=== PATIENT | female | born 1955 | race Hispanic/Latino ===

== ENCOUNTER 2018-08-30 14:42 | Inpatient (IN) | payer BC ==
--- NOTE | 2018-08-30 14:56 | PCM.RRT ---
<CrystalleighKeenan cole - Last Filed: 08/30/18 15:10> DYED YARN OPERATOR Nurse Assessment - Situation Date: 08/30/18 Time DYED YARN OPERATOR was called: 14:05 DYED YARN OPERATOR Location:: cardiac testing wait room DYED YARN OPERATOR Reason for Call: Possible Stroke DYED YARN OPERATOR Called By: RN - Recommendations 5) DYED YARN OPERATOR Level of Care Recommendations: transfer to ED I.Reason for DYED YARN OPERATOR - A) Acute Change in Patient: Subjective: Rapid response was called on patient in cardiac testing waiting room for concern for possible stroke. Patient was noted to have facial paralysis and left sided motor deficit. Patient was evaluated by medical staff and immediately transferred via stretcher to emergency department. Upon arrival to emergency department patient was transferred care to ED attending. Patient was transferred to cat scan for Head CT. - Neurological Status (Select all that apply): Alert, Responsive, Oriented, Verbal, Weakness (left sided) - Head Head Exam: ATRAUMATIC, NORMAL INSPECTION, NORMOCEPHALIC Additional Comments: facial parlaysis - Cardiovascular Exam Cardiovascular Exam: REGULAR RHYTHM, +S1, +S2 - GI/Abdominal Exam GI & Abdominal Exam: Soft, Normal Bowel Sounds - Neurological Exam Neurological Exam: Alert, Awake, Motor Sensory Deficit (left upper and lower extremity), Oriented x3 Additional exam: Left sided facial paralysis - Extremities Exam Extremities Exam: Full ROM Plan - Assessment of Findings&Treatment Plan -Patient transferred to ED from cardiac outpatient testing facility -Code Stroke called -Head CT w/o contrast ordered -Care transferred to Dr. Bond <Belkys Aguilar - Last Filed: 09/01/18 07:51> Attending/Attestation - Attestation I have personally seen and examined this patient.: Yes I have fully participated in the care of the patient.: Yes I have reviewed all pertinent clinical information, including history, physical exam and plan: Yes Notes (Text): Patient seen and examined by me with resident at 2:05PM on 08/30/18. Agree with above with following additions/corrections. Rapid response was called as patient was experiencing a facial droop and left sided weakness. Paitent was in an outpatient cardiac testing waiting room. Patient was able to speak and give her daughter's name. Patient was immediately transferred to ER for possible stroke. Case was discussed immediately on arrival to ED with ER attending Dr. Bond. Care transferred to Dr. Bond. Patient was sent to CT for head CT and Code stroke was called.
[2018-08-30] MEDS ORDERED: Sodium Chloride 0.9% 1,000 ML IV SCH (15:00)
--- NOTE | 2018-08-30 15:05 | ED PDOC ---
Arrival/HPI - General Time Seen by Provider: 08/30/18 14:46 Historian: Patient - History of Present Illness Narrative History of Present Illness (Text): 08/30/18 15:18 63 f with hx migraine headache presents to the ED for evaluation of acute slurred, facial droop, and left arm weakness. Patient was in waiting area in the hospital and was found in current state, rapid response call, and patient was brought to the ED immediately. Patient was seen immediately upon arrival. Patient was in her usual state of health, denies headache, denies chest pain, denies trauma. Patient reports numbness and weakness in the left arm and left side of face, +slurred speech, no lower extremity weakness or numbness. Time/Duration: Prior to Arrival Symptom Onset: Sudden Symptom Course: Improving Activities at Onset: Light Context: Other (Hospital waiting area) Family/Social History Family/Social History: No Known Family HX Allergies/Home Meds Allergies/Adverse Reactions: Allergies Iodinated Contrast- Oral and IV Dye Adverse Reaction (Verified 08/30/18 18:43) SHORTNESS OF BREATH Home Medications: Home Meds Medication Instructions Recorded Confirmed Rosuvastatin Calcium [Crestor] 10 mg PO DAILY 08/30/18 08/30/18 Review of Systems - Physician Review All systems were reviewed & negative as marked: Yes - Review of Systems Constitutional: absent: Other (trauma) Cardiovascular: absent: Chest Pain Neurological: Speech Changes (acute slurred speech), Facial Droop, Other (numbness and weakness to left arm and left side of face). absent: Headache Physical Exam - Physical Exam Narrative Physical Exam (Text): 08/30/18 15:21 Gen: VS reviewed, alert, well developed, well nourished, nontoxic, mild distress Eye: EOMI, PERRL Neck: no JVD, supple, no adenopathy CV: regular rate, regular rhythm, no rubs,no murmur, S1, S2 Pulm: no distress, clear to auscultation, no wheeze, no rhonchi, breath sounds equal, no rales Abd: soft, nontender, no guarding, no rebound, no rigidity Ext: no edema Skin: good color, no rash, no cyanosis Psych: responds appropriately to questions, normal affect Neuro: oriented x3, complete paralysis of left arm intact, complete numbness of left arm, diminished sensation to the left lower face. Vital Signs Reviewed: Yes Temperature: Afebrile Blood Pressure: Normal Pulse: Regular Respiratory Rate: Normal Appearance: Positive for: Well-Appearing, Non-Toxic Mental Status: Positive for: Alert and Oriented X 3 Medical Decision Making ED Course and Treatment: 08/30/18 15:05 1500: case discussed with dr. suarez, neurology, agrees that the patient is not a candidate for thrombolysis, recommends mri tomorrow,CT in 12 hours, keppra 500mg Q12, maintain SBP 130-150's 08/30/18 15:[address] keith, no acute neurosurgical intervention at this time, repeat CT as indicated admit accepted by dr. lundberg case discussed with dr. dr. singh, furniture mechanic, will see pt in consult 09/06/18 19:44 patient was seen for acute neurologic deficit (weakness and numbness), found to have a spontaneous intracranial bleed. patient was no a candidate due to obvious intracranial bleed. patient remained awake and alert during entire ED stay and was admitted to the ICU. - Critical Care Critical Care Minutes: 60 minutes - RAD Interpretation Narrative RAD Interpretations (Text): 08/30/18 15:30 Procedure: Chest X-ray Dictator: Sundeep Levin Impression: No active disease. Procedure: Head CT Dictator: Sundeep Levin MD Impression: 4 x 3.8 centimeter parenchymal hematoma at the right frontal parietal lobe surrounding with edema which resulting in mild mass effect on the adjacent structure. 2.6 millimeter right to left midline shift noted. No evidence of hydrocephalus. No evidence of transcortical infarct. Radiology Orders: 08/30/18 14:53 HEAD W/O (CODE STROKE) [CT] Stat 08/30/18 14:56 CHEST PORTABLE [RAD] Stat Safety Engineer: Radiologist - EKG Interpretation EKG Interpretation (Text): 08/30/18 16:14 1512: nser at 87 bpm, nml qrs, nml axis, nonspecific t wave abn Interpreted by ED Physician: Yes - Medication Orders Current Medication Orders: Sodium Chloride (Sodium Chloride 0.9%) 1,000 mls @ 100 mls/hr IV .Q10H [facility] NIHSS Scale ([place]) Time Performed: 15:00 - How Severe is the Stoke Baseline Level of Consciousness: 0=Alert LOC to Questions: 0=Both comments correct LOC to commands: 0=Obeys both correctly Best Gaze: 0=Normal Visual: 0=No visual loss Facial: 3=Complete unilateral paralysis Motor Arm - Left: 4=No movement Motor Arm - Right: 0=No drift Motor Leg - Left: 0=No drift Motor Leg - Right: 0=No drift Limb Ataxia: 0=Absent Sensory: 2=Severe to total loss Best Language: 0=No aphasia Dysarthia: 1=Mild to moderate slurring Extinction & Inattention (Neglect): 0=Normal, no object Score: 10 Risk Level: Mod Stroke Risk rTPA Inclusion/Exclusion - Refusal of Treatment Patient Refused Treatment: No - Inclusion Criteria for Altepase Patient is 18 years or Older: Yes The Clinical Diagnosis of Ischemic Stroke That is Causing a Potentially Disabling Neurological Deficit: Yes Time of Onset is Well Established to be Less Than 270 Minute Before Treatment Would Begin: Yes Risk/Benefit Discussed With Patient/Family Member Present: Yes - Exclusion Criteria for Altepase Evidence of an Intracranial Hemorrhage: Yes Disposition/Present on Arrival - Present on Arrival Any Indicators Present on Arrival: No - Disposition Have Diagnosis and Disposition been Completed?: Yes Diagnosis: Intracerebral hemorrhage Disposition: HOSPITALIZED Disposition Time: 15:56 Patient Plan: Admission Patient Problems: Current Active Problems Problem Status Onset Intracerebral hemorrhage Acute Condition: CRITICAL
--- NOTE | 2018-08-30 15:06 | CT ---
Date of service: 08/30/2018 PROCEDURE: CT HEAD WITHOUT CONTRAST. HISTORY: code stroke, left sided weakness COMPARISON: None available. TECHNIQUE: Axial computed tomography images were obtained through the head/brain without intravenous contrast. Radiation dose: Total exam DLP = 973.37 mGy-cm. This CT exam was performed using one or more of the following dose reduction techniques: Automated exposure control, adjustment of the mA and/or kV according to patient size, and/or use of iterative reconstruction technique. FINDINGS: HEMORRHAGE: There is acute intraparenchymal hemorrhage noted at the right frontal parietal lobe measures approximately 4 centimeter in the largest transverse diameter and 3.8 centimeter in the largest AP diameter surrounding with mild edema. BRAIN: There is mild mass effect on the right lateral ventricle noted. There is approximately 2.6 millimeter [id number] midline shift.. No atrophy or chronic microvascular ischemic changes. VENTRICLES: Unremarkable. No hydrocephalus. CALVARIUM: Unremarkable. PARANASAL SINUSES: Unremarkable as visualized. No significant inflammatory changes. MASTOID AIR CELLS: Unremarkable as visualized. No inflammatory changes. OTHER FINDINGS: None. IMPRESSION: 4 x 3.8 centimeter parenchymal hematoma at the right frontal parietal lobe surrounding with edema which resulting in mild mass effect on the adjacent structure. 2.6 millimeter right to left midline shift noted. No evidence of hydrocephalus. No evidence of transcortical infarct.
[2018-08-30] MEDS ORDERED: levETIRAcetam 500 MG in Sodium Chloride 0.9% 100 ML IVPB ONE (15:07)
[2018-08-30 15:13] LABS: BASO # 0.02 K/mm3 (0.0-2.0); BASO % 0.3 % (0.0-3.0); EOS # 0.1 (0.0-0.7); EOS % 0.9 % (1.5-5.0); LYMPH # 1.4 (1.2-3.4); MEAN CELL VOLUME 62.9 fl (80.0-105.0); MEAN CORPUSCULAR HGB CONC 31.7 g/dl (31.0-37.0); MEAN PLATELET VOLUME 10.2 fl (7.0-11.0); MONO # 0.5 (0.1-0.6); MONO % 7.1 % (1.0-6.0); RBC 6.01 10^6/uL (3.5-6.1); RED CELL DISTRIBUTION WIDTH 15.5 % (11.5-14.5); WHITE BLOOD COUNT 7.5 10^3/uL (4.5-11.0)
[2018-08-30 15:15] VITALS: BMI 26.9
[2018-08-30 15:23] LABS: ALB/GLOB RATIO 1.3 (1.1-1.8); ALBUMIN 4.5 g/dL (3.0-4.8); ALT/SGPT 12 U/L (7-56); AST/SGOT 22 U/L (14-36); BLOOD UREA NITROGEN 16 mg/dL (7-21); CALCIUM 9.6 mg/dL (8.4-10.5); GFR NON-AFRICAN AMERICAN > 60; HDL CHOLESTEROL 55 mg/dL (29-60)
[2018-08-30 15:31] LABS: INR 1.04; PARTIAL THROMBOPLASTIN TIME 33.6 Seconds (26.9-38.3); PROTHROMBIN TIME 11.5 SECONDS (9.4-12.5)
[2018-08-30 15:35] LABS: LDL CHOLESTEROL 72 mg/dL (0-129)
[2018-08-30 15:41] LABS: TROPONIN I < 0.01 ng/mL
--- NOTE | 2018-08-30 16:05 | CP.PCM.CON ---
<Ino Cuellar - Last Filed: 08/30/18 16:21> History of Present Illness - History of Present Illness History of Present Illness: PGY-1 Neurology Consult note for Dr. Gutierrez Consulting physician: Dr. Almeida CC: Left-sided weakness, left facial droop, and dysarthria HPI: Patient is a 63 year old female with past medical history of migraine headaches, presenting with left-sided weakness, left-sided facial droop, and slurred speech. Patient was in the hospital waiting for her at cardiac outpatient treatment facility when suddenly she felt that her left arm started feeling weak. She states that she then started feeling weak on the left side of her body and was slurring her words. Rapid response was called and patient was brought into the ED where a code stroke was called. She denies fevers, chills, nausea, vomiting, shortness of breath, chest pain, abdominal pain, diarrhea, constipation, or urinary symptoms. In ED, code stroke was called. NIHSS score: 19. Patient was not a candidate for tPA. PMHx: Migraine headaches PSHx: denies Social Hx: Denies tobacco, alcohol, or drug use. Family Hx: Father has CHF. Two brothers have CAD. Allergies: Iodinated contrast PMD: Dr. Elizabeth Review of Systems - Review of Systems All systems: reviewed and no additional remarkable complaints except Meds Allergies/Adverse Reactions: Allergies Allergy/AdvReac Type Severity Reaction Status Date / Time Iodinated Contrast- Oral and AdvReac SHORTNESS Verified 08/30/18 18:43 IV Dye OF BREATH - Medications Medications: Current Medications Sodium Chloride (Sodium Chloride 0.9%) 1,000 mls @ 100 mls/hr IV .Q10H [facility] Last Admin: 08/30/18 15:13 Dose: 100 mls/hr Physical Exam - Constitutional Appears: No Acute Distress Additional comments: Patient seems lethargic. - Head Exam Head Exam: ATRAUMATIC, NORMAL INSPECTION - Eye Exam Eye Exam: absent: EOMI (Left eye do not track past midline) Pupil Exam: NORMAL ACCOMODATION, PERRL - ENT Exam ENT Exam: Mucous Membranes Moist - Respiratory Exam Respiratory Exam: Clear to Auscultation Bilateral. absent: Rales, Rhonchi, Wheezes, Respiratory Distress - Cardiovascular Exam Cardiovascular Exam: REGULAR RHYTHM, +S1, +S2. absent: Systolic Murmur - GI/Abdominal Exam GI & Abdominal Exam: Normal Bowel Sounds, Soft. absent: Tenderness - Extremities Exam Extremities exam: Negative for: calf tenderness, pedal edema - Neurological Exam Neurological exam: Alert, Oriented x3 Additional comments: Left-sided facial droop with sparing of forehead noted. Facial sensations intact bilaterally on CN V1, V2, and V3 distributions. Patient has slurred speech. Patient has left homonymous hemianopsia and left extraocular muscles not intact. Muscle strength 0/5 in LUE and 1/5 in LLE. Muscle strength 5/5 and no drift noted in RUE and RLE. Sensations are intact bilaterally in upper and lower extremities. - Psychiatric Exam Psychiatric exam: Flat Affect - Skin Skin Exam: Dry, Intact, Normal Color, Warm Results - Labs Result Diagrams: 08/30/18 15:05 08/30/18 15:05 Labs: Laboratory Results - last 24 hr 08/30/18 08/30/18 08/30/18 15:01 15:05 15:05 WBC 7.5 RBC 6.01 Hgb 12.0 Hct 37.8 MCV 62.9 L MCH 20.0 L MCHC 31.7 RDW 15.5 H Plt Count 238 MPV 10.2 Neut % (Auto) 72.7 H Lymph % (Auto) 19.0 L Door % (Auto) 7.1 H Eos % (Auto) 0.9 L Baso % (Auto) 0.3 Lymph # (Auto) 1.4 Door # (Auto) 0.5 Eos # (Auto) 0.1 Baso # (Auto) 0.02 Absolute Neuts (auto) 5.46 PT 11.5 INR 1.04 APTT 33.6 Sodium Potassium Chloride Carbon Dioxide Anion Gap BUN Creatinine Est GFR ( Amer) Est GFR (Non-Af Amer) POC Glucose (mg/dL) 123 H Random Glucose Calcium Total Bilirubin AST ALT Alkaline Phosphatase Troponin I Total Protein Albumin Globulin Albumin/Globulin Ratio Triglycerides Cholesterol LDL Cholesterol Direct HDL Cholesterol BBK History Checked 08/30/18 08/30/18 15:05 15:05 WBC RBC Hgb Hct MCV MCH MCHC RDW Plt Count MPV Neut % (Auto) Lymph % (Auto) Door % (Auto) Eos % (Auto) Baso % (Auto) Lymph # (Auto) Door # (Auto) Eos # (Auto) Baso # (Auto) Absolute Neuts (auto) PT INR APTT Sodium 141 Potassium 3.8 Chloride 105 Carbon Dioxide 28 Anion Gap 12 BUN 16 Creatinine 0.7 Est GFR ( Amer) > 60 Est GFR (Non-Af Amer) > 60 POC Glucose (mg/dL) Random Glucose 111 H Calcium 9.6 Total Bilirubin 0.3 AST 22 ALT 12 Alkaline Phosphatase 99 Troponin I < 0.01 Total Protein 7.9 Albumin 4.5 Globulin 3.4 Albumin/Globulin Ratio 1.3 Triglycerides 149 Cholesterol 157 LDL Cholesterol Direct 72 HDL Cholesterol 55 BBK History Checked No verified bt Assessment & Plan - Assessment and Plan (Free Text) Assessment: Patient is a 63 year old female presenting with left-sided weakness, left facial droop, and dysarthria. Patient was found to have a 4x3.8 cm parenchymal hematoma in the right frontoparietal lobe with surrounding edema. She will be admitted to ICU. Plan: - Head CT: 4 x 3.8 centimeter parenchymal hematoma at the right frontal parietal lobe surrounding with edema which resulting in mild mass effect on the adjacent structure. 2.6 millimeter right to left midline shift noted. No evidence of hydrocephalus. No evidence of transcortical infarct. - NIHSS score: 19 - Monitor patient in ICU - Neurosurgery, Dr. Paula consulted- No surgical intervention at this time - Hold Aspirin and other anticoagulants - Repeat Head CT in 12 hours - MRI ordered for tomorrow morning - Start Keppra 500mg IV BID - Keep SBP between 130-150 - Seizure, fall, aspiration precautions - Neurochecks Q1H - EKG: NSR @ 87 bpm - Lipid panel: WNL - Troponin: <0.01 X1 - HbA1c, TSH: pending - Further recommendations as per Dr. Gutierrez Case discussed with attending, Dr. Brenda Cuellar, PGY-1 <Thanh Gutierrez - Last Filed: 08/31/18 13:29> Meds - Medications Medications: Current Medications Levetiracetam 500 mg/ Sodium (Chloride) 105 mls @ 215 mls/hr IVPB Q12 [facility] Last Admin: 08/31/18 09:28 Dose: 215 mls/hr Sodium Chloride (Hypertonic Saline 3%) 500 mls @ 40 mls/hr IV .[id number] [facility] Last Admin: 08/31/18 07:00 Dose: 40 mls/hr Pantoprazole Sodium (Protonix Inj) 40 mg IVP DAILY [facility] Last Admin: 08/31/18 11:18 Dose: 40 mg Results - Vital Signs Recent Vital Signs: Last Vital Signs Temp 99.2 F 08/31/18 08:00 Pulse 65 08/31/18 10:00 Resp 15 08/31/18 08:40 BP 149/73 08/31/18 08:40 Pulse Ox 95 08/31/18 08:40 - Labs Result Diagrams: 08/31/18 05:30 08/31/18 09:40 Labs: Laboratory Results - last 24 hr 08/30/18 08/30/18 08/30/18 15:01 15:05 15:05 WBC 7.5 RBC 6.01 Hgb 12.0 Hct 37.8 MCV 62.9 L MCH 20.0 L MCHC 31.7 RDW 15.5 H Plt Count 238 MPV 10.2 Neut % (Auto) 72.7 H Lymph % (Auto) 19.0 L Door % (Auto) 7.1 H Eos % (Auto) 0.9 L Baso % (Auto) 0.3 Lymph # (Auto) 1.4 Door # (Auto) 0.5 Eos # (Auto) 0.1 Baso # (Auto) 0.02 Absolute Neuts (auto) 5.46 PT 11.5 INR 1.04 APTT 33.6 pCO2 pO2 HCO3 ABG pH ABG Total CO2 ABG O2 Saturation ABG Base Excess ABG Potassium Glucose Lactate FiO2 Sodium Potassium Chloride Carbon Dioxide Anion Gap BUN Creatinine Est GFR ( Amer) Est GFR (Non-Af Amer) POC Glucose (mg/dL) 123 H Random Glucose Hemoglobin A1c Calcium Phosphorus Magnesium Total Bilirubin AST ALT Alkaline Phosphatase Troponin I Total Protein Albumin Globulin Albumin/Globulin Ratio Triglycerides Cholesterol LDL Cholesterol Direct HDL Cholesterol TSH 3rd Generation Arterial Blood Potassium Blood Type Blood Type Confirm Antibody Screen BBK History Checked 08/30/18 08/30/18 08/30/18 15:05 15:05 15:05 WBC RBC Hgb Hct MCV MCH MCHC RDW Plt Count MPV Neut % (Auto) Lymph % (Auto) Door % (Auto) Eos % (Auto) Baso % (Auto) Lymph # (Auto) Door # (Auto) Eos # (Auto) Baso # (Auto) Absolute Neuts (auto) PT INR APTT pCO2 pO2 HCO3 ABG pH ABG Total CO2 ABG O2 Saturation ABG Base Excess ABG Potassium Glucose Lactate FiO2 Sodium 141 Potassium 3.8 Chloride 105 Carbon Dioxide 28 Anion Gap 12 BUN 16 Creatinine 0.7 Est GFR ( Amer) > 60 Est GFR (Non-Af Amer) > 60 POC Glucose (mg/dL) Random Glucose 111 H Hemoglobin A1c 6.2 Calcium 9.6 Phosphorus Magnesium Total Bilirubin 0.3 AST 22 ALT 12 Alkaline Phosphatase 99 Troponin I < 0.01 Total Protein 7.9 Albumin 4.5 Globulin 3.4 Albumin/Globulin Ratio 1.3 Triglycerides 149 Cholesterol 157 LDL Cholesterol Direct 72 HDL Cholesterol 55 TSH 3rd Generation Arterial Blood Potassium Blood Type A POSITIVE Blood Type Confirm Antibody Screen Negative BBK History Checked No verified bt 08/30/18 08/31/18 08/31/18 16:03 05:30 05:30 WBC 7.8 RBC 5.65 Hgb 11.3 L Hct 35.8 L MCV 63.4 L MCH 20.0 L MCHC 31.6 RDW 15.7 H Plt Count 207 MPV 10.1 Neut % (Auto) Lymph % (Auto) Door % (Auto) Eos % (Auto) Baso % (Auto) Lymph # (Auto) Door # (Auto) Eos # (Auto) Baso # (Auto) Absolute Neuts (auto) PT INR APTT pCO2 pO2 HCO3 ABG pH ABG Total CO2 ABG O2 Saturation ABG Base Excess ABG Potassium Glucose Lactate FiO2 Sodium 142 Potassium 3.9 Chloride 109 H Carbon Dioxide 26 Anion Gap 10 BUN 13 Creatinine 0.6 L Est GFR ( Amer) > 60 Est GFR (Non-Af Amer) > 60 POC Glucose (mg/dL) Random Glucose 95 Hemoglobin A1c Calcium 8.9 Phosphorus 3.2 Magnesium 2.3 H Total Bilirubin AST ALT Alkaline Phosphatase Troponin I Total Protein Albumin Globulin Albumin/Globulin Ratio Triglycerides Cholesterol LDL Cholesterol Direct HDL Cholesterol TSH 3rd Generation Arterial Blood Potassium Blood Type Blood Type Confirm A POSITIVE Antibody Screen BBK History Checked 08/31/18 08/31/18 08/31/18 05:30 07:35 08:52 WBC RBC Hgb Hct MCV MCH MCHC RDW Plt Count MPV Neut % (Auto) Lymph % (Auto) Door % (Auto) Eos % (Auto) Baso % (Auto) Lymph # (Auto) Door # (Auto) Eos # (Auto) Baso # (Auto) Absolute Neuts (auto) PT INR APTT pCO2 33 L pO2 91.0 HCO3 21.9 ABG pH 7.43 ABG Total CO2 22.9 ABG O2 Saturation 99.0 H ABG Base Excess -1.7 ABG Potassium 3.2 L Glucose 88 Lactate 0.7 FiO2 21.0 Sodium 148.0 Potassium Chloride 119.0 H Carbon Dioxide Anion Gap BUN Creatinine Est GFR ( Amer) Est GFR (Non-Af Amer) POC Glucose (mg/dL) 86 Random Glucose Hemoglobin A1c Calcium Phosphorus Magnesium Total Bilirubin AST ALT Alkaline Phosphatase Troponin I Total Protein Albumin Globulin Albumin/Globulin Ratio Triglycerides Cholesterol LDL Cholesterol Direct HDL Cholesterol TSH 3rd Generation 1.29 Arterial Blood Potassium 3.2 L Blood Type Blood Type Confirm Antibody Screen BBK History Checked 08/31/18 08/31/18 09:40 11:09 WBC RBC Hgb Hct MCV MCH MCHC RDW Plt Count MPV Neut % (Auto) Lymph % (Auto) Door % (Auto) Eos % (Auto) Baso % (Auto) Lymph # (Auto) Door # (Auto) Eos # (Auto) Baso # (Auto) Absolute Neuts (auto) PT INR APTT pCO2 pO2 HCO3 ABG pH ABG Total CO2 ABG O2 Saturation ABG Base Excess ABG Potassium Glucose Lactate FiO2 Sodium 143 Potassium 4.1 Chloride 112 H Carbon Dioxide 25 Anion Gap 11 BUN 11 Creatinine 0.6 L Est GFR ( Amer) > 60 Est GFR (Non-Af Amer) > 60 POC Glucose (mg/dL) 85 Random Glucose 95 Hemoglobin A1c Calcium 8.8 Phosphorus Magnesium Total Bilirubin AST ALT Alkaline Phosphatase Troponin I Total Protein Albumin Globulin Albumin/Globulin Ratio Triglycerides Cholesterol LDL Cholesterol Direct HDL Cholesterol TSH 3rd Generation Arterial Blood Potassium Blood Type Blood Type Confirm Antibody Screen BBK History Checked Attending/Attestation - Attestation I have personally seen and examined this patient.: Yes I have fully participated in the care of the patient.: Yes I have reviewed all pertinent clinical information: Yes Notes (Text): I agree with the assessment and plan. The patient has a large right hemisphere ICH with significant edema. Will start hypertonic therapy and give Keppra for prophylaxis. Goal of serum sodium will be 145-150 and osm < 320.
--- NOTE | 2018-08-30 16:06 | CP.PCM.CON ---
<Keenan Hinds - Last Filed: 08/30/18 15:57> History of Present Illness - History of Present Illness History of Present Illness: ICU Consult Note for Dr. Viveros Reason for Consultation: ICH Patient is a 63 yo with PMH of migraines presents to [facility] [place] ED for code stroke. Patient was in waiting area while was having a procedure done. Patient started to complain of left sided weakness and rapid response was called. Patient was noted to have left sided facial droop, left arm weakness, and left arm numbness. Patient was immediately transferred to the ED. In the ED, patient was found to have a 4x3.8 cm parenchymal hematoma in the right frontoparietal lobe with surrounding edema. ICU was consulted for close monitoring. At time of examination, patient was awake, alert and oriented x3. Patient continued to have left sided weakness, facial droop, and dysarthria. Patient denied CP, SOB, n/v/d, abdominal pain, fever, chills, TRINH, or dizziness. PMD: Cardiello PMH: Migraines Surg: Denied All: Iodinated Contrast dye SH: Denied tobacco, EtOH, and illicit drug use FHx: CAD, CHF Medications: Magnesium, ASA 81 Review of Systems - Review of Systems All systems: reviewed and no additional remarkable complaints except (12 point ROS reviewed and is negative other than what is stated in HPI.) Meds Allergies/Adverse Reactions: Allergies Allergy/AdvReac Type Severity Reaction Status Date / Time Iodinated Contrast- Oral and AdvReac SHORTNESS Verified 08/30/18 14:52 IV Dye OF BREATH - Medications Medications: Current Medications Sodium Chloride (Sodium Chloride 0.9%) 1,000 mls @ 100 mls/hr IV .Q10H [facility] Last Admin: 08/30/18 15:13 Dose: 100 mls/hr Physical Exam - Head Exam Head Exam: ATRAUMATIC, NORMOCEPHALIC - Eye Exam Eye Exam: absent: EOMI (eyes do not track left past midline) Additional comments: left homonymous hemianopsia - ENT Exam ENT Exam: Mucous Membranes Moist, Normal Exam - Respiratory Exam Respiratory Exam: Clear to Auscultation Bilateral. absent: Rales, Rhonchi, Wheezes - Cardiovascular Exam Cardiovascular Exam: RRR, +S1, +S2. absent: Clicks, Gallop, Rubs - GI/Abdominal Exam GI & Abdominal Exam: Soft. absent: Distended, Guarding, Mass, Rebound, Tenderness - Extremities Exam Extremities exam: Positive for: normal inspection - Back Exam Back exam: NORMAL INSPECTION - Neurological Exam Neurological exam: Alert, Motor Sensory Deficit (left sided hemiplegia UE/LE), Oriented x3 Additional comments: Left sided neglect Left UE/LE hemiplegia Right sided strength intact Left sided facial droop, forehead spared Dysarthria No pronator drift present in right arm Right arm proprioception intact - Psychiatric Exam Psychiatric exam: Anxious - Skin Skin Exam: Dry, Warm Results - Labs Result Diagrams: 08/30/18 15:05 08/30/18 15:05 Labs: Laboratory Results - last 24 hr 08/30/18 08/30/18 08/30/18 15:01 15:05 15:05 WBC 7.5 RBC 6.01 Hgb 12.0 Hct 37.8 MCV 62.9 L MCH 20.0 L MCHC 31.7 RDW 15.5 H Plt Count 238 MPV 10.2 Neut % (Auto) 72.7 H Lymph % (Auto) 19.0 L [place] % (Auto) 7.1 H Eos % (Auto) 0.9 L Baso % (Auto) 0.3 Lymph # (Auto) 1.4 [place] # (Auto) 0.5 Eos # (Auto) 0.1 Baso # (Auto) 0.02 Absolute Neuts (auto) 5.46 PT 11.5 INR 1.04 APTT 33.6 Sodium Potassium Chloride Carbon Dioxide Anion Gap BUN Creatinine Est GFR ( Amer) Est GFR (Non-Af Amer) POC Glucose (mg/dL) 123 H Random Glucose Calcium Total Bilirubin AST ALT Alkaline Phosphatase Troponin I Total Protein Albumin Globulin Albumin/Globulin Ratio Triglycerides Cholesterol LDL Cholesterol Direct HDL Cholesterol BBK History Checked 08/30/18 08/30/18 15:05 15:05 WBC RBC Hgb Hct MCV MCH MCHC RDW Plt Count MPV Neut % (Auto) Lymph % (Auto) [place] % (Auto) Eos % (Auto) Baso % (Auto) Lymph # (Auto) [place] # (Auto) Eos # (Auto) Baso # (Auto) Absolute Neuts (auto) PT INR APTT Sodium 141 Potassium 3.8 Chloride 105 Carbon Dioxide 28 Anion Gap 12 BUN 16 Creatinine 0.7 Est GFR ( Amer) > 60 Est GFR (Non-Af Amer) > 60 POC Glucose (mg/dL) Random Glucose 111 H Calcium 9.6 Total Bilirubin 0.3 AST 22 ALT 12 Alkaline Phosphatase 99 Troponin I < 0.01 Total Protein 7.9 Albumin 4.5 Globulin 3.4 Albumin/Globulin Ratio 1.3 Triglycerides 149 Cholesterol 157 LDL Cholesterol Direct 72 HDL Cholesterol 55 BBK History Checked No verified bt Assessment & Plan - Assessment and Plan (Free Text) Assessment: 63 yo F with PMH of migraines presents to [facility] [place] for left-sided deficits. Will admitto the ICU for close monitoring due to parenchymal hematoma in the right frontal parietal lobe. 1. Right frontoparietal ICH Plan: Neuro: - Head CT showed 4x3.8 cm parenchymal hematoma in the right frontoparietal lobe with surrounding edema and 2.6 mm midline shift right to left - Head CT in 12 hrs - Brain MRI in AM - Keppra - No steroids or hypertonic saline at this time per neurology - Neurology Consulted - Neurosurgery Consulted: no acute surgical intervention at this time - Maintain normothermia Cardio: - Monitor BP, target SBP 130-150 per neurology - Maintain MAP > 65 - Hold home ASA Pulm: - Maintain O2 sat > 92% GI: - Protonix - NPO Renal: - Monitor electrolytes, replete/correct as needed - Maintain euvolemia Heme: - SCD's for DVT PPx Endo: - Maintain euglycemia Patient seen and discussed in detail with Dr. Viveros. Mauri Hinds, PGY2 NIHSS Scale ([place]) Time Performed: 16:00 - How Severe is the Stoke Baseline Level of Consciousness: 1=Drowsy LOC to Questions: 0=Both comments correct LOC to commands: 0=Obeys both correctly Best Gaze: 0=Normal Visual: 1=Partial hemianopia Facial: 3=Complete unilateral paralysis Motor Arm - Left: 4=No movement Motor Arm - Right: 0=No drift Motor Leg - Left: 0=No drift Motor Leg - Right: 4=No movement Limb Ataxia: 2=Present both Sensory: 1=Mild to moderate loss Best Language: 1=Mild to moderate aphasia Dysarthia: 1=Mild to moderate slurring Extinction & Inattention (Neglect): 1=Partial neglect (mild forrest-attention) Score: 19 Risk Level: Mod/Sev Stroke Risk <Viveros,Bilal - Last Filed: 08/30/18 18:33> Meds - Medications Medications: Current Medications Sodium Chloride (Sodium Chloride 0.9%) 1,000 mls @ 100 mls/hr IV .Q10H [facility] Last Admin: 08/30/18 15:13 Dose: 100 mls/hr Levetiracetam 500 mg/ Sodium (Chloride) 105 mls @ 215 mls/hr IVPB Q12 [facility] Pantoprazole Sodium (Protonix Inj) 40 mg IVP DAILY [facility] Results - Vital Signs Recent Vital Signs: Last Vital Signs Temp 98 F 08/30/18 14:43 Pulse 88 08/30/18 14:43 Resp 18 08/30/18 14:43 BP 139/78 08/30/18 14:43 Pulse Ox 98 08/30/18 14:43 - Labs Result Diagrams: 08/30/18 15:05 08/30/18 15:05 Labs: Laboratory Results - last 24 hr 08/30/18 08/30/18 08/30/18 15:01 15:05 15:05 WBC 7.5 RBC 6.01 Hgb 12.0 Hct 37.8 MCV 62.9 L MCH 20.0 L MCHC 31.7 RDW 15.5 H Plt Count 238 MPV 10.2 Neut % (Auto) 72.7 H Lymph % (Auto) 19.0 L [place] % (Auto) 7.1 H Eos % (Auto) 0.9 L Baso % (Auto) 0.3 Lymph # (Auto) 1.4 [place] # (Auto) 0.5 Eos # (Auto) 0.1 Baso # (Auto) 0.02 Absolute Neuts (auto) 5.46 PT 11.5 INR 1.04 APTT 33.6 Sodium Potassium Chloride Carbon Dioxide Anion Gap BUN Creatinine Est GFR ( Amer) Est GFR (Non-Af Amer) POC Glucose (mg/dL) 123 H Random Glucose Calcium Total Bilirubin AST ALT Alkaline Phosphatase Troponin I Total Protein Albumin Globulin Albumin/Globulin Ratio Triglycerides Cholesterol LDL Cholesterol Direct HDL Cholesterol Blood Type Blood Type Confirm Antibody Screen BBK History Checked 08/30/18 08/30/18 08/30/18 15:05 15:05 16:03 WBC RBC Hgb Hct MCV MCH MCHC RDW Plt Count MPV Neut % (Auto) Lymph % (Auto) [place] % (Auto) Eos % (Auto) Baso % (Auto) Lymph # (Auto) [place] # (Auto) Eos # (Auto) Baso # (Auto) Absolute Neuts (auto) PT INR APTT Sodium 141 Potassium 3.8 Chloride 105 Carbon Dioxide 28 Anion Gap 12 BUN 16 Creatinine 0.7 Est GFR ( Amer) > 60 Est GFR (Non-Af Amer) > 60 POC Glucose (mg/dL) Random Glucose 111 H Calcium 9.6 Total Bilirubin 0.3 AST 22 ALT 12 Alkaline Phosphatase 99 Troponin I < 0.01 Total Protein 7.9 Albumin 4.5 Globulin 3.4 Albumin/Globulin Ratio 1.3 Triglycerides 149 Cholesterol 157 LDL Cholesterol Direct 72 HDL Cholesterol 55 Blood Type A POSITIVE Blood Type Confirm A POSITIVE Antibody Screen Negative BBK History Checked No verified bt Addendum Addendum: 08/30/18 18:33 ICU Attending Addendum Patient seen and examined. Case reviewed on round with housestaff. Agree with resident note above with the following additions/exceptions 63F with PMH of migraines developed stroke like symptoms while sitting with her who was in a cardiovasc procedure today here at [facility] [place] [place]. Developed left sided weakness, droop and slurring found to have right frontoparietal ICH 4 x 3.8 neuro and neuro surg on board no surg intervention unless mental status gets worse repeat CT in 12 hours MRI tomrrow BP goals as per neuro PPI SCD for DVT ppx Rest of care as above in housestaff note Richar Viveros MD Pulmonary Critical Care Attending 08/30/18 18:33
--- NOTE | 2018-08-30 16:48 | RAD ---
Date of service: 08/30/2018 HISTORY: Code Stroke COMPARISON: No prior. FINDINGS: LUNGS: No active pulmonary disease. PLEURA: No significant pleural effusion identified, no pneumothorax apparent. CARDIOVASCULAR: No aortic atherosclerotic calcification present. Normal cardiac size. No pulmonary vascular congestion. OSSEOUS STRUCTURES: No significant abnormalities. VISUALIZED UPPER ABDOMEN: Normal. OTHER FINDINGS: None. IMPRESSION: No active disease.
--- NOTE | 2018-08-30 17:16 | CP.PCM.PN ---
Subjective - Date & Time of Evaluation Date of Evaluation: 08/30/18 Time of Evaluation: 17:13 - Subjective Subjective: 63 y o femal had code stroke while waiting foor in waiting room Ct shows hemmoragic infarct rith front parietal with L sided weakness Pt isfully a a ox3 At this time no intervention indicated There is high liklyhood weakness will worsen as CVA is in motor strip Would only consider suregery if there is change in mentation NOT changes in motor function Repeat CT in AM Objective - Vital Signs/Intake and Output Vital Signs (last 24 hours): Temp Pulse Resp BP Pulse Ox 98 F 88 18 139/78 98 08/30/18 14:43 08/30/18 14:43 08/30/18 14:43 08/30/18 14:43 08/30/18 14:43 - Medications Medications: Current Medications Sodium Chloride (Sodium Chloride 0.9%) 1,000 mls @ 100 mls/hr IV .Q10H [facility] Last Admin: 08/30/18 15:13 Dose: 100 mls/hr Levetiracetam 500 mg/ Sodium (Chloride) 105 mls @ 215 mls/hr IVPB Q12 [facility] Pantoprazole Sodium (Protonix Inj) 40 mg IVP DAILY [facility] - Labs Labs: 08/30/18 15:05 08/30/18 15:05 PT 11.5 SECONDS (9.4-12.5) 08/30/18 15:05 INR 1.04 08/30/18 15:05 APTT 33.6 Seconds (26.9-38.3) 08/30/18 15:05
[2018-08-30] MEDS ORDERED: Lidocaine 5% Patch TD ONE (21:00)
[2018-08-30] MEDS: levETIRAcetam 500 MG in Sodium Chloride 0.9% 100 ML IVPB SCH (21:22)
[2018-08-30] MEDS ORDERED: Influenza Vaccine 60 mcg/0.5 mL SYR (4YR UP) IM ONE (21:54)
[2018-08-30] MEDS ORDERED: Pneumococcal 23-Valent Vaccine IM ONE (21:54)
--- NOTE | 2018-08-30 23:19 | HP ---
DATE OF EXAM: 08/30/2018 HISTORY OF PRESENT ILLNESS: A 63-year-old white female with a long history of hypercholesterolemia and migraine headaches. MRI several years ago. Patient has been staying at the hospital and helping her who has been admitted with multiple myeloma. Patient has been under severe stress for the last 10 days, not leaving the hospital at any point over the last 10 days. Patient while in the room with her today developed some left-sided weakness and difficulty in speaking, was taken down to the emergency room and was found to have an intracerebral bleed. Patient had no other previous symptoms except that day when she had acute loss of strength in the left upper and left lower extremity. Patient came to emergency room. She had emergent CT of the head. She is not hypertensive. She is a nonsmoker and nondrinker. She was found to have a 4 x 3.8 cm parenchymal hematoma at the right frontoparietal lobe stranding edema and mild mass effect on adjacent structures. She has 2.6 mm right to left midline shift noted. No hydrocephalus. No change in cortical infarct. She has no history of diabetes or hypertension. ALLERGIES: STATED PATIENT HAS NO ALLERGIES. MEDICATIONS: She takes only Maxalt and simvastatin as an outpatient. REVIEW OF SYSTEMS: Negative for cardiac for palpitations, chest pain, and shortness of breath. GI is negative for nausea, vomiting, or diarrhea. is negative for dysuria, hematuria, urgency or frequency. Neurological is positive only for loss of strength in the left upper and left lower extremity. Loss of sensation in left lower extremity, difficulty in walking, difficulty and speaking. Patient has no difficulty in swallowing at this point. PHYSICAL EXAMINATION GENERAL: Patient is awake, seen in the emergency room. A well-developed and well-nourished white female in the emergency room. VITAL SIGNS: Temperature 98, blood pressure 139/78, and she is afebrile. CHEST: Clear to auscultation. HEART: Regular sinus rhythm. NECK: Without bruits. ABDOMEN: Benign. EXTREMITIES: Without clubbing, cyanosis, or edema. NEUROLOGIC: She has left facial droop. She has loss of strength in the left upper and left lower extremity. She has upgoing Babinski's on the left, and upcoming on the right. She has decreased loss of sensation. Strength is 0/5 in the left upper and left lower extremity. Speech is dysarthric, but not aphasic. IMPRESSION AND PLAN: Right intracerebral bleed, rule out ruptured aneurysm, rule out hypoplastic blood vessel. Patient is without hypertensive bleed. Patient does take an occasional almost on a daily basis, but no other anticoagulants and she is not hypertensive. Pal Elizabeth MD
[2018-08-31 06:06] LABS: HEMOGLOBIN 11.3 g/dL (12.0-16.0); MEAN CELL VOLUME 63.4 fl (80.0-105.0); MEAN CORPUSCULAR HGB CONC 31.6 g/dl (31.0-37.0); MEAN PLATELET VOLUME 10.1 fl (7.0-11.0); RBC 5.65 10^6/uL (3.5-6.1); RED CELL DISTRIBUTION WIDTH 15.7 % (11.5-14.5); WHITE BLOOD COUNT 7.8 10^3/uL (4.5-11.0)
--- NOTE | 2018-08-31 06:10 | CP.PCM.PN ---
Subjective - Date & Time of Evaluation Date of Evaluation: 08/31/18 Time of Evaluation: 06:07 - Subjective Subjective: Patient was reassessed [address] head CT scan. Patient is noted to have left sided facial droop, left sided hemiplegia, and left sided neglect consistent with exam on admission. Patient also following commands appropriately with her right side. Patient is AOx3. However, patient is more lethargic compared to admission and cannot open her eyes spontaneously. Repeat head CT showed increasing size of the right frontotemporal intraparencymal hematoma from 4x3.8 cm to 6.9x4.4 cm, right to left midline shift increased from 2.6 mm to 7.2 mm, and now with subfalcine brain herniation that was not present on initial CT. Multiple attempts were made to try and reach Dr. Paula's service starting at 4:30 AM, however the was service was not reachable as no ring tones were heard after dialing his number. The nursing workers' compensation claims supervisor, Linda, was able to obtain Dr. Paula's direct number, however the line was busy on multiple attempts. Dr. Gutierrez was contacted as the neurologist on consult for this case. He recommended that we give her a 250 cc bolus of hypertonic saline and then a drip at a rate of 40 cc/hr with a sodium goal of 145-150 mmol/L. Case was discussed with Dr. Clayton Viveros. Mauri Hinds, DO PGY2 Objective - Vital Signs/Intake and Output Vital Signs (last 24 hours): Temp Pulse Resp BP Pulse Ox 98 F 72 18 138/74 98 08/30/18 14:43 08/30/18 22:00 08/30/18 21:31 08/30/18 18:44 08/30/18 18:44 Intake and Output: 08/30/18 08/31/18 18:59 06:59 Intake Total 200 Output Total 1000 Balance -800 - Medications Medications: Current Medications Levetiracetam 500 mg/ Sodium (Chloride) 105 mls @ 215 mls/hr IVPB Q12 [facility] Last Admin: 08/30/18 21:22 Dose: 215 mls/hr Sodium Chloride (Hypertonic Saline 3%) 250 mls @ 999 mls/hr IV .Q16M [facility] Sodium Chloride (Hypertonic Saline 3%) 500 mls @ 40 mls/hr IV .[id number] [facility] Pantoprazole Sodium (Protonix Inj) 40 mg IVP DAILY [facility] - Labs Labs: 08/30/18 15:05 08/30/18 15:05 PT 11.5 SECONDS (9.4-12.5) 08/30/18 15:05 INR 1.04 08/30/18 15:05 APTT 33.6 Seconds (26.9-38.3) 08/30/18 15:05
[2018-08-31] MEDS ORDERED: Sodium Chloride 3% 250 ML IV SCH ×2 (06:15)
[2018-08-31] MEDS ORDERED: Sodium Chloride 3% 500 ML IV SCH (06:15)
[2018-08-31 06:20] LABS: BLOOD UREA NITROGEN 13 mg/dL (7-21); CALCIUM 8.9 mg/dL (8.4-10.5); GFR NON-AFRICAN AMERICAN > 60
[2018-08-31 07:45] LABS: ARTERIAL BLOOD GAS HCO3 21.9 mmol/L (21-28); ARTERIAL BLOOD GAS PCO2 33 mm/Hg (35-45); ARTERIAL BLOOD GAS PH 7.43 (7.35-7.45); ARTERIAL BLOOD GAS TCO2 22.9 mmol.L (22-28)
--- NOTE | 2018-08-31 07:48 | CARD ---
APPROVED REPORT Date of service: 08/30/2018 EKG Measurement Heart [id number] <Conclusion> Normal sinus rhythm Possible Left atrial enlargement Nonspecific ST abnormality Abnormal ECG
--- NOTE | 2018-08-31 08:46 | CP.PCM.PN ---
Subjective - Date & Time of Evaluation Date of Evaluation: 08/31/18 Time of Evaluation: 08:43 - Subjective Subjective: pt lithargic arousable follows commands with right moves right spont and purposfully left hemiplgic with facial CT slight Increase in hematoma with increased edema Started on 3% saline Suggested keppra cont obs spoke to family would cont with cons measures and only if they fail would consider evacuation HEMIPLEGIA WILL NOT IMPROVE WITH EVACUATION, AND IS NOT INDICATION FOR SURGERY Objective - Vital Signs/Intake and Output Vital Signs (last 24 hours): Temp Pulse Resp BP Pulse Ox 98 F 72 18 138/74 98 08/30/18 14:43 08/31/18 02:00 08/30/18 21:31 08/30/18 18:44 08/30/18 18:44 Intake and Output: 08/31/18 08/31/18 06:59 18:59 Intake Total 1200 Output Total 900 Balance 300 - Medications Medications: Current Medications Levetiracetam 500 mg/ Sodium (Chloride) 105 mls @ 215 mls/hr IVPB Q12 [facility] Last Admin: 08/30/18 21:22 Dose: 215 mls/hr Sodium Chloride (Hypertonic Saline 3%) 500 mls @ 40 mls/hr IV .[id number] [facility] Pantoprazole Sodium (Protonix Inj) 40 mg IVP DAILY [facility] - Labs Labs: 08/31/18 05:30 08/31/18 05:30 PT 11.5 SECONDS (9.4-12.5) 08/30/18 15:05 INR 1.04 08/30/18 15:05 APTT 33.6 Seconds (26.9-38.3) 08/30/18 15:05
--- NOTE | 2018-08-31 09:14 | CP.CCUPN ---
<Lis Malik - Last Filed: 08/31/18 15:24> CCU Subjective - Physician Review Subjective (Free Text): CRITICAL CARE PROGRESS NOTE FOR DR. FELICE Malik PGY1 Pt seen and examined at bedside in ICU. Pt is lethargic but arousable. She following commands with L sided hemiplegia. Pt seen by Dr. Paula this am, recommends medical management without surgical intervention at this particular time. Pt does not provide ROS d/t lethargy. CCU Objective - Vital Signs / Intake & Output Vital Signs (Last 4 hours): Vital Signs Temp Pulse Resp BP Pulse Ox 08/31/18 08:40 65 15 149/73 95 08/31/18 08:30 68 20 98 08/31/18 08:20 67 20 137/71 98 08/31/18 08:10 66 18 97 08/31/18 08:00 99.2 F 100 H 21 158/77 H 97 08/31/18 07:50 66 17 95 08/31/18 07:41 90 35 H 150/63 97 08/31/18 07:40 90 99 08/31/18 07:30 71 14 99 08/31/18 07:20 66 16 148/59 L 98 08/31/18 07:10 65 14 99 08/31/18 07:00 65 14 141/70 97 08/31/18 06:50 64 17 100 08/31/18 06:40 66 19 139/49 L 97 08/31/18 06:30 60 12 98 08/31/18 06:20 61 18 137/66 97 08/31/18 06:10 58 L 18 96 08/31/18 06:00 60 12 136/67 96 08/31/18 05:50 83 20 100 08/31/18 05:40 58 L 17 143/64 98 08/31/18 05:30 57 L 9 L 96 08/31/18 05:20 80 33 H 144/95 H 99 Intake and Output (Last 8hrs): Intake & Output 08/30/18 08/31/18 08/31/18 22:59 06:59 14:59 Intake Total 200 1200 Output Total 1000 900 Balance -800 300 Weight 73.482 kg Intake: IV 200 1200 Right Forearm 200 1200 Oral 0 Output: Urine 1000 900 Urethral ([place]) 1000 900 Stool 0 Other: Voiding Method Bedpan - Physical Exam Physical Exam Limitations: Positive for: Altered Mental Status Head: Positive for: Atraumatic, Normocephalic Extroacular Muscles: Positive for: EOMI Conjunctiva: Positive for: Normal Mouth: Positive for: Moist Mucous Membranes Nose (Internal): Positive for: No Active Bleeding Neck: Positive for: Normal Range of Motion. Negative for: Meningeal Signs Respiratory/Chest: Positive for: Clear to Auscultation, Good Air Exchange Cardiovascular: Positive for: Regular Rate and Rhythm, Normal S1, S2 Abdomen: Positive for: Normal Bowel Sounds. Negative for: Tenderness, Distention, Peritoneal Signs Upper Extremity: Positive for: Normal Inspection. Negative for: Cyanosis, Edema Lower Extremity: Positive for: Normal Inspection. Negative for: Edema Skin: Positive for: Warm, Dry Psychiatric: Positive for: Lethargic Other physical findings (Free Text): Neuro: Left facial droop, eye-lid apraxia, left side hemiplegic with decreased sensation, upgoing plantar response on the left, follows commands on the right. Left UE/LE hemiplegia Right sided strength intact Left sided facial droop, forehead spared Dysarthria No pronator drift present in right arm Right arm proprioception intact - Medications Active Medications: Active Medications Generic Name Dose Route Start Last Admin Trade Name Freq PRN Reason Stop Dose Admin Levetiracetam 500 mg/ Sodium 105 mls @ 215 mls/hr 08/30/18 22:00 08/30/18 21:22 Chloride IVPB 215 mls/hr Q12 CLAY Administration Sodium Chloride 500 mls @ 40 mls/hr 08/31/18 06:15 Hypertonic Saline 3% IV .[id number] CLAY Pantoprazole Sodium 40 mg 08/31/18 10:00 Protonix Inj IVP DAILY CLAY - Patient Studies Lab Studies: Lab Studies 08/31/18 08/31/18 08/31/18 Range/Units 07:35 05:30 05:30 WBC (4.5-11.0) 10^3/uL RBC (3.5-6.1) 10^6/uL Hgb (12.0-16.0) g/dL Hct (36.0-48.0) % MCV (80.0-105.0) fl MCH (25.0-35.0) pg MCHC (31.0-37.0) g/dl RDW (11.5-14.5) % Plt Count (120.0-450.0) 10^3/uL MPV (7.0-11.0) fl Neut % (Auto) (50.0-68.0) % Lymph % (Auto) (22.0-35.0) % [place] % (Auto) (1.0-6.0) % Eos % (Auto) (1.5-5.0) % Baso % (Auto) (0.0-3.0) % Lymph # (Auto) (1.2-3.4) [place] # (Auto) (0.1-0.6) Eos # (Auto) (0.0-0.7) Baso # (Auto) (0.0-2.0) K/mm3 Absolute Neuts (auto) (1.4-6.5) PT (9.4-12.5) SECONDS INR APTT (26.9-38.3) Seconds pCO2 33 L (35-45) mm/Hg pO2 91.0 (80-100) mm/Hg HCO3 21.9 (21-28) mmol/L ABG pH 7.43 (7.35-7.45) ABG Total CO2 22.9 (22-28) mmol.L ABG O2 Saturation 99.0 H (95-98) % ABG Base Excess -1.7 (-2.0-3.0) mmol/L ABG Potassium 3.2 L (3.6-5.2) mmol/L Glucose 88 (65-105) mg/dl Lactate 0.7 (0.7-2.1) mmol/L FiO2 21.0 % Sodium 148.0 142 (132-148) mmol/L Potassium 3.9 (3.6-5.0) mmol/L Chloride 119.0 H 109 H (98-107) mmol/L Carbon Dioxide 26 (21-33) mmol/L Anion Gap 10 (10-20) BUN 13 (7-21) mg/dL Creatinine 0.6 L (0.7-1.2) mg/dl Est GFR ( Amer) > 60 Est GFR (Non-Af Amer) > 60 POC Glucose (mg/dL) (65-110) mg/dL Random Glucose 95 (70-110) mg/dL Hemoglobin A1c (4.2-6.5) % Calcium 8.9 (8.4-10.5) mg/dL Phosphorus 3.2 (2.5-4.5) mg/dL Magnesium 2.3 H (1.7-2.2) mg/dL Total Bilirubin (0.2-1.3) mg/dL AST (14-36) U/L ALT (7-56) U/L Alkaline Phosphatase (38-126) U/L Troponin I ng/mL Total Protein (5.8-8.3) g/dL Albumin (3.0-4.8) g/dL Globulin gm/dL Albumin/Globulin Ratio (1.1-1.8) Triglycerides (35-160) mg/dL Cholesterol (130-200) mg/dL LDL Cholesterol Direct (0-129) mg/dL HDL Cholesterol (29-60) mg/dL TSH 3rd Generation 1.29 (0.46-4.68) mIU/mL Arterial Blood Potassium 3.2 L (3.6-5.2) mmol/L Blood Type Blood Type Confirm Antibody Screen BBK History Checked 08/31/18 08/30/18 08/30/18 Range/Units 05:30 16:03 15:05 WBC 7.8 (4.5-11.0) 10^3/uL RBC 5.65 (3.5-6.1) 10^6/uL Hgb 11.3 L (12.0-16.0) g/dL Hct 35.8 L (36.0-48.0) % MCV 63.4 L (80.0-105.0) fl MCH 20.0 L (25.0-35.0) pg MCHC 31.6 (31.0-37.0) g/dl RDW 15.7 H (11.5-14.5) % Plt Count 207 (120.0-450.0) 10^3/uL MPV 10.1 (7.0-11.0) fl Neut % (Auto) (50.0-68.0) % Lymph % (Auto) (22.0-35.0) % [place] % (Auto) (1.0-6.0) % Eos % (Auto) (1.5-5.0) % Baso % (Auto) (0.0-3.0) % Lymph # (Auto) (1.2-3.4) [place] # (Auto) (0.1-0.6) Eos # (Auto) (0.0-0.7) Baso # (Auto) (0.0-2.0) K/mm3 Absolute Neuts (auto) (1.4-6.5) PT (9.4-12.5) SECONDS INR APTT (26.9-38.3) Seconds pCO2 (35-45) mm/Hg pO2 (80-100) mm/Hg HCO3 (21-28) mmol/L ABG pH (7.35-7.45) ABG Total CO2 (22-28) mmol.L ABG O2 Saturation (95-98) % ABG Base Excess (-2.0-3.0) mmol/L ABG Potassium (3.6-5.2) mmol/L Glucose (65-105) mg/dl Lactate (0.7-2.1) mmol/L FiO2 % Sodium (132-148) mmol/L Potassium (3.6-5.0) mmol/L Chloride (98-107) mmol/L Carbon Dioxide (21-33) mmol/L Anion Gap (10-20) BUN (7-21) mg/dL Creatinine (0.7-1.2) mg/dl Est GFR ( Amer) Est GFR (Non-Af Amer) POC Glucose (mg/dL) (65-110) mg/dL Random Glucose (70-110) mg/dL Hemoglobin A1c (4.2-6.5) % Calcium (8.4-10.5) mg/dL Phosphorus (2.5-4.5) mg/dL Magnesium (1.7-2.2) mg/dL Total Bilirubin (0.2-1.3) mg/dL AST (14-36) U/L ALT (7-56) U/L Alkaline Phosphatase (38-126) U/L Troponin I ng/mL Total Protein (5.8-8.3) g/dL Albumin (3.0-4.8) g/dL Globulin gm/dL Albumin/Globulin Ratio (1.1-1.8) Triglycerides (35-160) mg/dL Cholesterol (130-200) mg/dL LDL Cholesterol Direct (0-129) mg/dL HDL Cholesterol (29-60) mg/dL TSH 3rd Generation (0.46-4.68) mIU/mL Arterial Blood Potassium (3.6-5.2) mmol/L Blood Type A POSITIVE Blood Type Confirm A POSITIVE Antibody Screen Negative BBK History Checked No verified bt 08/30/18 08/30/18 08/30/18 Range/Units 15:05 15:05 15:05 WBC (4.5-11.0) 10^3/uL RBC (3.5-6.1) 10^6/uL Hgb (12.0-16.0) g/dL Hct (36.0-48.0) % MCV (80.0-105.0) fl MCH (25.0-35.0) pg MCHC (31.0-37.0) g/dl RDW (11.5-14.5) % Plt Count (120.0-450.0) 10^3/uL MPV (7.0-11.0) fl Neut % (Auto) (50.0-68.0) % Lymph % (Auto) (22.0-35.0) % [place] % (Auto) (1.0-6.0) % Eos % (Auto) (1.5-5.0) % Baso % (Auto) (0.0-3.0) % Lymph # (Auto) (1.2-3.4) [place] # (Auto) (0.1-0.6) Eos # (Auto) (0.0-0.7) Baso # (Auto) (0.0-2.0) K/mm3 Absolute Neuts (auto) (1.4-6.5) PT 11.5 (9.4-12.5) SECONDS INR 1.04 APTT 33.6 (26.9-38.3) Seconds pCO2 (35-45) mm/Hg pO2 (80-100) mm/Hg HCO3 (21-28) mmol/L ABG pH (7.35-7.45) ABG Total CO2 (22-28) mmol.L ABG O2 Saturation (95-98) % ABG Base Excess (-2.0-3.0) mmol/L ABG Potassium (3.6-5.2) mmol/L Glucose (65-105) mg/dl Lactate (0.7-2.1) mmol/L FiO2 % Sodium 141 (132-148) mmol/L Potassium 3.8 (3.6-5.0) mmol/L Chloride 105 (98-107) mmol/L Carbon Dioxide 28 (21-33) mmol/L Anion Gap 12 (10-20) BUN 16 (7-21) mg/dL Creatinine 0.7 (0.7-1.2) mg/dl Est GFR ( Amer) > 60 Est GFR (Non-Af Amer) > 60 POC Glucose (mg/dL) (65-110) mg/dL Random Glucose 111 H (70-110) mg/dL Hemoglobin A1c 6.2 (4.2-6.5) % Calcium 9.6 (8.4-10.5) mg/dL Phosphorus (2.5-4.5) mg/dL Magnesium (1.7-2.2) mg/dL Total Bilirubin 0.3 (0.2-1.3) mg/dL AST 22 (14-36) U/L ALT 12 (7-56) U/L Alkaline Phosphatase 99 (38-126) U/L Troponin I < 0.01 ng/mL Total Protein 7.9 (5.8-8.3) g/dL Albumin 4.5 (3.0-4.8) g/dL Globulin 3.4 gm/dL Albumin/Globulin Ratio 1.3 (1.1-1.8) Triglycerides 149 (35-160) mg/dL Cholesterol 157 (130-200) mg/dL LDL Cholesterol Direct 72 (0-129) mg/dL HDL Cholesterol 55 (29-60) mg/dL TSH 3rd Generation (0.46-4.68) mIU/mL Arterial Blood Potassium (3.6-5.2) mmol/L Blood Type Blood Type Confirm Antibody Screen BBK History Checked 08/30/18 08/30/18 Range/Units 15:05 15:01 WBC 7.5 (4.5-11.0) 10^3/uL RBC 6.01 (3.5-6.1) 10^6/uL Hgb 12.0 (12.0-16.0) g/dL Hct 37.8 (36.0-48.0) % MCV 62.9 L (80.0-105.0) fl MCH 20.0 L (25.0-35.0) pg MCHC 31.7 (31.0-37.0) g/dl RDW 15.5 H (11.5-14.5) % Plt Count 238 (120.0-450.0) 10^3/uL MPV 10.2 (7.0-11.0) fl Neut % (Auto) 72.7 H (50.0-68.0) % Lymph % (Auto) 19.0 L (22.0-35.0) % [place] % (Auto) 7.1 H (1.0-6.0) % Eos % (Auto) 0.9 L (1.5-5.0) % Baso % (Auto) 0.3 (0.0-3.0) % Lymph # (Auto) 1.4 (1.2-3.4) [place] # (Auto) 0.5 (0.1-0.6) Eos # (Auto) 0.1 (0.0-0.7) Baso # (Auto) 0.02 (0.0-2.0) K/mm3 Absolute Neuts (auto) 5.46 (1.4-6.5) PT (9.4-12.5) SECONDS INR APTT (26.9-38.3) Seconds pCO2 (35-45) mm/Hg pO2 (80-100) mm/Hg HCO3 (21-28) mmol/L ABG pH (7.35-7.45) ABG Total CO2 (22-28) mmol.L ABG O2 Saturation (95-98) % ABG Base Excess (-2.0-3.0) mmol/L ABG Potassium (3.6-5.2) mmol/L Glucose (65-105) mg/dl Lactate (0.7-2.1) mmol/L FiO2 % Sodium (132-148) mmol/L Potassium (3.6-5.0) mmol/L Chloride (98-107) mmol/L Carbon Dioxide (21-33) mmol/L Anion Gap (10-20) BUN (7-21) mg/dL Creatinine (0.7-1.2) mg/dl Est GFR ( Amer) Est GFR (Non-Af Amer) POC Glucose (mg/dL) 123 H (65-110) mg/dL Random Glucose (70-110) mg/dL Hemoglobin A1c (4.2-6.5) % Calcium (8.4-10.5) mg/dL Phosphorus (2.5-4.5) mg/dL Magnesium (1.7-2.2) mg/dL Total Bilirubin (0.2-1.3) mg/dL AST (14-36) U/L ALT (7-56) U/L Alkaline Phosphatase (38-126) U/L Troponin I ng/mL Total Protein (5.8-8.3) g/dL Albumin (3.0-4.8) g/dL Globulin gm/dL Albumin/Globulin Ratio (1.1-1.8) Triglycerides (35-160) mg/dL Cholesterol (130-200) mg/dL LDL Cholesterol Direct (0-129) mg/dL HDL Cholesterol (29-60) mg/dL TSH 3rd Generation (0.46-4.68) mIU/mL Arterial Blood Potassium (3.6-5.2) mmol/L Blood Type Blood Type Confirm Antibody Screen BBK History Checked Laboratory Results - last 24 hr 08/30/18 08/30/18 08/30/18 15:01 15:05 15:05 WBC 7.5 RBC 6.01 Hgb 12.0 Hct 37.8 MCV 62.9 L MCH 20.0 L MCHC 31.7 RDW 15.5 H Plt Count 238 MPV 10.2 Neut % (Auto) 72.7 H Lymph % (Auto) 19.0 L [place] % (Auto) 7.1 H Eos % (Auto) 0.9 L Baso % (Auto) 0.3 Lymph # (Auto) 1.4 [place] # (Auto) 0.5 Eos # (Auto) 0.1 Baso # (Auto) 0.02 Absolute Neuts (auto) 5.46 PT 11.5 INR 1.04 APTT 33.6 pCO2 pO2 HCO3 ABG pH ABG Total CO2 ABG O2 Saturation ABG Base Excess ABG Potassium Glucose Lactate FiO2 Sodium Potassium Chloride Carbon Dioxide Anion Gap BUN Creatinine Est GFR ( Amer) Est GFR (Non-Af Amer) POC Glucose (mg/dL) 123 H Random Glucose Hemoglobin A1c Calcium Phosphorus Magnesium Total Bilirubin AST ALT Alkaline Phosphatase Troponin I Total Protein Albumin Globulin Albumin/Globulin Ratio Triglycerides Cholesterol LDL Cholesterol Direct HDL Cholesterol TSH 3rd Generation Arterial Blood Potassium Blood Type Blood Type Confirm Antibody Screen BBK History Checked 08/30/18 08/30/18 08/30/18 15:05 15:05 15:05 WBC RBC Hgb Hct MCV MCH MCHC RDW Plt Count MPV Neut % (Auto) Lymph % (Auto) [place] % (Auto) Eos % (Auto) Baso % (Auto) Lymph # (Auto) [place] # (Auto) Eos # (Auto) Baso # (Auto) Absolute Neuts (auto) PT INR APTT pCO2 pO2 HCO3 ABG pH ABG Total CO2 ABG O2 Saturation ABG Base Excess ABG Potassium Glucose Lactate FiO2 Sodium 141 Potassium 3.8 Chloride 105 Carbon Dioxide 28 Anion Gap 12 BUN 16 Creatinine 0.7 Est GFR ( Amer) > 60 Est GFR (Non-Af Amer) > 60 POC Glucose (mg/dL) Random Glucose 111 H Hemoglobin A1c 6.2 Calcium 9.6 Phosphorus Magnesium Total Bilirubin 0.3 AST 22 ALT 12 Alkaline Phosphatase 99 Troponin I < 0.01 Total Protein 7.9 Albumin 4.5 Globulin 3.4 Albumin/Globulin Ratio 1.3 Triglycerides 149 Cholesterol 157 LDL Cholesterol Direct 72 HDL Cholesterol 55 TSH 3rd Generation Arterial Blood Potassium Blood Type A POSITIVE Blood Type Confirm Antibody Screen Negative BBK History Checked No verified bt 08/30/18 08/31/18 08/31/18 16:03 05:30 05:30 WBC 7.8 RBC 5.65 Hgb 11.3 L Hct 35.8 L MCV 63.4 L MCH 20.0 L MCHC 31.6 RDW 15.7 H Plt Count 207 MPV 10.1 Neut % (Auto) Lymph % (Auto) [place] % (Auto) Eos % (Auto) Baso % (Auto) Lymph # (Auto) [place] # (Auto) Eos # (Auto) Baso # (Auto) Absolute Neuts (auto) PT INR APTT pCO2 pO2 HCO3 ABG pH ABG Total CO2 ABG O2 Saturation ABG Base Excess ABG Potassium Glucose Lactate FiO2 Sodium 142 Potassium 3.9 Chloride 109 H Carbon Dioxide 26 Anion Gap 10 BUN 13 Creatinine 0.6 L Est GFR ( Amer) > 60 Est GFR (Non-Af Amer) > 60 POC Glucose (mg/dL) Random Glucose 95 Hemoglobin A1c Calcium 8.9 Phosphorus 3.2 Magnesium 2.3 H Total Bilirubin AST ALT Alkaline Phosphatase Troponin I Total Protein Albumin Globulin Albumin/Globulin Ratio Triglycerides Cholesterol LDL Cholesterol Direct HDL Cholesterol TSH 3rd Generation Arterial Blood Potassium Blood Type Blood Type Confirm A POSITIVE Antibody Screen BBK History Checked 08/31/18 08/31/18 05:30 07:35 WBC RBC Hgb Hct MCV MCH MCHC RDW Plt Count MPV Neut % (Auto) Lymph % (Auto) [place] % (Auto) Eos % (Auto) Baso % (Auto) Lymph # (Auto) [place] # (Auto) Eos # (Auto) Baso # (Auto) Absolute Neuts (auto) PT INR APTT pCO2 33 L pO2 91.0 HCO3 21.9 ABG pH 7.43 ABG Total CO2 22.9 ABG O2 Saturation 99.0 H ABG Base Excess -1.7 ABG Potassium 3.2 L Glucose 88 Lactate 0.7 FiO2 21.0 Sodium 148.0 Potassium Chloride 119.0 H Carbon Dioxide Anion Gap BUN Creatinine Est GFR ( Amer) Est GFR (Non-Af Amer) POC Glucose (mg/dL) Random Glucose Hemoglobin A1c Calcium Phosphorus Magnesium Total Bilirubin AST ALT Alkaline Phosphatase Troponin I Total Protein Albumin Globulin Albumin/Globulin Ratio Triglycerides Cholesterol LDL Cholesterol Direct HDL Cholesterol TSH 3rd Generation 1.29 Arterial Blood Potassium 3.2 L Blood Type Blood Type Confirm Antibody Screen BBK History Checked Radiology Impressions: Radiology Impressions Head CT 08/30/18 14:53 IMPRESSION: 4 x 3.8 centimeter parenchymal hematoma at the right frontal parietal lobe surrounding with edema which resulting in mild mass effect on the adjacent structure. 2.6 millimeter right to left midline shift noted. No evidence of hydrocephalus. No evidence of transcortical infarct. Chest X-Ray 08/30/18 14:56 IMPRESSION: No active disease. EKG/Cardiology Studies: Cardiology / EKG Studies 08/30/18 14:56 ELECTROCARDIOGRAM Stat Comment: Reason For Exam: cva Fingerstick Blood Sugar Results: 86 Review of Systems - Review of Systems Review of Systems: per HPI Critical Care Progress Note - Nutrition Nutrition: Nutrition Category Date Time Status NPO Diet [DIET] Diets 08/30/18 Dinner Ordered Assessment/Plan - Assessment and Plan (Free Text) Assessment: 63 yo F with PMH of migraines [place] [facility] [place]. Will admitto the ICU for close monitoring due to parenchymal hematoma in the right frontal parietal lobe with midline shift Plan: Neuro: initial head CT showed 4x3.8 cm parenchymal hematoma in the right frontoparietal lobe with surrounding edema and 2.6 mm midline shift right to left Repeat head CT : "There is a large parenchymal hematoma within the right cerebral hemisphere which has increased in size extending from vertex inferiorly to below the level of the lateral ventricles and sylvian fissure extending anteriorly to the region of the lateral fissure. There is a fairly well- circumscribed rim of low-attenuation edema and or necrotic brain tissue. This hematoma exerts considerable surrounding mass effect with compression of the overlying sulci and right lateral ventricle. There is also mild [id number] midline shift of the septum pellucidum (subfalcine herniation) estimated at approximately 7 mm. No obstructive hydrocephalus." Per neurosurgery, no indication for MRI. Only repeat CT scan tomorrow continue keppra daily continue hypertonic saline at this time per neurology/neurosurgery @ 40mls/hr with goal Na between 145-150 meq repeat BMP q4h. Goal Na between 145-150 mmol/L Will obtain CT head daily Neuro checks Q1H. Monitor for signs of progression Neurology Consulted Neurosurgery Consulted: no acute surgical intervention at this time Maintain normothermia Cardio: Monitor BP, target SBP 130-150 per neurology Maintain MAP > 65 Hold home ASA Pulm: Maintain O2 sat > 92% GI: Protonix NPO Renal: Monitor electrolytes, replete/correct as needed Maintain euvolemia Heme: SCD's for DVT PPx Endo: Maintain euglycemia Case seen, examined and discussed with attending physician, Dr. Felice Malik PGY1 <Richar Viveros - Last Filed: 08/31/18 16:45> CCU Objective - Vital Signs / Intake & Output Vital Signs (Last 4 hours): Vital Signs Pulse Resp BP Pulse Ox 08/31/18 16:10 77 18 96 08/31/18 16:00 82 13 126/53 L 97 08/31/18 15:50 83 17 97 08/31/18 15:40 75 17 137/72 96 08/31/18 15:30 85 21 97 08/31/18 15:20 90 14 154/58 H 97 08/31/18 15:10 71 23 98 08/31/18 15:00 77 21 146/60 98 08/31/18 14:50 97 H 24 99 08/31/18 14:40 85 26 H 129/101 H 97 08/31/18 14:30 78 19 99 08/31/18 14:20 70 14 145/75 98 08/31/18 14:10 83 16 98 08/31/18 14:00 75 15 155/75 H 97 08/31/18 13:50 72 15 98 08/31/18 13:40 78 16 146/77 98 08/31/18 13:30 77 28 H 95 08/31/18 13:20 93 H 18 162/91 H 96 08/31/18 13:10 72 15 97 08/31/18 13:00 81 16 141/65 97 08/31/18 12:50 70 14 98 Intake and Output (Last 8hrs): Intake & Output 08/31/18 08/31/18 08/31/18 06:59 14:59 22:59 Intake Total 1200 Output Total 900 Balance 300 Intake: IV 1200 Right Forearm 1200 Output: Urine 900 Urethral ([place]) 900 - Medications Active Medications: Active Medications Generic Name Dose Route Start Last Admin Trade Name Freq PRN Reason Stop Dose Admin Sodium Chloride 500 mls @ 40 mls/hr 08/31/18 06:15 08/31/18 07:00 Hypertonic Saline 3% IV 40 mls/hr .[id number] CLAY Administration Levetiracetam 500 mg in 100 mls @ 215 mls/hr 08/31/18 22:00 Keppra 500mg Ivpb IVPB Q12H CLAY Pantoprazole Sodium 40 mg 08/31/18 10:00 08/31/18 11:18 Protonix Inj IVP 40 mg DAILY CLAY Administration - Patient Studies Lab Studies: Lab Studies 08/31/18 08/31/18 08/31/18 Range/Units 16:12 13:00 11:09 WBC (4.5-11.0) 10^3/uL RBC (3.5-6.1) 10^6/uL Hgb (12.0-16.0) g/dL Hct (36.0-48.0) % MCV (80.0-105.0) fl MCH (25.0-35.0) pg MCHC (31.0-37.0) g/dl RDW (11.5-14.5) % Plt Count (120.0-450.0) 10^3/uL MPV (7.0-11.0) fl pCO2 (35-45) mm/Hg pO2 (80-100) mm/Hg HCO3 (21-28) mmol/L ABG pH (7.35-7.45) ABG Total CO2 (22-28) mmol.L ABG O2 Saturation (95-98) % ABG Base Excess (-2.0-3.0) mmol/L ABG Potassium (3.6-5.2) mmol/L Glucose (65-105) mg/dl Lactate (0.7-2.1) mmol/L FiO2 % Sodium 142 (132-148) mmol/L Potassium 4.2 (3.6-5.0) mmol/L Chloride 114 H (98-107) mmol/L Carbon Dioxide 20 L (21-33) mmol/L Anion Gap 12 (10-20) BUN 11 (7-21) mg/dL Creatinine 0.6 L (0.7-1.2) mg/dl Est GFR ( Amer) > 60 Est GFR (Non-Af Amer) > 60 POC Glucose (mg/dL) 89 85 (65-110) mg/dL Random Glucose 104 (70-110) mg/dL Hemoglobin A1c (4.2-6.5) % Calcium 8.9 (8.4-10.5) mg/dL Phosphorus (2.5-4.5) mg/dL Magnesium (1.7-2.2) mg/dL TSH 3rd Generation (0.46-4.68) mIU/mL Arterial Blood Potassium (3.6-5.2) mmol/L Blood Type Confirm 08/31/18 08/31/18 08/31/18 Range/Units 09:40 08:52 07:35 WBC (4.5-11.0) 10^3/uL RBC (3.5-6.1) 10^6/uL Hgb (12.0-16.0) g/dL Hct (36.0-48.0) % MCV (80.0-105.0) fl MCH (25.0-35.0) pg MCHC (31.0-37.0) g/dl RDW (11.5-14.5) % Plt Count (120.0-450.0) 10^3/uL MPV (7.0-11.0) fl pCO2 33 L (35-45) mm/Hg pO2 91.0 (80-100) mm/Hg HCO3 21.9 (21-28) mmol/L ABG pH 7.43 (7.35-7.45) ABG Total CO2 22.9 (22-28) mmol.L ABG O2 Saturation 99.0 H (95-98) % ABG Base Excess -1.7 (-2.0-3.0) mmol/L ABG Potassium 3.2 L (3.6-5.2) mmol/L Glucose 88 (65-105) mg/dl Lactate 0.7 (0.7-2.1) mmol/L FiO2 21.0 % Sodium 143 148.0 (132-148) mmol/L Potassium 4.1 (3.6-5.0) mmol/L Chloride 112 H 119.0 H (98-107) mmol/L Carbon Dioxide 25 (21-33) mmol/L Anion Gap 11 (10-20) BUN 11 (7-21) mg/dL Creatinine 0.6 L (0.7-1.2) mg/dl Est GFR ( Amer) > 60 Est GFR (Non-Af Amer) > 60 POC Glucose (mg/dL) 86 (65-110) mg/dL Random Glucose 95 (70-110) mg/dL Hemoglobin A1c (4.2-6.5) % Calcium 8.8 (8.4-10.5) mg/dL Phosphorus (2.5-4.5) mg/dL Magnesium (1.7-2.2) mg/dL TSH 3rd Generation (0.46-4.68) mIU/mL Arterial Blood Potassium 3.2 L (3.6-5.2) mmol/L Blood Type Confirm 08/31/18 08/31/18 08/31/18 Range/Units 05:30 05:30 05:30 WBC 7.8 (4.5-11.0) 10^3/uL RBC 5.65 (3.5-6.1) 10^6/uL Hgb 11.3 L (12.0-16.0) g/dL Hct 35.8 L (36.0-48.0) % MCV 63.4 L (80.0-105.0) fl MCH 20.0 L (25.0-35.0) pg MCHC 31.6 (31.0-37.0) g/dl RDW 15.7 H (11.5-14.5) % Plt Count 207 (120.0-450.0) 10^3/uL MPV 10.1 (7.0-11.0) fl pCO2 (35-45) mm/Hg pO2 (80-100) mm/Hg HCO3 (21-28) mmol/L ABG pH (7.35-7.45) ABG Total CO2 (22-28) mmol.L ABG O2 Saturation (95-98) % ABG Base Excess (-2.0-3.0) mmol/L ABG Potassium (3.6-5.2) mmol/L Glucose (65-105) mg/dl Lactate (0.7-2.1) mmol/L FiO2 % Sodium 142 (132-148) mmol/L Potassium 3.9 (3.6-5.0) mmol/L Chloride 109 H (98-107) mmol/L Carbon Dioxide 26 (21-33) mmol/L Anion Gap 10 (10-20) BUN 13 (7-21) mg/dL Creatinine 0.6 L (0.7-1.2) mg/dl Est GFR ( Amer) > 60 Est GFR (Non-Af Amer) > 60 POC Glucose (mg/dL) (65-110) mg/dL Random Glucose 95 (70-110) mg/dL Hemoglobin A1c (4.2-6.5) % Calcium 8.9 (8.4-10.5) mg/dL Phosphorus 3.2 (2.5-4.5) mg/dL Magnesium 2.3 H (1.7-2.2) mg/dL TSH 3rd Generation 1.29 (0.46-4.68) mIU/mL Arterial Blood Potassium (3.6-5.2) mmol/L Blood Type Confirm 08/30/18 08/30/18 Range/Units 16:03 15:05 WBC (4.5-11.0) 10^3/uL RBC (3.5-6.1) 10^6/uL Hgb (12.0-16.0) g/dL Hct (36.0-48.0) % MCV (80.0-105.0) fl MCH (25.0-35.0) pg MCHC (31.0-37.0) g/dl RDW (11.5-14.5) % Plt Count (120.0-450.0) 10^3/uL MPV (7.0-11.0) fl pCO2 (35-45) mm/Hg pO2 (80-100) mm/Hg HCO3 (21-28) mmol/L ABG pH (7.35-7.45) ABG Total CO2 (22-28) mmol.L ABG O2 Saturation (95-98) % ABG Base Excess (-2.0-3.0) mmol/L ABG Potassium (3.6-5.2) mmol/L Glucose (65-105) mg/dl Lactate (0.7-2.1) mmol/L FiO2 % Sodium (132-148) mmol/L Potassium (3.6-5.0) mmol/L Chloride (98-107) mmol/L Carbon Dioxide (21-33) mmol/L Anion Gap (10-20) BUN (7-21) mg/dL Creatinine (0.7-1.2) mg/dl Est GFR ( Amer) Est GFR (Non-Af Amer) POC Glucose (mg/dL) (65-110) mg/dL Random Glucose (70-110) mg/dL Hemoglobin A1c 6.2 (4.2-6.5) % Calcium (8.4-10.5) mg/dL Phosphorus (2.5-4.5) mg/dL Magnesium (1.7-2.2) mg/dL TSH 3rd Generation (0.46-4.68) mIU/mL Arterial Blood Potassium (3.6-5.2) mmol/L Blood Type Confirm A POSITIVE Laboratory Results - last 24 hr 08/30/18 08/30/18 08/31/18 15:05 16:03 05:30 WBC 7.8 RBC 5.65 Hgb 11.3 L Hct 35.8 L MCV 63.4 L MCH 20.0 L MCHC 31.6 RDW 15.7 H Plt Count 207 MPV 10.1 pCO2 pO2 HCO3 ABG pH ABG Total CO2 ABG O2 Saturation ABG Base Excess ABG Potassium Glucose Lactate FiO2 Sodium Potassium Chloride Carbon Dioxide Anion Gap BUN Creatinine Est GFR ( Amer) Est GFR (Non-Af Amer) POC Glucose (mg/dL) Random Glucose Hemoglobin A1c 6.2 Calcium Phosphorus Magnesium TSH 3rd Generation Arterial Blood Potassium Blood Type Confirm A POSITIVE 08/31/18 08/31/18 08/31/18 05:30 05:30 07:35 WBC RBC Hgb Hct MCV MCH MCHC RDW Plt Count MPV pCO2 33 L pO2 91.0 HCO3 21.9 ABG pH 7.43 ABG Total CO2 22.9 ABG O2 Saturation 99.0 H ABG Base Excess -1.7 ABG Potassium 3.2 L Glucose 88 Lactate 0.7 FiO2 21.0 Sodium 142 148.0 Potassium 3.9 Chloride 109 H 119.0 H Carbon Dioxide 26 Anion Gap 10 BUN 13 Creatinine 0.6 L Est GFR ( Amer) > 60 Est GFR (Non-Af Amer) > 60 POC Glucose (mg/dL) Random Glucose 95 Hemoglobin A1c Calcium 8.9 Phosphorus 3.2 Magnesium 2.3 H TSH 3rd Generation 1.29 Arterial Blood Potassium 3.2 L Blood Type Confirm 08/31/18 08/31/18 08/31/18 08:52 09:40 11:09 WBC RBC Hgb Hct MCV MCH MCHC RDW Plt Count MPV pCO2 pO2 HCO3 ABG pH ABG Total CO2 ABG O2 Saturation ABG Base Excess ABG Potassium Glucose Lactate FiO2 Sodium 143 Potassium 4.1 Chloride 112 H Carbon Dioxide 25 Anion Gap 11 BUN 11 Creatinine 0.6 L Est GFR ( Amer) > 60 Est GFR (Non-Af Amer) > 60 POC Glucose (mg/dL) 86 85 Random Glucose 95 Hemoglobin A1c Calcium 8.8 Phosphorus Magnesium TSH 3rd Generation Arterial Blood Potassium Blood Type Confirm 08/31/18 08/31/18 13:00 16:12 WBC RBC Hgb Hct MCV MCH MCHC RDW Plt Count MPV pCO2 pO2 HCO3 ABG pH ABG Total CO2 ABG O2 Saturation ABG Base Excess ABG Potassium Glucose Lactate FiO2 Sodium 142 Potassium 4.2 Chloride 114 H Carbon Dioxide 20 L Anion Gap 12 BUN 11 Creatinine 0.6 L Est GFR ( Amer) > 60 Est GFR (Non-Af Amer) > 60 POC Glucose (mg/dL) 89 Random Glucose 104 Hemoglobin A1c Calcium 8.9 Phosphorus Magnesium TSH 3rd Generation Arterial Blood Potassium Blood Type Confirm Radiology Impressions: Radiology Impressions Chest X-Ray 08/30/18 14:56 IMPRESSION: No active disease. Head CT 08/31/18 03:00 IMPRESSION: There is a large parenchymal hematoma within the right cerebral hemisphere which has increased in size extending from vertex inferiorly to below the level of the lateral ventricles and sylvian fissure extending anteriorly to the region of the lateral fissure. There is a fairly well-circumscribed rim of low-attenuation edema and or necrotic brain tissue. This hematoma exerts considerable surrounding mass effect with compression of the overlying sulci and right lateral ventricle. There is also mild [id number] midline shift of the septum pellucidum (subfalcine herniation) estimated at approximately 7 mm. No obstructive hydrocephalus. Critical Care Progress Note - Nutrition Nutrition: Nutrition Category Date Time Status NPO Diet [DIET] Diets 08/30/18 Dinner Ordered Addendum Addendum: 08/31/18 16:45 ICU Attending Addendum Patient seen and examined. Case reviewed on round with housestaff. Agree with resident note above with the following additions/exceptions 63F with PMH of migraines with left sided weakness, droop and slurring found to have right frontoparietal ICH 4 x 3.8 increasing in size on f/u CT with edema neuro and neuro surg on board no surg intervention unless mental status gets worse repeat CT in tomorrow 3%NS start yesterday with a goal serum Na of 145-150 and serum osm < 320 Keppra 500 mg BID TLC placed today to deliver 3% HOB> 40 degrees SBP goal 120-150 PPI SCD for DVT ppx Rest of care as above in housestaff note Richar Viveros MD Pulmonary Critical Care Attending
[2018-08-31] MEDS: levETIRAcetam 500 MG in Sodium Chloride 0.9% 100 ML IVPB SCH (09:28)
[2018-08-31 10:01] LABS: BLOOD UREA NITROGEN 11 mg/dL (7-21); CALCIUM 8.8 mg/dL (8.4-10.5); GFR NON-AFRICAN AMERICAN > 60
--- NOTE | 2018-08-31 10:40 | CT ---
Date of service: 08/31/2018 PROCEDURE: CT HEAD WITHOUT CONTRAST. HISTORY: ICH COMPARISON: Comparison made with CT scan brain 08/30/2018. TECHNIQUE: Axial computed tomography images were obtained through the head/brain without intravenous contrast. Radiation dose: Total exam DLP = 876.01 mGy-cm. This CT exam was performed using one or more of the following dose reduction techniques: Automated exposure control, adjustment of the mA and/or kV according to patient size, and/or use of iterative reconstruction technique. FINDINGS: HEMORRHAGE: There is a large parenchymal hematoma within the right cerebral hemisphere which has increased in size extending from vertex inferiorly to below the level of the lateral ventricles and sylvian fissure extending anteriorly to the region of the lateral fissure. There is a fairly well-circumscribed rim of low-attenuation edema and or necrotic brain tissue. This hematoma exerts considerable surrounding mass effect with compression of the overlying sulci and right lateral ventricle. There is also mild [id number] midline shift of the septum pellucidum (subfalcine herniation) estimated at approximately 7 mm. BRAIN: No significant atrophy or chronic microvascular ischemic changes. VENTRICLES: No obstructive hydrocephalus. CALVARIUM: Unremarkable. PARANASAL SINUSES: Unremarkable as visualized. No significant inflammatory changes. MASTOID AIR CELLS: Unremarkable as visualized. No inflammatory changes. OTHER FINDINGS: None. IMPRESSION: There is a large parenchymal hematoma within the right cerebral hemisphere which has increased in size extending from vertex inferiorly to below the level of the lateral ventricles and sylvian fissure extending anteriorly to the region of the lateral fissure. There is a fairly well-circumscribed rim of low-attenuation edema and or necrotic brain tissue. This hematoma exerts considerable surrounding mass effect with compression of the overlying sulci and right lateral ventricle. There is also mild tzyeg-yf-actp midline shift of the septum pellucidum (subfalcine herniation) estimated at approximately 7 mm. No obstructive hydrocephalus.
--- NOTE | 2018-08-31 11:04 | PCM.PROC ---
<Lis Malik - Last Filed: 08/31/18 11:02> Procedures Attestation:: I certify that I have explained the specified Operation(s) or Procedure(s), risks, benefits and reasonable alternatives to the Patient and/or other person responsible. The opportunity was given to ask questions and all questions answered - Central Line Placement Left Femoral Triple Lumen Catheter Aseptic technique was employed throughout the procedure: Hand Hygiene done prior to procedure, Full sterile barriers (mask, hair cover, sterile gown, sterile gloves), Full body sterile drape, Chloraprep Antiseptic: 30 second prep for IJ or SC sites, Chloraprep Antiseptic: 2 minute prep for Femoral Pt. Placed on Pulse Ox Monitor: Yes Central Line Prep: Povidone-Iodine 1% Local Anesthesia Used: Lidocaine 1% Ultrasound Used for Placement: Yes Central Line Lumen Inserted: triple Central Line Length: 20 cm Post Procedure: Sutured in Place, Good Blood Return, All Ports Aspirated, Flushed, Capped, Sterile Dressing Applied Secured by: Suture Post procedure dressing: Clear vapor permeable, Chlorhexidine disc (Biopatch) Post Procedure X-Ray: No Patient Tolerated Procedure: Well, No Complications <Richar Viveros - Last Filed: 08/31/18 16:56> Addendum Addendum: 08/31/18 16:55 MICU attending I was present for the entire procedure agree with note above Bonita VIVEROS MD
--- NOTE | 2018-08-31 11:06 | PN ---
DATE: 08/31/2018 SUBJECTIVE: The patient is a 63-year-old white female, seen in bed 3 in the ICU. The patient has suffered an intracerebral bleed on the right frontoparietal area, which has increased in size overnight. The patient was seen in consultation by Dr. Paula who started her on 3% saline. Because of the brain swelling, she is on Keppra. She is more obtunded today, but she is arousable. She is able to move her right side, but not her left side. Then, she has right gaze aversion. Her Babinski's are upcoming, left and then going right. The patient was seen by Dr. Paula, neurosurgeon. At this time, because of increased size of the hematoma and the severe hemiplegia, the patient is felt not to be a surgical candidate because of the nature of the intracerebral bleed at this point. If further bleeding occurs, the patient will be possibly intubated and taken to surgery. MRI is on hold because of her unstable condition. PHYSICAL EXAMINATION: VITAL SIGNS: Show a temperature of 99.2, blood pressure 149/73. LABORATORY DATA: H and H within normal limits. BUN and creatinine within normal limits. Potassium is 3.9. Review of the most recent CAT scan shows that there has been an increase in the size of the right frontotemporal intraparenchymal hematoma from 4 x 3.8 to 6.9 x 4.4, the right to left midline shift 2.6 up to 7.2. PLAN: To continue monitoring and continue to monitor to control blood pressure and hypertonic saline to decrease swelling and continue Keppra for possible seizures and close monitoring and possible surgery if needed. Pal Elizabeth MD
--- NOTE | 2018-08-31 14:33 | CP.PCM.PN ---
Subjective - Date & Time of Evaluation Date of Evaluation: 08/31/18 Time of Evaluation: 13:00 - Subjective Subjective: Neurology Progress Note Mrs. Pimentel was seen and examined today in the ICU at bedside. Her family was present and had some questions regarding current condition and prognosis. These questions were answered to their satisfaction. The patient remains somnolent, but follows commands on the right side and seems to respond well. However, she does not open her eyes. Objective - Vital Signs/Intake and Output Vital Signs (last 24 hours): Temp Pulse Resp BP Pulse Ox 99.2 F 65 15 149/73 95 08/31/18 08:00 08/31/18 10:00 08/31/18 08:40 08/31/18 08:40 08/31/18 08:40 Intake and Output: 08/31/18 08/31/18 06:59 18:59 Intake Total 1200 Output Total 900 Balance 300 - Medications Medications: Current Medications Sodium Chloride (Hypertonic Saline 3%) 500 mls @ 40 mls/hr IV .[id number] [facility] Last Admin: 08/31/18 07:00 Dose: 40 mls/hr Levetiracetam (Keppra 500mg Ivpb) 500 mg in 100 mls @ 215 mls/hr IVPB Q12H [facility] Pantoprazole Sodium (Protonix Inj) 40 mg IVP DAILY [facility] Last Admin: 08/31/18 11:18 Dose: 40 mg - Labs Labs: 08/31/18 05:30 08/31/18 09:40 PT 11.5 SECONDS (9.4-12.5) 08/30/18 15:05 INR 1.04 08/30/18 15:05 APTT 33.6 Seconds (26.9-38.3) 08/30/18 15:05 - Constitutional Appears: No Acute Distress - Head Exam Head Exam: ATRAUMATIC, NORMAL INSPECTION, NORMOCEPHALIC - Eye Exam Eye Exam: EOMI, Normal appearance, PERRL Pupil Exam: NORMAL ACCOMODATION, PERRL - ENT Exam ENT Exam: Mucous Membranes Moist, Normal Exam - Neck Exam Neck Exam: Full ROM, Normal Inspection. absent: Lymphadenopathy - Respiratory Exam Respiratory Exam: Clear to Ausculation Bilateral, NORMAL BREATHING PATTERN - Cardiovascular Exam Cardiovascular Exam: REGULAR RHYTHM, +S1, +S2. absent: Murmur - GI/Abdominal Exam GI & Abdominal Exam: Soft, Normal Bowel Sounds. absent: Tenderness - Extremities Exam Extremities Exam: Full ROM, Normal Capillary Refill, Normal Inspection. absent: Joint Swelling, Pedal Edema - Back Exam Back Exam: NORMAL INSPECTION - Neurological Exam Neuro motor strength exam: Left Upper Extremity: 2/1, Right Upper Extremity: 5, Left Lower Extremity: 0, Right Lower Extremity: 4 Additional comments: Lethargic. Left facial droop, eye-lid apraxia, left side hemiplegic with decreased sensation, upgoing plantar response on the left, follows commands on the right. - Psychiatric Exam Psychiatric exam: Normal Affect, Normal Mood - Skin Skin Exam: Dry, Intact, Normal Color, Warm Assessment and Plan (1) Intracerebral hemorrhage Assessment & Plan: Appears to be increased in size today compared with yesterday's CT head. The patient is slightly more lethargic. Will continue 3% for a goal serum Na of 145-150 and serum osm < 320. Will continue Keppra 500 mg BID. Keep head of bed elevated above 40 degrees. Keep SBP in 120-150's range. Repeat non-contrast CT head in the AM. Status: Acute
[2018-08-31 15:01] LABS: BLOOD UREA NITROGEN 11 mg/dL (7-21); CALCIUM 8.9 mg/dL (8.4-10.5); GFR NON-AFRICAN AMERICAN > 60
[2018-08-31 18:11] LABS: BLOOD UREA NITROGEN 11 mg/dL (7-21); CALCIUM 8.9 mg/dL (8.4-10.5); GFR NON-AFRICAN AMERICAN > 60
[2018-08-31] MEDS ORDERED: Labetalol 5 mg/ml Inj 20ML IV ONE (20:15)
[2018-08-31] MEDS ORDERED: Lidocaine 5% Patch TD ONE (20:54)
[2018-08-31] MEDS ORDERED: Labetalol 5mg/ml (4ml) IV ONE (21:26)
[2018-08-31] MEDS: levETIRAcetam 500mg IVPB 500 MG/100 ML BAG IVPB SCH (21:49)
--- NOTE | 2018-08-31 22:26 | CP.PCM.PN ---
Subjective - Date & Time of Evaluation Date of Evaluation: 08/31/18 Time of Evaluation: 22:21 - Subjective Subjective: Patient was seen for elevated blood pressure reading. Patient was seen at bedside. She opens her eyes, moves head, moves right side. Medical record was reviewed. This 63 year old woman was admitted after she was found to have slumped on floor in vascular lab and had a stroke code announcement on her.She was found to have right sided intracranial hemorrhage. She has PMH of HLD, HTN, migraine. Objective - Vital Signs/Intake and Output Vital Signs (last 24 hours): Temp Pulse Resp BP Pulse Ox 99.2 F 89 18 182/87 H 96 08/31/18 08:00 08/31/18 20:30 08/31/18 16:10 08/31/18 20:30 08/31/18 16:10 Intake and Output: 08/31/18 09/01/18 18:59 06:59 Intake Total 580 Output Total 2400 Balance -1820 - Medications Medications: Current Medications Sodium Chloride (Hypertonic Saline 3%) 500 mls @ 40 mls/hr IV .[id number] [facility] Last Admin: 08/31/18 07:00 Dose: 40 mls/hr Levetiracetam (Keppra 500mg Ivpb) 500 mg in 100 mls @ 215 mls/hr IVPB Q12H [facility] Last Admin: 08/31/18 21:49 Dose: 215 mls/hr Labetalol HCl (Trandate) 20 mg IV Q2H PRN PRN Reason: Hypertension Pantoprazole Sodium (Protonix Inj) 40 mg IVP DAILY [facility] Last Admin: 08/31/18 11:18 Dose: 40 mg - Labs Labs: 08/31/18 05:30 08/31/18 17:30 PT 11.5 SECONDS (9.4-12.5) 08/30/18 15:05 INR 1.04 08/30/18 15:05 APTT 33.6 Seconds (26.9-38.3) 08/30/18 15:05 - Constitutional Appears: Well, No Acute Distress - Head Exam Head Exam: ATRAUMATIC, NORMAL INSPECTION, NORMOCEPHALIC - Eye Exam Eye Exam: Normal appearance - ENT Exam ENT Exam: Normal External Ear Exam - Neck Exam Neck Exam: Normal Inspection - Respiratory Exam Respiratory Exam: NORMAL BREATHING PATTERN - Cardiovascular Exam Cardiovascular Exam: absent: JVD - GI/Abdominal Exam GI & Abdominal Exam: absent: Distended - Rectal Exam Rectal Exam: Deferred - Exam Additional comments: Deferred. - Extremities Exam Extremities Exam: Normal Inspection - Back Exam Back Exam: NORMAL INSPECTION - Neurological Exam Neurological Exam: Altered Neuro motor strength exam: Left Upper Extremity: 2/1, Right Upper Extremity: 3, Left Lower Extremity: 2/1, Right Lower Extremity: 3 - Psychiatric Exam Psychiatric exam: Normal Affect - Skin Skin Exam: Normal Color Assessment and Plan - Assessment and Plan (Free Text) Assessment: Elevated blood pressure reading. Hypertensive emergency. Right ICH. Left hemiparesis. HTN. HLD. History of migraine. Plan: Labetolol 20 mg IV x1. then PRN. Continue present management. Consider Lysdeta in view of expanding hemorrhage.
[2018-08-31 22:35] LABS: BLOOD UREA NITROGEN 12 mg/dL (7-21); CALCIUM 8.9 mg/dL (8.4-10.5); GFR NON-AFRICAN AMERICAN > 60
[2018-09-01 01:30] LABS: BLOOD UREA NITROGEN 13 mg/dL (7-21); GFR NON-AFRICAN AMERICAN > 60
[2018-09-01 05:46] LABS: HEMOGLOBIN 11.2 g/dL (12.0-16.0); MEAN CELL VOLUME 64.2 fl (80.0-105.0); MEAN CORPUSCULAR HGB CONC 31.2 g/dl (31.0-37.0); MEAN PLATELET VOLUME 9.8 fl (7.0-11.0); RBC 5.59 10^6/uL (3.5-6.1); WHITE BLOOD COUNT 8.9 10^3/uL (4.5-11.0)
[2018-09-01 06:01] LABS: BLOOD UREA NITROGEN 14 mg/dL (7-21); CALCIUM 9.1 mg/dL (8.4-10.5); GFR NON-AFRICAN AMERICAN > 60
--- NOTE | 2018-09-01 08:57 | CP.CCUPN ---
<Catina Gore - Last Filed: 09/01/18 13:51> CCU Subjective - Physician Review Subjective (Free Text): 09/01/18 09:03 Catina Gore, PGY-1 ICU progress Note for Dr. Viveros: Pt was seen and examined at bedside in ICU this AM. Pt is lethargic but arousable. Follows commands after multiple prompts. Pt does not provide ROS d/t lethargy. CCU Objective - Vital Signs / Intake & Output Vital Signs (Last 4 hours): Vital Signs Pulse 09/01/18 06:00 86 Intake and Output (Last 8hrs): Intake & Output 08/31/18 09/01/18 09/01/18 22:59 06:59 14:59 Intake Total 580 650 Output Total 2400 600 Balance -1820 50 Weight 147 lb 5 oz Intake: IV 580 650 3% saline 480 550 keppra 100 100 Output: Urine 2400 600 Urethral (Holliday) 2400 600 Stool 0 Other: # Bowel Movements 0 - Physical Exam Physical Exam Limitations: Positive for: Other (lethargic) Head: Positive for: Atraumatic, Normocephalic Extroacular Muscles: Positive for: EOMI Conjunctiva: Positive for: Normal Mouth: Positive for: Moist Mucous Membranes Nose (Internal): Positive for: No Active Bleeding Neck: Positive for: Normal Range of Motion. Negative for: Meningeal Signs Respiratory/Chest: Positive for: Clear to Auscultation, Good Air Exchange Cardiovascular: Positive for: Regular Rate and Rhythm, Normal S1, S2 Abdomen: Positive for: Normal Bowel Sounds. Negative for: Tenderness, Distention, Peritoneal Signs Upper Extremity: Positive for: Normal Inspection. Negative for: Cyanosis, Edema Lower Extremity: Positive for: Normal Inspection. Negative for: Edema Neurological: Positive for: Other (Pt is lethargic, but following commands after prompting. Pt has difficulty with full cooperation of neuro exam. RUE and RLE is noted to have spontaneous movement. LUE is noted to not have movement with LLE noted to have weakness compared to R.) Skin: Positive for: Warm, Dry Psychiatric: Positive for: Lethargic - Medications Active Medications: Active Medications Generic Name Dose Route Start Last Admin Trade Name Freq PRN Reason Stop Dose Admin Sodium Chloride 500 mls @ 40 mls/hr 08/31/18 06:15 02/16/19 07:00 Hypertonic Saline 3% IV 40 mls/hr .[id number] CLAY Administration Levetiracetam 500 mg in 100 mls @ 215 mls/hr 08/31/18 22:00 08/31/18 21:49 Keppra 500mg Ivpb IVPB 215 mls/hr Q12H CLAY Administration Labetalol HCl 20 mg 08/31/18 21:26 Trandate IV Q2H PRN Hypertension Pantoprazole Sodium 40 mg 08/31/18 10:00 08/31/18 11:18 Protonix Inj IVP 40 mg DAILY CLAY Administration - Patient Studies Lab Studies: Lab Studies 09/01/18 09/01/18 09/01/18 Range/Units 07:21 05:15 05:15 WBC 8.9 (4.5-11.0) 10^3/uL RBC 5.59 (3.5-6.1) 10^6/uL Hgb 11.2 L (12.0-16.0) g/dL Hct 35.9 L (36.0-48.0) % MCV 64.2 L (80.0-105.0) fl MCH 20.0 L (25.0-35.0) pg MCHC 31.2 (31.0-37.0) g/dl RDW 16.0 H (11.5-14.5) % Plt Count 190 (120.0-450.0) 10^3/uL MPV 9.8 (7.0-11.0) fl Sodium 146 (132-148) mmol/L Potassium 3.8 (3.6-5.0) mmol/L Chloride 116 H (98-107) mmol/L Carbon Dioxide 24 (21-33) mmol/L Anion Gap 9 L (10-20) BUN 14 (7-21) mg/dL Creatinine 0.6 L (0.7-1.2) mg/dl Est GFR ( Amer) > 60 Est GFR (Non-Af Amer) > 60 POC Glucose (mg/dL) 116 H (65-110) mg/dL Random Glucose 112 H (70-110) mg/dL Calcium 9.1 (8.4-10.5) mg/dL Phosphorus 3.2 (2.5-4.5) mg/dL Magnesium 2.3 H (1.7-2.2) mg/dL 09/01/18 08/31/18 08/31/18 Range/Units 01:00 22:21 22:09 WBC (4.5-11.0) 10^3/uL RBC (3.5-6.1) 10^6/uL Hgb (12.0-16.0) g/dL Hct (36.0-48.0) % MCV (80.0-105.0) fl MCH (25.0-35.0) pg MCHC (31.0-37.0) g/dl RDW (11.5-14.5) % Plt Count (120.0-450.0) 10^3/uL MPV (7.0-11.0) fl Sodium 146 143 (132-148) mmol/L Potassium 3.6 3.5 L (3.6-5.0) mmol/L Chloride 116 H 114 H (98-107) mmol/L Carbon Dioxide 24 22 (21-33) mmol/L Anion Gap 10 11 (10-20) BUN 13 12 (7-21) mg/dL Creatinine 0.6 L 0.6 L (0.7-1.2) mg/dl Est GFR ( Amer) > 60 > 60 Est GFR (Non-Af Amer) > 60 > 60 POC Glucose (mg/dL) 105 (65-110) mg/dL Random Glucose 111 H 116 H (70-110) mg/dL Calcium 9.0 8.9 (8.4-10.5) mg/dL Phosphorus (2.5-4.5) mg/dL Magnesium (1.7-2.2) mg/dL 08/31/18 08/31/18 08/31/18 Range/Units 17:30 16:12 13:00 WBC (4.5-11.0) 10^3/uL RBC (3.5-6.1) 10^6/uL Hgb (12.0-16.0) g/dL Hct (36.0-48.0) % MCV (80.0-105.0) fl MCH (25.0-35.0) pg MCHC (31.0-37.0) g/dl RDW (11.5-14.5) % Plt Count (120.0-450.0) 10^3/uL MPV (7.0-11.0) fl Sodium 143 142 (132-148) mmol/L Potassium 3.9 4.2 (3.6-5.0) mmol/L Chloride 113 H 114 H (98-107) mmol/L Carbon Dioxide 23 20 L (21-33) mmol/L Anion Gap 11 12 (10-20) BUN 11 11 (7-21) mg/dL Creatinine 0.6 L 0.6 L (0.7-1.2) mg/dl Est GFR ( Amer) > 60 > 60 Est GFR (Non-Af Amer) > 60 > 60 POC Glucose (mg/dL) 89 (65-110) mg/dL Random Glucose 101 104 (70-110) mg/dL Calcium 8.9 8.9 (8.4-10.5) mg/dL Phosphorus (2.5-4.5) mg/dL Magnesium (1.7-2.2) mg/dL 08/31/18 08/31/18 08/31/18 Range/Units 11:09 09:40 08:52 WBC (4.5-11.0) 10^3/uL RBC (3.5-6.1) 10^6/uL Hgb (12.0-16.0) g/dL Hct (36.0-48.0) % MCV (80.0-105.0) fl MCH (25.0-35.0) pg MCHC (31.0-37.0) g/dl RDW (11.5-14.5) % Plt Count (120.0-450.0) 10^3/uL MPV (7.0-11.0) fl Sodium 143 (132-148) mmol/L Potassium 4.1 (3.6-5.0) mmol/L Chloride 112 H (98-107) mmol/L Carbon Dioxide 25 (21-33) mmol/L Anion Gap 11 (10-20) BUN 11 (7-21) mg/dL Creatinine 0.6 L (0.7-1.2) mg/dl Est GFR ( Amer) > 60 Est GFR (Non-Af Amer) > 60 POC Glucose (mg/dL) 85 86 (65-110) mg/dL Random Glucose 95 (70-110) mg/dL Calcium 8.8 (8.4-10.5) mg/dL Phosphorus (2.5-4.5) mg/dL Magnesium (1.7-2.2) mg/dL Laboratory Results - last 24 hr 08/31/18 08/31/18 08/31/18 08:52 09:40 11:09 WBC RBC Hgb Hct MCV MCH MCHC RDW Plt Count MPV Sodium 143 Potassium 4.1 Chloride 112 H Carbon Dioxide 25 Anion Gap 11 BUN 11 Creatinine 0.6 L Est GFR ( Amer) > 60 Est GFR (Non-Af Amer) > 60 POC Glucose (mg/dL) 86 85 Random Glucose 95 Calcium 8.8 Phosphorus Magnesium 08/31/18 08/31/18 08/31/18 13:00 16:12 17:30 WBC RBC Hgb Hct MCV MCH MCHC RDW Plt Count MPV Sodium 142 143 Potassium 4.2 3.9 Chloride 114 H 113 H Carbon Dioxide 20 L 23 Anion Gap 12 11 BUN 11 11 Creatinine 0.6 L 0.6 L Est GFR ( Amer) > 60 > 60 Est GFR (Non-Af Amer) > 60 > 60 POC Glucose (mg/dL) 89 Random Glucose 104 101 Calcium 8.9 8.9 Phosphorus Magnesium 08/31/18 08/31/18 09/01/18 22:09 22:21 01:00 WBC RBC Hgb Hct MCV MCH MCHC RDW Plt Count MPV Sodium 143 146 Potassium 3.5 L 3.6 Chloride 114 H 116 H Carbon Dioxide 22 24 Anion Gap 11 10 BUN 12 13 Creatinine 0.6 L 0.6 L Est GFR ( Amer) > 60 > 60 Est GFR (Non-Af Amer) > 60 > 60 POC Glucose (mg/dL) 105 Random Glucose 116 H 111 H Calcium 8.9 9.0 Phosphorus Magnesium 09/01/18 09/01/18 09/01/18 05:15 05:15 07:21 WBC 8.9 RBC 5.59 Hgb 11.2 L Hct 35.9 L MCV 64.2 L MCH 20.0 L MCHC 31.2 RDW 16.0 H Plt Count 190 MPV 9.8 Sodium 146 Potassium 3.8 Chloride 116 H Carbon Dioxide 24 Anion Gap 9 L BUN 14 Creatinine 0.6 L Est GFR ( Amer) > 60 Est GFR (Non-Af Amer) > 60 POC Glucose (mg/dL) 116 H Random Glucose 112 H Calcium 9.1 Phosphorus 3.2 Magnesium 2.3 H Radiology Impressions: Radiology Impressions Head CT 08/31/18 03:00 IMPRESSION: There is a large parenchymal hematoma within the right cerebral hemisphere which has increased in size extending from vertex inferiorly to below the level of the lateral ventricles and sylvian fissure extending anteriorly to the region of the lateral fissure. There is a fairly well-circumscribed rim of low-attenuation edema and or necrotic brain tissue. This hematoma exerts considerable surrounding mass effect with compression of the overlying sulci and right lateral ventricle. There is also mild [id number] midline shift of the septum pellucidum (subfalcine herniation) estimated at approximately 7 mm. No obstructive hydrocephalus. Fingerstick Blood Sugar Results: 103 Review of Systems - Review of Systems Review of Systems: 12 point ROS limited due to pts current status and lethargy. Critical Care Progress Note - Nutrition Nutrition: Nutrition Category Date Time Status NPO Diet [DIET] Diets 08/30/18 Dinner Ordered Assessment/Plan - Assessment and Plan (Free Text) Assessment: 63 yo F with PMH of migraines presents to [facility] [place] for left-sided deficits. Will admit to the ICU for close monitoring due to parenchymal hematoma in the right frontal parietal lobe with midline shift. Plan: Neuro: - initial head CT showed 4x3.8 cm parenchymal hematoma in the right frontoparietal lobe with surrounding edema and 2.6 mm midline shift right to left - Repeat head CT : "There is a large parenchymal hematoma within the right cerebral hemisphere which has increased in size extending from vertex inferiorly to below the level of the lateral ventricles and sylvian fissure extending anteriorly to the region of the lateral fissure. There is a fairly well- circumscribed rim of low-attenuation edema and or necrotic brain tissue. This hematoma exerts considerable surrounding mass effect with compression of the overlying sulci and right lateral ventricle. There is also mild [id number] midline shift of the septum pellucidum (subfalcine herniation) estimated at approximately 7 mm. No obstructive hydrocephalus." - Repeat CT showed: a redemonstration of large R parenchymal hematoma measuring 6.7x5.1x6.1cm. Rim of surrounding erythema has increased as well. Significant mass effect with compression of overlygin sulci and compression of R lateral ventricle noted. - Neurosurg notified of new CT findings, will come in to assess - Continue keppra daily - Continue hypertonic saline at this time per neurology/neurosurgery @ 50mls/hr with goal Na in low 150s per neurosurg - Repeat BMP q4h. Goal Na in low 150's per neurosurg - Repeat serum osms q4h - Will obtain CT head daily - Neuro checks Q1H. Monitor for signs of progression - Neurology Consulted - Neurosurgery Consulted: no acute surgical intervention at this time, cont conservative management - Maintain normothermia Cardio: - Monitor BP, target SBP 130-150 per neurology - Maintain MAP > 65 - Hold home ASA Pulm: - Maintain O2 sat > 92% GI: - Protonix - NPO Renal: - Monitor electrolytes, replete/correct as needed - Maintain euvolemia Heme: - SCD's for DVT PPx Endo: - Maintain euglycemia Case seen, examined and discussed with attending physician, Dr. Felice Gore, PGY1 <Richar Viveros - Last Filed: 09/01/18 17:22> CCU Objective - Vital Signs / Intake & Output Vital Signs (Last 4 hours): Vital Signs Pulse 09/01/18 17:01 67 Intake and Output (Last 8hrs): Intake & Output 09/01/18 09/01/18 09/01/18 06:59 14:59 22:59 Intake Total 650 Output Total 600 Balance 50 Weight 66.82 kg Intake: IV 650 3% saline 550 keppra 100 Output: Urine 600 Urethral (Holliday) 600 Other: # Bowel Movements 0 - Medications Active Medications: Active Medications Generic Name Dose Route Start Last Admin Trade Name Freq PRN Reason Stop Dose Admin Levetiracetam 500 mg in 100 mls @ 215 mls/hr 08/31/18 22:00 09/01/18 10:10 Keppra 500mg Ivpb IVPB 215 mls/hr Q12H CLAY Administration Nicardipine HCl 20 mg in 200 mls @ 50 mls/hr 09/01/18 14:48 09/01/18 14:55 Cardene Iv Premix IV 5 mg/hr .Q4H PRN 50 mls/hr TITRATE PER MD ORDER Administration Protocol 5 MG/HR Propofol 1,000 mg in 100 mls @ 2.005 mls/hr 09/01/18 16:49 Diprivan IV .Q24H PRN TITRATE PER MD ORDER Protocol 5 MCG/KG/MIN Sodium Chloride 500 mls @ 60 mls/hr 09/01/18 17:13 Hypertonic Saline 3% IV .[id number] CLAY Labetalol HCl 20 mg 08/31/18 21:26 09/01/18 14:21 Trandate IV 20 mg Q2H PRN Administration Hypertension Pantoprazole Sodium 40 mg 08/31/18 10:00 09/01/18 10:10 Protonix Inj IVP 40 mg DAILY CLAY Administration - Patient Studies Lab Studies: Microbiology Studies 08/30/18 22:30 MRSA Culture (Admit) - Final Naris MRSA NOT DETECTED Lab Studies 09/01/18 09/01/18 09/01/18 Range/Units 15:00 15:00 11:23 WBC (4.5-11.0) 10^3/uL RBC (3.5-6.1) 10^6/uL Hgb (12.0-16.0) g/dL Hct (36.0-48.0) % MCV (80.0-105.0) fl MCH (25.0-35.0) pg MCHC (31.0-37.0) g/dl RDW (11.5-14.5) % Plt Count (120.0-450.0) 10^3/uL MPV (7.0-11.0) fl pCO2 (35-45) mm/Hg pO2 (80-100) mm/Hg HCO3 (21-28) mmol/L ABG pH (7.35-7.45) ABG Total CO2 (22-28) mmol.L ABG O2 Saturation (95-98) % ABG O2 Content (15-23) ML/dl ABG Base Excess (-2.0-3.0) mmol/L ABG Hemoglobin (11.7-17.4) g/dL ABG Carboxyhemoglobin (0.5-1.5) % POC ABG HHb (Measured) (0-5) % ABG Methemoglobin (0.0-3.0) % ABG O2 Capacity (16-24) mL/dl Hgb O2 Saturation (95.0-98.0) % FiO2 % Sodium 144 (132-148) mmol/L Potassium 3.8 (3.6-5.0) mmol/L Chloride 114 H (98-107) mmol/L Carbon Dioxide 24 (21-33) mmol/L Anion Gap 10 (10-20) BUN 13 (7-21) mg/dL Creatinine 0.6 L (0.7-1.2) mg/dl Est GFR ( Amer) > 60 Est GFR (Non-Af Amer) > 60 POC Glucose (mg/dL) 114 H (65-110) mg/dL Random Glucose 136 H (70-110) mg/dL Serum Osmolality 304 H (272-300) mosm/kg Calcium 9.2 (8.4-10.5) mg/dL Phosphorus (2.5-4.5) mg/dL Magnesium (1.7-2.2) mg/dL Triglycerides (35-160) mg/dL Cholesterol (130-200) mg/dL LDL Cholesterol Direct (0-129) mg/dL HDL Cholesterol (29-60) mg/dL 09/01/18 09/01/18 09/01/18 Range/Units 09:15 08:45 08:45 WBC (4.5-11.0) 10^3/uL RBC (3.5-6.1) 10^6/uL Hgb (12.0-16.0) g/dL Hct (36.0-48.0) % MCV (80.0-105.0) fl MCH (25.0-35.0) pg MCHC (31.0-37.0) g/dl RDW (11.5-14.5) % Plt Count (120.0-450.0) 10^3/uL MPV (7.0-11.0) fl pCO2 36 (35-45) mm/Hg pO2 110.0 H (80-100) mm/Hg HCO3 21.8 (21-28) mmol/L ABG pH 7.39 (7.35-7.45) ABG Total CO2 22.9 (22-28) mmol.L ABG O2 Saturation 99.4 H (95-98) % ABG O2 Content 14.0 L (15-23) ML/dl ABG Base Excess -2.8 L (-2.0-3.0) mmol/L ABG Hemoglobin 10.2 L (11.7-17.4) g/dL ABG Carboxyhemoglobin 2.0 H (0.5-1.5) % POC ABG HHb (Measured) 0.6 (0-5) % ABG Methemoglobin 1.2 (0.0-3.0) % ABG O2 Capacity 14.1 L (16-24) mL/dl Hgb O2 Saturation 96.3 (95.0-98.0) % FiO2 32.0 % Sodium 144 (132-148) mmol/L Potassium 3.8 (3.6-5.0) mmol/L Chloride 114 H (98-107) mmol/L Carbon Dioxide 24 (21-33) mmol/L Anion Gap 10 (10-20) BUN 14 (7-21) mg/dL Creatinine 0.6 L (0.7-1.2) mg/dl Est GFR ( Amer) > 60 Est GFR (Non-Af Amer) > 60 POC Glucose (mg/dL) (65-110) mg/dL Random Glucose 125 H (70-110) mg/dL Serum Osmolality 304 H (272-300) mosm/kg Calcium 9.1 (8.4-10.5) mg/dL Phosphorus (2.5-4.5) mg/dL Magnesium (1.7-2.2) mg/dL Triglycerides (35-160) mg/dL Cholesterol (130-200) mg/dL LDL Cholesterol Direct (0-129) mg/dL HDL Cholesterol (29-60) mg/dL 09/01/18 09/01/18 09/01/18 Range/Units 07:21 05:15 05:15 WBC (4.5-11.0) 10^3/uL RBC (3.5-6.1) 10^6/uL Hgb (12.0-16.0) g/dL Hct (36.0-48.0) % MCV (80.0-105.0) fl MCH (25.0-35.0) pg MCHC (31.0-37.0) g/dl RDW (11.5-14.5) % Plt Count (120.0-450.0) 10^3/uL MPV (7.0-11.0) fl pCO2 (35-45) mm/Hg pO2 (80-100) mm/Hg HCO3 (21-28) mmol/L ABG pH (7.35-7.45) ABG Total CO2 (22-28) mmol.L ABG O2 Saturation (95-98) % ABG O2 Content (15-23) ML/dl ABG Base Excess (-2.0-3.0) mmol/L ABG Hemoglobin (11.7-17.4) g/dL ABG Carboxyhemoglobin (0.5-1.5) % POC ABG HHb (Measured) (0-5) % ABG Methemoglobin (0.0-3.0) % ABG O2 Capacity (16-24) mL/dl Hgb O2 Saturation (95.0-98.0) % FiO2 % Sodium 146 (132-148) mmol/L Potassium 3.8 (3.6-5.0) mmol/L Chloride 116 H (98-107) mmol/L Carbon Dioxide 24 (21-33) mmol/L Anion Gap 9 L (10-20) BUN 14 (7-21) mg/dL Creatinine 0.6 L (0.7-1.2) mg/dl Est GFR ( Amer) > 60 Est GFR (Non-Af Amer) > 60 POC Glucose (mg/dL) 116 H (65-110) mg/dL Random Glucose 112 H (70-110) mg/dL Serum Osmolality (272-300) mosm/kg Calcium 9.1 (8.4-10.5) mg/dL Phosphorus 3.2 (2.5-4.5) mg/dL Magnesium 2.3 H (1.7-2.2) mg/dL Triglycerides 90 (35-160) mg/dL Cholesterol 139 (130-200) mg/dL LDL Cholesterol Direct 61 (0-129) mg/dL HDL Cholesterol 51 (29-60) mg/dL 09/01/18 09/01/18 08/31/18 Range/Units 05:15 01:00 22:21 WBC 8.9 (4.5-11.0) 10^3/uL RBC 5.59 (3.5-6.1) 10^6/uL Hgb 11.2 L (12.0-16.0) g/dL Hct 35.9 L (36.0-48.0) % MCV 64.2 L (80.0-105.0) fl MCH 20.0 L (25.0-35.0) pg MCHC 31.2 (31.0-37.0) g/dl RDW 16.0 H (11.5-14.5) % Plt Count 190 (120.0-450.0) 10^3/uL MPV 9.8 (7.0-11.0) fl pCO2 (35-45) mm/Hg pO2 (80-100) mm/Hg HCO3 (21-28) mmol/L ABG pH (7.35-7.45) ABG Total CO2 (22-28) mmol.L ABG O2 Saturation (95-98) % ABG O2 Content (15-23) ML/dl ABG Base Excess (-2.0-3.0) mmol/L ABG Hemoglobin (11.7-17.4) g/dL ABG Carboxyhemoglobin (0.5-1.5) % POC ABG HHb (Measured) (0-5) % ABG Methemoglobin (0.0-3.0) % ABG O2 Capacity (16-24) mL/dl Hgb O2 Saturation (95.0-98.0) % FiO2 % Sodium 146 143 (132-148) mmol/L Potassium 3.6 3.5 L (3.6-5.0) mmol/L Chloride 116 H 114 H (98-107) mmol/L Carbon Dioxide 24 22 (21-33) mmol/L Anion Gap 10 11 (10-20) BUN 13 12 (7-21) mg/dL Creatinine 0.6 L 0.6 L (0.7-1.2) mg/dl Est GFR ( Amer) > 60 > 60 Est GFR (Non-Af Amer) > 60 > 60 POC Glucose (mg/dL) (65-110) mg/dL Random Glucose 111 H 116 H (70-110) mg/dL Serum Osmolality (272-300) mosm/kg Calcium 9.0 8.9 (8.4-10.5) mg/dL Phosphorus (2.5-4.5) mg/dL Magnesium (1.7-2.2) mg/dL Triglycerides (35-160) mg/dL Cholesterol (130-200) mg/dL LDL Cholesterol Direct (0-129) mg/dL HDL Cholesterol (29-60) mg/dL 08/31/18 08/31/18 Range/Units 22:09 17:30 WBC (4.5-11.0) 10^3/uL RBC (3.5-6.1) 10^6/uL Hgb (12.0-16.0) g/dL Hct (36.0-48.0) % MCV (80.0-105.0) fl MCH (25.0-35.0) pg MCHC (31.0-37.0) g/dl RDW (11.5-14.5) % Plt Count (120.0-450.0) 10^3/uL MPV (7.0-11.0) fl pCO2 (35-45) mm/Hg pO2 (80-100) mm/Hg HCO3 (21-28) mmol/L ABG pH (7.35-7.45) ABG Total CO2 (22-28) mmol.L ABG O2 Saturation (95-98) % ABG O2 Content (15-23) ML/dl ABG Base Excess (-2.0-3.0) mmol/L ABG Hemoglobin (11.7-17.4) g/dL ABG Carboxyhemoglobin (0.5-1.5) % POC ABG HHb (Measured) (0-5) % ABG Methemoglobin (0.0-3.0) % ABG O2 Capacity (16-24) mL/dl Hgb O2 Saturation (95.0-98.0) % FiO2 % Sodium 143 (132-148) mmol/L Potassium 3.9 (3.6-5.0) mmol/L Chloride 113 H (98-107) mmol/L Carbon Dioxide 23 (21-33) mmol/L Anion Gap 11 (10-20) BUN 11 (7-21) mg/dL Creatinine 0.6 L (0.7-1.2) mg/dl Est GFR ( Amer) > 60 Est GFR (Non-Af Amer) > 60 POC Glucose (mg/dL) 105 (65-110) mg/dL Random Glucose 101 (70-110) mg/dL Serum Osmolality (272-300) mosm/kg Calcium 8.9 (8.4-10.5) mg/dL Phosphorus (2.5-4.5) mg/dL Magnesium (1.7-2.2) mg/dL Triglycerides (35-160) mg/dL Cholesterol (130-200) mg/dL LDL Cholesterol Direct (0-129) mg/dL HDL Cholesterol (29-60) mg/dL Laboratory Results - last 24 hr 08/31/18 08/31/18 08/31/18 17:30 22:09 22:21 WBC RBC Hgb Hct MCV MCH MCHC RDW Plt Count MPV pCO2 pO2 HCO3 ABG pH ABG Total CO2 ABG O2 Saturation ABG O2 Content ABG Base Excess ABG Hemoglobin ABG Carboxyhemoglobin POC ABG HHb (Measured) ABG Methemoglobin ABG O2 Capacity Hgb O2 Saturation FiO2 Sodium 143 143 Potassium 3.9 3.5 L Chloride 113 H 114 H Carbon Dioxide 23 22 Anion Gap 11 11 BUN 11 12 Creatinine 0.6 L 0.6 L Est GFR ( Amer) > 60 > 60 Est GFR (Non-Af Amer) > 60 > 60 POC Glucose (mg/dL) 105 Random Glucose 101 116 H Serum Osmolality Calcium 8.9 8.9 Phosphorus Magnesium Triglycerides Cholesterol LDL Cholesterol Direct HDL Cholesterol 09/01/18 09/01/18 09/01/18 01:00 05:15 05:15 WBC 8.9 RBC 5.59 Hgb 11.2 L Hct 35.9 L MCV 64.2 L MCH 20.0 L MCHC 31.2 RDW 16.0 H Plt Count 190 MPV 9.8 pCO2 pO2 HCO3 ABG pH ABG Total CO2 ABG O2 Saturation ABG O2 Content ABG Base Excess ABG Hemoglobin ABG Carboxyhemoglobin POC ABG HHb (Measured) ABG Methemoglobin ABG O2 Capacity Hgb O2 Saturation FiO2 Sodium 146 146 Potassium 3.6 3.8 Chloride 116 H 116 H Carbon Dioxide 24 24 Anion Gap 10 9 L BUN 13 14 Creatinine 0.6 L 0.6 L Est GFR ( Amer) > 60 > 60 Est GFR (Non-Af Amer) > 60 > 60 POC Glucose (mg/dL) Random Glucose 111 H 112 H Serum Osmolality Calcium 9.0 9.1 Phosphorus 3.2 Magnesium 2.3 H Triglycerides Cholesterol LDL Cholesterol Direct HDL Cholesterol 09/01/18 09/01/18 09/01/18 05:15 07:21 08:45 WBC RBC Hgb Hct MCV MCH MCHC RDW Plt Count MPV pCO2 pO2 HCO3 ABG pH ABG Total CO2 ABG O2 Saturation ABG O2 Content ABG Base Excess ABG Hemoglobin ABG Carboxyhemoglobin POC ABG HHb (Measured) ABG Methemoglobin ABG O2 Capacity Hgb O2 Saturation FiO2 Sodium 144 Potassium 3.8 Chloride 114 H Carbon Dioxide 24 Anion Gap 10 BUN 14 Creatinine 0.6 L Est GFR ( Amer) > 60 Est GFR (Non-Af Amer) > 60 POC Glucose (mg/dL) 116 H Random Glucose 125 H Serum Osmolality Calcium 9.1 Phosphorus Magnesium Triglycerides 90 Cholesterol 139 LDL Cholesterol Direct 61 HDL Cholesterol 51 09/01/18 09/01/18 09/01/18 08:45 09:15 11:23 WBC RBC Hgb Hct MCV MCH MCHC RDW Plt Count MPV pCO2 36 pO2 110.0 H HCO3 21.8 ABG pH 7.39 ABG Total CO2 22.9 ABG O2 Saturation 99.4 H ABG O2 Content 14.0 L ABG Base Excess -2.8 L ABG Hemoglobin 10.2 L ABG Carboxyhemoglobin 2.0 H POC ABG HHb (Measured) 0.6 ABG Methemoglobin 1.2 ABG O2 Capacity 14.1 L Hgb O2 Saturation 96.3 FiO2 32.0 Sodium Potassium Chloride Carbon Dioxide Anion Gap BUN Creatinine Est GFR ( Amer) Est GFR (Non-Af Amer) POC Glucose (mg/dL) 114 H Random Glucose Serum Osmolality 304 H Calcium Phosphorus Magnesium Triglycerides Cholesterol LDL Cholesterol Direct HDL Cholesterol 09/01/18 09/01/18 15:00 15:00 WBC RBC Hgb Hct MCV MCH MCHC RDW Plt Count MPV pCO2 pO2 HCO3 ABG pH ABG Total CO2 ABG O2 Saturation ABG O2 Content ABG Base Excess ABG Hemoglobin ABG Carboxyhemoglobin POC ABG HHb (Measured) ABG Methemoglobin ABG O2 Capacity Hgb O2 Saturation FiO2 Sodium 144 Potassium 3.8 Chloride 114 H Carbon Dioxide 24 Anion Gap 10 BUN 13 Creatinine 0.6 L Est GFR ( Amer) > 60 Est GFR (Non-Af Amer) > 60 POC Glucose (mg/dL) Random Glucose 136 H Serum Osmolality 304 H Calcium 9.2 Phosphorus Magnesium Triglycerides Cholesterol LDL Cholesterol Direct HDL Cholesterol Radiology Impressions: Radiology Impressions Head CT 09/01/18 08:00 IMPRESSION: Redemonstrated is a large parenchymal hematoma right cerebral hemisphere extending from the vertex inferiorly into the anterior upper right middle cranial fossa region. This hemorrhage measures approximately 6.7 x 5.1 x 6.1 cm the rim of surrounding edema has increased in size as well. There is significant mass effect with compression of the overlying sulci and further compression of the right lateral ventricle which shifted across midline to the left. Emergent neurosurgical consultation is recommended. These findings discussed with ICU resident electrician second Dr. Gore Critical Care Progress Note - Nutrition Nutrition: Nutrition Category Date Time Status NPO Diet [DIET] Diets 08/30/18 Dinner Ordered Addendum Addendum: 09/01/18 17:15 ICU Attending Addendum Patient seen and examined. Case reviewed on round with housestaff. Agree with resident note above with the following additions/exceptions 63F with PMH of migraines with left sided weakness, droop and slurring found to have right frontoparietal ICH 4 x 3.8 increasing in size on f/u CT with edema neuro and neuro surg on board CT Head today redemonstred large R parenchymal hematoma measuring 6.7x5.1x6.1cm and significant mass effect with compression of overlying sulci and compression of R lateral ventricle noted. Dr Borges notified, came in and examined the patient he informed the family at bedside that no role of surgical intervention at this time unless exam gets worse She is still able to localize to pain does not verbalize eye closed 0/5 on LUE and LLL with facial droop moves right side spontaneously 3%NS started 08/31 with a goal serum Na of 145-150 and serum osm < 320 will increase rate TLC placed 08/31 to deliver 3% Keppra 500 mg BID HOB> 40 degrees SBP goal 120-150 In addition, was trying to avoid intubation in order to preserve our ability to examined her continuously and monitor for signs of worsening that may lead to surgical intervention however later in the afternoon her breathing became agonal and labored. I suspected she was unable to clear secretion. Intubated her with 7.5 ETT, mucus found coating her vocal cords. Family notified before and after propofol for sedation, will also decrease ICP BP went > 150 systolic, started on nicardipine drip PPI SCD for DVT ppx Rest of care as above in housestaff note Richar Viveros MD Pulmonary Critical Care Attending CC Time : 55minutes
[2018-09-01 09:16] LABS: BLOOD UREA NITROGEN 14 mg/dL (7-21); CALCIUM 9.1 mg/dL (8.4-10.5); GFR NON-AFRICAN AMERICAN > 60
[2018-09-01 09:22] LABS: ARTERIAL BLOOD GAS HCO3 21.8 mmol/L (21-28); ARTERIAL BLOOD GAS HEMOGLOBIN 10.2 g/dL (11.7-17.4); ARTERIAL BLOOD GAS O2 CAPACITY 14.1 mL/dl (16-24); ARTERIAL BLOOD GAS O2 SAT 99.4 % (95-98); ARTERIAL BLOOD GAS PCO2 36 mm/Hg (35-45); ARTERIAL BLOOD GAS PH 7.39 (7.35-7.45); ARTERIAL BLOOD GAS TCO2 22.9 mmol.L (22-28)
[2018-09-01 10:07] LABS: HDL CHOLESTEROL 51 mg/dL (29-60)
[2018-09-01] MEDS: levETIRAcetam 500mg IVPB 500 MG/100 ML BAG IVPB SCH ×2 (10:10→21:10)
--- NOTE | 2018-09-01 10:11 | CT ---
Date of service: 09/01/2018 PROCEDURE: CT HEAD WITHOUT CONTRAST. HISTORY: ICH, monitor progression COMPARISON: Comparison made with prior CT scan 08/31/2018.. TECHNIQUE: Axial computed tomography images were obtained through the head/brain without intravenous contrast. Radiation dose: Total exam DLP = 904.07 mGy-cm. This CT exam was performed using one or more of the following dose reduction techniques: Automated exposure control, adjustment of the mA and/or kV according to patient size, and/or use of iterative reconstruction technique. FINDINGS: HEMORRHAGE: Redemonstrated is a large parenchymal hematoma right cerebral hemisphere extending from the vertex inferiorly into the anterior upper right middle cranial fossa region. This hemorrhage measures approximately 6.7 x 5.1 x 6.1 cm the rim of surrounding edema has increased in size as well. There is significant mass effect with compression of the overlying sulci and further compression of the right lateral ventricle which shifted across midline to the left. Emergent neurosurgical consultation is recommended. These findings discussed with ICU resident returned telephone equipment appraiser Dr. Gore BRAIN: As above. VENTRICLES: There is increased size of the left temporal horn and left atrium and posterior body left lateral ventricle due to compressive effects on by the aforementioned hematoma resulting in subfalcine shift. Findings are consistent with trapped temporal horn and atrium. CALVARIUM: Calvarium intact. PARANASAL SINUSES: Unremarkable as visualized. No significant inflammatory changes. MASTOID AIR CELLS: Unremarkable as visualized. No inflammatory changes. OTHER FINDINGS: None. IMPRESSION: Redemonstrated is a large parenchymal hematoma right cerebral hemisphere extending from the vertex inferiorly into the anterior upper right middle cranial fossa region. This hemorrhage measures approximately 6.7 x 5.1 x 6.1 cm the rim of surrounding edema has increased in size as well. There is significant mass effect with compression of the overlying sulci and further compression of the right lateral ventricle which shifted across midline to the left. Emergent neurosurgical consultation is recommended. These findings discussed with ICU resident returned telephone equipment appraiser Dr. Gore
[2018-09-01 10:18] LABS: LDL CHOLESTEROL 61 mg/dL (0-129)
[2018-09-01] MEDS: Labetalol 5mg/ml (4ml) IV PRN ×2 (10:20→14:21)
--- NOTE | 2018-09-01 10:28 | PN ---
DATE: 09/01/2018 SUBJECTIVE: A 63-year-old white female status post large right intracerebral bleed which has progressed on CT. A repeat CT will be looked at today. The patient is obtunded, but arousable. She does move her right upper and right lower extremity; however, last time previous her Babinski left is upcoming and right is flat. Her pupils are pinpoint and fixed. Her chest is clear to auscultation and percussion. Heart examination, regular sinus rhythm. She does have a low grade fever, temperature 100.4. Blood pressure has been elevated, has received doses of labetalol and we will repeat to keep her blood pressure in the 130-140 systolic range. She is on hypertonic saline to decrease intracerebral swelling. Her laboratory data is otherwise unremarkable. Her prognosis is guarded. Her condition is critical. She was seen in consultation with Dr. Paula, Neurosurgery and Neurology respectively. The patient will be continued on current treatment and repeat CT will be reviewed. Pal Elizabeth MD
[2018-09-01] MEDS ORDERED: Etomidate 20 mg/10ml Inj IVP ONE (10:29)
[2018-09-01] MEDS ORDERED: Midazolam 2 MG/2 ML VIAL IV ONE ×2 (10:45→16:45)
--- NOTE | 2018-09-01 11:05 | CP.PCM.PN ---
Subjective - Date & Time of Evaluation Date of Evaluation: 09/01/18 Time of Evaluation: 11:03 - Subjective Subjective: pt remains lithargic minimal verbal follow commands well ho CT shows Inc edema with inc mass effect spoke to family will cont to attempt medical managment NA 146 attempt to raise that to low 150's iff possible Objective - Vital Signs/Intake and Output Vital Signs (last 24 hours): Temp Pulse Resp BP Pulse Ox 100.1 F H 67 16 170/70 H 100 09/01/18 08:00 09/01/18 09:50 09/01/18 09:50 09/01/18 09:40 09/01/18 09:50 Intake and Output: 09/01/18 09/01/18 06:59 18:59 Intake Total 650 Output Total 600 Balance 50 - Medications Medications: Current Medications Sodium Chloride (Hypertonic Saline 3%) 500 mls @ 40 mls/hr IV .[id number] [facility] Last Admin: 08/31/18 07:00 Dose: 40 mls/hr Levetiracetam (Keppra 500mg Ivpb) 500 mg in 100 mls @ 215 mls/hr IVPB Q12H [facility] Last Admin: 09/01/18 10:10 Dose: 215 mls/hr Labetalol HCl (Trandate) 20 mg IV Q2H PRN PRN Reason: Hypertension Last Admin: 09/01/18 10:20 Dose: 20 mg Pantoprazole Sodium (Protonix Inj) 40 mg IVP DAILY [facility] Last Admin: 09/01/18 10:10 Dose: 40 mg - Labs Labs: 09/01/18 05:15 09/01/18 08:45 PT 11.5 SECONDS (9.4-12.5) 08/30/18 15:05 INR 1.04 08/30/18 15:05 APTT 33.6 Seconds (26.9-38.3) 08/30/18 15:05
[2018-09-01] MEDS ORDERED: Sodium Chloride 3% 500 ML IV SCH ×2 (11:51→17:13)
[2018-09-01] MEDS: Nicardipine 20 MG/200 ML 20 MG/200 ML BAG IV PRN (14:55)
[2018-09-01 15:20] LABS: BLOOD UREA NITROGEN 13 mg/dL (7-21); CALCIUM 9.2 mg/dL (8.4-10.5); GFR NON-AFRICAN AMERICAN > 60
[2018-09-01] MEDS ORDERED: Etomidate 20 mg/10ml Inj IV ONE (16:45)
[2018-09-01] MEDS ORDERED: Propofol 10 mg/ml 1,000 MG/100 ML VIAL ONE (16:50)
[2018-09-01 18:00] LABS: BLOOD UREA NITROGEN 14 mg/dL (7-21); CALCIUM 9.1 mg/dL (8.4-10.5); GFR NON-AFRICAN AMERICAN > 60
--- NOTE | 2018-09-01 18:06 | PCM.PROC ---
Addendum Addendum: 09/01/18 18:03 Endotracheal Intubation Date: 09/01/18 Indication: stroke / Respiratory Distress A time-out was completed verifying correct patient, procedure, site, positioning. The patient was placed in a flat position. Sedation was obtained using 50 fentantyl, and additionally with Etomidate 20mg. The patient was easily ventilated using an ambu bag. The GLIDESCOPE was used and inserted into the oropharynx at which time there was a Grade 2 view of the vocal cords with green mucus coating her cords. A 7.5-korean endotracheal tube was inserted and visualized going through the vocal cords. The stylette was removed. Colorimetric change was visualized on the CO2 meter. Breath sounds were heard in both lung chaudhary equally. The endotracheal tube was placed at 23 cm, measured at the teeth. A chest x-ray was ordered to assess and verify endotrachealtube placement. The patient tolerated the procedure well and there were no complications. Richar Viveros MD
--- NOTE | 2018-09-01 18:19 | RAD ---
Date of service: 09/01/2018 HISTORY: Status post intubation. COMPARISON: Comparison made with prior chest radiograph dated 08/30/2018. FINDINGS: Interval placement ETT, the tip of which lies approximately 5.2 cm above didier. LUNGS: No active pulmonary disease. PLEURA: No significant pleural effusion identified, no pneumothorax apparent. CARDIOVASCULAR: No significant aortic atherosclerotic calcification present. Heart size upper limits of normal/borderline enlarged. No pulmonary vascular congestion. OSSEOUS STRUCTURES: No significant abnormalities. VISUALIZED UPPER ABDOMEN: Normal. OTHER FINDINGS: None. IMPRESSION: In situ ETT in good position as above.
[2018-09-01] MEDS: Propofol 10 mg/ml 1,000 MG/100 ML VIAL IV PRN (18:30)
--- NOTE | 2018-09-01 19:49 | CP.PCM.PN ---
Subjective - Date & Time of Evaluation Date of Evaluation: 09/01/18 Time of Evaluation: 19:40 - Subjective Subjective: CXR review for tube placement:-> ETT tube position appropriate well above carinii. Objective - Vital Signs/Intake and Output Vital Signs (last 24 hours): Temp Pulse Resp BP Pulse Ox 99 F 67 16 170/70 H 100 09/01/18 16:00 09/01/18 17:01 09/01/18 09:50 09/01/18 09:40 09/01/18 09:50 - Medications Medications: Current Medications Levetiracetam (Keppra 500mg Ivpb) 500 mg in 100 mls @ 215 mls/hr IVPB Q12H [facility] Last Admin: 09/01/18 10:10 Dose: 215 mls/hr Nicardipine HCl (Cardene Iv Premix) 20 mg in 200 mls @ 50 mls/hr IV .Q4H PRN; Protocol PRN Reason: TITRATE PER MD ORDER Last Admin: 09/01/18 14:55 Dose: 5 mg/hr, 50 mls/hr Propofol (Diprivan) 1,000 mg in 100 mls @ 2.005 mls/hr IV .Q24H PRN; Protocol PRN Reason: TITRATE PER MD ORDER Sodium Chloride (Hypertonic Saline 3%) 500 mls @ 60 mls/hr IV .Q8H20M [facility] Last Admin: 09/01/18 17:32 Dose: 60 mls/hr Labetalol HCl (Trandate) 20 mg IV Q2H PRN PRN Reason: Hypertension Last Admin: 09/01/18 14:21 Dose: 20 mg Pantoprazole Sodium (Protonix Inj) 40 mg IVP DAILY [facility] Last Admin: 09/01/18 10:10 Dose: 40 mg - Labs Labs: 09/01/18 05:15 09/01/18 17:00 PT 11.5 SECONDS (9.4-12.5) 08/30/18 15:05 INR 1.04 08/30/18 15:05 APTT 33.6 Seconds (26.9-38.3) 08/30/18 15:05
[2018-09-01 21:52] LABS: BLOOD UREA NITROGEN 16 mg/dL (7-21); CALCIUM 9.4 mg/dL (8.4-10.5); GFR NON-AFRICAN AMERICAN > 60
[2018-09-02] MEDS: Propofol 10 mg/ml 1,000 MG/100 ML VIAL IV PRN (00:39)
[2018-09-02 01:30] LABS: BLOOD UREA NITROGEN 19 mg/dL (7-21); CALCIUM 9.2 mg/dL (8.4-10.5); GFR NON-AFRICAN AMERICAN > 60
[2018-09-02 06:23] LABS: MEAN CELL VOLUME 63.6 fl (80.0-105.0); MEAN CORPUSCULAR HEMOGLOBIN 19.8 pg (25.0-35.0); MEAN CORPUSCULAR HGB CONC 31.1 g/dl (31.0-37.0); MEAN PLATELET VOLUME 10.3 fl (7.0-11.0); RBC 5.06 10^6/uL (3.5-6.1); RED CELL DISTRIBUTION WIDTH 16.3 % (11.5-14.5); WHITE BLOOD COUNT 7.5 10^3/uL (4.5-11.0)
[2018-09-02 06:50] LABS: BLOOD UREA NITROGEN 19 mg/dL (7-21); CALCIUM 8.9 mg/dL (8.4-10.5); GFR NON-AFRICAN AMERICAN > 60
[2018-09-02 07:12] LABS: ARTERIAL BLOOD GAS HCO3 22.6 mmol/L (21-28); ARTERIAL BLOOD GAS HEMOGLOBIN 9.8 g/dL (11.7-17.4); ARTERIAL BLOOD GAS O2 CAPACITY 13.7 mL/dl (16-24); ARTERIAL BLOOD GAS O2 CONTENT 13.7 ML/dl (15-23); ARTERIAL BLOOD GAS O2 SAT 99.8 % (95-98); ARTERIAL BLOOD GAS PCO2 34 mm/Hg (35-45); ARTERIAL BLOOD GAS PH 7.43 (7.35-7.45); ARTERIAL BLOOD GAS TCO2 23.6 mmol.L (22-28)
[2018-09-02] MEDS ORDERED: Potassium Phosphate 15 MMOLE in Dextrose 5% In Water 250 ML IVPB ONE (08:36)
[2018-09-02] MEDS: Nicardipine 20 MG/200 ML 20 MG/200 ML BAG IV PRN (08:55)
--- NOTE | 2018-09-02 09:04 | CT ---
Date of service: 09/02/2018 PROCEDURE: CT HEAD WITHOUT CONTRAST. HISTORY: ICH, monitor progression COMPARISON: 09/01/2018 CT TECHNIQUE: Axial computed tomography images were obtained through the head/brain without intravenous contrast. Radiation dose: Total exam DLP = 982.55 mGy-cm. This CT exam was performed using one or more of the following dose reduction techniques: Automated exposure control, adjustment of the mA and/or kV according to patient size, and/or use of iterative reconstruction technique. FINDINGS: HEMORRHAGE: There is no change in the right hemispheric intraparenchymal hematoma which measures 5.5 by 5.2 x 6.0 cm. There is a large amount of surrounding edema. There is mass effect with effacement of sulci and midline shift. There is 13 cm of midline shift. There is compression of the right lateral ventricle. BRAIN: As above VENTRICLES: Unremarkable. No hydrocephalus. CALVARIUM: Unremarkable. PARANASAL SINUSES: Unremarkable as visualized. No significant inflammatory changes. MASTOID AIR CELLS: Unremarkable as visualized. No inflammatory changes. OTHER FINDINGS: None. IMPRESSION: There is no change in the right hemispheric intraparenchymal hematoma which measures 5.5 by 5.2 x 6.0 cm. There is a large amount of surrounding edema. There is mass effect with effacement of sulci and midline shift. There is 13 cm of midline shift. There is compression of the right lateral ventricle.
[2018-09-02] MEDS ORDERED: Mannitol 12.5 gm/50 ml Inj IV ONE (09:13)
--- NOTE | 2018-09-02 10:05 | CP.PCM.PN ---
Subjective - Date & Time of Evaluation Date of Evaluation: 09/02/18 Time of Evaluation: 10:03 - Subjective Subjective: pt remains intubated and sedated exam with sedation turned off shows that she remains following commands with right side. 3% sodium not affecting her NA level Suggested to ICU attending to change to mannitol 50 gr now with 12.5 grams on a taper sechedule adaily at q6,d8,q12,qd and d/c cuarrently no inication for emergent suyrgery Objective - Vital Signs/Intake and Output Vital Signs (last 24 hours): Temp Pulse Resp BP Pulse Ox 101.1 F H 65 20 160/76 H 100 09/02/18 07:30 09/02/18 07:30 09/01/18 16:53 09/02/18 07:30 09/02/18 07:30 Intake and Output: 09/02/18 09/02/18 06:59 18:59 Intake Total 970 200 Output Total 600 Balance 370 200 - Medications Medications: Current Medications Levetiracetam (Keppra 500mg Ivpb) 500 mg in 100 mls @ 215 mls/hr IVPB Q12H [facility] Last Admin: 09/01/18 21:10 Dose: 215 mls/hr Nicardipine HCl (Cardene Iv Premix) 20 mg in 200 mls @ 50 mls/hr IV .Q4H PRN; Protocol PRN Reason: TITRATE PER MD ORDER Last Admin: 09/02/18 08:55 Dose: 10 mg/hr, 100 mls/hr Propofol (Diprivan) 1,000 mg in 100 mls @ 2.005 mls/hr IV .Q24H PRN; Protocol PRN Reason: TITRATE PER MD ORDER Last Admin: 09/02/18 00:39 Dose: 25 mcg/kg/min, 10.023 mls/hr Acetaminophen (Ofirmev) 1,000 mg in 100 mls @ 400 mls/hr IVPB Q6H PRN PRN Reason: Temperature Stop: 09/04/18 08:11 Last Admin: 09/02/18 08:56 Dose: 400 mls/hr Potassium Chloride (Potassium Chloride 20 Meq/100 Ml) 20 meq in 100 mls @ 50 mls/hr IVPB Q2H [facility] Stop: 09/02/18 12:44 Last Admin: 09/02/18 08:56 Dose: 50 mls/hr Potassium Phosphate 15 mmole/ (Dextrose) 255 mls @ 42.5 mls/hr IVPB ONCE ONE Stop: 09/02/18 14:35 Last Admin: 09/02/18 09:15 Dose: 42.5 mls/hr Dextrose/Sodium Chloride (Dextrose 5%/0.45% Ns 1000 Ml) 1,000 mls @ 100 mls/hr IV .Q10H [facility] Mannitol (Mannitol) 50 mls @ 100 mls/hr IV Q6H [facility] Mannitol (Mannitol) 200 mls @ 100 mls/hr IV ONCE ONE Stop: 09/02/18 11:44 Labetalol HCl (Trandate) 20 mg IV Q2H PRN PRN Reason: Hypertension Last Admin: 09/01/18 14:21 Dose: 20 mg Pantoprazole Sodium (Protonix Inj) 40 mg IVP DAILY [facility] Last Admin: 09/02/18 09:17 Dose: 40 mg - Labs Labs: 09/02/18 05:45 09/02/18 05:45 PT 11.5 SECONDS (9.4-12.5) 08/30/18 15:05 INR 1.04 08/30/18 15:05 APTT 33.6 Seconds (26.9-38.3) 08/30/18 15:05
[2018-09-02 10:15] LABS: BLOOD UREA NITROGEN 18 mg/dL (7-21); CALCIUM 8.7 mg/dL (8.4-10.5); GFR NON-AFRICAN AMERICAN > 60
[2018-09-02] MEDS: levETIRAcetam 500mg IVPB 500 MG/100 ML BAG IVPB SCH ×2 (10:30→21:48)
[2018-09-02] MEDS: Dextrose 5%/0.45% NS 1,000 ML IV SCH ×2 (10:46→21:51)
--- NOTE | 2018-09-02 12:16 | CP.PCM.PN ---
<Ino Cuellar - Last Filed: 09/02/18 12:47> Subjective - Date & Time of Evaluation Date of Evaluation: 09/02/18 Time of Evaluation: 12:16 - Subjective Subjective: PGY-1 Neurology Progress note for Dr. Nagy Patient seen and assessed at bedside. Patient's family members were present in the room. Patient is still intubated, not on sedation, and follow commands on the right side. Objective - Vital Signs/Intake and Output Vital Signs (last 24 hours): Temp Pulse Resp BP Pulse Ox 101.1 F H 65 20 160/76 H 100 09/02/18 07:30 09/02/18 07:30 09/01/18 16:53 09/02/18 07:30 09/02/18 07:30 Intake and Output: 09/02/18 09/02/18 06:59 18:59 Intake Total 970 200 Output Total 600 Balance 370 200 - Medications Medications: Current Medications Levetiracetam (Keppra 500mg Ivpb) 500 mg in 100 mls @ 215 mls/hr IVPB Q12H [facility] Last Admin: 09/02/18 10:30 Dose: 215 mls/hr Nicardipine HCl (Cardene Iv Premix) 20 mg in 200 mls @ 50 mls/hr IV .Q4H PRN; Protocol PRN Reason: TITRATE PER MD ORDER Last Admin: 09/02/18 08:55 Dose: 10 mg/hr, 100 mls/hr Propofol (Diprivan) 1,000 mg in 100 mls @ 2.005 mls/hr IV .Q24H PRN; Protocol PRN Reason: TITRATE PER MD ORDER Last Admin: 09/02/18 00:39 Dose: 25 mcg/kg/min, 10.023 mls/hr Acetaminophen (Ofirmev) 1,000 mg in 100 mls @ 400 mls/hr IVPB Q6H PRN PRN Reason: Temperature Stop: 09/04/18 08:11 Last Admin: 09/02/18 08:56 Dose: 400 mls/hr Potassium Chloride (Potassium Chloride 20 Meq/100 Ml) 20 meq in 100 mls @ 50 mls/hr IVPB Q2H [facility] Stop: 09/02/18 12:44 Last Admin: 09/02/18 11:16 Dose: 50 mls/hr Potassium Phosphate 15 mmole/ (Dextrose) 255 mls @ 42.5 mls/hr IVPB ONCE ONE Stop: 09/02/18 14:35 Last Admin: 09/02/18 09:15 Dose: 42.5 mls/hr Dextrose/Sodium Chloride (Dextrose 5%/0.45% Ns 1000 Ml) 1,000 mls @ 100 mls/hr IV .Q10H [facility] Last Admin: 09/02/18 10:46 Dose: 100 mls/hr Mannitol (Mannitol) 50 mls @ 100 mls/hr IV Q6H [facility] Labetalol HCl (Trandate) 20 mg IV Q2H PRN PRN Reason: Hypertension Last Admin: 09/01/18 14:21 Dose: 20 mg Pantoprazole Sodium (Protonix Inj) 40 mg IVP DAILY [facility] Last Admin: 09/02/18 09:17 Dose: 40 mg - Labs Labs: 09/02/18 05:45 09/02/18 09:50 PT 11.5 SECONDS (9.4-12.5) 08/30/18 15:05 INR 1.04 08/30/18 15:05 APTT 33.6 Seconds (26.9-38.3) 08/30/18 15:05 - Additional Findings Additional findings: - Constitutional Appears: No Acute Distress, patient is intubated - Head Exam Head Exam: ATRAUMATIC, NORMAL INSPECTION, NORMOCEPHALIC - Eye Exam Eye Exam: EOMI, Normal appearance, PERRL Pupil Exam: NORMAL ACCOMODATION, PERRL - ENT Exam ENT Exam: Mucous Membranes Moist, Normal Exam - Neck Exam Neck Exam: Full ROM, Normal Inspection. absent: Lymphadenopathy - Respiratory Exam Respiratory Exam: Clear to Ausculation Bilateral, NORMAL BREATHING PATTERN - Cardiovascular Exam Cardiovascular Exam: REGULAR RHYTHM, +S1, +S2. absent: Murmur - GI/Abdominal Exam GI & Abdominal Exam: Soft, Normal Bowel Sounds. absent: Tenderness - Extremities Exam Extremities Exam: Full ROM, Normal Capillary Refill, Normal Inspection. absent: Joint Swelling, Pedal Edema - Back Exam Back Exam: NORMAL INSPECTION - Neurological Exam Additional comments: Lethargic. Left facial droop, eye-lid apraxia, left side hemiplegic with decreased sensation, upgoing plantar response on the left, follows commands on the right. - Psychiatric Exam Psychiatric exam: Normal Affect, Normal Mood - Skin Skin Exam: Dry, Intact, Normal Color, Warm Assessment and Plan - Assessment and Plan (Free Text) Assessment: Patient is a 63 year old female presenting with left-sided weakness, left facial droop, and dysarthria. Patient is admitted in ICU for close monitoring for parenchymal hematoma in the right frontal parietal lobe with midline shift. Plan: - Repeat head CT (09/02): There is no change in the right hemispheric intraparenchymal hematoma which measures 5.5 by 5.2 x 6.0 cm. There is a large amount of surrounding edema. There is mass effect with effacement of sulci and midline shift. There is 13 cm of midline shift. There is compression of the right lateral ventricle. - Repeat head CT in the morning - 24-hours Video EEG: pending - Continue Keppra IV 500mg BID - Continue Mannitol 12.5g IV Q6, on a taper schedule - Goal of serum sodium of 145-150 and serum osm <320 - Keep head of bed elevated above 40 degrees - Will order MRA of head and neck once patient is more stable - No surgical interventions at this time, as per Neurosurgery - Further recommendations as per Dr. Nagy Patient seen and case discussed with attending, Dr. Yakov Cuellar, PGY-1 <Jonna Nagy - Last Filed: 09/02/18 23:46> Objective - Vital Signs/Intake and Output Vital Signs (last 24 hours): Temp Pulse Resp BP Pulse Ox 102.6 F H 73 20 128/67 100 09/02/18 18:00 09/02/18 18:20 09/01/18 16:53 09/02/18 18:00 09/02/18 18:20 Intake and Output: 09/02/18 09/03/18 18:59 06:59 Intake Total 1790 Output Total 1000 Balance 790 - Medications Medications: Current Medications Levetiracetam (Keppra 500mg Ivpb) 500 mg in 100 mls @ 215 mls/hr IVPB Q12H [facility] Last Admin: 09/02/18 21:48 Dose: 215 mls/hr Nicardipine HCl (Cardene Iv Premix) 20 mg in 200 mls @ 50 mls/hr IV .Q4H PRN; Protocol PRN Reason: TITRATE PER MD ORDER Last Titration: 09/02/18 12:00 Dose: 0 mg/hr, 0 mls/hr Propofol (Diprivan) 1,000 mg in 100 mls @ 2.005 mls/hr IV .Q24H PRN; Protocol PRN Reason: TITRATE PER MD ORDER Last Titration: 09/02/18 08:00 Dose: 0 mcg/kg/min, 0 mls/hr Dextrose/Sodium Chloride (Dextrose 5%/0.45% Ns 1000 Ml) 1,000 mls @ 100 mls/hr IV .Q10H [facility] Last Admin: 09/02/18 21:51 Dose: 100 mls/hr Mannitol (Mannitol) 50 mls @ 100 mls/hr IV Q6H [facility] Stop: 09/03/18 16:00 Last Admin: 09/02/18 21:29 Dose: 100 mls/hr Vancomycin HCl (Vancomycin 1gm) 1 gm in 250 mls @ 167 mls/hr IVPB Q12H [facility]; Protocol Last Admin: 09/02/18 17:23 Dose: 167 mls/hr Acetaminophen (Ofirmev) 1,000 mg in 100 mls @ 400 mls/hr IVPB Q8H PRN PRN Reason: Temperature Stop: 09/04/18 08:11 Last Admin: 09/02/18 22:11 Dose: 400 mls/hr Cefepime HCl (Maxipime 2gm) 2 gm in 100 mls @ 100 mls/hr IVPB Q12H [facility]; Protocol Stop: 09/07/18 17:24 Last Admin: 09/02/18 18:17 Dose: 100 mls/hr Labetalol HCl (Trandate) 20 mg IV Q2H PRN PRN Reason: Hypertension Last Admin: 09/01/18 14:21 Dose: 20 mg Mannitol (Mannitol) 12.5 gm IV Q8H [facility] Stop: 09/04/18 16:00 Mannitol (Mannitol) 12.5 gm IV Q12H [facility] Stop: 09/05/18 16:00 Mannitol (Mannitol) 12.5 gm IV DAILY [facility] Stop: 09/06/18 16:00 Pantoprazole Sodium (Protonix Inj) 40 mg IVP DAILY [facility] Last Admin: 09/02/18 09:17 Dose: 40 mg - Labs Labs: 09/02/18 05:45 02/18/19 14:10 PT 11.5 SECONDS (9.4-12.5) 08/30/18 15:05 INR 1.04 08/30/18 15:05 APTT 33.6 Seconds (26.9-38.3) 08/30/18 15:05 Assessment and Plan - Assessment and Plan (Free Text) Plan: Attending/Attestation - Attestation I have personally seen and examined this patient.: Yes I have fully participated in the care of the patient.: Yes I have reviewed all pertinent clinical information: Yes Notes (Text): Miss Pimentel has right intraparenchymal hematoma with mass efect that will benefit from video eeg.She will also need mannitol. Today on exam, off diprivan drip, she waS able to follow one step commands, and move her right foot. Plan: 1, Con trol bp 2. PTSTOT Dr Nagy
--- NOTE | 2018-09-02 12:33 | CP.CCUPN ---
<Lis Malik - Last Filed: 09/02/18 13:50> CCU Subjective - Physician Review Subjective (Free Text): CRITICAL CARE PROGRESS NOTE FOR DR. FELICE Malik PGY1 Pt seen and examined at bedside in ICU. Pt is lethargic but arousable. She follows commands however doesn't open eyes spontaneously and is nonverbal d/t intubation. ROS unable to be obtained d/t sedation. Vent: 350/30%/20/5 CCU Objective - Vital Signs / Intake & Output Intake and Output (Last 8hrs): Intake & Output 09/01/18 09/02/18 09/02/18 22:59 06:59 14:59 Intake Total 825 945 200 Output Total 1550 600 Balance -725 345 200 Weight 68.946 kg Intake: IV 825 945 200 3% saline 600 660 Left Femoral 100 Propofol 110 keppra 100 100 Output: Urine 1550 600 Urethral ([place]) 1550 600 Stool 0 0 - Physical Exam Head: Positive for: Atraumatic, Normocephalic Extroacular Muscles: Positive for: EOMI Conjunctiva: Positive for: Normal Mouth: Positive for: Moist Mucous Membranes Nose (Internal): Positive for: No Active Bleeding Neck: Positive for: Normal Range of Motion. Negative for: Meningeal Signs Respiratory/Chest: Positive for: Clear to Auscultation, Good Air Exchange Cardiovascular: Positive for: Regular Rate and Rhythm, Normal S1, S2 Abdomen: Positive for: Normal Bowel Sounds. Negative for: Tenderness, Distention, Peritoneal Signs Upper Extremity: Positive for: Normal Inspection. Negative for: Cyanosis, Edema Lower Extremity: Positive for: Normal Inspection. Negative for: Edema Neurological: Positive for: Other (Pt is lethargic, but following commands after prompting. Pt has difficulty with full cooperation of neuro exam. RUE and RLE is noted to have spontaneous movement. LUE is noted to not have movement with LLE noted to have weakness compared to R.) Skin: Positive for: Warm, Dry Psychiatric: Positive for: Lethargic - Medications Active Medications: Active Medications Generic Name Dose Route Start Last Admin Trade Name Freq PRN Reason Stop Dose Admin Levetiracetam 500 mg in 100 mls @ 215 mls/hr 08/31/18 22:00 09/02/18 10:30 Keppra 500mg Ivpb IVPB 215 mls/hr Q12H CLAY Administration Nicardipine HCl 20 mg in 200 mls @ 50 mls/hr 09/01/18 14:48 09/02/18 08:55 Cardene Iv Premix IV 10 mg/hr .Q4H PRN 100 mls/hr TITRATE PER MD ORDER Administration Protocol 5 MG/HR Propofol 1,000 mg in 100 mls @ 2.005 mls/hr 09/01/18 16:49 09/02/18 00:39 Diprivan IV 25 mcg/kg/min .Q24H PRN 10.023 mls/hr TITRATE PER MD ORDER Administration Protocol 5 MCG/KG/MIN Acetaminophen 1,000 mg in 100 mls @ 400 mls/hr 09/02/18 08:10 09/02/18 08:56 Ofirmev IVPB 09/04/18 08:11 400 mls/hr Q6H PRN Administration Temperature Potassium Chloride 20 meq in 100 mls @ 50 mls/hr 09/02/18 08:45 09/02/18 11:16 Potassium Chloride 20 Meq/100 Ml IVPB 09/02/18 12:44 50 mls/hr Q2H CLAY Administration Potassium Phosphate 15 mmole/ 255 mls @ 42.5 mls/hr 09/02/18 08:36 09/02/18 09:15 Dextrose IVPB 09/02/18 14:35 42.5 mls/hr ONCE ONE Administration Dextrose/Sodium Chloride 1,000 mls @ 100 mls/hr 09/02/18 09:30 09/02/18 10:46 Dextrose 5%/0.45% Ns 1000 Ml IV 100 mls/hr .Q10H CLAY Administration Mannitol 50 mls @ 100 mls/hr 09/02/18 16:00 Mannitol IV Q6H CLAY Labetalol HCl 20 mg 08/31/18 21:26 09/01/18 14:21 Trandate IV 20 mg Q2H PRN Administration Hypertension Pantoprazole Sodium 40 mg 08/31/18 10:00 09/02/18 09:17 Protonix Inj IVP 40 mg DAILY CLAY Administration - Patient Studies Lab Studies: Microbiology Studies 08/30/18 22:30 MRSA Culture (Admit) - Final Naris MRSA NOT DETECTED Lab Studies 09/02/18 09/02/18 09/02/18 Range/Units 09:50 07:05 05:45 WBC (4.5-11.0) 10^3/uL RBC (3.5-6.1) 10^6/uL Hgb (12.0-16.0) g/dL Hct (36.0-48.0) % MCV (80.0-105.0) fl MCH (25.0-35.0) pg MCHC (31.0-37.0) g/dl RDW (11.5-14.5) % Plt Count (120.0-450.0) 10^3/uL MPV (7.0-11.0) fl pCO2 34 L (35-45) mm/Hg pO2 148.0 H (80-100) mm/Hg HCO3 22.6 (21-28) mmol/L ABG pH 7.43 (7.35-7.45) ABG Total CO2 23.6 (22-28) mmol.L ABG O2 Saturation 99.8 H (95-98) % ABG O2 Content 13.7 L (15-23) ML/dl ABG Base Excess -1.3 (-2.0-3.0) mmol/L ABG Hemoglobin 9.8 L (11.7-17.4) g/dL ABG Carboxyhemoglobin 1.5 (0.5-1.5) % POC ABG HHb (Measured) 0.2 (0-5) % ABG Methemoglobin 1.1 (0.0-3.0) % ABG O2 Capacity 13.7 L (16-24) mL/dl Hgb O2 Saturation 97.2 (95.0-98.0) % FiO2 40.0 % Sodium 149 H (132-148) mmol/L Potassium 3.2 L (3.6-5.0) mmol/L Chloride 120 H (98-107) mmol/L Carbon Dioxide 24 (21-33) mmol/L Anion Gap 8 L (10-20) BUN 18 (7-21) mg/dL Creatinine 0.6 L (0.7-1.2) mg/dl Est GFR ( Amer) > 60 Est GFR (Non-Af Amer) > 60 POC Glucose (mg/dL) (65-110) mg/dL Random Glucose 160 H (70-110) mg/dL Serum Osmolality 316 H (272-300) mosm/kg Calcium 8.7 (8.4-10.5) mg/dL Phosphorus (2.5-4.5) mg/dL Magnesium (1.7-2.2) mg/dL 09/02/18 09/02/18 09/02/18 Range/Units 05:45 05:45 01:01 WBC 7.5 (4.5-11.0) 10^3/uL RBC 5.06 (3.5-6.1) 10^6/uL Hgb 10.0 L (12.0-16.0) g/dL Hct 32.2 L (36.0-48.0) % MCV 63.6 L (80.0-105.0) fl MCH 19.8 L (25.0-35.0) pg MCHC 31.1 (31.0-37.0) g/dl RDW 16.3 H (11.5-14.5) % Plt Count 197 (120.0-450.0) 10^3/uL MPV 10.3 (7.0-11.0) fl pCO2 (35-45) mm/Hg pO2 (80-100) mm/Hg HCO3 (21-28) mmol/L ABG pH (7.35-7.45) ABG Total CO2 (22-28) mmol.L ABG O2 Saturation (95-98) % ABG O2 Content (15-23) ML/dl ABG Base Excess (-2.0-3.0) mmol/L ABG Hemoglobin (11.7-17.4) g/dL ABG Carboxyhemoglobin (0.5-1.5) % POC ABG HHb (Measured) (0-5) % ABG Methemoglobin (0.0-3.0) % ABG O2 Capacity (16-24) mL/dl Hgb O2 Saturation (95.0-98.0) % FiO2 % Sodium 150 H (132-148) mmol/L Potassium 3.0 L (3.6-5.0) mmol/L Chloride 123 H (98-107) mmol/L Carbon Dioxide 23 (21-33) mmol/L Anion Gap 8 L (10-20) BUN 19 (7-21) mg/dL Creatinine 0.7 (0.7-1.2) mg/dl Est GFR ( Amer) > 60 Est GFR (Non-Af Amer) > 60 POC Glucose (mg/dL) (65-110) mg/dL Random Glucose 109 (70-110) mg/dL Serum Osmolality 313 H (272-300) mosm/kg Calcium 8.9 (8.4-10.5) mg/dL Phosphorus 1.8 L (2.5-4.5) mg/dL Magnesium 2.4 H (1.7-2.2) mg/dL 09/02/18 09/01/18 09/01/18 Range/Units 01:01 21:39 21:39 WBC (4.5-11.0) 10^3/uL RBC (3.5-6.1) 10^6/uL Hgb (12.0-16.0) g/dL Hct (36.0-48.0) % MCV (80.0-105.0) fl MCH (25.0-35.0) pg MCHC (31.0-37.0) g/dl RDW (11.5-14.5) % Plt Count (120.0-450.0) 10^3/uL MPV (7.0-11.0) fl pCO2 (35-45) mm/Hg pO2 (80-100) mm/Hg HCO3 (21-28) mmol/L ABG pH (7.35-7.45) ABG Total CO2 (22-28) mmol.L ABG O2 Saturation (95-98) % ABG O2 Content (15-23) ML/dl ABG Base Excess (-2.0-3.0) mmol/L ABG Hemoglobin (11.7-17.4) g/dL ABG Carboxyhemoglobin (0.5-1.5) % POC ABG HHb (Measured) (0-5) % ABG Methemoglobin (0.0-3.0) % ABG O2 Capacity (16-24) mL/dl Hgb O2 Saturation (95.0-98.0) % FiO2 % Sodium 148 148 (132-148) mmol/L Potassium 3.3 L 3.6 (3.6-5.0) mmol/L Chloride 118 H 116 H (98-107) mmol/L Carbon Dioxide 26 23 (21-33) mmol/L Anion Gap 8 L 12 (10-20) BUN 19 16 (7-21) mg/dL Creatinine 0.7 0.6 L (0.7-1.2) mg/dl Est GFR ( Amer) > 60 > 60 Est GFR (Non-Af Amer) > 60 > 60 POC Glucose (mg/dL) (65-110) mg/dL Random Glucose 111 H 118 H (70-110) mg/dL Serum Osmolality 309 H (272-300) mosm/kg Calcium 9.2 9.4 (8.4-10.5) mg/dL Phosphorus (2.5-4.5) mg/dL Magnesium (1.7-2.2) mg/dL 09/01/18 09/01/18 09/01/18 Range/Units 21:29 17:00 17:00 WBC (4.5-11.0) 10^3/uL RBC (3.5-6.1) 10^6/uL Hgb (12.0-16.0) g/dL Hct (36.0-48.0) % MCV (80.0-105.0) fl MCH (25.0-35.0) pg MCHC (31.0-37.0) g/dl RDW (11.5-14.5) % Plt Count (120.0-450.0) 10^3/uL MPV (7.0-11.0) fl pCO2 (35-45) mm/Hg pO2 (80-100) mm/Hg HCO3 (21-28) mmol/L ABG pH (7.35-7.45) ABG Total CO2 (22-28) mmol.L ABG O2 Saturation (95-98) % ABG O2 Content (15-23) ML/dl ABG Base Excess (-2.0-3.0) mmol/L ABG Hemoglobin (11.7-17.4) g/dL ABG Carboxyhemoglobin (0.5-1.5) % POC ABG HHb (Measured) (0-5) % ABG Methemoglobin (0.0-3.0) % ABG O2 Capacity (16-24) mL/dl Hgb O2 Saturation (95.0-98.0) % FiO2 % Sodium 144 (132-148) mmol/L Potassium 3.7 (3.6-5.0) mmol/L Chloride 114 H (98-107) mmol/L Carbon Dioxide 24 (21-33) mmol/L Anion Gap 9 L (10-20) BUN 14 (7-21) mg/dL Creatinine 0.6 L (0.7-1.2) mg/dl Est GFR ( Amer) > 60 Est GFR (Non-Af Amer) > 60 POC Glucose (mg/dL) 105 (65-110) mg/dL Random Glucose 166 H (70-110) mg/dL Serum Osmolality 304 H (272-300) mosm/kg Calcium 9.1 (8.4-10.5) mg/dL Phosphorus (2.5-4.5) mg/dL Magnesium (1.7-2.2) mg/dL 09/01/18 09/01/18 09/01/18 Range/Units 15:58 15:00 15:00 WBC (4.5-11.0) 10^3/uL RBC (3.5-6.1) 10^6/uL Hgb (12.0-16.0) g/dL Hct (36.0-48.0) % MCV (80.0-105.0) fl MCH (25.0-35.0) pg MCHC (31.0-37.0) g/dl RDW (11.5-14.5) % Plt Count (120.0-450.0) 10^3/uL MPV (7.0-11.0) fl pCO2 (35-45) mm/Hg pO2 (80-100) mm/Hg HCO3 (21-28) mmol/L ABG pH (7.35-7.45) ABG Total CO2 (22-28) mmol.L ABG O2 Saturation (95-98) % ABG O2 Content (15-23) ML/dl ABG Base Excess (-2.0-3.0) mmol/L ABG Hemoglobin (11.7-17.4) g/dL ABG Carboxyhemoglobin (0.5-1.5) % POC ABG HHb (Measured) (0-5) % ABG Methemoglobin (0.0-3.0) % ABG O2 Capacity (16-24) mL/dl Hgb O2 Saturation (95.0-98.0) % FiO2 % Sodium 144 (132-148) mmol/L Potassium 3.8 (3.6-5.0) mmol/L Chloride 114 H (98-107) mmol/L Carbon Dioxide 24 (21-33) mmol/L Anion Gap 10 (10-20) BUN 13 (7-21) mg/dL Creatinine 0.6 L (0.7-1.2) mg/dl Est GFR ( Amer) > 60 Est GFR (Non-Af Amer) > 60 POC Glucose (mg/dL) 146 H (65-110) mg/dL Random Glucose 136 H (70-110) mg/dL Serum Osmolality 304 H (272-300) mosm/kg Calcium 9.2 (8.4-10.5) mg/dL Phosphorus (2.5-4.5) mg/dL Magnesium (1.7-2.2) mg/dL 09/01/18 Range/Units 11:23 WBC (4.5-11.0) 10^3/uL RBC (3.5-6.1) 10^6/uL Hgb (12.0-16.0) g/dL Hct (36.0-48.0) % MCV (80.0-105.0) fl MCH (25.0-35.0) pg MCHC (31.0-37.0) g/dl RDW (11.5-14.5) % Plt Count (120.0-450.0) 10^3/uL MPV (7.0-11.0) fl pCO2 (35-45) mm/Hg pO2 (80-100) mm/Hg HCO3 (21-28) mmol/L ABG pH (7.35-7.45) ABG Total CO2 (22-28) mmol.L ABG O2 Saturation (95-98) % ABG O2 Content (15-23) ML/dl ABG Base Excess (-2.0-3.0) mmol/L ABG Hemoglobin (11.7-17.4) g/dL ABG Carboxyhemoglobin (0.5-1.5) % POC ABG HHb (Measured) (0-5) % ABG Methemoglobin (0.0-3.0) % ABG O2 Capacity (16-24) mL/dl Hgb O2 Saturation (95.0-98.0) % FiO2 % Sodium (132-148) mmol/L Potassium (3.6-5.0) mmol/L Chloride (98-107) mmol/L Carbon Dioxide (21-33) mmol/L Anion Gap (10-20) BUN (7-21) mg/dL Creatinine (0.7-1.2) mg/dl Est GFR ( Amer) Est GFR (Non-Af Amer) POC Glucose (mg/dL) 114 H (65-110) mg/dL Random Glucose (70-110) mg/dL Serum Osmolality (272-300) mosm/kg Calcium (8.4-10.5) mg/dL Phosphorus (2.5-4.5) mg/dL Magnesium (1.7-2.2) mg/dL Laboratory Results - last 24 hr 09/01/18 09/01/18 09/01/18 11:23 15:00 15:00 WBC RBC Hgb Hct MCV MCH MCHC RDW Plt Count MPV pCO2 pO2 HCO3 ABG pH ABG Total CO2 ABG O2 Saturation ABG O2 Content ABG Base Excess ABG Hemoglobin ABG Carboxyhemoglobin POC ABG HHb (Measured) ABG Methemoglobin ABG O2 Capacity Hgb O2 Saturation FiO2 Sodium 144 Potassium 3.8 Chloride 114 H Carbon Dioxide 24 Anion Gap 10 BUN 13 Creatinine 0.6 L Est GFR ( Amer) > 60 Est GFR (Non-Af Amer) > 60 POC Glucose (mg/dL) 114 H Random Glucose 136 H Serum Osmolality 304 H Calcium 9.2 Phosphorus Magnesium 09/01/18 09/01/18 09/01/18 15:58 17:00 17:00 WBC RBC Hgb Hct MCV MCH MCHC RDW Plt Count MPV pCO2 pO2 HCO3 ABG pH ABG Total CO2 ABG O2 Saturation ABG O2 Content ABG Base Excess ABG Hemoglobin ABG Carboxyhemoglobin POC ABG HHb (Measured) ABG Methemoglobin ABG O2 Capacity Hgb O2 Saturation FiO2 Sodium 144 Potassium 3.7 Chloride 114 H Carbon Dioxide 24 Anion Gap 9 L BUN 14 Creatinine 0.6 L Est GFR ( Amer) > 60 Est GFR (Non-Af Amer) > 60 POC Glucose (mg/dL) 146 H Random Glucose 166 H Serum Osmolality 304 H Calcium 9.1 Phosphorus Magnesium 09/01/18 09/01/18 09/01/18 21:29 21:39 21:39 WBC RBC Hgb Hct MCV MCH MCHC RDW Plt Count MPV pCO2 pO2 HCO3 ABG pH ABG Total CO2 ABG O2 Saturation ABG O2 Content ABG Base Excess ABG Hemoglobin ABG Carboxyhemoglobin POC ABG HHb (Measured) ABG Methemoglobin ABG O2 Capacity Hgb O2 Saturation FiO2 Sodium 148 Potassium 3.6 Chloride 116 H Carbon Dioxide 23 Anion Gap 12 BUN 16 Creatinine 0.6 L Est GFR ( Amer) > 60 Est GFR (Non-Af Amer) > 60 POC Glucose (mg/dL) 105 Random Glucose 118 H Serum Osmolality 309 H Calcium 9.4 Phosphorus Magnesium 09/02/18 09/02/18 09/02/18 01:01 01:01 05:45 WBC 7.5 RBC 5.06 Hgb 10.0 L Hct 32.2 L MCV 63.6 L MCH 19.8 L MCHC 31.1 RDW 16.3 H Plt Count 197 MPV 10.3 pCO2 pO2 HCO3 ABG pH ABG Total CO2 ABG O2 Saturation ABG O2 Content ABG Base Excess ABG Hemoglobin ABG Carboxyhemoglobin POC ABG HHb (Measured) ABG Methemoglobin ABG O2 Capacity Hgb O2 Saturation FiO2 Sodium 148 Potassium 3.3 L Chloride 118 H Carbon Dioxide 26 Anion Gap 8 L BUN 19 Creatinine 0.7 Est GFR ( Amer) > 60 Est GFR (Non-Af Amer) > 60 POC Glucose (mg/dL) Random Glucose 111 H Serum Osmolality 313 H Calcium 9.2 Phosphorus Magnesium 09/02/18 09/02/18 09/02/18 05:45 05:45 07:05 WBC RBC Hgb Hct MCV MCH MCHC RDW Plt Count MPV pCO2 34 L pO2 148.0 H HCO3 22.6 ABG pH 7.43 ABG Total CO2 23.6 ABG O2 Saturation 99.8 H ABG O2 Content 13.7 L ABG Base Excess -1.3 ABG Hemoglobin 9.8 L ABG Carboxyhemoglobin 1.5 POC ABG HHb (Measured) 0.2 ABG Methemoglobin 1.1 ABG O2 Capacity 13.7 L Hgb O2 Saturation 97.2 FiO2 40.0 Sodium 150 H Potassium 3.0 L Chloride 123 H Carbon Dioxide 23 Anion Gap 8 L BUN 19 Creatinine 0.7 Est GFR ( Amer) > 60 Est GFR (Non-Af Amer) > 60 POC Glucose (mg/dL) Random Glucose 109 Serum Osmolality 316 H Calcium 8.9 Phosphorus 1.8 L Magnesium 2.4 H 09/02/18 09:50 WBC RBC Hgb Hct MCV MCH MCHC RDW Plt Count MPV pCO2 pO2 HCO3 ABG pH ABG Total CO2 ABG O2 Saturation ABG O2 Content ABG Base Excess ABG Hemoglobin ABG Carboxyhemoglobin POC ABG HHb (Measured) ABG Methemoglobin ABG O2 Capacity Hgb O2 Saturation FiO2 Sodium 149 H Potassium 3.2 L Chloride 120 H Carbon Dioxide 24 Anion Gap 8 L BUN 18 Creatinine 0.6 L Est GFR ( Amer) > 60 Est GFR (Non-Af Amer) > 60 POC Glucose (mg/dL) Random Glucose 160 H Serum Osmolality Calcium 8.7 Phosphorus Magnesium Radiology Impressions: Radiology Impressions Chest X-Ray 09/01/18 16:47 IMPRESSION: In situ ETT in good position as above. Head CT 09/02/18 08:00 IMPRESSION: There is no change in the right hemispheric intraparenchymal hematoma which measures 5.5 by 5.2 x 6.0 cm. There is a large amount of surrounding edema. There is mass effect with effacement of sulci and midline shift. There is 13 cm of midline shift. There is compression of the right lateral ventricle. Fingerstick Blood Sugar Results: 105 Review of Systems - Review of Systems Review of Systems: per HPI Critical Care Progress Note - Nutrition Nutrition: Nutrition Category Date Time Status NPO Diet [DIET] Diets 08/30/18 Dinner Ordered Assessment/Plan - Assessment and Plan (Free Text) Assessment: 63 yo F with PMH of migraines presents to [facility] [place] for left-sided deficits. Will admit to the ICU for close monitoring due to parenchymal hematoma in the right frontal parietal lobe with midline shift. Plan: Neuro: CT Head (09/02): There is no change in the right hemispheric intraparenchymal hematoma which measures 5.5 by 5.2 x 6.0 cm. There is a large amount of surrounding edema. There is mass effect with effacement of sulci and midline shift. There is 13 cm of midline shift. There is compression of the right lateral ventricle. CT Head (09/01): Redemonstrated is a large parenchymal hematoma right cerebral hemisphere extending from the vertex inferiorly into the anterior upper right middle cranial fossa region. This hemorrhage measures approximately 6.7 x 5.1 x 6.1 cm the rim of surrounding edema has increased in size as well. There is significant mass effect with compression of the overlying sulci and further compression of the right lateral ventricle which shifted across midline to the left. Emergent neurosurgical consultation is recommended. These findings discussed with ICU resident automation controls expert Dr. Gore CT Head (08/31): There is a large parenchymal hematoma within the right cerebral hemisphere which has increased in size extending from vertex inferiorly to below the level of the lateral ventricles and sylvian fissure extending anteriorly to the region of the lateral fissure. There is a fairly well-circumscribed rim of low-attenuation edema and or necrotic brain tissue. This hematoma exerts considerable surrounding mass effect with compression of the overlying sulci and right lateral ventricle. There is also mild [id number] midline shift of the septum pellucidum (subfalcine herniation) estimated at approximately 7 mm. No obstructive hydrocephalus. Neuro/Neurosurgery consulted, recs appreciated. No surgical intervention at this time. Neuro checks Q1H. Monitor for signs of progression, especially R side as hematoma in [place] territory Will d/c 3% hypertonic saline today, will switch to mannitol per neurosurgery recs 50 gr now with 12.5 grams on a taper schedule daily at q6,q8,q12,qd and d/c Continue keppra daily Continue daily head CTs HOB >40 degrees Maintain normothermia ID: Pt had fever of 101.1 overnight obtain blood/urine cultures & procalcitonin IV acetaminophen Cardio: Monitor BP, target SBP 130-150 per neurology Continue titratable nicardipine drip for BP control Maintain MAP > 65 Hold home ASA Pulm: Maintain O2 sat > 92% GI: Protonix NPO Renal: Monitor electrolytes, replete/correct as needed Maintain euvolemia Heme: SCD's for DVT PPx Endo: Maintain euglycemia DVT/GI: SCD/PTX Case seen, examined and discussed with attending physician, Dr. Felice Malik PGY1 <Richar Viveros - Last Filed: 09/02/18 16:41> CCU Objective - Vital Signs / Intake & Output Vital Signs (Last 4 hours): Vital Signs Temp Pulse BP Pulse Ox 09/02/18 16:30 100.8 F H 81 132/73 97 09/02/18 16:20 100.8 F H 72 97 09/02/18 16:10 100.8 F H 63 96 09/02/18 16:00 100.8 F H 68 115/59 L 93 L 09/02/18 15:50 100.6 F H 64 92 L 09/02/18 15:40 100.6 F H 63 91 L 09/02/18 15:30 100.4 F H 71 110/68 91 L 09/02/18 15:20 100.4 F H 77 91 L 09/02/18 15:10 100.4 F H 85 92 L 09/02/18 15:00 100.4 F H 102 H 154/83 H 94 L 09/02/18 14:50 100.4 F H 99 H 95 09/02/18 14:40 100.2 F H 110 H 95 09/02/18 14:30 100.2 F H 97 H 156/103 H 95 09/02/18 14:20 100.4 F H 105 H 97 09/02/18 14:10 100.4 F H 103 H 96 09/02/18 14:00 100.4 F H 103 H 148/103 H 96 09/02/18 13:50 100.4 F H 75 97 09/02/18 13:40 100.6 F H 74 98 09/02/18 13:30 100.6 F H 76 131/65 97 09/02/18 13:20 100.6 F H 73 97 09/02/18 13:10 100.6 F H 71 96 09/02/18 13:00 100.6 F H 73 109/63 96 09/02/18 12:50 100.6 F H 76 96 09/02/18 12:40 100.6 F H 74 96 Intake and Output (Last 8hrs): Intake & Output 09/02/18 09/02/18 09/02/18 06:59 14:59 22:59 Intake Total 945 430 Output Total 600 Balance 345 430 Weight 68.946 kg Intake: IV 945 430 3% saline 660 Propofol 110 keppra 100 Output: Urine 600 Urethral (Holliday) 600 Stool 0 - Medications Active Medications: Active Medications Generic Name Dose Route Start Last Admin Trade Name Freq PRN Reason Stop Dose Admin Levetiracetam 500 mg in 100 mls @ 215 mls/hr 08/31/18 22:00 09/02/18 10:30 Keppra 500mg Ivpb IVPB 215 mls/hr Q12H CLAY Administration Nicardipine HCl 20 mg in 200 mls @ 50 mls/hr 09/01/18 14:48 09/02/18 12:00 Cardene Iv Premix IV 0 mg/hr .Q4H PRN 0 mls/hr TITRATE PER MD ORDER Titration Protocol 5 MG/HR Propofol 1,000 mg in 100 mls @ 2.005 mls/hr 09/01/18 16:49 09/02/18 08:00 Diprivan IV 0 mcg/kg/min .Q24H PRN 0 mls/hr TITRATE PER MD ORDER Titration Protocol 5 MCG/KG/MIN Acetaminophen 1,000 mg in 100 mls @ 400 mls/hr 09/02/18 08:10 09/02/18 08:56 Ofirmev IVPB 09/04/18 08:11 400 mls/hr Q6H PRN Administration Temperature Dextrose/Sodium Chloride 1,000 mls @ 100 mls/hr 09/02/18 09:30 09/02/18 10:46 Dextrose 5%/0.45% Ns 1000 Ml IV 100 mls/hr .Q10H CLAY Administration Mannitol 50 mls @ 100 mls/hr 09/02/18 16:00 Mannitol IV Q6H CLAY Labetalol HCl 20 mg 08/31/18 21:26 09/01/18 14:21 Trandate IV 20 mg Q2H PRN Administration Hypertension Pantoprazole Sodium 40 mg 08/31/18 10:00 09/02/18 09:17 Protonix Inj IVP 40 mg DAILY CLAY Administration - Patient Studies Lab Studies: Lab Studies 09/02/18 09/02/18 09/02/18 Range/Units 14:10 09:50 07:05 WBC (4.5-11.0) 10^3/uL RBC (3.5-6.1) 10^6/uL Hgb (12.0-16.0) g/dL Hct (36.0-48.0) % MCV (80.0-105.0) fl MCH (25.0-35.0) pg MCHC (31.0-37.0) g/dl RDW (11.5-14.5) % Plt Count (120.0-450.0) 10^3/uL MPV (7.0-11.0) fl pCO2 34 L (35-45) mm/Hg pO2 148.0 H (80-100) mm/Hg HCO3 22.6 (21-28) mmol/L ABG pH 7.43 (7.35-7.45) ABG Total CO2 23.6 (22-28) mmol.L ABG O2 Saturation 99.8 H (95-98) % ABG O2 Content 13.7 L (15-23) ML/dl ABG Base Excess -1.3 (-2.0-3.0) mmol/L ABG Hemoglobin 9.8 L (11.7-17.4) g/dL ABG Carboxyhemoglobin 1.5 (0.5-1.5) % POC ABG HHb (Measured) 0.2 (0-5) % ABG Methemoglobin 1.1 (0.0-3.0) % ABG O2 Capacity 13.7 L (16-24) mL/dl Hgb O2 Saturation 97.2 (95.0-98.0) % FiO2 40.0 % Sodium 145 149 H (132-148) mmol/L Potassium 3.6 3.2 L (3.6-5.0) mmol/L Chloride 116 H 120 H (98-107) mmol/L Carbon Dioxide 24 24 (21-33) mmol/L Anion Gap 8 L 8 L (10-20) BUN 15 18 (7-21) mg/dL Creatinine 0.6 L 0.6 L (0.7-1.2) mg/dl Est GFR ( Amer) > 60 > 60 Est GFR (Non-Af Amer) > 60 > 60 POC Glucose (mg/dL) (65-110) mg/dL Random Glucose 152 H 160 H (70-110) mg/dL Serum Osmolality (272-300) mosm/kg Calcium 8.7 8.7 (8.4-10.5) mg/dL Phosphorus (2.5-4.5) mg/dL Magnesium (1.7-2.2) mg/dL 09/02/18 09/02/18 09/02/18 Range/Units 05:45 05:45 05:45 WBC 7.5 (4.5-11.0) 10^3/uL RBC 5.06 (3.5-6.1) 10^6/uL Hgb 10.0 L (12.0-16.0) g/dL Hct 32.2 L (36.0-48.0) % MCV 63.6 L (80.0-105.0) fl MCH 19.8 L (25.0-35.0) pg MCHC 31.1 (31.0-37.0) g/dl RDW 16.3 H (11.5-14.5) % Plt Count 197 (120.0-450.0) 10^3/uL MPV 10.3 (7.0-11.0) fl pCO2 (35-45) mm/Hg pO2 (80-100) mm/Hg HCO3 (21-28) mmol/L ABG pH (7.35-7.45) ABG Total CO2 (22-28) mmol.L ABG O2 Saturation (95-98) % ABG O2 Content (15-23) ML/dl ABG Base Excess (-2.0-3.0) mmol/L ABG Hemoglobin (11.7-17.4) g/dL ABG Carboxyhemoglobin (0.5-1.5) % POC ABG HHb (Measured) (0-5) % ABG Methemoglobin (0.0-3.0) % ABG O2 Capacity (16-24) mL/dl Hgb O2 Saturation (95.0-98.0) % FiO2 % Sodium 150 H (132-148) mmol/L Potassium 3.0 L (3.6-5.0) mmol/L Chloride 123 H (98-107) mmol/L Carbon Dioxide 23 (21-33) mmol/L Anion Gap 8 L (10-20) BUN 19 (7-21) mg/dL Creatinine 0.7 (0.7-1.2) mg/dl Est GFR ( Amer) > 60 Est GFR (Non-Af Amer) > 60 POC Glucose (mg/dL) (65-110) mg/dL Random Glucose 109 (70-110) mg/dL Serum Osmolality 316 H (272-300) mosm/kg Calcium 8.9 (8.4-10.5) mg/dL Phosphorus 1.8 L (2.5-4.5) mg/dL Magnesium 2.4 H (1.7-2.2) mg/dL 09/02/18 09/02/18 09/01/18 Range/Units 01:01 01:01 21:39 WBC (4.5-11.0) 10^3/uL RBC (3.5-6.1) 10^6/uL Hgb (12.0-16.0) g/dL Hct (36.0-48.0) % MCV (80.0-105.0) fl MCH (25.0-35.0) pg MCHC (31.0-37.0) g/dl RDW (11.5-14.5) % Plt Count (120.0-450.0) 10^3/uL MPV (7.0-11.0) fl pCO2 (35-45) mm/Hg pO2 (80-100) mm/Hg HCO3 (21-28) mmol/L ABG pH (7.35-7.45) ABG Total CO2 (22-28) mmol.L ABG O2 Saturation (95-98) % ABG O2 Content (15-23) ML/dl ABG Base Excess (-2.0-3.0) mmol/L ABG Hemoglobin (11.7-17.4) g/dL ABG Carboxyhemoglobin (0.5-1.5) % POC ABG HHb (Measured) (0-5) % ABG Methemoglobin (0.0-3.0) % ABG O2 Capacity (16-24) mL/dl Hgb O2 Saturation (95.0-98.0) % FiO2 % Sodium 148 (132-148) mmol/L Potassium 3.3 L (3.6-5.0) mmol/L Chloride 118 H (98-107) mmol/L Carbon Dioxide 26 (21-33) mmol/L Anion Gap 8 L (10-20) BUN 19 (7-21) mg/dL Creatinine 0.7 (0.7-1.2) mg/dl Est GFR ( Amer) > 60 Est GFR (Non-Af Amer) > 60 POC Glucose (mg/dL) (65-110) mg/dL Random Glucose 111 H (70-110) mg/dL Serum Osmolality 313 H 309 H (272-300) mosm/kg Calcium 9.2 (8.4-10.5) mg/dL Phosphorus (2.5-4.5) mg/dL Magnesium (1.7-2.2) mg/dL 09/01/18 09/01/18 09/01/18 Range/Units 21:39 21:29 17:00 WBC (4.5-11.0) 10^3/uL RBC (3.5-6.1) 10^6/uL Hgb (12.0-16.0) g/dL Hct (36.0-48.0) % MCV (80.0-105.0) fl MCH (25.0-35.0) pg MCHC (31.0-37.0) g/dl RDW (11.5-14.5) % Plt Count (120.0-450.0) 10^3/uL MPV (7.0-11.0) fl pCO2 (35-45) mm/Hg pO2 (80-100) mm/Hg HCO3 (21-28) mmol/L ABG pH (7.35-7.45) ABG Total CO2 (22-28) mmol.L ABG O2 Saturation (95-98) % ABG O2 Content (15-23) ML/dl ABG Base Excess (-2.0-3.0) mmol/L ABG Hemoglobin (11.7-17.4) g/dL ABG Carboxyhemoglobin (0.5-1.5) % POC ABG HHb (Measured) (0-5) % ABG Methemoglobin (0.0-3.0) % ABG O2 Capacity (16-24) mL/dl Hgb O2 Saturation (95.0-98.0) % FiO2 % Sodium 148 (132-148) mmol/L Potassium 3.6 (3.6-5.0) mmol/L Chloride 116 H (98-107) mmol/L Carbon Dioxide 23 (21-33) mmol/L Anion Gap 12 (10-20) BUN 16 (7-21) mg/dL Creatinine 0.6 L (0.7-1.2) mg/dl Est GFR ( Amer) > 60 Est GFR (Non-Af Amer) > 60 POC Glucose (mg/dL) 105 (65-110) mg/dL Random Glucose 118 H (70-110) mg/dL Serum Osmolality 304 H (272-300) mosm/kg Calcium 9.4 (8.4-10.5) mg/dL Phosphorus (2.5-4.5) mg/dL Magnesium (1.7-2.2) mg/dL 09/01/18 09/01/18 Range/Units 17:00 15:58 WBC (4.5-11.0) 10^3/uL RBC (3.5-6.1) 10^6/uL Hgb (12.0-16.0) g/dL Hct (36.0-48.0) % MCV (80.0-105.0) fl MCH (25.0-35.0) pg MCHC (31.0-37.0) g/dl RDW (11.5-14.5) % Plt Count (120.0-450.0) 10^3/uL MPV (7.0-11.0) fl pCO2 (35-45) mm/Hg pO2 (80-100) mm/Hg HCO3 (21-28) mmol/L ABG pH (7.35-7.45) ABG Total CO2 (22-28) mmol.L ABG O2 Saturation (95-98) % ABG O2 Content (15-23) ML/dl ABG Base Excess (-2.0-3.0) mmol/L ABG Hemoglobin (11.7-17.4) g/dL ABG Carboxyhemoglobin (0.5-1.5) % POC ABG HHb (Measured) (0-5) % ABG Methemoglobin (0.0-3.0) % ABG O2 Capacity (16-24) mL/dl Hgb O2 Saturation (95.0-98.0) % FiO2 % Sodium 144 (132-148) mmol/L Potassium 3.7 (3.6-5.0) mmol/L Chloride 114 H (98-107) mmol/L Carbon Dioxide 24 (21-33) mmol/L Anion Gap 9 L (10-20) BUN 14 (7-21) mg/dL Creatinine 0.6 L (0.7-1.2) mg/dl Est GFR ( Amer) > 60 Est GFR (Non-Af Amer) > 60 POC Glucose (mg/dL) 146 H (65-110) mg/dL Random Glucose 166 H (70-110) mg/dL Serum Osmolality (272-300) mosm/kg Calcium 9.1 (8.4-10.5) mg/dL Phosphorus (2.5-4.5) mg/dL Magnesium (1.7-2.2) mg/dL Laboratory Results - last 24 hr 09/01/18 09/01/18 09/01/18 15:58 17:00 17:00 WBC RBC Hgb Hct MCV MCH MCHC RDW Plt Count MPV pCO2 pO2 HCO3 ABG pH ABG Total CO2 ABG O2 Saturation ABG O2 Content ABG Base Excess ABG Hemoglobin ABG Carboxyhemoglobin POC ABG HHb (Measured) ABG Methemoglobin ABG O2 Capacity Hgb O2 Saturation FiO2 Sodium 144 Potassium 3.7 Chloride 114 H Carbon Dioxide 24 Anion Gap 9 L BUN 14 Creatinine 0.6 L Est GFR ( Amer) > 60 Est GFR (Non-Af Amer) > 60 POC Glucose (mg/dL) 146 H Random Glucose 166 H Serum Osmolality 304 H Calcium 9.1 Phosphorus Magnesium 09/01/18 09/01/18 09/01/18 21:29 21:39 21:39 WBC RBC Hgb Hct MCV MCH MCHC RDW Plt Count MPV pCO2 pO2 HCO3 ABG pH ABG Total CO2 ABG O2 Saturation ABG O2 Content ABG Base Excess ABG Hemoglobin ABG Carboxyhemoglobin POC ABG HHb (Measured) ABG Methemoglobin ABG O2 Capacity Hgb O2 Saturation FiO2 Sodium 148 Potassium 3.6 Chloride 116 H Carbon Dioxide 23 Anion Gap 12 BUN 16 Creatinine 0.6 L Est GFR ( Amer) > 60 Est GFR (Non-Af Amer) > 60 POC Glucose (mg/dL) 105 Random Glucose 118 H Serum Osmolality 309 H Calcium 9.4 Phosphorus Magnesium 09/02/18 09/02/18 09/02/18 01:01 01:01 05:45 WBC 7.5 RBC 5.06 Hgb 10.0 L Hct 32.2 L MCV 63.6 L MCH 19.8 L MCHC 31.1 RDW 16.3 H Plt Count 197 MPV 10.3 pCO2 pO2 HCO3 ABG pH ABG Total CO2 ABG O2 Saturation ABG O2 Content ABG Base Excess ABG Hemoglobin ABG Carboxyhemoglobin POC ABG HHb (Measured) ABG Methemoglobin ABG O2 Capacity Hgb O2 Saturation FiO2 Sodium 148 Potassium 3.3 L Chloride 118 H Carbon Dioxide 26 Anion Gap 8 L BUN 19 Creatinine 0.7 Est GFR ( Amer) > 60 Est GFR (Non-Af Amer) > 60 POC Glucose (mg/dL) Random Glucose 111 H Serum Osmolality 313 H Calcium 9.2 Phosphorus Magnesium 09/02/18 09/02/18 09/02/18 05:45 05:45 07:05 WBC RBC Hgb Hct MCV MCH MCHC RDW Plt Count MPV pCO2 34 L pO2 148.0 H HCO3 22.6 ABG pH 7.43 ABG Total CO2 23.6 ABG O2 Saturation 99.8 H ABG O2 Content 13.7 L ABG Base Excess -1.3 ABG Hemoglobin 9.8 L ABG Carboxyhemoglobin 1.5 POC ABG HHb (Measured) 0.2 ABG Methemoglobin 1.1 ABG O2 Capacity 13.7 L Hgb O2 Saturation 97.2 FiO2 40.0 Sodium 150 H Potassium 3.0 L Chloride 123 H Carbon Dioxide 23 Anion Gap 8 L BUN 19 Creatinine 0.7 Est GFR ( Amer) > 60 Est GFR (Non-Af Amer) > 60 POC Glucose (mg/dL) Random Glucose 109 Serum Osmolality 316 H Calcium 8.9 Phosphorus 1.8 L Magnesium 2.4 H 09/02/18 09/02/18 09:50 14:10 WBC RBC Hgb Hct MCV MCH MCHC RDW Plt Count MPV pCO2 pO2 HCO3 ABG pH ABG Total CO2 ABG O2 Saturation ABG O2 Content ABG Base Excess ABG Hemoglobin ABG Carboxyhemoglobin POC ABG HHb (Measured) ABG Methemoglobin ABG O2 Capacity Hgb O2 Saturation FiO2 Sodium 149 H 145 Potassium 3.2 L 3.6 Chloride 120 H 116 H Carbon Dioxide 24 24 Anion Gap 8 L 8 L BUN 18 15 Creatinine 0.6 L 0.6 L Est GFR ( Amer) > 60 > 60 Est GFR (Non-Af Amer) > 60 > 60 POC Glucose (mg/dL) Random Glucose 160 H 152 H Serum Osmolality Calcium 8.7 8.7 Phosphorus Magnesium Radiology Impressions: Radiology Impressions Chest X-Ray 09/01/18 16:47 IMPRESSION: In situ ETT in good position as above. Head CT 09/02/18 08:00 IMPRESSION: There is no change in the right hemispheric intraparenchymal hematoma which measures 5.5 by 5.2 x 6.0 cm. There is a large amount of surrounding edema. There is mass effect with effacement of sulci and midline shift. There is 13 cm of midline shift. There is compression of the right lateral ventricle. Critical Care Progress Note - Nutrition Nutrition: Nutrition Category Date Time Status NPO Diet [DIET] Diets 08/30/18 Dinner Ordered Addendum Addendum: 09/02/18 16:38 ICU Attending Addendum Patient seen and examined. Case reviewed on round with housestaff. Agree with resident note above with the following additions/exceptions 63F with PMH of migraines with left sided weakness, droop and slurring found to have right frontoparietal ICH 4 x 3.8 increasing in size on f/u CT with edema neuro and neuro surg on board CT Head yesterday redemonstred large R parenchymal hematoma measuring 6.7x5.1x6.1cm and significant mass effect with compression of overlying sulci and compression of R lateral ventricle noted. todays ct head was relatively unchanged suggesting she has plateaud She is still able to localize to pain does not verbalize eye closed 0/5 on LUE and LLL with facial droop moves right side spontaneously 3%NS started 08/31 with a goal serum Na of 145-150 and serum osm < 320 did not seem to have an effect neurosurg suggested stopping 3% and trial mannitol to decrease ICP 50g x 1 then 12.5 q 6h and taper to q 8 then q 12 then once then stop TLC placed 08/31 to deliver 3%, can remove tomorrow Keppra 500 mg BID HOB> 40 degrees SBP goal 120-150 PPI SCD for DVT ppx Rest of care as above in housestaff note Richar Viveros MD Pulmonary Critical Care Attending CC Time : 35minutes
--- NOTE | 2018-09-02 13:57 | PN ---
DATE: 09/02/2018 SUBJECTIVE: A 63-year-old white female status post large right intracerebral bleed with left hemiparesis. The patient is in the ICU, bed 3. The patient is seen with family member in attendance. The patient is stable. She is moving her right upper and right lower extremity. She is intubated for airway protection. She is on hypertonic solution and mannitol for her swelling. She is also on nicardipine. She is stable today. Repeat CT. PHYSICAL EXAMINATION: VITAL SIGNS: Temperature today is slightly elevated at 101. Blood pressure is down to 160/76, heart rate 107, pulse of 60, pulse ox approximately 100% today. She is oxygenating at 100%. CHEST: Clear to auscultation on examination. HEART: Regular sinus rhythm. EXTREMITIES: Without cyanosis, clubbing, or edema. The patient does respond with squeezing the right hand and moving the right leg. Babinski are upcoming in the left and downgoing in the right. Reflexes are decreased. Left normal. Right 2+ upper lower extremity. LABORATORY DATA: Show hemoglobin of 10, white count of 7.5 with no shift. Her sodium is up to 150, potassium is 3. Serum osmolality is 316. An attempt with 3% normal saline to decrease cerebral edema, also mannitol and nicardipine for her blood pressure control and treat for blood vessel spasm. The patient had a repeat CT today which showed no change in right intraparenchymal hematoma. It was 5.5 x 5.2 x 6. There is a large edema with mass effect with 13 cm midline shift, compression of the right lateral ventricle but no further bleeding. ASSESSMENT AND PLAN: Plan is to continue above treatment. Replace potassium and continue mechanical elevation to prevent aspiration. Follow elevated temperature for possible sepsis versus secondary to intracerebral bleed. The patient's potassium is being replaced. She is on propofol, labetalol p.r.n. She is on Versed for sedation, nicardipine, Keppra, and the patient's prognosis is still serious and her condition is at least stabilized today. Pal Elizabeth MD
[2018-09-02 14:34] LABS: BLOOD UREA NITROGEN 15 mg/dL (7-21); CALCIUM 8.7 mg/dL (8.4-10.5); GFR NON-AFRICAN AMERICAN > 60
[2018-09-02] MEDS ORDERED: Mannitol 12.5 gm/50 ml Inj IV SCH (16:00)
[2018-09-02] MEDS: Vancomycin 1gm in NS 250ml 1 GM/250 ML BAG IVPB SCH (17:23)
[2018-09-02] MEDS ORDERED: Cefepime IV 2 gm in NS 2 GM/100 ML BAG IVPB SCH ×2 (17:23→22:00)
[2018-09-02] MEDS: Cefepime IV 2 gm in NS 2 GM/100 ML BAG IVPB SCH (18:17)
[2018-09-03] MEDS: Vancomycin 1gm in NS 250ml 1 GM/250 ML BAG IVPB SCH ×2 (04:58→17:43)
[2018-09-03] MEDS: Dextrose 5%/0.45% NS 1,000 ML IV SCH (05:00)
[2018-09-03] MEDS: Cefepime IV 2 gm in NS 2 GM/100 ML BAG IVPB SCH ×2 (06:35→17:42)
[2018-09-03 07:12] LABS: HEMOGLOBIN 10.2 g/dL (12.0-16.0); MEAN CELL VOLUME 63.7 fl (80.0-105.0); MEAN CORPUSCULAR HEMOGLOBIN 19.6 pg (25.0-35.0); MEAN CORPUSCULAR HGB CONC 30.7 g/dl (31.0-37.0); MEAN PLATELET VOLUME 10.5 fl (7.0-11.0); RBC 5.21 10^6/uL (3.5-6.1); RED CELL DISTRIBUTION WIDTH 16.2 % (11.5-14.5); WHITE BLOOD COUNT 9.4 10^3/uL (4.5-11.0)
[2018-09-03 07:27] LABS: BLOOD UREA NITROGEN 16 mg/dL (7-21); CALCIUM 8.8 mg/dL (8.4-10.5); GFR NON-AFRICAN AMERICAN > 60
[2018-09-03] MEDS ORDERED: Potassium Chloride 20 MEQ in Dextrose 5%/0.45% NS 1,000 ML IV SCH (07:48)
[2018-09-03] MEDS: levETIRAcetam 500mg IVPB 500 MG/100 ML BAG IVPB SCH (09:07)
[2018-09-03 09:57] LABS: URINE BILIRUBIN NEGATIVE (NEGATIVE); URINE BLOOD SMALL (NEGATIVE); URINE GLUCOSE (UA) NEGATIVE (NEGATIVE); URINE LEUKOCYTE ESTERASE NEGATIVE Leu/uL (NEGATIVE); URINE PROTEIN 30 mg/dL (<30 mg/dL); URINE UROBILINOGEN 0.2 E.U./dL (<1 E.U./dL)
--- NOTE | 2018-09-03 09:57 | RAD ---
Date of service: 09/02/2018 PROCEDURE: CHEST RADIOGRAPH, 1 VIEW HISTORY: hypoxia COMPARISON: 09/01/2018 FINDINGS: LUNGS: Right lower lobe perihilar infiltrate. Endotracheal tube in satisfactory position. PLEURA: No pneumothorax or pleural fluid seen. CARDIOVASCULAR: No aortic atherosclerotic calcification present. Normal. OSSEOUS STRUCTURES: No significant abnormalities. VISUALIZED UPPER ABDOMEN: Normal. OTHER FINDINGS: None. IMPRESSION: Right lower lobe perihilar infiltrate. Endotracheal tube in satisfactory position.
[2018-09-03 09:58] LABS: URINE APPEARANCE CLEAR (CLEAR); URINE COLOR YELLOW (YELLOW)
[2018-09-03 10:09] LABS: URINE BACTERIA MANY /hpf; URINE COARSE GRANULAR CAST TRACE /hpf
[2018-09-03 10:10] LABS: URINE AMORPHOUS SEDIMENT FEW /hpf
--- NOTE | 2018-09-03 10:50 | CP.CCUPN ---
<Lis Malik - Last Filed: 09/03/18 12:01> CCU Subjective - Physician Review Subjective (Free Text): CRITICAL CARE PROGRESS NOTE FOR DR. ADELA Malik PGY1 Pt seen and examined at bedside in ICU. Pt is lethargic, is not following commands. Neurosurgery was contacted this am regarding change in mental status, . Pt has also been spiking fevers overnight, with IV tylenol controlling temp. Pt started on IV abx yesterday. ROS unable to be obtained d/t sedation. Vent: 350/20/80%/5 CCU Objective - Vital Signs / Intake & Output Vital Signs (Last 4 hours): Vital Signs Resp Pulse Ox 09/03/18 08:15 23 99 Intake and Output (Last 8hrs): Intake & Output 09/02/18 09/03/18 09/03/18 22:59 06:59 14:59 Intake Total 1360 1100 Output Total 1000 800 Balance 360 300 Weight 72.575 kg Intake: IV 1360 700 3% saline 60 Left Femoral 700 Left Hand 1200 keppra 100 Other 400 Output: Urine 1000 800 Urethral (Holliday) 1000 800 Other: # Bowel Movements 0 0 - Physical Exam Head: Positive for: Atraumatic, Normocephalic Pupils: Positive for: PERRL Extroacular Muscles: Positive for: EOMI Conjunctiva: Positive for: Normal Mouth: Positive for: Moist Mucous Membranes Nose (Internal): Positive for: No Active Bleeding Neck: Positive for: Normal Range of Motion. Negative for: Meningeal Signs Respiratory/Chest: Positive for: Clear to Auscultation, Good Air Exchange Cardiovascular: Positive for: Regular Rate and Rhythm, Normal S1, S2 Abdomen: Positive for: Normal Bowel Sounds. Negative for: Tenderness, Distention, Peritoneal Signs Upper Extremity: Positive for: Normal Inspection. Negative for: Cyanosis, Edema Lower Extremity: Positive for: Normal Inspection. Negative for: Edema Neurological: Positive for: Other (Pt is lethargic. Occasionall responds to commands to squeeze finger, however doesn't respond to commands to leg movement. She withdraws from pain) Skin: Positive for: Warm, Dry Psychiatric: Positive for: Lethargic - Medications Active Medications: Active Medications Generic Name Dose Route Start Last Admin Trade Name Freq PRN Reason Stop Dose Admin Levetiracetam 500 mg in 100 mls @ 215 mls/hr 08/31/18 22:00 09/03/18 09:07 Keppra 500mg Ivpb IVPB 215 mls/hr Q12H CLAY Administration Nicardipine HCl 20 mg in 200 mls @ 50 mls/hr 09/01/18 14:48 09/02/18 12:00 Cardene Iv Premix IV 0 mg/hr .Q4H PRN 0 mls/hr TITRATE PER MD ORDER Titration Protocol 5 MG/HR Propofol 1,000 mg in 100 mls @ 2.005 mls/hr 09/01/18 16:49 09/02/18 08:00 Diprivan IV 0 mcg/kg/min .Q24H PRN 0 mls/hr TITRATE PER MD ORDER Titration Protocol 5 MCG/KG/MIN Mannitol 50 mls @ 100 mls/hr 09/02/18 16:00 09/03/18 04:38 Mannitol IV 09/03/18 16:00 100 mls/hr Q6H CLAY Administration Vancomycin HCl 1 gm in 250 mls @ 167 mls/hr 09/02/18 17:00 09/03/18 04:58 Vancomycin 1gm IVPB 167 mls/hr Q12H CLAY Administration Protocol Acetaminophen 1,000 mg in 100 mls @ 400 mls/hr 09/02/18 16:55 09/02/18 22:11 Ofirmev IVPB 09/04/18 08:11 400 mls/hr Q8H PRN Administration Temperature Cefepime HCl 2 gm in 100 mls @ 100 mls/hr 09/02/18 18:17 09/03/18 06:35 Maxipime 2gm IVPB 09/07/18 17:24 100 mls/hr Q12H CLAY Administration Protocol Potassium Chloride 20 meq in 100 mls @ 50 mls/hr 09/03/18 07:45 09/03/18 09:07 Potassium Chloride 20 Meq/100 Ml IVPB 09/03/18 11:44 50 mls/hr Q2H CLAY Administration Labetalol HCl 20 mg 08/31/18 21:26 09/01/18 14:21 Trandate IV 20 mg Q2H PRN Administration Hypertension Mannitol 12.5 gm 09/03/18 16:00 Mannitol IV 09/04/18 16:00 Q8H CLAY Mannitol 12.5 gm 09/04/18 16:00 Mannitol IV 09/05/18 16:00 Q12H CLAY Mannitol 12.5 gm 09/05/18 16:00 Mannitol IV 09/06/18 16:00 DAILY CLAY Pantoprazole Sodium 40 mg 08/31/18 10:00 09/03/18 09:03 Protonix Inj IVP 40 mg DAILY CLAY Administration - Patient Studies Lab Studies: Microbiology Studies 09/02/18 09:50 Blood Culture - Preliminary Blood NO GROWTH AFTER 24 HOURS Lab Studies 09/03/18 09/03/18 09/03/18 Range/Units 09:30 08:49 06:00 WBC (4.5-11.0) 10^3/uL RBC (3.5-6.1) 10^6/uL Hgb (12.0-16.0) g/dL Hct (36.0-48.0) % MCV (80.0-105.0) fl MCH (25.0-35.0) pg MCHC (31.0-37.0) g/dl RDW (11.5-14.5) % Plt Count (120.0-450.0) 10^3/uL MPV (7.0-11.0) fl Sodium 143 (132-148) mmol/L Potassium 3.0 L (3.6-5.0) mmol/L Chloride 112 H (98-107) mmol/L Carbon Dioxide 26 (21-33) mmol/L Anion Gap 8 L (10-20) BUN 16 (7-21) mg/dL Creatinine 0.6 L (0.7-1.2) mg/dl Est GFR ( Amer) > 60 Est GFR (Non-Af Amer) > 60 POC Glucose (mg/dL) 142 H (65-110) mg/dL Random Glucose 134 H (70-110) mg/dL Calcium 8.8 (8.4-10.5) mg/dL Phosphorus 2.7 (2.5-4.5) mg/dL Magnesium 2.0 (1.7-2.2) mg/dL Procalcitonin (0.19-0.49) NG/ML Urine Color Yellow (YELLOW) Urine Appearance Clear (CLEAR) Urine pH 6.0 (4.7-8.0) Ur Specific [place] >= 1.030 (1.005-1.035) Urine Protein 30 H (<30 mg/dL) mg/dL Urine Glucose (UA) Negative (NEGATIVE) mg/dL Urine Ketones 15 H (NEGATIVE) mg/dL Urine Blood Small H (NEGATIVE) Urine Nitrate Negative (NEGATIVE) Urine Bilirubin Negative (NEGATIVE) Urine Urobilinogen 0.2 (<1 E.U./dL) E.U./dL Ur Leukocyte Esterase Negative (NEGATIVE) Pilar/uL Urine RBC 10 - 15 H (0-2) /hpf Urine WBC 1 - 3 (0-6) /hpf Ur Epithelial Cells 4 - 5 (0-5) /hpf Amorphous Sediment Few (NONE) /hpf Urine Bacteria Many (NONE) /hpf Coarse Granular Casts Trace (NONE) /hpf Urine Other Uyeast /hpf 09/03/18 09/02/18 09/02/18 Range/Units 06:00 21:48 16:43 WBC 9.4 D (4.5-11.0) 10^3/uL RBC 5.21 (3.5-6.1) 10^6/uL Hgb 10.2 L (12.0-16.0) g/dL Hct 33.2 L (36.0-48.0) % MCV 63.7 L (80.0-105.0) fl MCH 19.6 L (25.0-35.0) pg MCHC 30.7 L (31.0-37.0) g/dl RDW 16.2 H (11.5-14.5) % Plt Count 183 (120.0-450.0) 10^3/uL MPV 10.5 (7.0-11.0) fl Sodium (132-148) mmol/L Potassium (3.6-5.0) mmol/L Chloride (98-107) mmol/L Carbon Dioxide (21-33) mmol/L Anion Gap (10-20) BUN (7-21) mg/dL Creatinine (0.7-1.2) mg/dl Est GFR ( Amer) Est GFR (Non-Af Amer) POC Glucose (mg/dL) 114 H 145 H (65-110) mg/dL Random Glucose (70-110) mg/dL Calcium (8.4-10.5) mg/dL Phosphorus (2.5-4.5) mg/dL Magnesium (1.7-2.2) mg/dL Procalcitonin (0.19-0.49) NG/ML Urine Color (YELLOW) Urine Appearance (CLEAR) Urine pH (4.7-8.0) Ur Specific [place] (1.005-1.035) Urine Protein (<30 mg/dL) mg/dL Urine Glucose (UA) (NEGATIVE) mg/dL Urine Ketones (NEGATIVE) mg/dL Urine Blood (NEGATIVE) Urine Nitrate (NEGATIVE) Urine Bilirubin (NEGATIVE) Urine Urobilinogen (<1 E.U./dL) E.U./dL Ur Leukocyte Esterase (NEGATIVE) Pilar/uL Urine RBC (0-2) /hpf Urine WBC (0-6) /hpf Ur Epithelial Cells (0-5) /hpf Amorphous Sediment (NONE) /hpf Urine Bacteria (NONE) /hpf Coarse Granular Casts (NONE) /hpf Urine Other /hpf 09/02/18 09/02/18 09/02/18 Range/Units 14:10 11:15 07:17 WBC (4.5-11.0) 10^3/uL RBC (3.5-6.1) 10^6/uL Hgb (12.0-16.0) g/dL Hct (36.0-48.0) % MCV (80.0-105.0) fl MCH (25.0-35.0) pg MCHC (31.0-37.0) g/dl RDW (11.5-14.5) % Plt Count (120.0-450.0) 10^3/uL MPV (7.0-11.0) fl Sodium 145 (132-148) mmol/L Potassium 3.6 (3.6-5.0) mmol/L Chloride 116 H (98-107) mmol/L Carbon Dioxide 24 (21-33) mmol/L Anion Gap 8 L (10-20) BUN 15 (7-21) mg/dL Creatinine 0.6 L (0.7-1.2) mg/dl Est GFR ( Amer) > 60 Est GFR (Non-Af Amer) > 60 POC Glucose (mg/dL) 153 H 98 (65-110) mg/dL Random Glucose 152 H (70-110) mg/dL Calcium 8.7 (8.4-10.5) mg/dL Phosphorus (2.5-4.5) mg/dL Magnesium (1.7-2.2) mg/dL Procalcitonin (0.19-0.49) NG/ML Urine Color (YELLOW) Urine Appearance (CLEAR) Urine pH (4.7-8.0) Ur Specific [place] (1.005-1.035) Urine Protein (<30 mg/dL) mg/dL Urine Glucose (UA) (NEGATIVE) mg/dL Urine Ketones (NEGATIVE) mg/dL Urine Blood (NEGATIVE) Urine Nitrate (NEGATIVE) Urine Bilirubin (NEGATIVE) Urine Urobilinogen (<1 E.U./dL) E.U./dL Ur Leukocyte Esterase (NEGATIVE) Pilar/uL Urine RBC (0-2) /hpf Urine WBC (0-6) /hpf Ur Epithelial Cells (0-5) /hpf Amorphous Sediment (NONE) /hpf Urine Bacteria (NONE) /hpf Coarse Granular Casts (NONE) /hpf Urine Other /hpf 09/02/18 Range/Units 06:00 WBC (4.5-11.0) 10^3/uL RBC (3.5-6.1) 10^6/uL Hgb (12.0-16.0) g/dL Hct (36.0-48.0) % MCV (80.0-105.0) fl MCH (25.0-35.0) pg MCHC (31.0-37.0) g/dl RDW (11.5-14.5) % Plt Count (120.0-450.0) 10^3/uL MPV (7.0-11.0) fl Sodium (132-148) mmol/L Potassium (3.6-5.0) mmol/L Chloride (98-107) mmol/L Carbon Dioxide (21-33) mmol/L Anion Gap (10-20) BUN (7-21) mg/dL Creatinine (0.7-1.2) mg/dl Est GFR ( Amer) Est GFR (Non-Af Amer) POC Glucose (mg/dL) (65-110) mg/dL Random Glucose (70-110) mg/dL Calcium (8.4-10.5) mg/dL Phosphorus (2.5-4.5) mg/dL Magnesium (1.7-2.2) mg/dL Procalcitonin < 0.05 L (0.19-0.49) NG/ML Urine Color (YELLOW) Urine Appearance (CLEAR) Urine pH (4.7-8.0) Ur Specific [place] (1.005-1.035) Urine Protein (<30 mg/dL) mg/dL Urine Glucose (UA) (NEGATIVE) mg/dL Urine Ketones (NEGATIVE) mg/dL Urine Blood (NEGATIVE) Urine Nitrate (NEGATIVE) Urine Bilirubin (NEGATIVE) Urine Urobilinogen (<1 E.U./dL) E.U./dL Ur Leukocyte Esterase (NEGATIVE) Pilar/uL Urine RBC (0-2) /hpf Urine WBC (0-6) /hpf Ur Epithelial Cells (0-5) /hpf Amorphous Sediment (NONE) /hpf Urine Bacteria (NONE) /hpf Coarse Granular Casts (NONE) /hpf Urine Other /hpf Laboratory Results - last 24 hr 09/02/18 09/02/18 09/02/18 06:00 07:17 11:15 WBC RBC Hgb Hct MCV MCH MCHC RDW Plt Count MPV Sodium Potassium Chloride Carbon Dioxide Anion Gap BUN Creatinine Est GFR ( Amer) Est GFR (Non-Af Amer) POC Glucose (mg/dL) 98 153 H Random Glucose Calcium Phosphorus Magnesium Procalcitonin < 0.05 L Urine Color Urine Appearance Urine pH Ur Specific [place] Urine Protein Urine Glucose (UA) Urine Ketones Urine Blood Urine Nitrate Urine Bilirubin Urine Urobilinogen Ur Leukocyte Esterase Urine RBC Urine WBC Ur Epithelial Cells Amorphous Sediment Urine Bacteria Coarse Granular Casts Urine Other 09/02/18 09/02/18 09/02/18 14:10 16:43 21:48 WBC RBC Hgb Hct MCV MCH MCHC RDW Plt Count MPV Sodium 145 Potassium 3.6 Chloride 116 H Carbon Dioxide 24 Anion Gap 8 L BUN 15 Creatinine 0.6 L Est GFR ( Amer) > 60 Est GFR (Non-Af Amer) > 60 POC Glucose (mg/dL) 145 H 114 H Random Glucose 152 H Calcium 8.7 Phosphorus Magnesium Procalcitonin Urine Color Urine Appearance Urine pH Ur Specific [place] Urine Protein Urine Glucose (UA) Urine Ketones Urine Blood Urine Nitrate Urine Bilirubin Urine Urobilinogen Ur Leukocyte Esterase Urine RBC Urine WBC Ur Epithelial Cells Amorphous Sediment Urine Bacteria Coarse Granular Casts Urine Other 09/03/18 09/03/18 09/03/18 06:00 06:00 08:49 WBC 9.4 D RBC 5.21 Hgb 10.2 L Hct 33.2 L MCV 63.7 L MCH 19.6 L MCHC 30.7 L RDW 16.2 H Plt Count 183 MPV 10.5 Sodium 143 Potassium 3.0 L Chloride 112 H Carbon Dioxide 26 Anion Gap 8 L BUN 16 Creatinine 0.6 L Est GFR ( Amer) > 60 Est GFR (Non-Af Amer) > 60 POC Glucose (mg/dL) 142 H Random Glucose 134 H Calcium 8.8 Phosphorus 2.7 Magnesium 2.0 Procalcitonin Urine Color Urine Appearance Urine pH Ur Specific [place] Urine Protein Urine Glucose (UA) Urine Ketones Urine Blood Urine Nitrate Urine Bilirubin Urine Urobilinogen Ur Leukocyte Esterase Urine RBC Urine WBC Ur Epithelial Cells Amorphous Sediment Urine Bacteria Coarse Granular Casts Urine Other 09/03/18 09:30 WBC RBC Hgb Hct MCV MCH MCHC RDW Plt Count MPV Sodium Potassium Chloride Carbon Dioxide Anion Gap BUN Creatinine Est GFR ( Amer) Est GFR (Non-Af Amer) POC Glucose (mg/dL) Random Glucose Calcium Phosphorus Magnesium Procalcitonin Urine Color Yellow Urine Appearance Clear Urine pH 6.0 Ur Specific [place] >= 1.030 Urine Protein 30 H Urine Glucose (UA) Negative Urine Ketones 15 H Urine Blood Small H Urine Nitrate Negative Urine Bilirubin Negative Urine Urobilinogen 0.2 Ur Leukocyte Esterase Negative Urine RBC 10 - 15 H Urine WBC 1 - 3 Ur Epithelial Cells 4 - 5 Amorphous Sediment Few Urine Bacteria Many Coarse Granular Casts Trace Urine Other Uyeast Radiology Impressions: Radiology Impressions Chest X-Ray 09/02/18 17:51 IMPRESSION: Right lower lobe perihilar infiltrate. Endotracheal tube in satisfactory position. Fingerstick Blood Sugar Results: 114 Review of Systems - Review of Systems Review of Systems: per HPI Critical Care Progress Note - Nutrition Nutrition: Nutrition Category Date Time Status NPO Diet [DIET] Diets 08/30/18 Dinner Ordered Assessment/Plan - Assessment and Plan (Free Text) Assessment: 63 yo F with PMH of migraines presents to [facility] [place] [facility] for left-sided deficits. Admitted to ICU for close monitoring due to parenchymal hematoma in the right frontal parietal lobe with midline shift. Plan: Neuro: CT Scan (09/03): No significant change CT Head (09/02): There is no change in the right hemispheric intraparenchymal hematoma which measures 5.5 by 5.2 x 6.0 cm. There is a large amount of surrounding edema. There is mass effect with effacement of sulci and midline shift. There is 13 cm of midline shift. There is compression of the right lateral ventricle. CT Head (09/01): Redemonstrated is a large parenchymal hematoma right cerebral hemisphere extending from the vertex inferiorly into the anterior upper right middle cranial fossa region. This hemorrhage measures approximately 6.7 x 5.1 x 6.1 cm the rim of surrounding edema has increased in size as well. There is significant mass effect with compression of the overlying sulci and further compression of the right lateral ventricle which shifted across midline to the left. Emergent neurosurgical consultation is recommended. These findings discussed with ICU resident tongue binder Dr. Gore CT Head (08/31): There is a large parenchymal hematoma within the right cerebral hemisphere which has increased in size extending from vertex inferiorly to below the level of the lateral ventricles and sylvian fissure extending anteriorly to the region of the lateral fissure. There is a fairly well-circumscribed rim of low-attenuation edema and or necrotic brain tissue. This hematoma exerts considerable surrounding mass effect with compression of the overlying sulci and right lateral ventricle. There is also mild [id number] midline shift of the septum pellucidum (subfalcine herniation) estimated at approximately 7 mm. No obstructive hydrocephalus. Neurosurgery evaluated patient, recommended pt undergo surgery. Family meeting conducted with family. Pts daughter gave consent, and patient to go to OR for evacuation of R parietal hematoma. Post surgery, maintain strict BP around 140SBP, avoid spikes in BP, PaCO2 in 30s This am, pt more lethargic, not responding to commands compared to yesterday. Neuro/Neurosurgery consulted, recs appreciated Neuro checks Q1H. Monitor for signs of progression, especially R side as hematoma in [place] territory continue mannitol per neurosurgery recs with 12.5 grams on a taper schedule daily at q6,q8,q12,qd and d/c Continue keppra daily Continue daily head CTs HOB >40 degrees Maintain normothermia ID: Pt had fever overnight procalcitonin <0.05, likely central fevers f/u blood/urine cultures empiric vanc/cefepime IV acetaminophen ID following Cardio: Monitor BP, target SBP 130-150 per neurology Continue titratable nicardipine drip for BP control Maintain MAP > 65 Hold home ASA Pulm: Maintain O2 sat > 92% GI: Protonix NPO Renal: Monitor electrolytes, replete/correct as needed Maintain euvolemia Heme: SCD's for DVT PPx Endo: Maintain euglycemia DVT/GI: SCD/PTX Case seen, examined and discussed with attending physician, Dr. Elbert Malik PGY1 <Fantasma Boswell - Last Filed: 09/03/18 12:43> CCU Objective - Vital Signs / Intake & Output Intake and Output (Last 8hrs): Intake & Output 09/02/18 09/03/18 09/03/18 22:59 06:59 14:59 Intake Total 1360 1100 Output Total 1000 800 Balance 360 300 Weight 160 lb Intake: IV 1360 700 3% saline 60 Left Femoral 700 Left Hand 1200 keppra 100 Other 400 Output: Urine 1000 800 Urethral (Holliday) 1000 800 Other: # Bowel Movements 0 0 - Medications Active Medications: Active Medications Generic Name Dose Route Start Last Admin Trade Name Freq PRN Reason Stop Dose Admin Levetiracetam 500 mg in 100 mls @ 215 mls/hr 08/31/18 22:00 09/03/18 09:07 Keppra 500mg Ivpb IVPB 215 mls/hr Q12H CLAY Administration Nicardipine HCl 20 mg in 200 mls @ 50 mls/hr 09/01/18 14:48 09/02/18 12:00 Cardene Iv Premix IV 0 mg/hr .Q4H PRN 0 mls/hr TITRATE PER MD ORDER Titration Protocol 5 MG/HR Propofol 1,000 mg in 100 mls @ 2.005 mls/hr 09/01/18 16:49 09/02/18 08:00 Diprivan IV 0 mcg/kg/min .Q24H PRN 0 mls/hr TITRATE PER MD ORDER Titration Protocol 5 MCG/KG/MIN Mannitol 50 mls @ 100 mls/hr 09/02/18 16:00 09/03/18 10:00 Mannitol IV 09/03/18 16:00 100 mls/hr Q6H CLAY Administration Vancomycin HCl 1 gm in 250 mls @ 167 mls/hr 09/02/18 17:00 09/03/18 04:58 Vancomycin 1gm IVPB 167 mls/hr Q12H CLAY Administration Protocol Acetaminophen 1,000 mg in 100 mls @ 400 mls/hr 09/02/18 16:55 09/03/18 12:05 Ofirmev IVPB 09/04/18 08:11 400 mls/hr Q8H PRN Administration Temperature Cefepime HCl 2 gm in 100 mls @ 100 mls/hr 09/02/18 18:17 09/03/18 06:35 Maxipime 2gm IVPB 09/07/18 17:24 100 mls/hr Q12H CLAY Administration Protocol Labetalol HCl 20 mg 08/31/18 21:26 09/01/18 14:21 Trandate IV 20 mg Q2H PRN Administration Hypertension Mannitol 12.5 gm 09/03/18 16:00 Mannitol IV 09/04/18 16:00 Q8H CLAY Mannitol 12.5 gm 09/04/18 16:00 Mannitol IV 09/05/18 16:00 Q12H CLAY Mannitol 12.5 gm 09/05/18 16:00 Mannitol IV 09/06/18 16:00 DAILY CLAY Pantoprazole Sodium 40 mg 08/31/18 10:00 09/03/18 09:03 Protonix Inj IVP 40 mg DAILY CLAY Administration - Patient Studies Lab Studies: Microbiology Studies 09/02/18 09:50 Blood Culture - Preliminary Blood NO GROWTH AFTER 24 HOURS Lab Studies 09/03/18 09/03/18 09/03/18 Range/Units 11:53 09:30 08:49 WBC (4.5-11.0) 10^3/uL RBC (3.5-6.1) 10^6/uL Hgb (12.0-16.0) g/dL Hct (36.0-48.0) % MCV (80.0-105.0) fl MCH (25.0-35.0) pg MCHC (31.0-37.0) g/dl RDW (11.5-14.5) % Plt Count (120.0-450.0) 10^3/uL MPV (7.0-11.0) fl Sodium (132-148) mmol/L Potassium (3.6-5.0) mmol/L Chloride (98-107) mmol/L Carbon Dioxide (21-33) mmol/L Anion Gap (10-20) BUN (7-21) mg/dL Creatinine (0.7-1.2) mg/dl Est GFR ( Amer) Est GFR (Non-Af Amer) POC Glucose (mg/dL) 105 142 H (65-110) mg/dL Random Glucose (70-110) mg/dL Calcium (8.4-10.5) mg/dL Phosphorus (2.5-4.5) mg/dL Magnesium (1.7-2.2) mg/dL Procalcitonin (0.19-0.49) NG/ML Urine Color Yellow (YELLOW) Urine Appearance Clear (CLEAR) Urine pH 6.0 (4.7-8.0) Ur Specific [place] >= 1.030 (1.005-1.035) Urine Protein 30 H (<30 mg/dL) mg/dL Urine Glucose (UA) Negative (NEGATIVE) mg/dL Urine Ketones 15 H (NEGATIVE) mg/dL Urine Blood Small H (NEGATIVE) Urine Nitrate Negative (NEGATIVE) Urine Bilirubin Negative (NEGATIVE) Urine Urobilinogen 0.2 (<1 E.U./dL) E.U./dL Ur Leukocyte Esterase Negative (NEGATIVE) Pilar/uL Urine RBC 10 - 15 H (0-2) /hpf Urine WBC 1 - 3 (0-6) /hpf Ur Epithelial Cells 4 - 5 (0-5) /hpf Amorphous Sediment Few (NONE) /hpf Urine Bacteria Many (NONE) /hpf Coarse Granular Casts Trace (NONE) /hpf Urine Other Uyeast /hpf 09/03/18 09/03/18 09/02/18 Range/Units 06:00 06:00 21:48 WBC 9.4 D (4.5-11.0) 10^3/uL RBC 5.21 (3.5-6.1) 10^6/uL Hgb 10.2 L (12.0-16.0) g/dL Hct 33.2 L (36.0-48.0) % MCV 63.7 L (80.0-105.0) fl MCH 19.6 L (25.0-35.0) pg MCHC 30.7 L (31.0-37.0) g/dl RDW 16.2 H (11.5-14.5) % Plt Count 183 (120.0-450.0) 10^3/uL MPV 10.5 (7.0-11.0) fl Sodium 143 (132-148) mmol/L Potassium 3.0 L (3.6-5.0) mmol/L Chloride 112 H (98-107) mmol/L Carbon Dioxide 26 (21-33) mmol/L Anion Gap 8 L (10-20) BUN 16 (7-21) mg/dL Creatinine 0.6 L (0.7-1.2) mg/dl Est GFR ( Amer) > 60 Est GFR (Non-Af Amer) > 60 POC Glucose (mg/dL) 114 H (65-110) mg/dL Random Glucose 134 H (70-110) mg/dL Calcium 8.8 (8.4-10.5) mg/dL Phosphorus 2.7 (2.5-4.5) mg/dL Magnesium 2.0 (1.7-2.2) mg/dL Procalcitonin (0.19-0.49) NG/ML Urine Color (YELLOW) Urine Appearance (CLEAR) Urine pH (4.7-8.0) Ur Specific [place] (1.005-1.035) Urine Protein (<30 mg/dL) mg/dL Urine Glucose (UA) (NEGATIVE) mg/dL Urine Ketones (NEGATIVE) mg/dL Urine Blood (NEGATIVE) Urine Nitrate (NEGATIVE) Urine Bilirubin (NEGATIVE) Urine Urobilinogen (<1 E.U./dL) E.U./dL Ur Leukocyte Esterase (NEGATIVE) Pilar/uL Urine RBC (0-2) /hpf Urine WBC (0-6) /hpf Ur Epithelial Cells (0-5) /hpf Amorphous Sediment (NONE) /hpf Urine Bacteria (NONE) /hpf Coarse Granular Casts (NONE) /hpf Urine Other /hpf 09/02/18 09/02/18 09/02/18 Range/Units 16:43 14:10 11:15 WBC (4.5-11.0) 10^3/uL RBC (3.5-6.1) 10^6/uL Hgb (12.0-16.0) g/dL Hct (36.0-48.0) % MCV (80.0-105.0) fl MCH (25.0-35.0) pg MCHC (31.0-37.0) g/dl RDW (11.5-14.5) % Plt Count (120.0-450.0) 10^3/uL MPV (7.0-11.0) fl Sodium 145 (132-148) mmol/L Potassium 3.6 (3.6-5.0) mmol/L Chloride 116 H (98-107) mmol/L Carbon Dioxide 24 (21-33) mmol/L Anion Gap 8 L (10-20) BUN 15 (7-21) mg/dL Creatinine 0.6 L (0.7-1.2) mg/dl Est GFR ( Amer) > 60 Est GFR (Non-Af Amer) > 60 POC Glucose (mg/dL) 145 H 153 H (65-110) mg/dL Random Glucose 152 H (70-110) mg/dL Calcium 8.7 (8.4-10.5) mg/dL Phosphorus (2.5-4.5) mg/dL Magnesium (1.7-2.2) mg/dL Procalcitonin (0.19-0.49) NG/ML Urine Color (YELLOW) Urine Appearance (CLEAR) Urine pH (4.7-8.0) Ur Specific [place] (1.005-1.035) Urine Protein (<30 mg/dL) mg/dL Urine Glucose (UA) (NEGATIVE) mg/dL Urine Ketones (NEGATIVE) mg/dL Urine Blood (NEGATIVE) Urine Nitrate (NEGATIVE) Urine Bilirubin (NEGATIVE) Urine Urobilinogen (<1 E.U./dL) E.U./dL Ur Leukocyte Esterase (NEGATIVE) Pilar/uL Urine RBC (0-2) /hpf Urine WBC (0-6) /hpf Ur Epithelial Cells (0-5) /hpf Amorphous Sediment (NONE) /hpf Urine Bacteria (NONE) /hpf Coarse Granular Casts (NONE) /hpf Urine Other /hpf 09/02/18 09/02/18 Range/Units 07:17 06:00 WBC (4.5-11.0) 10^3/uL RBC (3.5-6.1) 10^6/uL Hgb (12.0-16.0) g/dL Hct (36.0-48.0) % MCV (80.0-105.0) fl MCH (25.0-35.0) pg MCHC (31.0-37.0) g/dl RDW (11.5-14.5) % Plt Count (120.0-450.0) 10^3/uL MPV (7.0-11.0) fl Sodium (132-148) mmol/L Potassium (3.6-5.0) mmol/L Chloride (98-107) mmol/L Carbon Dioxide (21-33) mmol/L Anion Gap (10-20) BUN (7-21) mg/dL Creatinine (0.7-1.2) mg/dl Est GFR ( Amer) Est GFR (Non-Af Amer) POC Glucose (mg/dL) 98 (65-110) mg/dL Random Glucose (70-110) mg/dL Calcium (8.4-10.5) mg/dL Phosphorus (2.5-4.5) mg/dL Magnesium (1.7-2.2) mg/dL Procalcitonin < 0.05 L (0.19-0.49) NG/ML Urine Color (YELLOW) Urine Appearance (CLEAR) Urine pH (4.7-8.0) Ur Specific [place] (1.005-1.035) Urine Protein (<30 mg/dL) mg/dL Urine Glucose (UA) (NEGATIVE) mg/dL Urine Ketones (NEGATIVE) mg/dL Urine Blood (NEGATIVE) Urine Nitrate (NEGATIVE) Urine Bilirubin (NEGATIVE) Urine Urobilinogen (<1 E.U./dL) E.U./dL Ur Leukocyte Esterase (NEGATIVE) Pilar/uL Urine RBC (0-2) /hpf Urine WBC (0-6) /hpf Ur Epithelial Cells (0-5) /hpf Amorphous Sediment (NONE) /hpf Urine Bacteria (NONE) /hpf Coarse Granular Casts (NONE) /hpf Urine Other /hpf Laboratory Results - last 24 hr 09/02/18 09/02/18 09/02/18 06:00 07:17 11:15 WBC RBC Hgb Hct MCV MCH MCHC RDW Plt Count MPV Sodium Potassium Chloride Carbon Dioxide Anion Gap BUN Creatinine Est GFR ( Amer) Est GFR (Non-Af Amer) POC Glucose (mg/dL) 98 153 H Random Glucose Calcium Phosphorus Magnesium Procalcitonin < 0.05 L Urine Color Urine Appearance Urine pH Ur Specific [place] Urine Protein Urine Glucose (UA) Urine Ketones Urine Blood Urine Nitrate Urine Bilirubin Urine Urobilinogen Ur Leukocyte Esterase Urine RBC Urine WBC Ur Epithelial Cells Amorphous Sediment Urine Bacteria Coarse Granular Casts Urine Other 09/02/18 09/02/18 09/02/18 14:10 16:43 21:48 WBC RBC Hgb Hct MCV MCH MCHC RDW Plt Count MPV Sodium 145 Potassium 3.6 Chloride 116 H Carbon Dioxide 24 Anion Gap 8 L BUN 15 Creatinine 0.6 L Est GFR ( Amer) > 60 Est GFR (Non-Af Amer) > 60 POC Glucose (mg/dL) 145 H 114 H Random Glucose 152 H Calcium 8.7 Phosphorus Magnesium Procalcitonin Urine Color Urine Appearance Urine pH Ur Specific [place] Urine Protein Urine Glucose (UA) Urine Ketones Urine Blood Urine Nitrate Urine Bilirubin Urine Urobilinogen Ur Leukocyte Esterase Urine RBC Urine WBC Ur Epithelial Cells Amorphous Sediment Urine Bacteria Coarse Granular Casts Urine Other 09/03/18 09/03/18 09/03/18 06:00 06:00 08:49 WBC 9.4 D RBC 5.21 Hgb 10.2 L Hct 33.2 L MCV 63.7 L MCH 19.6 L MCHC 30.7 L RDW 16.2 H Plt Count 183 MPV 10.5 Sodium 143 Potassium 3.0 L Chloride 112 H Carbon Dioxide 26 Anion Gap 8 L BUN 16 Creatinine 0.6 L Est GFR ( Amer) > 60 Est GFR (Non-Af Amer) > 60 POC Glucose (mg/dL) 142 H Random Glucose 134 H Calcium 8.8 Phosphorus 2.7 Magnesium 2.0 Procalcitonin Urine Color Urine Appearance Urine pH Ur Specific [place] Urine Protein Urine Glucose (UA) Urine Ketones Urine Blood Urine Nitrate Urine Bilirubin Urine Urobilinogen Ur Leukocyte Esterase Urine RBC Urine WBC Ur Epithelial Cells Amorphous Sediment Urine Bacteria Coarse Granular Casts Urine Other 09/03/18 09/03/18 09:30 11:53 WBC RBC Hgb Hct MCV MCH MCHC RDW Plt Count MPV Sodium Potassium Chloride Carbon Dioxide Anion Gap BUN Creatinine Est GFR ( Amer) Est GFR (Non-Af Amer) POC Glucose (mg/dL) 105 Random Glucose Calcium Phosphorus Magnesium Procalcitonin Urine Color Yellow Urine Appearance Clear Urine pH 6.0 Ur Specific [place] >= 1.030 Urine Protein 30 H Urine Glucose (UA) Negative Urine Ketones 15 H Urine Blood Small H Urine Nitrate Negative Urine Bilirubin Negative Urine Urobilinogen 0.2 Ur Leukocyte Esterase Negative Urine RBC 10 - 15 H Urine WBC 1 - 3 Ur Epithelial Cells 4 - 5 Amorphous Sediment Few Urine Bacteria Many Coarse Granular Casts Trace Urine Other Uyeast Radiology Impressions: Radiology Impressions Chest X-Ray 09/02/18 17:51 IMPRESSION: Right lower lobe perihilar infiltrate. Endotracheal tube in satisfactory position. Head CT 09/03/18 10:32 IMPRESSION: No significant change in right hemispheric hematoma and edema with 13 mm of midline shift. Critical Care Progress Note - Nutrition Nutrition: Nutrition Category Date Time Status NPO Diet [DIET] Diets 08/30/18 Dinner Ordered Assessment/Plan - Assessment and Plan (Free Text) Plan: Patient see and examined on rounds with resident, agree with note with following additions/exceptions: Patient is 63yo female with PMHx migraines presents to [facility] [place] [facility] for left-sided deficits, found to have large Right IPH. This morning, neurological exam has worsened, not responsive to verbal, painful stimuli. STAT repeat CTH ordered, which is grossly unchanged, Right IPH parietal/temporal, with 13mm midline shift. Neurosurgery at bedside, Dr Paula, had an extensive conversation with the brother and daughter, plan for OR evacuation of IPH. Family updated of clniical events, and possible outcomes including risks and benefits of the procedure; family agreed to the procedure Pt has been febrile, pancutlured, started on broad spectrum abx. Aggressive temp control including cooling blanket, and Tylenol IV IPH with midline shift Resp failure Fever, rule out infection, central fevers Recommend: - cont with vent support, maintain PCO2 30-35, avoid barotrauma - Broad spectrum abx, Vanco, Cefepime - panculture, UCx BCx, Check Procal - 3% Saline, goal Na 145-150 - Mannitol IV - Maintain SBp 120-140 - Fever control - FS control - IV Tylenol, Cooling blanket - GI ppx, Pepcid - DVT ppx, SCDs - Monitor in MICU Critical care time 40 minutes Prognosis is guarded
--- NOTE | 2018-09-03 11:19 | CT ---
Date of service: 09/03/2018 PROCEDURE: CT HEAD WITHOUT CONTRAST. HISTORY: [facility] COMPARISON: 09/02/2018 TECHNIQUE: Axial computed tomography images were obtained through the head/brain without intravenous contrast. Radiation dose: Total exam DLP = 926.25 mGy-cm. This CT exam was performed using one or more of the following dose reduction techniques: Automated exposure control, adjustment of the mA and/or kV according to patient size, and/or use of iterative reconstruction technique. FINDINGS: HEMORRHAGE: Allowing for slight differences in the angulation of the head between the two exams there is no significant change in the size of the right hemispheric hematoma with surrounding edema. As noted previously there is 13 mm of midline shift to the left. There is compression of the right lateral ventricle. There is mild dilatation of the occipital horn and temporal horn of the left lateral ventricle. These findings are unchanged. BRAIN: As above VENTRICLES: As above CALVARIUM: Unremarkable. PARANASAL SINUSES: Unremarkable as visualized. No significant inflammatory changes. MASTOID AIR CELLS: Unremarkable as visualized. No inflammatory changes. OTHER FINDINGS: None. IMPRESSION: No significant change in right hemispheric hematoma and edema with 13 mm of midline shift.
[2018-09-03] MEDS ORDERED: Vancomycin 1 g Inj IVPB ONE (11:22)
[2018-09-03] MEDS ORDERED: Midazolam 2 MG/2 ML VIAL ONE (12:12)
[2018-09-03] MEDS ORDERED: Rocuronium 10 mg/ml (5 ml) ONE (12:12)
[2018-09-03] MEDS ORDERED: Propofol 10 mg/ml Inj (20 ML) ONE (12:12)
[2018-09-03] MEDS ORDERED: Absorbable Gelatin Sponge Size 12-7 ONE (12:15)
[2018-09-03] MEDS ORDERED: Liquid Adhesive TOP ONE ×2 (12:16→13:10)
[2018-09-03] MEDS ORDERED: Thrombin Topical 20,000 Intl Units Spray Kit TOP ONE ×2 (12:19→13:00)
[2018-09-03] MEDS ORDERED: Lidocaine 1% w Epi 1:100,000 Inj ONE (12:37)
[2018-09-03] MEDS ORDERED: ePHEDrine 50 mg/ml Inj ONE (12:37)
[2018-09-03] MEDS ORDERED: Vancomycin 1 g Inj ONE (12:39)
[2018-09-03] MEDS ORDERED: Lidocaine/Epi 1% 1:100000 20 ML IJ ONE (13:00)
[2018-09-03] MEDS ORDERED: Absorbable Gelatin Sponge Size 100 MM ONE (13:00)
[2018-09-03] MEDS ORDERED: Bacitracin Ointment 30 GM TUBE TOP ONE (13:00)
[2018-09-03] MEDS ORDERED: Bacitracin Ointment 30 GM TUBE ONE (13:06)
[2018-09-03] MEDS ORDERED: levETIRAcetam 1000mg/100ml NS 100 ML IV STA (13:15)
--- NOTE | 2018-09-03 13:45 | CP.PCM.PCO ---
Addendum Addendum: 09/03/18 13:42 s/p evacuation of R parietal hemotoma Per neurosurgery: Discontinue mannitol Head of bed @ 40 degrees Maintainence fluids @80mls/hr Maintain Na @ 140 Continue keppra Maintain PaCO2 @ 30 PEG tube for feeds Per Neurology: 1g Keppra post-procedure 750mg bid daily Daily CT scan in am
[2018-09-03] MEDS: Nicardipine 20 MG/200 ML 20 MG/200 ML BAG IV PRN (13:48)
[2018-09-03] MEDS: Propofol 10 mg/ml 1,000 MG/100 ML VIAL IV PRN (13:50)
[2018-09-03] MEDS: Sodium Chloride 0.9% 1,000 ML IV SCH (13:52)
--- NOTE | 2018-09-03 14:51 | PN ---
DATE: 09/03/2018 SUBJECTIVE: A 63-year-old white female seen in intensive care unit. OBJECTIVE: Temperature is 99.6, blood pressure 140/65. Sodium is 143, potassium 3, being replaced. BUN and creatinine are stable. Hemoglobin is 10.2 and white count is 9.4. The patient has suffered a large right-sided intracerebral hematoma. She does have left-sided hemiparesis. Her interactions and her strength on the right side have been fairly normal and so today when she has had some subtle changes in her mental status and her ability to follow commands and to use her right upper and right lower extremity. Her left and flat right. Her pupils are still reactive to light. She is intubated and sedated. She is on mannitol and Tylenol for her fever, on antibiotics because of the fevers to cover her. She is scheduled for another repeat CT to see if there are any acute changes. She is on IV fluids, Keppra, mannitol, cefepime, nicardipine, potassium replacement, propofol, vancomycin. PLAN: The patient's prognosis is poor. Plan is to repeat the CT, possible neurosurgical intervention if necessary. Close monitoring. EEG being done at this time. Pal Elizabeth MD
[2018-09-03 15:01] LABS: BLOOD UREA NITROGEN 18 mg/dL (7-21); CALCIUM 8.9 mg/dL (8.4-10.5); GFR NON-AFRICAN AMERICAN > 60
--- NOTE | 2018-09-03 15:47 | PCM.VEEG ---
Video EEG - Procedure Start Date: 09/02/18 Start Time: 14:55 End Date: 09/03/18 End Time: 07:40 Technical Summary: DATA ACQUISITION: This was a multichannel inpatient video-EEG, a minimum of 22 channels were utilized, performed in accordance with recommendations specified by the [place] [employer] (Elaine Cloud et al. ACNS Guideline 1: Minimum Technical Requirements for Performing Clinical Electroencephalography. Journal of Clinical Neurophysiology 2016;33:303-7). The 10-20 electrode placement system was utilized in accordance with guidelines detailed by the International Federation of Clinical Neurophysiology (Diaz Beckman et al. The Ten-Twenty Electrode System of the International Federation. Recommendations for the Practice of Clinical Neurophysiology: Guidelines of the International Federation of Clinical Physiology 1999; EEG Suppl. 52.). DATA REVIEW / SPIKE DETECTION / DIGITAL ANALYSIS: The entire EEG was scanned and reviewed. Synchronized audio and video recording were reviewed at the time of each alarm and whenever an abnormality or suspicious activity was noted. The entire recording was analyzed utilizing an automated digital spike and seizure analysis program and all automatic spike and seizure detections were manually reviewed. A compressed spectral array was displayed and reviewed alongside the raw EEG tracings. In addition, further analysis of the EEG was performed when abnormalities were identified, including montage changes, dipole source localization, and frequency band identification. This study was attended 24 hours per day - Interpretation Description of the study: Indication; Status Epilepticus EEG Finding during wakefulness: There was no discernable awake architecture, when the patient was stimulated, the EEG was characterized by 6 to 7 Hz activity bilaterally in fronto-central regions, and posteriorly , which was poorly reactive to eye opening and closing The EEG showed asymmetry of the hemisphere with the right being more attenuated that the left. EEG Finding during sleep: There was not discernable sleep or drowsy architecture. Interictal non-epileptiform abnormalities: : There were frequent runs of bilateral left more than right frontal sharp waves with triphasic morphology that were more frequent seen during transition from wakefulness to sleep or vice versa, that were seen in isolation or in rhythmic runs, lasting for several minutes. NO organized seizure activity was seen. There was attenuated right hemisphere slowing seen. Interictal epileptiform abnormalities: None Ictal epileptiform abnormalities: None - Impression Impression: This is an abnormal video-EEG monitoring study due to the presence of 1) Moderate to severe diffuse slowing. 2) Bifrontal sharp waves with triphasic morphology. left more than right. 3) Right hemisphere focal slowing. No seizures, not in status epilepticus. INTERPRETATION: These findings are consistent with a moderate to severe diffuse disturbance of cortical activity, in keeping with a diffuse nixon matter dysfunction; these findings do not support a specific etiology, however these findings are commonly seen in toxic metabolic encephalopahties. The findings are also in keeping with w focal cortical abnormality involving the right hemisphere in keeping with a structural abnormality in the same area.
[2018-09-03] MEDS ORDERED: Mannitol 12.5 gm/50 ml Inj IV SCH (16:00)
[2018-09-03] MEDS ORDERED: Sodium Chloride 0.9% 1,000 ML IV STA (22:36)
[2018-09-04] MEDS: Sodium Chloride 0.9% 1,000 ML IV SCH ×2 (03:18→21:55)
[2018-09-04] MEDS: Vancomycin 1gm in NS 250ml 1 GM/250 ML BAG IVPB SCH ×2 (04:50→18:12)
[2018-09-04] MEDS: Propofol 10 mg/ml 1,000 MG/100 ML VIAL IV PRN (04:50)
[2018-09-04] MEDS: Cefepime IV 2 gm in NS 2 GM/100 ML BAG IVPB SCH ×2 (05:28→18:12)
[2018-09-04 05:48] LABS: ARTERIAL BLOOD GAS HCO3 20.9 mmol/L (21-28); ARTERIAL BLOOD GAS O2 CAPACITY 12.5 mL/dl (16-24); ARTERIAL BLOOD GAS O2 CONTENT 12.4 ML/dl (15-23); ARTERIAL BLOOD GAS O2 SAT 99.3 % (95-98); ARTERIAL BLOOD GAS PCO2 33 mm/Hg (35-45); ARTERIAL BLOOD GAS PH 7.41 (7.35-7.45); ARTERIAL BLOOD GAS TCO2 21.9 mmol.L (22-28)
[2018-09-04 06:50] LABS: HEMOGLOBIN 8.9 g/dL (12.0-16.0); MEAN CELL VOLUME 63.3 fl (80.0-105.0); MEAN CORPUSCULAR HEMOGLOBIN 19.7 pg (25.0-35.0); MEAN CORPUSCULAR HGB CONC 31.1 g/dl (31.0-37.0); MEAN PLATELET VOLUME 10.5 fl (7.0-11.0); RBC 4.52 10^6/uL (3.5-6.1); RED CELL DISTRIBUTION WIDTH 16.2 % (11.5-14.5); WHITE BLOOD COUNT 9.4 10^3/uL (4.5-11.0)
[2018-09-04 07:20] LABS: BLOOD UREA NITROGEN 21 mg/dL (7-21); CALCIUM 8.7 mg/dL (8.4-10.5); GFR NON-AFRICAN AMERICAN > 60
--- NOTE | 2018-09-04 07:50 | CP.CCUPN ---
<Lis Malik - Last Filed: 09/04/18 11:12> CCU Subjective - Physician Review Subjective (Free Text): CRITICAL CARE PROGRESS NOTE Lis Chauhanfaraz PGY1 Pt seen and examined at bedside in ICU. Overnight, pt was hypotensive and was given IV fluid bolus. BP was maintained overnight in 138-142 systolic range. This am, pt is responding to commands, including moving RLE, squeezing R hand, raising eyebrow. Still doesn't open eyes spontaneously, non-verbal as she is on vent. Temp was at 100 overnight. ROS unattainable. Titratable drips: Nicardipine @ 2.5mg/hr Propofol 5mcg/kg/min Vent: 350/60%/20/5 PCO2: 32 80cc IVF CCU Objective - Vital Signs / Intake & Output Vital Signs (Last 4 hours): Vital Signs Pulse 09/04/18 06:00 83 Intake and Output (Last 8hrs): Intake & Output 09/03/18 09/04/18 09/04/18 22:59 06:59 14:59 Intake Total 1400 2460 Output Total 400 400 Balance 1000 2060 Intake: IV 1400 2460 Left Femoral 1400 Right Forearm 2360 Output: Urine 400 400 Urethral (Holliday) 400 400 Other: # Bowel Movements 0 0 - Physical Exam Head: Positive for: Atraumatic, Normocephalic Pupils: Positive for: PERRL Extroacular Muscles: Positive for: EOMI Conjunctiva: Positive for: Normal Mouth: Positive for: Moist Mucous Membranes Nose (Internal): Positive for: No Active Bleeding Neck: Positive for: Normal Range of Motion. Negative for: Meningeal Signs Respiratory/Chest: Positive for: Clear to Auscultation, Good Air Exchange Cardiovascular: Positive for: Regular Rate and Rhythm, Normal S1, S2 Abdomen: Positive for: Normal Bowel Sounds. Negative for: Tenderness, Distention, Peritoneal Signs Upper Extremity: Positive for: Normal Inspection. Negative for: Cyanosis, Edema Lower Extremity: Positive for: Normal Inspection. Negative for: Edema Neurological: Positive for: Other (Obeys verbal commands, Moves RLE , RUE spontaneously, squeezes fingers, raises eyebrows. PERRL. No LUE/LLE movement upon commands. Facial droop presents) Skin: Positive for: Warm, Dry Psychiatric: Positive for: Lethargic - Medications Active Medications: Active Medications Generic Name Dose Route Start Last Admin Trade Name Freq PRN Reason Stop Dose Admin Nicardipine HCl 20 mg in 200 mls @ 50 mls/hr 09/01/18 14:48 09/03/18 14:23 Cardene Iv Premix IV 0 mg/hr .Q4H PRN 0 mls/hr TITRATE PER MD ORDER Titration Protocol 5 MG/HR Propofol 1,000 mg in 100 mls @ 2.005 mls/hr 09/01/18 16:49 09/04/18 04:50 Diprivan IV 5 mcg/kg/min .Q24H PRN 2.005 mls/hr TITRATE PER MD ORDER Administration Protocol 5 MCG/KG/MIN Vancomycin HCl 1 gm in 250 mls @ 167 mls/hr 09/02/18 17:00 09/04/18 04:50 Vancomycin 1gm IVPB 167 mls/hr Q12H CLAY Administration Protocol Acetaminophen 1,000 mg in 100 mls @ 400 mls/hr 09/02/18 16:55 09/03/18 20:00 Ofirmev IVPB 09/04/18 08:11 400 mls/hr Q8H PRN Administration Temperature Cefepime HCl 2 gm in 100 mls @ 100 mls/hr 09/02/18 18:17 09/04/18 05:28 Maxipime 2gm IVPB 09/07/18 17:24 100 mls/hr Q12H CLAY Administration Protocol Levetiracetam 750 mg/ Sodium 107.5 mls @ 215 mls/hr 09/04/18 10:00 Chloride IVPB Q12 CLAY Sodium Chloride 1,000 mls @ 80 mls/hr 09/03/18 13:30 09/04/18 03:18 Sodium Chloride 0.9% IV 80 mls/hr .[id number] CLAY Administration Labetalol HCl 20 mg 08/31/18 21:26 09/01/18 14:21 Trandate IV 20 mg Q2H PRN Administration Hypertension Pantoprazole Sodium 40 mg 08/31/18 10:00 09/03/18 09:03 Protonix Inj IVP 40 mg DAILY CLAY Administration - Patient Studies Lab Studies: Microbiology Studies 09/02/18 09:50 Blood Culture - Preliminary Blood NO GROWTH AFTER 24 HOURS Lab Studies 0209/04/18 09/04/18 Range/Units 05:30 05:30 05:18 WBC 9.4 (4.5-11.0) 10^3/uL RBC 4.52 (3.5-6.1) 10^6/uL Hgb 8.9 L (12.0-16.0) g/dL Hct 28.6 L (36.0-48.0) % MCV 63.3 L (80.0-105.0) fl MCH 19.7 L (25.0-35.0) pg MCHC 31.1 (31.0-37.0) g/dl RDW 16.2 H (11.5-14.5) % Plt Count 165 (120.0-450.0) 10^3/uL MPV 10.5 (7.0-11.0) fl pCO2 33 L (35-45) mm/Hg pO2 103.0 H (80-100) mm/Hg HCO3 20.9 L (21-28) mmol/L ABG pH 7.41 (7.35-7.45) ABG Total CO2 21.9 L (22-28) mmol.L ABG O2 Saturation 99.3 H (95-98) % ABG O2 Content 12.4 L (15-23) ML/dl ABG Base Excess -3.2 L (-2.0-3.0) mmol/L ABG Hemoglobin 9.0 L (11.7-17.4) g/dL ABG Carboxyhemoglobin 1.7 H (0.5-1.5) % POC ABG HHb (Measured) 0.7 (0-5) % ABG Methemoglobin 1.3 (0.0-3.0) % ABG O2 Capacity 12.5 L (16-24) mL/dl Hgb O2 Saturation 96.4 (95.0-98.0) % FiO2 60.0 % Sodium 143 (132-148) mmol/L Potassium 3.3 L (3.6-5.0) mmol/L Chloride 115 H (98-107) mmol/L Carbon Dioxide 24 (21-33) mmol/L Anion Gap 8 L (10-20) BUN 21 (7-21) mg/dL Creatinine 0.6 L (0.7-1.2) mg/dl Est GFR ( Amer) > 60 Est GFR (Non-Af Amer) > 60 POC Glucose (mg/dL) (65-110) mg/dL Random Glucose 92 (70-110) mg/dL Calcium 8.7 (8.4-10.5) mg/dL Phosphorus 2.9 (2.5-4.5) mg/dL Magnesium 2.0 (1.7-2.2) mg/dL Urine Color (YELLOW) Urine Appearance (CLEAR) Urine pH (4.7-8.0) Ur Specific [place] (1.005-1.035) Urine Protein (<30 mg/dL) mg/dL Urine Glucose (UA) (NEGATIVE) mg/dL Urine Ketones (NEGATIVE) mg/dL Urine Blood (NEGATIVE) Urine Nitrate (NEGATIVE) Urine Bilirubin (NEGATIVE) Urine Urobilinogen (<1 E.U./dL) E.U./dL Ur Leukocyte Esterase (NEGATIVE) Pilar/uL Urine RBC (0-2) /hpf Urine WBC (0-6) /hpf Ur Epithelial Cells (0-5) /hpf Amorphous Sediment (NONE) /hpf Urine Bacteria (NONE) /hpf Coarse Granular Casts (NONE) /hpf Urine Other /hpf 09/03/18 09/03/18 09/03/18 Range/Units 21:27 17:38 14:05 WBC (4.5-11.0) 10^3/uL RBC (3.5-6.1) 10^6/uL Hgb (12.0-16.0) g/dL Hct (36.0-48.0) % MCV (80.0-105.0) fl MCH (25.0-35.0) pg MCHC (31.0-37.0) g/dl RDW (11.5-14.5) % Plt Count (120.0-450.0) 10^3/uL MPV (7.0-11.0) fl pCO2 (35-45) mm/Hg pO2 (80-100) mm/Hg HCO3 (21-28) mmol/L ABG pH (7.35-7.45) ABG Total CO2 (22-28) mmol.L ABG O2 Saturation (95-98) % ABG O2 Content (15-23) ML/dl ABG Base Excess (-2.0-3.0) mmol/L ABG Hemoglobin (11.7-17.4) g/dL ABG Carboxyhemoglobin (0.5-1.5) % POC ABG HHb (Measured) (0-5) % ABG Methemoglobin (0.0-3.0) % ABG O2 Capacity (16-24) mL/dl Hgb O2 Saturation (95.0-98.0) % FiO2 % Sodium 143 (132-148) mmol/L Potassium 3.3 L (3.6-5.0) mmol/L Chloride 112 H (98-107) mmol/L Carbon Dioxide 26 (21-33) mmol/L Anion Gap 8 L (10-20) BUN 18 (7-21) mg/dL Creatinine 0.7 (0.7-1.2) mg/dl Est GFR ( Amer) > 60 Est GFR (Non-Af Amer) > 60 POC Glucose (mg/dL) 104 93 (65-110) mg/dL Random Glucose 176 H (70-110) mg/dL Calcium 8.9 (8.4-10.5) mg/dL Phosphorus (2.5-4.5) mg/dL Magnesium (1.7-2.2) mg/dL Urine Color (YELLOW) Urine Appearance (CLEAR) Urine pH (4.7-8.0) Ur Specific [place] (1.005-1.035) Urine Protein (<30 mg/dL) mg/dL Urine Glucose (UA) (NEGATIVE) mg/dL Urine Ketones (NEGATIVE) mg/dL Urine Blood (NEGATIVE) Urine Nitrate (NEGATIVE) Urine Bilirubin (NEGATIVE) Urine Urobilinogen (<1 E.U./dL) E.U./dL Ur Leukocyte Esterase (NEGATIVE) Pilar/uL Urine RBC (0-2) /hpf Urine WBC (0-6) /hpf Ur Epithelial Cells (0-5) /hpf Amorphous Sediment (NONE) /hpf Urine Bacteria (NONE) /hpf Coarse Granular Casts (NONE) /hpf Urine Other /hpf 09/03/18 09/03/18 09/03/18 Range/Units 11:53 09:30 08:49 WBC (4.5-11.0) 10^3/uL RBC (3.5-6.1) 10^6/uL Hgb (12.0-16.0) g/dL Hct (36.0-48.0) % MCV (80.0-105.0) fl MCH (25.0-35.0) pg MCHC (31.0-37.0) g/dl RDW (11.5-14.5) % Plt Count (120.0-450.0) 10^3/uL MPV (7.0-11.0) fl pCO2 (35-45) mm/Hg pO2 (80-100) mm/Hg HCO3 (21-28) mmol/L ABG pH (7.35-7.45) ABG Total CO2 (22-28) mmol.L ABG O2 Saturation (95-98) % ABG O2 Content (15-23) ML/dl ABG Base Excess (-2.0-3.0) mmol/L ABG Hemoglobin (11.7-17.4) g/dL ABG Carboxyhemoglobin (0.5-1.5) % POC ABG HHb (Measured) (0-5) % ABG Methemoglobin (0.0-3.0) % ABG O2 Capacity (16-24) mL/dl Hgb O2 Saturation (95.0-98.0) % FiO2 % Sodium (132-148) mmol/L Potassium (3.6-5.0) mmol/L Chloride (98-107) mmol/L Carbon Dioxide (21-33) mmol/L Anion Gap (10-20) BUN (7-21) mg/dL Creatinine (0.7-1.2) mg/dl Est GFR ( Amer) Est GFR (Non-Af Amer) POC Glucose (mg/dL) 105 142 H (65-110) mg/dL Random Glucose (70-110) mg/dL Calcium (8.4-10.5) mg/dL Phosphorus (2.5-4.5) mg/dL Magnesium (1.7-2.2) mg/dL Urine Color Yellow (YELLOW) Urine Appearance Clear (CLEAR) Urine pH 6.0 (4.7-8.0) Ur Specific [place] >= 1.030 (1.005-1.035) Urine Protein 30 H (<30 mg/dL) mg/dL Urine Glucose (UA) Negative (NEGATIVE) mg/dL Urine Ketones 15 H (NEGATIVE) mg/dL Urine Blood Small H (NEGATIVE) Urine Nitrate Negative (NEGATIVE) Urine Bilirubin Negative (NEGATIVE) Urine Urobilinogen 0.2 (<1 E.U./dL) E.U./dL Ur Leukocyte Esterase Negative (NEGATIVE) Pilar/uL Urine RBC 10 - 15 H (0-2) /hpf Urine WBC 1 - 3 (0-6) /hpf Ur Epithelial Cells 4 - 5 (0-5) /hpf Amorphous Sediment Few (NONE) /hpf Urine Bacteria Many (NONE) /hpf Coarse Granular Casts Trace (NONE) /hpf Urine Other Uyeast /hpf Laboratory Results - last 24 hr 09/03/18 09/03/18 09/03/18 08:49 09:30 11:53 WBC RBC Hgb Hct MCV MCH MCHC RDW Plt Count MPV pCO2 pO2 HCO3 ABG pH ABG Total CO2 ABG O2 Saturation ABG O2 Content ABG Base Excess ABG Hemoglobin ABG Carboxyhemoglobin POC ABG HHb (Measured) ABG Methemoglobin ABG O2 Capacity Hgb O2 Saturation FiO2 Sodium Potassium Chloride Carbon Dioxide Anion Gap BUN Creatinine Est GFR ( Amer) Est GFR (Non-Af Amer) POC Glucose (mg/dL) 142 H 105 Random Glucose Calcium Phosphorus Magnesium Urine Color Yellow Urine Appearance Clear Urine pH 6.0 Ur Specific [place] >= 1.030 Urine Protein 30 H Urine Glucose (UA) Negative Urine Ketones 15 H Urine Blood Small H Urine Nitrate Negative Urine Bilirubin Negative Urine Urobilinogen 0.2 Ur Leukocyte Esterase Negative Urine RBC 10 - 15 H Urine WBC 1 - 3 Ur Epithelial Cells 4 - 5 Amorphous Sediment Few Urine Bacteria Many Coarse Granular Casts Trace Urine Other Uyeast 09/03/18 09/03/18 09/03/18 14:05 17:38 21:27 WBC RBC Hgb Hct MCV MCH MCHC RDW Plt Count MPV pCO2 pO2 HCO3 ABG pH ABG Total CO2 ABG O2 Saturation ABG O2 Content ABG Base Excess ABG Hemoglobin ABG Carboxyhemoglobin POC ABG HHb (Measured) ABG Methemoglobin ABG O2 Capacity Hgb O2 Saturation FiO2 Sodium 143 Potassium 3.3 L Chloride 112 H Carbon Dioxide 26 Anion Gap 8 L BUN 18 Creatinine 0.7 Est GFR ( Amer) > 60 Est GFR (Non-Af Amer) > 60 POC Glucose (mg/dL) 93 104 Random Glucose 176 H Calcium 8.9 Phosphorus Magnesium Urine Color Urine Appearance Urine pH Ur Specific [place] Urine Protein Urine Glucose (UA) Urine Ketones Urine Blood Urine Nitrate Urine Bilirubin Urine Urobilinogen Ur Leukocyte Esterase Urine RBC Urine WBC Ur Epithelial Cells Amorphous Sediment Urine Bacteria Coarse Granular Casts Urine Other 09/04/18 09/04/18 09/04/18 05:18 05:30 05:30 WBC 9.4 RBC 4.52 Hgb 8.9 L Hct 28.6 L MCV 63.3 L MCH 19.7 L MCHC 31.1 RDW 16.2 H Plt Count 165 MPV 10.5 pCO2 33 L pO2 103.0 H HCO3 20.9 L ABG pH 7.41 ABG Total CO2 21.9 L ABG O2 Saturation 99.3 H ABG O2 Content 12.4 L ABG Base Excess -3.2 L ABG Hemoglobin 9.0 L ABG Carboxyhemoglobin 1.7 H POC ABG HHb (Measured) 0.7 ABG Methemoglobin 1.3 ABG O2 Capacity 12.5 L Hgb O2 Saturation 96.4 FiO2 60.0 Sodium 143 Potassium 3.3 L Chloride 115 H Carbon Dioxide 24 Anion Gap 8 L BUN 21 Creatinine 0.6 L Est GFR ( Amer) > 60 Est GFR (Non-Af Amer) > 60 POC Glucose (mg/dL) Random Glucose 92 Calcium 8.7 Phosphorus 2.9 Magnesium 2.0 Urine Color Urine Appearance Urine pH Ur Specific [place] Urine Protein Urine Glucose (UA) Urine Ketones Urine Blood Urine Nitrate Urine Bilirubin Urine Urobilinogen Ur Leukocyte Esterase Urine RBC Urine WBC Ur Epithelial Cells Amorphous Sediment Urine Bacteria Coarse Granular Casts Urine Other Radiology Impressions: Radiology Impressions Chest X-Ray 09/02/18 17:51 IMPRESSION: Right lower lobe perihilar infiltrate. Endotracheal tube in satisfactory position. Head CT 09/03/18 10:32 IMPRESSION: No significant change in right hemispheric hematoma and edema with 13 mm of midline shift. Fingerstick Blood Sugar Results: 114 Review of Systems - Review of Systems Review of Systems: per HPI Critical Care Progress Note - Nutrition Nutrition: Nutrition Category Date Time Status NPO Diet [DIET] Diets 08/30/18 Dinner Ordered Assessment/Plan - Assessment and Plan (Free Text) Assessment: 63 yo F with PMH of migraines [place] [facility] [place]. Admitted to ICU for close monitoring due to parenchymal hematoma in the right frontal parietal lobe with midline shift. Pt is s/p (09/03) craniotomy with evacuation of R parietal lobe hematoma Plan: Neuro: Intracranial hemorrhage with midline shift s/p craniotomy & evacuation of R parietal hematoma (09/03/18) continue neuro checks Q1H. Monitor for signs of progression continue hyperventilation, maintain PaCO2 30-35 Continue keppra 750mg bid per neurology recs Continue strict systolic BP control @140mmhg. Avoid rapid changes in blood pressure. Continue titratable nicardipine drip Continue daily head CTs in am HOB @ 40 degrees Maintain normothermia, IV tylenol & cooling blanket IV maintainence fluids @80mls/hr discontinue mannitol & hypertonic saline Neuro/Neurosurgery consulted, recs appreciated CT Head (09/04): There has been a right frontal craniotomy with partial evacuation of the large right hemispheric hemorrhage. The hemorrhage is decreased in size and now measures 3 x 5.5 cm transversely. There is a large amount of vasogenic edema. There is persistent mass effect with 13 mm of midline shift. There is a small amount of postoperative air in the subdural space Video EEG (09/03): These findings are consistent with a moderate to severe diffuse disturbance of cortical activity, in keeping with a diffuse nixon matter dysfunction; these findings do not support a specific etiology, however these findings are commonly seen in toxic metabolic encephalopahties. The findings are also in keeping with w focal cortical abnormality involving the right hemisphere in keeping with a structural abnormality in the same area. CT Head (09/03): No significant change in right hemispheric hematoma and edema with 13 mm of midline shift. CT Head (09/02): There is no change in the right hemispheric intraparenchymal hematoma which measures 5.5 by 5.2 x 6.0 cm. There is a large amount of surrounding edema. There is mass effect with effacement of sulci and midline shift. There is 13 cm of midline shift. There is compression of the right lateral ventricle. CT Head (09/01): Redemonstrated is a large parenchymal hematoma right cerebral hemisphere extending from the vertex inferiorly into the anterior upper right middle cranial fossa region. This hemorrhage measures approximately 6.7 x 5.1 x 6.1 cm the rim of surrounding edema has increased in size as well. There is significant mass effect with compression of the overlying sulci and further compression of the right lateral ventricle which shifted across midline to the left. Emergent neurosurgical consultation is recommended. These findings discussed with ICU resident electronic plotting system operator Dr. Gore CT Head (08/31): There is a large parenchymal hematoma within the right cerebral hemisphere which has increased in size extending from vertex inferiorly to below the level of the lateral ventricles and sylvian fissure extending anteriorly to the region of the lateral fissure. There is a fairly well-circumscribed rim of low-attenuation edema and or necrotic brain tissue. This hematoma exerts considerable surrounding mass effect with compression of the overlying sulci and right lateral ventricle. There is also mild [id number] midline shift of the septum pellucidum (subfalcine herniation) estimated at approximately 7 mm. No obstructive hydrocephalus. ID: Fever, r/o infection, central fevers procalcitonin <0.05, likely central fevers f/u blood/urine cultures continue empiric broad spectrum vanc/cefepime for 24 more hours. Will discontinue tomorrow continue IV acetaminophen. monitor LFTs continue cooling blanket maintain normothermia ID following Cardio: Monitor BP, target SBP 140mmHg per neurology/[id number] Continue titratable nicardipine drip for strict BP control. Avoid rapid changes in BP Maintain MAP > 65 Hold home ASA/anticoagulation Pulm: Maintain O2 sat > 92% GI: Will start tube feeds today Laundry Routeman consult Protonix IVP NPO Renal: Monitor electrolytes, replete/correct as needed Maintain euvolemia Heme: SCD's for DVT PPx Endo: Maintain euglycemia DVT/GI: SCD/PTX Case seen, examined and discussed with attending physician, Dr. Elbert Malik PGY1 <Fantasma Boswell - Last Filed: 09/04/18 12:07> CCU Objective - Vital Signs / Intake & Output Intake and Output (Last 8hrs): Intake & Output 09/03/18 09/04/18 09/04/18 22:59 06:59 14:59 Intake Total 1400 2460 250 Output Total 400 400 Balance 1000 2060 250 Intake: IV 1400 2460 250 Left Femoral 1400 Right Forearm 2360 Output: Urine 400 400 Urethral (Holliday) 400 400 Other: # Bowel Movements 0 0 - Medications Active Medications: Active Medications Generic Name Dose Route Start Last Admin Trade Name Freq PRN Reason Stop Dose Admin Famotidine 20 mg 09/04/18 10:45 09/04/18 11:08 Pepcid IVP 20 mg DAILY CLAY Administration Nicardipine HCl 20 mg in 200 mls @ 50 mls/hr 09/01/18 14:48 09/04/18 11:37 Cardene Iv Premix IV 0 mg/hr .Q4H PRN 0 mls/hr TITRATE PER MD ORDER Titration Protocol 5 MG/HR Propofol 1,000 mg in 100 mls @ 2.005 mls/hr 09/01/18 16:49 09/04/18 10:14 Diprivan IV 0 mcg/kg/min .Q24H PRN 0 mls/hr TITRATE PER MD ORDER Titration Protocol 5 MCG/KG/MIN Vancomycin HCl 1 gm in 250 mls @ 167 mls/hr 09/02/18 17:00 09/04/18 04:50 Vancomycin 1gm IVPB 167 mls/hr Q12H CLAY Administration Protocol Cefepime HCl 2 gm in 100 mls @ 100 mls/hr 09/02/18 18:17 09/04/18 05:28 Maxipime 2gm IVPB 09/07/18 17:24 100 mls/hr Q12H CLAY Administration Protocol Levetiracetam 750 mg/ Sodium 107.5 mls @ 215 mls/hr 09/04/18 10:00 09/04/18 11:07 Chloride IVPB 215 mls/hr Q12 CLAY Administration Sodium Chloride 1,000 mls @ 80 mls/hr 09/03/18 13:30 09/04/18 03:18 Sodium Chloride 0.9% IV 80 mls/hr .[id number] CLAY Administration Acetaminophen 1,000 mg in 100 mls @ 400 mls/hr 09/04/18 08:19 09/04/18 08:40 Ofirmev IVPB 09/06/18 08:20 400 mls/hr Q6H PRN Administration Temperature Potassium Chloride 10 meq in 100 mls @ 50 mls/hr 09/04/18 08:30 09/04/18 11:07 Potassium Chloride 10 Meq/100 Ml IVPB 09/04/18 12:29 50 mls/hr Q2H CLAY Administration Labetalol HCl 20 mg 08/31/18 21:26 09/01/18 14:21 Trandate IV 20 mg Q2H PRN Administration Hypertension - Patient Studies Lab Studies: Microbiology Studies 09/03/18 09:30 Urine Culture - Final Urine,Holliday No Growth (<1,000 CFU/ML) 09/02/18 09:50 Blood Culture - Preliminary Blood NO GROWTH AFTER 48 HOURS Lab Studies 09/04/18 09/04/18 09/04/18 Range/Units 10:50 10:50 08:04 WBC (4.5-11.0) 10^3/uL RBC (3.5-6.1) 10^6/uL Hgb (12.0-16.0) g/dL Hct (36.0-48.0) % MCV (80.0-105.0) fl MCH (25.0-35.0) pg MCHC (31.0-37.0) g/dl RDW (11.5-14.5) % Plt Count (120.0-450.0) 10^3/uL MPV (7.0-11.0) fl pCO2 (35-45) mm/Hg pO2 (80-100) mm/Hg HCO3 (21-28) mmol/L ABG pH (7.35-7.45) ABG Total CO2 (22-28) mmol.L ABG O2 Saturation (95-98) % ABG O2 Content (15-23) ML/dl ABG Base Excess (-2.0-3.0) mmol/L ABG Hemoglobin (11.7-17.4) g/dL ABG Carboxyhemoglobin (0.5-1.5) % POC ABG HHb (Measured) (0-5) % ABG Methemoglobin (0.0-3.0) % ABG O2 Capacity (16-24) mL/dl Hgb O2 Saturation (95.0-98.0) % FiO2 % Sodium (132-148) mmol/L Potassium (3.6-5.0) mmol/L Chloride (98-107) mmol/L Carbon Dioxide (21-33) mmol/L Anion Gap (10-20) BUN (7-21) mg/dL Creatinine (0.7-1.2) mg/dl Est GFR ( Amer) Est GFR (Non-Af Amer) POC Glucose (mg/dL) 93 (65-110) mg/dL Random Glucose (70-110) mg/dL Calcium (8.4-10.5) mg/dL Phosphorus (2.5-4.5) mg/dL Magnesium (1.7-2.2) mg/dL Iron 28 L (45-180) ug/dL TIBC 189 L (265-497) ug/dL % Saturation 15 L (20-55) % Total Bilirubin 0.4 (0.2-1.3) mg/dL Direct Bilirubin 0.1 (0.0-0.4) mg/dL AST 44 H D (14-36) U/L ALT 16 (7-56) U/L Alkaline Phosphatase 86 (38-126) U/L Total Protein 5.8 (5.8-8.3) g/dL Albumin 2.9 L (3.0-4.8) g/dL Globulin 3.0 gm/dL Albumin/Globulin Ratio 1.0 L (1.1-1.8) 09/04/18 09/04/18 09/04/18 Range/Units 05:30 05:30 05:18 WBC 9.4 (4.5-11.0) 10^3/uL RBC 4.52 (3.5-6.1) 10^6/uL Hgb 8.9 L (12.0-16.0) g/dL Hct 28.6 L (36.0-48.0) % MCV 63.3 L (80.0-105.0) fl MCH 19.7 L (25.0-35.0) pg MCHC 31.1 (31.0-37.0) g/dl RDW 16.2 H (11.5-14.5) % Plt Count 165 (120.0-450.0) 10^3/uL MPV 10.5 (7.0-11.0) fl pCO2 33 L (35-45) mm/Hg pO2 103.0 H (80-100) mm/Hg HCO3 20.9 L (21-28) mmol/L ABG pH 7.41 (7.35-7.45) ABG Total CO2 21.9 L (22-28) mmol.L ABG O2 Saturation 99.3 H (95-98) % ABG O2 Content 12.4 L (15-23) ML/dl ABG Base Excess -3.2 L (-2.0-3.0) mmol/L ABG Hemoglobin 9.0 L (11.7-17.4) g/dL ABG Carboxyhemoglobin 1.7 H (0.5-1.5) % POC ABG HHb (Measured) 0.7 (0-5) % ABG Methemoglobin 1.3 (0.0-3.0) % ABG O2 Capacity 12.5 L (16-24) mL/dl Hgb O2 Saturation 96.4 (95.0-98.0) % FiO2 60.0 % Sodium 143 (132-148) mmol/L Potassium 3.3 L (3.6-5.0) mmol/L Chloride 115 H (98-107) mmol/L Carbon Dioxide 24 (21-33) mmol/L Anion Gap 8 L (10-20) BUN 21 (7-21) mg/dL Creatinine 0.6 L (0.7-1.2) mg/dl Est GFR ( Amer) > 60 Est GFR (Non-Af Amer) > 60 POC Glucose (mg/dL) (65-110) mg/dL Random Glucose 92 (70-110) mg/dL Calcium 8.7 (8.4-10.5) mg/dL Phosphorus 2.9 (2.5-4.5) mg/dL Magnesium 2.0 (1.7-2.2) mg/dL Iron (45-180) ug/dL TIBC (265-497) ug/dL % Saturation (20-55) % Total Bilirubin (0.2-1.3) mg/dL Direct Bilirubin (0.0-0.4) mg/dL AST (14-36) U/L ALT (7-56) U/L Alkaline Phosphatase (38-126) U/L Total Protein (5.8-8.3) g/dL Albumin (3.0-4.8) g/dL Globulin gm/dL Albumin/Globulin Ratio (1.1-1.8) 09/03/18 09/03/18 09/03/18 Range/Units 21:27 17:38 14:05 WBC (4.5-11.0) 10^3/uL RBC (3.5-6.1) 10^6/uL Hgb (12.0-16.0) g/dL Hct (36.0-48.0) % MCV (80.0-105.0) fl MCH (25.0-35.0) pg MCHC (31.0-37.0) g/dl RDW (11.5-14.5) % Plt Count (120.0-450.0) 10^3/uL MPV (7.0-11.0) fl pCO2 (35-45) mm/Hg pO2 (80-100) mm/Hg HCO3 (21-28) mmol/L ABG pH (7.35-7.45) ABG Total CO2 (22-28) mmol.L ABG O2 Saturation (95-98) % ABG O2 Content (15-23) ML/dl ABG Base Excess (-2.0-3.0) mmol/L ABG Hemoglobin (11.7-17.4) g/dL ABG Carboxyhemoglobin (0.5-1.5) % POC ABG HHb (Measured) (0-5) % ABG Methemoglobin (0.0-3.0) % ABG O2 Capacity (16-24) mL/dl Hgb O2 Saturation (95.0-98.0) % FiO2 % Sodium 143 (132-148) mmol/L Potassium 3.3 L (3.6-5.0) mmol/L Chloride 112 H (98-107) mmol/L Carbon Dioxide 26 (21-33) mmol/L Anion Gap 8 L (10-20) BUN 18 (7-21) mg/dL Creatinine 0.7 (0.7-1.2) mg/dl Est GFR ( Amer) > 60 Est GFR (Non-Af Amer) > 60 POC Glucose (mg/dL) 104 93 (65-110) mg/dL Random Glucose 176 H (70-110) mg/dL Calcium 8.9 (8.4-10.5) mg/dL Phosphorus (2.5-4.5) mg/dL Magnesium (1.7-2.2) mg/dL Iron (45-180) ug/dL TIBC (265-497) ug/dL % Saturation (20-55) % Total Bilirubin (0.2-1.3) mg/dL Direct Bilirubin (0.0-0.4) mg/dL AST (14-36) U/L ALT (7-56) U/L Alkaline Phosphatase (38-126) U/L Total Protein (5.8-8.3) g/dL Albumin (3.0-4.8) g/dL Globulin gm/dL Albumin/Globulin Ratio (1.1-1.8) Laboratory Results - last 24 hr 09/03/18 09/03/18 09/03/18 14:05 17:38 21:27 WBC RBC Hgb Hct MCV MCH MCHC RDW Plt Count MPV pCO2 pO2 HCO3 ABG pH ABG Total CO2 ABG O2 Saturation ABG O2 Content ABG Base Excess ABG Hemoglobin ABG Carboxyhemoglobin POC ABG HHb (Measured) ABG Methemoglobin ABG O2 Capacity Hgb O2 Saturation FiO2 Sodium 143 Potassium 3.3 L Chloride 112 H Carbon Dioxide 26 Anion Gap 8 L BUN 18 Creatinine 0.7 Est GFR ( Amer) > 60 Est GFR (Non-Af Amer) > 60 POC Glucose (mg/dL) 93 104 Random Glucose 176 H Calcium 8.9 Phosphorus Magnesium Iron TIBC % Saturation Total Bilirubin Direct Bilirubin AST ALT Alkaline Phosphatase Total Protein Albumin Globulin Albumin/Globulin Ratio 09/04/18 09/04/18 09/04/18 05:18 05:30 05:30 WBC 9.4 RBC 4.52 Hgb 8.9 L Hct 28.6 L MCV 63.3 L MCH 19.7 L MCHC 31.1 RDW 16.2 H Plt Count 165 MPV 10.5 pCO2 33 L pO2 103.0 H HCO3 20.9 L ABG pH 7.41 ABG Total CO2 21.9 L ABG O2 Saturation 99.3 H ABG O2 Content 12.4 L ABG Base Excess -3.2 L ABG Hemoglobin 9.0 L ABG Carboxyhemoglobin 1.7 H POC ABG HHb (Measured) 0.7 ABG Methemoglobin 1.3 ABG O2 Capacity 12.5 L Hgb O2 Saturation 96.4 FiO2 60.0 Sodium 143 Potassium 3.3 L Chloride 115 H Carbon Dioxide 24 Anion Gap 8 L BUN 21 Creatinine 0.6 L Est GFR ( Amer) > 60 Est GFR (Non-Af Amer) > 60 POC Glucose (mg/dL) Random Glucose 92 Calcium 8.7 Phosphorus 2.9 Magnesium 2.0 Iron TIBC % Saturation Total Bilirubin Direct Bilirubin AST ALT Alkaline Phosphatase Total Protein Albumin Globulin Albumin/Globulin Ratio 09/04/18 09/04/18 09/04/18 08:04 10:50 10:50 WBC RBC Hgb Hct MCV MCH MCHC RDW Plt Count MPV pCO2 pO2 HCO3 ABG pH ABG Total CO2 ABG O2 Saturation ABG O2 Content ABG Base Excess ABG Hemoglobin ABG Carboxyhemoglobin POC ABG HHb (Measured) ABG Methemoglobin ABG O2 Capacity Hgb O2 Saturation FiO2 Sodium Potassium Chloride Carbon Dioxide Anion Gap BUN Creatinine Est GFR ( Amer) Est GFR (Non-Af Amer) POC Glucose (mg/dL) 93 Random Glucose Calcium Phosphorus Magnesium Iron 28 L TIBC 189 L % Saturation 15 L Total Bilirubin 0.4 Direct Bilirubin 0.1 AST 44 H D ALT 16 Alkaline Phosphatase 86 Total Protein 5.8 Albumin 2.9 L Globulin 3.0 Albumin/Globulin Ratio 1.0 L Radiology Impressions: Radiology Impressions Head CT 09/04/18 07:00 IMPRESSION: There has been a right frontal craniotomy with partial evacuation of the large right hemispheric hemorrhage. The hemorrhage is decreased in size and now measures 3 x 5.5 cm transversely. There is a large amount of vasogenic edema. There is persistent mass effect with 13 mm of midline shift. There is a small amount of postoperative air in the subdural space Chest X-Ray 09/04/18 09:06 IMPRESSION: Improved right lower lobe infiltrate Critical Care Progress Note - Nutrition Nutrition: Nutrition Category Date Time Status NPO Diet [DIET] Diets 08/30/18 Dinner Ordered Assessment/Plan - Assessment and Plan (Free Text) Plan: Patient see and examined on rounds with resident, agree with note with following additions/exceptions: Patient is 63yo female with PMHx migraines [place] [facility] [place] deficits, found to have large Right IPH. This morning, neurological exam has improved, opens eyes, follows commands. Yesterday had OR evacuation of IPH by neurosurgery Pt has been febrile, pancutlured, started on broad spectrum abx. Aggressive temp control including cooling blanket, and Tylenol IV Cultures thus far neg, procal neg IPH with midline shift Resp failure Fever, rule out infection, central fevers Recommend: - cont with vent support, maintain PCO2 30-35, avoid barotrauma, daily CPAP trial - Broad spectrum abx, Vanco, Cefepime for another 24h, would then stop if cultures remain negative - Maintain SBp 120-140 - start feeds - Fever control - FS control - IV Tylenol, Cooling blanket - GI ppx, Pepcid - DVT ppx, SCDs - Monitor in MICU Critical care time 30 minutes Prognosis is guarded
--- NOTE | 2018-09-04 08:51 | CT ---
Date of service: 09/04/2018 PROCEDURE: CT HEAD WITHOUT CONTRAST. HISTORY: ICH, s/p evacuation COMPARISON: 09/03/2018 TECHNIQUE: Axial computed tomography images were obtained through the head/brain without intravenous contrast. Radiation dose: Total exam DLP = 952.38 mGy-cm. This CT exam was performed using one or more of the following dose reduction techniques: Automated exposure control, adjustment of the mA and/or kV according to patient size, and/or use of iterative reconstruction technique. FINDINGS: HEMORRHAGE: There has been a right frontal craniotomy with partial evacuation of the large right hemispheric hemorrhage. The hemorrhage is decreased in size and now measures 3 x 5.5 cm transversely. There is a large amount of vasogenic edema. There is persistent mass effect with 13 mm of midline shift. There is a small amount of postoperative air in the subdural space BRAIN: As above VENTRICLES: There is no change in ventricular size. CALVARIUM: Right frontal craniotomy PARANASAL SINUSES: Unremarkable as visualized. No significant inflammatory changes. MASTOID AIR CELLS: Unremarkable as visualized. No inflammatory changes. OTHER FINDINGS: None. IMPRESSION: There has been a right frontal craniotomy with partial evacuation of the large right hemispheric hemorrhage. The hemorrhage is decreased in size and now measures 3 x 5.5 cm transversely. There is a large amount of vasogenic edema. There is persistent mass effect with 13 mm of midline shift. There is a small amount of postoperative air in the subdural space
--- NOTE | 2018-09-04 09:53 | RAD ---
Date of service: 09/04/2018 HISTORY: fever COMPARISON: 09/02/2018 FINDINGS: LUNGS: No active pulmonary disease. PLEURA: No significant pleural effusion identified, no pneumothorax apparent. CARDIOVASCULAR: Minimal aortic calcification Normal cardiac size. No pulmonary vascular congestion. OSSEOUS STRUCTURES: No significant abnormalities. VISUALIZED UPPER ABDOMEN: Normal. OTHER FINDINGS: Endotracheal tube in satisfactory position IMPRESSION: Improved right lower lobe infiltrate
--- NOTE | 2018-09-04 10:08 | CP.PCM.PN ---
<Ino Cuellar - Last Filed: 09/04/18 17:12> Subjective - Date & Time of Evaluation Date of Evaluation: 09/04/18 Time of Evaluation: 10:08 - Subjective Subjective: PGY-1 Neurology Progress note for Dr. Nagy Patient seen and examined at bed side. She is s/p craniotomy with evacuation of R parietal lobe hematoma POD #1. Patient is intubated and sedated on Propofol. Objective - Vital Signs/Intake and Output Vital Signs (last 24 hours): Temp Pulse Resp BP Pulse Ox 100.0 F H 103 H 25 H 136/57 L 97 09/04/18 07:20 09/04/18 07:30 09/03/18 11:30 09/04/18 07:30 09/04/18 07:20 Intake and Output: 09/04/18 09/04/18 06:59 18:59 Intake Total 2460 Output Total 400 Balance 2060 - Medications Medications: Current Medications Nicardipine HCl (Cardene Iv Premix) 20 mg in 200 mls @ 50 mls/hr IV .Q4H PRN; Protocol PRN Reason: TITRATE PER MD ORDER Last Titration: 09/03/18 14:23 Dose: 0 mg/hr, 0 mls/hr Propofol (Diprivan) 1,000 mg in 100 mls @ 2.005 mls/hr IV .Q24H PRN; Protocol PRN Reason: TITRATE PER MD ORDER Last Admin: 09/04/18 04:50 Dose: 5 mcg/kg/min, 2.005 mls/hr Vancomycin HCl (Vancomycin 1gm) 1 gm in 250 mls @ 167 mls/hr IVPB Q12H CLAY; P rotocol Last Admin: 09/04/18 04:50 Dose: 167 mls/hr Cefepime HCl (Maxipime 2gm) 2 gm in 100 mls @ 100 mls/hr IVPB Q12H CLAY; Protocol Stop: 09/07/18 17:24 Last Admin: 09/04/18 05:28 Dose: 100 mls/hr Levetiracetam 750 mg/ Sodium (Chloride) 107.5 mls @ 215 mls/hr IVPB Q12 CLAY Sodium Chloride (Sodium Chloride 0.9%) 1,000 mls @ 80 mls/hr IV .[id number] CLAY Last Admin: 09/04/18 03:18 Dose: 80 mls/hr Acetaminophen (Ofirmev) 1,000 mg in 100 mls @ 400 mls/hr IVPB Q6H PRN PRN Reason: Temperature Stop: 09/06/18 08:20 Last Admin: 09/04/18 08:40 Dose: 400 mls/hr Potassium Chloride (Potassium Chloride 10 Meq/100 Ml) 10 meq in 100 mls @ 50 mls/hr IVPB Q2H CLAY Stop: 09/04/18 12:29 Last Admin: 09/04/18 08:40 Dose: 50 mls/hr Labetalol HCl (Trandate) 20 mg IV Q2H PRN PRN Reason: Hypertension Last Admin: 09/01/18 14:21 Dose: 20 mg Pantoprazole Sodium (Protonix Inj) 40 mg IVP DAILY [facility] Last Admin: 09/03/18 09:03 Dose: 40 mg - Labs Labs: 09/04/18 05:30 09/04/18 05:30 PT 11.5 SECONDS (9.4-12.5) 08/30/18 15:05 INR 1.04 08/30/18 15:05 APTT 33.6 Seconds (26.9-38.3) 08/30/18 15:05 - Additional Findings Additional findings: - Constitutional Appears: No Acute Distress, patient is intubated and on sedation - Head Exam Head Exam: ATRAUMATIC, NORMAL INSPECTION, NORMOCEPHALIC - Eye Exam Eye Exam: EOMI, Normal appearance, PERRL Pupil Exam: NORMAL ACCOMODATION, PERRL - ENT Exam ENT Exam: Mucous Membranes Moist, Normal Exam - Neck Exam Neck Exam: Full ROM, Normal Inspection. absent: Lymphadenopathy - Respiratory Exam Respiratory Exam: Clear to Ausculation Bilateral, NORMAL BREATHING PATTERN - Cardiovascular Exam Cardiovascular Exam: REGULAR RHYTHM, +S1, +S2. absent: Murmur - GI/Abdominal Exam GI & Abdominal Exam: Soft, Normal Bowel Sounds. absent: Tenderness - Extremities Exam Extremities Exam: Full ROM, Normal Capillary Refill, Normal Inspection. absent: Joint Swelling, Pedal Edema - Neurological Exam Additional comments: Left facial droop noted. Examination is limited due to patient being sedated. - Psychiatric Exam Psychiatric exam: Sedated - Skin Skin Exam: Dry, Intact, Normal Color, Warm Assessment and Plan - Assessment and Plan (Free Text) Assessment: Patient is a 63 year old female presenting with left-sided weakness, left facial droop, and dysarthria. Patient is admitted in ICU for close monitoring for parenchymal hematoma in the right frontal parietal lobe with midline shift. Pt is s/p (09/03) craniotomy with evacuation of R parietal lobe hematoma. Plan: -CT Head (09/04): There has been a right frontal craniotomy with partial evacuation of the large right hemispheric hemorrhage. The hemorrhage is decreased in size and now measures 3 x 5.5 cm transversely. There is a large amount of vasogenic edema. There is persistent mass effect with 13 mm of midline shift. There is a small amount of postoperative air in the subdural space - 24-hours video EEG showed findings consistent with focal cortical abnormality, no seizures - Continue to take daily head CT's - Continue Keppra 750mg IV Q12 - Continue to maintain SBP at 140mmhg - HOB at 40 degrees - Continue Neurochecks Q1H - Continue NS @80mls/hr - Further recommendations as per Dr. Nagy Patient seen and case discussed with attending, Dr. Nagy. Ino Cuellar, PGY-1 <Jonna Nagy - Last Filed: 09/04/18 21:54> Objective - Vital Signs/Intake and Output Vital Signs (last 24 hours): Temp Pulse Resp BP Pulse Ox 100.0 F H 103 H 25 H 136/57 L 97 09/04/18 07:20 09/04/18 07:30 09/03/18 11:30 09/04/18 07:30 09/04/18 07:20 Intake and Output: 09/04/18 09/04/18 06:59 18:59 Intake Total 2460 254 Output Total 400 Balance 2060 254 - Medications Medications: Current Medications Famotidine (Pepcid) 20 mg IVP DAILY [facility] Last Admin: 09/04/18 11:08 Dose: 20 mg Nicardipine HCl (Cardene Iv Premix) 20 mg in 200 mls @ 50 mls/hr IV .Q4H PRN; Protocol PRN Reason: TITRATE PER MD ORDER Last Titration: 09/04/18 11:37 Dose: 0 mg/hr, 0 mls/hr Propofol (Diprivan) 1,000 mg in 100 mls @ 2.005 mls/hr IV .Q24H PRN; Protocol PRN Reason: TITRATE PER MD ORDER Last Titration: 09/04/18 13:26 Dose: 2.5 mcg/kg/min, 1.002 mls/hr Vancomycin HCl (Vancomycin 1gm) 1 gm in 250 mls @ 167 mls/hr IVPB Q12H CLAY; Protocol Last Admin: 09/04/18 04:50 Dose: 167 mls/hr Cefepime HCl (Maxipime 2gm) 2 gm in 100 mls @ 100 mls/hr IVPB Q12H CLAY; Protocol Stop: 09/07/18 17:24 Last Admin: 09/04/18 05:28 Dose: 100 mls/hr Levetiracetam 750 mg/ Sodium (Chloride) 107.5 mls @ 215 mls/hr IVPB Q12 CLAY Last Admin: 09/04/18 11:07 Dose: 215 mls/hr Sodium Chloride (Sodium Chloride 0.9%) 1,000 mls @ 80 mls/hr IV .[id number] CLAY Last Admin: 09/04/18 03:18 Dose: 80 mls/hr Acetaminophen (Ofirmev) 1,000 mg in 100 mls @ 400 mls/hr IVPB Q6H PRN PRN Reason: Temperature Stop: 09/06/18 08:20 Last Admin: 09/04/18 08:40 Dose: 400 mls/hr Labetalol HCl (Trandate) 20 mg IV Q2H PRN PRN Reason: Hypertension Last Admin: 09/01/18 14:21 Dose: 20 mg - Labs Labs: 09/04/18 05:30 09/04/18 05:30 PT 11.5 SECONDS (9.4-12.5) 08/30/18 15:05 INR 1.04 08/30/18 15:05 APTT 33.6 Seconds (26.9-38.3) 08/30/18 15:05 Assessment and Plan - Assessment and Plan (Free Text) Assessment: All medical record entries made by the Resident were at my direction and personally dictated by me. I examined the patient independently and formulated the assessment and plan. I have reviewed the chart and agree that the record accurately reflects my personal performance of the history, physical exam, medical decision making, and the department course for this patient. Plan: All medical record entries made by the Resident were at my direction and personally dictated by me. I have examined the patient independently, and reviewed the chart and agree that the record accurately reflects my personal pe rformance of the history, physical exam, medical decision making, and the department course for this patient. I will add the following: Miss Pimentel is a 63 yr old woman who had a sudden right cortical intracranial hemorrhage, with midline shift, admitted to the ICU. She was improving, and then had a decrease in Level of conscious ness leading to repeat imaging. The hemorrhage and edema had progressed, and neurosurgery performed a right parietal craniotomy and she is now intubated, on propofol in the ICU. EEG before event showed isolated spikes, but no status. She is on keppra . Her exam shows pinpoint pupils, no dolls, but gag, and she is moving her right leg, even on sedation. Plan; 1. Repeat ct head as soon as possible. 2. Test neurological exam off propofol tomorrow. 3. Continue IV fluids. Thankjhony Nagy [facility] Neurology
[2018-09-04 11:17] LABS: TOTAL IRON BINDING CAPACITY 189 ug/dL (265-497)
[2018-09-04] MEDS: Nicardipine 20 MG/200 ML 20 MG/200 ML BAG IV PRN (11:29)
[2018-09-04 11:42] LABS: % IRON SATURATION 15 % (20-55); ALBUMIN 2.9 g/dL (3.0-4.8); BILIRUBIN,DIRECT 0.1 mg/dL (0.0-0.4); IRON 28 ug/dL (45-180)
--- NOTE | 2018-09-04 12:36 | RAD ---
Date of service: 09/04/2018 PROCEDURE: CHEST RADIOGRAPH, 1 VIEW HISTORY: og tube placement COMPARISON: 09/04/2018 FINDINGS: LUNGS: Clear. PLEURA: No pneumothorax or pleural fluid seen. CARDIOVASCULAR: No aortic atherosclerotic calcification present. Normal. OSSEOUS STRUCTURES: No significant abnormalities. VISUALIZED UPPER ABDOMEN: Normal. OTHER FINDINGS: Endotracheal tube and right sided central line unchanged IMPRESSION: The nasogastric tube is in satisfactory position
--- NOTE | 2018-09-04 13:02 | CP.PCM.CON ---
History of Present Illness - History of Present Illness History of Present Illness: 63 year old female with PMH of migraines was brought in to the ED for suddent onset left sided facial droop as well as left arm weakness and numbness. CT head was done which showed right frontoparietal lobe hemmorrhage with vasogenic ed tarsha. She underwent right sided craniectomy with partial evacuation of hemorrhage. She is currently in the ICU intubated, sedated but arousable. She has been having fevers since coming in the hospital. Prior to that as per family, she has not had fevers, did not have cough, no rhinorrhea, no shortness of breath, no diarrhea. Currently review of systems is unobtainable because the patient is intubated. There is no note of convulsions after surgery, no diarrhea. Infectious Diseases consult is requested to further evaluate and manage. Review of Systems - Review of Systems All systems: reviewed and no additional remarkable complaints except (as per HPI) Past Patient History - Past Social History Smoking Status: Never Smoked - CARDIAC Hx Pacemaker: No - PULMONARY Hx Respiratory Disorders: No - NEUROLOGICAL Hx Neurological Disorder: Yes (INTRACRANIAL HEMORRHAGE-HAS A 4 X 3.8 CM PARENCHYMAL HEMATOMA) Hx Migraine: Yes Other/Comment: 08-30-18 L SIDED WEAKNESS,L FACIAL DROOP,DYSARTHRIA,L HOMONYMOUS HEMIANOPSIA,L HEMIPHLEGIA. - HEENT Hx HEENT Problems: Yes (L HOMONYMOUR HEMIANOPSIA.) - RENAL Hx Chronic Kidney Disease: No - ENDOCRINE/METABOLIC Hx Endocrine Disorders: No - HEMATOLOGICAL/ONCOLOGICAL Hx Cancer: No - INTEGUMENTARY Hx Dermatological Problems: No - MUSCULOSKELETAL/RHEUMATOLOGICAL Hx Musculoskeletal Disorders: No Hx Falls: No - GASTROINTESTINAL Hx Gastrointestinal Disorders: No - GENITOURINARY/GYNECOLOGICAL Hx Genitourinary Disorders: Yes Hx Urinary Tract Infection: Yes - PSYCHIATRIC Hx Psychophysiologic Disorder: No Hx Substance Use: No - SURGICAL HISTORY Hx Mastectomy: No Meds Allergies/Adverse Reactions: Allergies Allergy/AdvReac Type Severity Reaction Status Date / Time Iodinated Contrast- Oral and AdvReac SHORTNESS Verified 08/30/18 18:43 IV Dye OF BREATH - Medications Medications: Current Medications Nicardipine HCl (Cardene Iv Premix) 20 mg in 200 mls @ 50 mls/hr IV .Q4H PRN; Protocol PRN Reason: TITRATE PER MD ORDER Last Titration: 09/04/18 10:13 Dose: 0 mg/hr, 0 mls/hr Propofol (Diprivan) 1,000 mg in 100 mls @ 2.005 mls/hr IV .Q24H PRN; Protocol PRN Reason: TITRATE PER MD ORDER Last Titration: 09/04/18 10:14 Dose: 0 mcg/kg/min, 0 mls/hr Vancomycin HCl (Vancomycin 1gm) 1 gm in 250 mls @ 167 mls/hr IVPB Q12H CLAY; Protocol Last Admin: 09/04/18 04:50 Dose: 167 mls/hr Cefepime HCl (Maxipime 2gm) 2 gm in 100 mls @ 100 mls/hr IVPB Q12H C[facility]; Protocol Stop: 09/07/18 17:24 Last Admin: 09/04/18 05:28 Dose: 100 mls/hr Levetiracetam 750 mg/ Sodium (Chloride) 107.5 mls @ 215 mls/hr IVPB Q12 C[facility] Sodium Chloride (Sodium Chloride 0.9%) 1,000 mls @ 80 mls/hr IV .[id number] CLAY Last Admin: 09/04/18 03:18 Dose: 80 mls/hr Acetaminophen (Ofirmev) 1,000 mg in 100 mls @ 400 mls/hr IVPB Q6H PRN PRN Reason: Temperature Stop: 09/06/18 08:20 Last Admin: 09/04/18 08:40 Dose: 400 mls/hr Potassium Chloride (Potassium Chloride 10 Meq/100 Ml) 10 meq in 100 mls @ 50 mls/hr IVPB Q2H CLAY Stop: 09/04/18 12:29 Last Admin: 09/04/18 08:40 Dose: 50 mls/hr Labetalol HCl (Trandate) 20 mg IV Q2H PRN PRN Reason: Hypertension Last Admin: 09/01/18 14:21 Dose: 20 mg Pantoprazole Sodium (Protonix Inj) 40 mg IVP DAILY [facility] Last Admin: 09/03/18 09:03 Dose: 40 mg Physical Exam - Constitutional Appears: Chronically Ill, Other (intubated, sedated but arousable) - Head Exam Additional comments: dressings over the right frontoparietal area - ENT Exam Additional comments: ET tube in place - Respiratory Exam Respiratory Exam: Rales (scattered) - Cardiovascular Exam Cardiovascular Exam: +S1, +S2 - GI/Abdominal Exam GI & Abdominal Exam: Soft. absent: Tenderness Results - Vital Signs Recent Vital Signs: Last Vital Signs Temp 100.0 F H 09/04/18 07:20 Pulse 103 H 09/04/18 07:30 Resp 25 H 09/03/18 11:30 BP 136/57 L 09/04/18 07:30 Pulse Ox 97 09/04/18 07:20 - Labs Result Diagrams: 09/04/18 05:30 09/04/18 05:30 Labs: Laboratory Results - last 24 hr 09/03/18 09/03/18 09/03/18 11:53 14:05 17:38 WBC RBC Hgb Hct MCV MCH MCHC RDW Plt Count MPV pCO2 pO2 HCO3 ABG pH ABG Total CO2 ABG O2 Saturation ABG O2 Content ABG Base Excess ABG Hemoglobin ABG Carboxyhemoglobin POC ABG HHb (Measured) ABG Methemoglobin ABG O2 Capacity Hgb O2 Saturation FiO2 Sodium 143 Potassium 3.3 L Chloride 112 H Carbon Dioxide 26 Anion Gap 8 L BUN 18 Creatinine 0.7 Est GFR ( Amer) > 60 Est GFR (Non-Af Amer) > 60 POC Glucose (mg/dL) 105 93 Random Glucose 176 H Calcium 8.9 Phosphorus Magnesium 09/03/18 09/04/18 09/04/18 21:27 05:18 05:30 WBC 9.4 RBC 4.52 Hgb 8.9 L Hct 28.6 L MCV 63.3 L MCH 19.7 L MCHC 31.1 RDW 16.2 H Plt Count 165 MPV 10.5 pCO2 33 L pO2 103.0 H HCO3 20.9 L ABG pH 7.41 ABG Total CO2 21.9 L ABG O2 Saturation 99.3 H ABG O2 Content 12.4 L ABG Base Excess -3.2 L ABG Hemoglobin 9.0 L ABG Carboxyhemoglobin 1.7 H POC ABG HHb (Measured) 0.7 ABG Methemoglobin 1.3 ABG O2 Capacity 12.5 L Hgb O2 Saturation 96.4 FiO2 60.0 Sodium Potassium Chloride Carbon Dioxide Anion Gap BUN Creatinine Est GFR ( Amer) Est GFR (Non-Af Amer) POC Glucose (mg/dL) 104 Random Glucose Calcium Phosphorus Magnesium 09/04/18 05:30 WBC RBC Hgb Hct MCV MCH MCHC RDW Plt Count MPV pCO2 pO2 HCO3 ABG pH ABG Total CO2 ABG O2 Saturation ABG O2 Content ABG Base Excess ABG Hemoglobin ABG Carboxyhemoglobin POC ABG HHb (Measured) ABG Methemoglobin ABG O2 Capacity Hgb O2 Saturation FiO2 Sodium 143 Potassium 3.3 L Chloride 115 H Carbon Dioxide 24 Anion Gap 8 L BUN 21 Creatinine 0.6 L Est GFR ( Amer) > 60 Est GFR (Non-Af Amer) > 60 POC Glucose (mg/dL) Random Glucose 92 Calcium 8.7 Phosphorus 2.9 Magnesium 2.0 Assessment & Plan - Assessment and Plan (Free Text) Plan: Assessment Systemic inflammatory response syndrome with fevers, probably due to right fron toparietal heomrrhagic CVA S/P right craniectomy and partial evacuation of hemorrhage POD #1, R/O sepsis R/O infection but so far no source identified history of migraines Plan on Vancomycin and Cefepime; blood cx are negative so far, awaiting urine cx; CXR does not show infiltrates will continue to monitor and trend fever curve discussed with family at bedside
--- NOTE | 2018-09-04 13:11 | CP.PCM.PN ---
Subjective - Date & Time of Evaluation Date of Evaluation: 09/04/18 Time of Evaluation: 13:09 - Subjective Subjective: pod 1 she is temp off sedation following commands attempting eye opening CT shows residual hematoma as expected talked to ICU attnending corea is sedate today and tomorow attempt wean to extubate Objective - Vital Signs/Intake and Output Vital Signs (last 24 hours): Temp Pulse Resp BP Pulse Ox 100.0 F H 103 H 25 H 136/57 L 97 09/04/18 07:20 09/04/18 07:30 09/03/18 11:30 09/04/18 07:30 09/04/18 07:20 Intake and Output: 09/04/18 09/04/18 06:59 18:59 Intake Total 2460 251 Output Total 400 Balance 2060 251 - Medications Medications: Current Medications Famotidine (Pepcid) 20 mg IVP DAILY [facility] Last Admin: 09/04/18 11:08 Dose: 20 mg Nicardipine HCl (Cardene Iv Premix) 20 mg in 200 mls @ 50 mls/hr IV .Q4H PRN; Protocol PRN Reason: TITRATE PER MD ORDER Last Titration: 09/04/18 11:37 Dose: 0 mg/hr, 0 mls/hr Propofol (Diprivan) 1,000 mg in 100 mls @ 2.005 mls/hr IV .Q24H PRN; Protocol PRN Reason: TITRATE PER MD ORDER Last Titration: 09/04/18 12:05 Dose: 5 mcg/kg/min, 2.005 mls/hr Vancomycin HCl (Vancomycin 1gm) 1 gm in 250 mls @ 167 mls/hr IVPB Q12H CLAY; Protocol Last Admin: 09/04/18 04:50 Dose: 167 mls/hr Cefepime HCl (Maxipime 2gm) 2 gm in 100 mls @ 100 mls/hr IVPB Q12H CLAY; Protocol Stop: 09/07/18 17:24 Last Admin: 09/04/18 05:28 Dose: 100 mls/hr Levetiracetam 750 mg/ Sodium (Chloride) 107.5 mls @ 215 mls/hr IVPB Q12 C[facility] Last Admin: 09/04/18 11:07 Dose: 215 mls/hr Sodium Chloride (Sodium Chloride 0.9%) 1,000 mls @ 80 mls/hr IV .[id number] CLAY Last Admin: 09/04/18 03:18 Dose: 80 mls/hr Acetaminophen (Ofirmev) 1,000 mg in 100 mls @ 400 mls/hr IVPB Q6H PRN PRN Reason: Temperature Stop: 09/06/18 08:20 Last Admin: 09/04/18 08:40 Dose: 400 mls/hr Labetalol HCl (Trandate) 20 mg IV Q2H PRN PRN Reason: Hypertension Last Admin: 09/01/18 14:21 Dose: 20 mg - Labs Labs: 09/04/18 05:30 09/04/18 05:30 PT 11.5 SECONDS (9.4-12.5) 08/30/18 15:05 INR 1.04 08/30/18 15:05 APTT 33.6 Seconds (26.9-38.3) 08/30/18 15:05
--- NOTE | 2018-09-04 13:37 | CP.PCM.PN ---
<Puneet Shankar - Last Filed: 09/04/18 13:16> Subjective - Date & Time of Evaluation Date of Evaluation: 09/04/18 Time of Evaluation: 13:16 - Subjective Subjective: PGY-[address] Narayan Tmax of 100.2 overnight. This am, pt is responding to commands, including moving RLE, squeezing R hand, raising eyebrow. Still doesn't open eyes spontaneously, non-verbal as she is on vent. ROS are unobtainable. Objective - Vital Signs/Intake and Output Vital Signs (last 24 hours): Temp Pulse Resp BP Pulse Ox 100.0 F H 103 H 25 H 136/57 L 97 09/04/18 07:20 09/04/18 07:30 09/03/18 11:30 09/04/18 07:30 09/04/18 07:20 Intake and Output: 09/04/18 09/04/18 06:59 18:59 Intake Total 2460 251 Output Total 400 Balance 2060 251 - Medications Medications: Current Medications Famotidine (Pepcid) 20 mg IVP DAILY CLAY Last Admin: 09/04/18 11:08 Dose: 20 mg Nicardipine HCl (Cardene Iv Premix) 20 mg in 200 mls @ 50 mls/hr IV .Q4H PRN; Protocol PRN Reason: TITRATE PER MD ORDER Last Titration: 09/04/18 11:37 Dose: 0 mg/hr, 0 mls/hr Propofol (Diprivan) 1,000 mg in 100 mls @ 2.005 mls/hr IV .Q24H PRN; Protocol PRN Reason: TITRATE PER MD ORDER Last Titration: 09/04/18 12:05 Dose: 5 mcg/kg/min, 2.005 mls/hr Vancomycin HCl (Vancomycin 1gm) 1 gm in 250 mls @ 167 mls/hr IVPB Q12H CLAY; Protocol Last Admin: 09/04/18 04:50 Dose: 167 mls/hr Cefepime HCl (Maxipime 2gm) 2 gm in 100 mls @ 100 mls/hr IVPB Q12H CLAY; Protocol Stop: 09/07/18 17:24 Last Admin: 09/04/18 05:28 Dose: 100 mls/hr Levetiracetam 750 mg/ Sodium (Chloride) 107.5 mls @ 215 mls/hr IVPB Q12 CLAY Last Admin: 09/04/18 11:07 Dose: 215 mls/hr Sodium Chloride (Sodium Chloride 0.9%) 1,000 mls @ 80 mls/hr IV .[id number] CLAY Last Admin: 09/04/18 03:18 Dose: 80 mls/hr Acetaminophen (Ofirmev) 1,000 mg in 100 mls @ 400 mls/hr IVPB Q6H PRN PRN Reason: Temperature Stop: 09/06/18 08:20 Last Admin: 09/04/18 08:40 Dose: 400 mls/hr Labetalol HCl (Trandate) 20 mg IV Q2H PRN PRN Reason: Hypertension Last Admin: 09/01/18 14:21 Dose: 20 mg - Labs Labs: 09/04/18 05:30 09/04/18 05:30 PT 11.5 SECONDS (9.4-12.5) 08/30/18 15:05 INR 1.04 08/30/18 15:05 APTT 33.6 Seconds (26.9-38.3) 08/30/18 15:05 - Constitutional Appears: Well, No Acute Distress - Head Exam Head Exam: ATRAUMATIC, NORMAL INSPECTION - Eye Exam Eye Exam: EOMI, Normal appearance, PERRL - ENT Exam ENT Exam: Mucous Membranes Moist - Respiratory Exam Respiratory Exam: Clear to Ausculation Bilateral, NORMAL BREATHING PATTERN. absent: Rales, Rhonchi, Wheezes - Cardiovascular Exam Cardiovascular Exam: REGULAR RHYTHM, +S1, +S2. absent: Tachycardia, Murmur - GI/Abdominal Exam GI & Abdominal Exam: Soft, Normal Bowel Sounds. absent: Tenderness - Extremities Exam Extremities Exam: Normal Capillary Refill, Pedal Edema. absent: Full ROM - Neurological Exam Neurological Exam: absent: Awake Additional comments: Obeys verbal commands, Moves RLE , RUE spontaneously, squeezes fingers, raises eyebrows. PERRL. No LUE/LLE movement upon commands. Facial droop present - Skin Skin Exam: Normal Color, Warm Assessment and Plan - Assessment and Plan (Free Text) Plan: Mrs Pimentel is a 63 year old female with a PMHx of migraines who had a hemorrhagic stroke in our vascular lab while her was having a procedure done: #Hemorrhagic Stroke -CT head showed initial frontal parietal lobe hematoma of 4 x 3.8cm that increased in size and resulted in increased midline shift with significant mass effect as showed by subsequent CT head scans -hypertonic therapy was initially tried to control edema however sodium failed to increase to goal of 145-150 - hypertonic saline was discontinued and mannitol taper was given -on 09/03 patient clinically worsened and neurosurgery took her to OR for evacuation -she is on prophylactic seizure medication keppra 750mg ivpb q12h * EEG performed 09/03 showed findings consistent with focal cortical abnormality -consulted neurosurgery, Dr Paula -consulted neurology, Dr Gutierrez #Fever of Unknown Origin -procalc negative, f/u blood cx, f/u urine cx, f/u repeat procalc -f/u echo to assess for vegetations -f/u cxr -on cefepime 2g ivpb q12h (started 09/02) and vancomycin 1g ivpb q12h (started 09/02) -tylenol iv to control fevers -ID consulted, Dr Henriquez #Respiratory Distress -intubated on 09/01 due to labored and agonal breathing and mucous coated vocal cords discovered - likely unable to clear secretions -vacation sedation planned as per neurosurgery and ICU attending -sedate with propofol #Anemia -f/u iron studies #HTN -nicardipine drip #PPX -pepcid 20mg ivp qd Discussed with Dr Narayan <Santy Narayan S - Last Filed: 09/04/18 21:03> Objective - Vital Signs/Intake and Output Vital Signs (last 24 hours): Temp Pulse Resp BP Pulse Ox 100.3 F H 69 25 H 166/106 H 100 09/04/18 16:00 09/04/18 18:00 09/03/18 11:30 09/04/18 17:48 09/04/18 17:47 Intake and Output: 09/04/18 09/05/18 18:59 06:59 Intake Total 2101 8 Output Total 1200 Balance 901 8 - Medications Medications: Current Medications Famotidine (Pepcid) 20 mg IVP DAILY CLAY Last Admin: 09/04/18 11:08 Dose: 20 mg Nicardipine HCl (Cardene Iv Premix) 20 mg in 200 mls @ 50 mls/hr IV .Q4H PRN; Protocol PRN Reason: TITRATE PER MD ORDER Last Titration: 09/04/18 11:37 Dose: 0 mg/hr, 0 mls/hr Propofol (Diprivan) 1,000 mg in 100 mls @ 2.005 mls/hr IV .Q24H PRN; Protocol PRN Reason: TITRATE PER MD ORDER Last Titration: 09/04/18 20:19 Dose: 37.41 mcg/kg/min, 15 mls/hr Vancomycin HCl (Vancomycin 1gm) 1 gm in 250 mls @ 167 mls/hr IVPB Q12H CLAY; Protocol Last Admin: 09/04/18 18:12 Dose: 167 mls/hr Cefepime HCl (Maxipime 2gm) 2 gm in 100 mls @ 100 mls/hr IVPB Q12H CLAY; Protocol Stop: 09/07/18 17:24 Last Admin: 09/04/18 18:12 Dose: 100 mls/hr Levetiracetam 750 mg/ Sodium (Chloride) 107.5 mls @ 215 mls/hr IVPB Q12 CLAY Last Admin: 09/04/18 11:07 Dose: 215 mls/hr Sodium Chloride (Sodium Chloride 0.9%) 1,000 mls @ 80 mls/hr IV .[id number] CLAY Last Admin: 09/04/18 03:18 Dose: 80 mls/hr Acetaminophen (Ofirmev) 1,000 mg in 100 mls @ 400 mls/hr IVPB Q6H PRN PRN Reason: Temperature Stop: 09/06/18 08:20 Last Admin: 09/04/18 14:52 Dose: 400 mls/hr Labetalol HCl (Trandate) 20 mg IV Q2H PRN PRN Reason: Hypertension Last Admin: 09/01/18 14:21 Dose: 20 mg - Labs Labs: 09/04/18 16:30 09/04/18 05:30 PT 11.5 SECONDS (9.4-12.5) 08/30/18 15:05 INR 1.04 08/30/18 15:05 APTT 33.6 Seconds (26.9-38.3) 08/30/18 15:05 Assessment and Plan - Assessment and Plan (Free Text) Plan: Pt seen and examined by me. I have reviewed the note of the medical bill processor and I agree with it. I have discussed the assessment and plan with the resident. I have reviewed the medications and the last labs.Pt with hemorrhagic CVA and had surgery to remove blood from her bleed. She was intubated due to resp failure from her stroke. She is on medications for her HTN. I spoke to the sister at the bedside. She is on Pepcid for GI prophylaxsis. She has been having fevers and is on Abx. She may have a central fever. Guarded prognosis.
[2018-09-04] MEDS ORDERED: Mannitol 12.5 gm/50 ml Inj IV SCH (16:00)
[2018-09-04 16:45] LABS: HEMOGLOBIN 8.8 g/dL (12.0-16.0)
--- NOTE | 2018-09-04 17:17 | CARD ---
APPROVED REPORT Date of service: 09/04/2018 EXAM: Two-dimensional and M-mode echocardiogram with Doppler and color Doppler. INDICATION Infection:Rule out subacute bacterial endocarditis 2D DIMENSIONS IVSd1.1 (0.7-1.1cm)LVDd4.1 (3.9-5.9cm) PWd1.1 (0.7-1.1cm)LVDs2.8 (2.5-4.0cm) FS (%) 32.0 %LVEF (%)60.6 (>50%) M-Mode DIMENSIONS Aortic Root3.30 (2.2-3.7cm)Aortic Cusp Exc.1.60 (1.5-2.0cm) Aortic Valve AoV Peak Lceoakyz557.0cm/Gloria Peak GR.16mmHg Mitral Valve MV E Bzvlcgjl508.0cm/sMV A Lsakgawl609.0cm/sE/A ratio0.9 TDI E/Lateral E'0.0E/Medial E'0.0 Pulmonary Valve PV Peak Gqeuimic68.4cm/sPV Peak Grad.3mmHg Tricuspid Valve TR Peak Zkzfrvbw430sc/sRAP [id number] Peak Gr.25mmHg [id number] LEFT VENTRICLE The left ventricle is normal size. There is normal left ventricular wall thickness. The left ventricular function is normal. The left ventricular ejection fraction is within the normal range. There is normal LV segmental wall motion. Transmitral Doppler flow pattern is Grade I-abnormal relaxation pattern. RIGHT VENTRICLE The right ventricle is normal size. There is normal right ventricular wall thickness. The right ventricular systolic function is normal. ATRIA The left atrium size is normal. The right atrium size is normal. AORTIC VALVE The aortic valve and mitral are not well visualized.Consuder MARCELO if clinically indicated There is trace aortic regurgitation. MITRAL VALVE Mitral regurgitation is trace. TRICUSPID VALVE There is trace tricuspid regurgitation. There is mild pulmonary hypertension. PULMONIC VALVE There is trace pulmonic valvular regurgitation. GREAT VESSELS The aortic root is normal in size. The IVC is normal in size and collapses >50% with inspiration. <Conclusion> There is normal left ventricular wall thickness. The left ventricular function is normal. The left ventricular ejection fraction is within the normal range. There is normal LV segmental wall motion. Transmitral Doppler flow pattern is Grade I-abnormal relaxation pattern. The aortic valve and mitral are not well visualized.Consuder MARCELO if clinically indicated There is mild pulmonary hypertension.
[2018-09-04] MEDS: Labetalol 5mg/ml (4ml) IV PRN (21:55)
[2018-09-05] MEDS: Labetalol 5mg/ml (4ml) IV PRN (01:07)
[2018-09-05 05:27] LABS: ARTERIAL BLOOD GAS HCO3 19.8 mmol/L (21-28); ARTERIAL BLOOD GAS HEMOGLOBIN 7.9 g/dL (11.7-17.4); ARTERIAL BLOOD GAS O2 CAPACITY 11.5 mL/dl (16-24); ARTERIAL BLOOD GAS O2 CONTENT 11.5 ML/dl (15-23); ARTERIAL BLOOD GAS O2 SAT 100.1 % (95-98); ARTERIAL BLOOD GAS PCO2 26 mm/Hg (35-45); ARTERIAL BLOOD GAS PH 7.49 (7.35-7.45); ARTERIAL BLOOD GAS TCO2 20.6 mmol.L (22-28)
[2018-09-05] MEDS: Nicardipine 20 MG/200 ML 20 MG/200 ML BAG IV PRN ×7 (06:29→22:09)
[2018-09-05] MEDS: Vancomycin 1gm in NS 250ml 1 GM/250 ML BAG IVPB SCH ×2 (06:30→18:34)
[2018-09-05] MEDS: Cefepime IV 2 gm in NS 2 GM/100 ML BAG IVPB SCH ×2 (06:37→17:16)
[2018-09-05] MEDS: Sodium Chloride 0.9% 1,000 ML IV SCH (06:37)
[2018-09-05] MEDS: Propofol 10 mg/ml 1,000 MG/100 ML VIAL IV PRN (06:38)
[2018-09-05 07:05] LABS: HEMOGLOBIN 8.8 g/dL (12.0-16.0); MEAN CELL VOLUME 61.7 fl (80.0-105.0); MEAN CORPUSCULAR HEMOGLOBIN 19.7 pg (25.0-35.0); MEAN PLATELET VOLUME 9.7 fl (7.0-11.0); RBC 4.46 10^6/uL (3.5-6.1); RED CELL DISTRIBUTION WIDTH 15.7 % (11.5-14.5); WHITE BLOOD COUNT 7.5 10^3/uL (4.5-11.0)
--- NOTE | 2018-09-05 07:05 | CP.PCM.PN ---
<Puneet Shankar - Last Filed: 09/05/18 11:33> Subjective - Date & Time of Evaluation Date of Evaluation: 09/05/18 Time of Evaluation: 06:57 - Subjective Subjective: PGY-2 medicine progress note for Dr Narayan No acute events noted overnight. Currently on vent. Patient able to follow some commands when she's off sedation. She was just taken off sedation when I saw her - we'll check back after sedation wears off. ROS not obtainable. Objective - Vital Signs/Intake and Output Vital Signs (last 24 hours): Temp Pulse Resp BP Pulse Ox 100.3 F H 75 25 H 136/78 99 09/04/18 16:00 09/05/18 03:10 09/03/18 11:30 09/05/18 03:00 09/05/18 03:10 Intake and Output: 09/04/18 09/05/18 18:59 06:59 Intake Total 2101 2477 Output Total 1200 2100 Balance 901 377 - Medications Medications: Current Medications Famotidine (Pepcid) 20 mg IVP DAILY CLAY Last Admin: 09/04/18 11:08 Dose: 20 mg Nicardipine HCl (Cardene Iv Premix) 20 mg in 200 mls @ 50 mls/hr IV .Q4H PRN; Protocol PRN Reason: TITRATE PER MD ORDER Last Admin: 09/05/18 06:29 Dose: 2.5 mg/hr, 25 mls/hr Propofol (Diprivan) 1,000 mg in 100 mls @ 2.005 mls/hr IV .Q24H PRN; Protocol PRN Reason: TITRATE PER MD ORDER Last Admin: 09/05/18 06:38 Dose: 24.94 mcg/kg/min, 10 mls/hr Vancomycin HCl (Vancomycin 1gm) 1 gm in 250 mls @ 167 mls/hr IVPB Q12H CLAY; Protocol Last Admin: 09/05/18 06:30 Dose: 167 mls/hr Cefepime HCl (Maxipime 2gm) 2 gm in 100 mls @ 100 mls/hr IVPB Q12H CLAY; Protocol Stop: 09/07/18 17:24 Last Admin: 09/05/18 06:37 Dose: 100 mls/hr Levetiracetam 750 mg/ Sodium (Chloride) 107.5 mls @ 215 mls/hr IVPB Q12 CLAY Last Admin: 09/04/18 21:55 Dose: 215 mls/hr Sodium Chloride (Sodium Chloride 0.9%) 1,000 mls @ 80 mls/hr IV .[id number] [facility] Last Admin: 09/05/18 06:37 Dose: 80 mls/hr Acetaminophen (Ofirmev) 1,000 mg in 100 mls @ 400 mls/hr IVPB Q6H PRN PRN Reason: Temperature Stop: 09/06/18 08:20 Last Admin: 09/04/18 14:52 Dose: 400 mls/hr Labetalol HCl (Trandate) 20 mg IV Q2H PRN PRN Reason: Hypertension Last Admin: 09/05/18 01:07 Dose: 20 mg - Labs Labs: 09/04/18 16:30 09/04/18 05:30 PT 11.5 SECONDS (9.4-12.5) 08/30/18 15:05 INR 1.04 08/30/18 15:05 APTT 33.6 Seconds (26.9-38.3) 08/30/18 15:05 - Additional Findings Additional findings: - Constitutional Appears: Well, No Acute Distress - Head Exam Head Exam: ATRAUMATIC, NORMAL INSPECTION - Eye Exam Eye Exam: EOMI, Normal appearance, PERRL - ENT Exam ENT Exam: Mucous Membranes Moist - Respiratory Exam Respiratory Exam: Clear to Ausculation Bilateral, NORMAL BREATHING PATTERN. absent: Rales, Rhonchi, Wheezes - Cardiovascular Exam Cardiovascular Exam: REGULAR RHYTHM, +S1, +S2. absent: Tachycardia, Murmur - GI/Abdominal Exam GI & Abdominal Exam: Soft, Normal Bowel Sounds. absent: Tenderness - Extremities Exam Extremities Exam: Normal Capillary Refill, Pedal Edema. absent: Full ROM - Neurological Exam Neurological Exam: absent: Awake Additional comments: Obeys verbal commands, Moves RLE , RUE spontaneously, squeezes fingers, raises eyebrows. PERRL. No LUE/LLE movement upon commands. Facial droop present - Skin Skin Exam: Normal Color, Warm Assessment and Plan - Assessment and Plan (Free Text) Plan: Mrs Pimentel is a 63 year old female with a PMHx of migraines who had a hemorrhagic stroke in our vascular lab while her was having a procedure done: #Hemorrhagic Stroke -CT head showed initial frontal parietal lobe hematoma of 4 x 3.8cm that increased in size and resulted in increased midline shift with significant mass effect as showed by subsequent CT head scans -hypertonic therapy was initially tried to control edema however sodium failed to increase to goal of 145-150 - hypertonic saline was discontinued and mannitol taper was given -on 09/03 patient clinically worsened and neurosurgery took her to OR for evacuation -she is on prophylactic seizure medication keppra 750mg ivpb q12h * EEG performed 09/03 showed findings consistent with focal cortical abnormality -consulted neurosurgery, Dr Paula * no need for frequent CT's - order CT head if clinical decline -consulted neurology, Dr Gutierrez #Fever of Unknown Origin -possibly 2/ central fevers; r/o infectious causes -procalc negative, blood cx negative up to date, urine cx negative, repeat procalc negative -f/u echo to assess for vegetations * normal EF, grade I-abnormal relaxation pattern, AV and MV are not well visualized, mild pulm HTN -f/u cxr 09/04 * improved right lower lobe infiltrate -on cefepime 2g ivpb q12h (started 09/02) and vancomycin 1g ivpb q12h (started 09/02) -tylenol iv to control fevers -ID consulted, Dr Henriquez #Respiratory Distress -intubated on 09/01 due to labored and agonal breathing and mucous coated vocal cords discovered - likely unable to clear secretions -vacation sedation planned as per neurosurgery and ICU attending -sedate with propofol #Iron Deficiency Anemia -f/u iron studies -iron studies indicate iron deficiency anemia with overlying dilutional component with blood loss from craniotomy possibly contributing #Hypokalemia -replete with riders and potassium additive to NS 1L, will switch to 1/2NS after to replace urinary free water losses #HTN -nicardipine drip #PPX -pepcid 20mg ivp qd Discussed with Dr Narayan <Santy Narayan - Last Filed: 09/06/18 19:33> Objective - Vital Signs/Intake and Output Vital Signs (last 24 hours): Temp Pulse Resp BP Pulse Ox 100.6 F H 99 H 20 134/64 93 L 09/06/18 19:14 09/06/18 19:14 09/05/18 19:28 09/06/18 19:15 09/06/18 19:14 Intake and Output: 09/06/18 09/07/18 18:59 06:59 Intake Total 3851 Output Total 2610 Balance 1241 - Medications Medications: Current Medications Acetaminophen (Tylenol 325mg Tab) 650 mg PO Q4 PRN PRN Reason: Fever >100.4 F Famotidine (Pepcid) 20 mg IVP DAILY CLAY Last Admin: 09/06/18 09:35 Dose: 20 mg Nicardipine HCl (Cardene Iv Premix) 20 mg in 200 mls @ 50 mls/hr IV .Q4H PRN; Protocol PRN Reason: TITRATE PER MD ORDER Last Titration: 09/06/18 18:30 Dose: 10 mg/hr, 100 mls/hr Propofol (Diprivan) 1,000 mg in 100 mls @ 2.005 mls/hr IV .Q24H PRN; Protocol PRN Reason: TITRATE PER MD ORDER Last Titration: 09/06/18 16:06 Dose: 5 mcg/kg/min, 2.005 mls/hr Levetiracetam 750 mg/ Sodium (Chloride) 107.5 mls @ 215 mls/hr IVPB Q12 [facility] Last Admin: 09/06/18 10:32 Dose: 215 mls/hr Labetalol HCl (Trandate) 20 mg IV Q2H PRN PRN Reason: Hypertension Last Admin: 09/05/18 01:07 Dose: 20 mg - Labs Labs: 09/06/18 05:30 09/06/18 05:30 PT 11.5 SECONDS (9.4-12.5) 08/30/18 15:05 INR 1.04 08/30/18 15:05 APTT 33.6 Seconds (26.9-38.3) 08/30/18 15:05 Assessment and Plan - Assessment and Plan (Free Text) Plan: Pt seen and examined by me. This is a late entry.I have reviewed the note of the medical research tech and I agree with it. I have discussed the assessment and plan with the resident. I have reviewed the medications and the last labs. Pt with CVA with bleed s/p surgery. She has resp failure and is on a vent. Spoke to sister at bedside and gave her an update. She is on Cefepime for fevers. BC and UC done. ID on consult. Pt's is also in the hospital with new dx of myeloma.
[2018-09-05 07:19] LABS: ALB/GLOB RATIO 0.9 (1.1-1.8); ALBUMIN 2.9 g/dL (3.0-4.8); ALT/SGPT 14 U/L (7-56); AST/SGOT 30 U/L (14-36); BLOOD UREA NITROGEN 15 mg/dL (7-21); CALCIUM 8.2 mg/dL (8.4-10.5); GFR NON-AFRICAN AMERICAN > 60
--- NOTE | 2018-09-05 08:21 | OP ---
PROCEDURE DATE: 09/03/2018 PREOPERATIVE DIAGNOSIS: Intracranial hemorrhage, right frontoparietal. POSTOPERATIVE DIAGNOSIS: Intracranial hemorrhage, right frontoparietal. OPERATIVE PROCEDURE: Craniotomy, evacuation of intracerebral hemorrhage. SURGEON: Francisco J Paula MD DESCRIPTION OF PROCEDURE: The patient was already intubated and brought to the operating room. The head was turned to the left. The right frontoparietal region was prepped and draped in the usual manner. A lazy-S incision was marked out centered at the coronal suture just above the superior temporal line, instilled with lidocaine with epinephrine. Sharply the scalp was retracted back with Gelpi retractors. Two bur holes were placed in the two extremes of the opening and connected with craniotome. The underlying dura was . The dura was then opened with a 15-blade followed by Metzenbaum scissors. The underlying brain started to peek through, and using a bipolar cautery a corticectomy was into the cortex of the brain, and less than 0.5 cm deep, we encountered a very fluid hematoma, this came out under fairly rapid pressure. At this point, the hematoma cavity was irrigated until all returns appeared to be clear. We inspected the hematoma cavity and identified that there was no evidence of active bleeding. The cavity was then aligned with Surgicel. The brain was very slack and there was significant room away from the dura. At this point, the dura was then reapproximated with 4-0 Nurolon. Gelfoam was placed over the exposed dura. Two CranioFix plates of 16 mm were used to reaffix the cranial plate and the scalp was then reapproximated with two layers of 2-0 Vicryl and skin korey. Sterile dressing was applied, and the patient was then taken nonreversed to the intensive care unit. Blood loss approximately 50 mL. All counts were correct. No specimen was sent. The patient was hemodynamically stable throughout. Francisco J Paula MD
--- NOTE | 2018-09-05 10:17 | RAD ---
Date of service: 09/04/2018 HISTORY: og tube placement COMPARISON: Earlier same day FINDINGS: LUNGS: Patchy infiltrate right lower lobe. PLEURA: No significant pleural effusion identified, no pneumothorax apparent. CARDIOVASCULAR: No aortic atherosclerotic calcification present. Normal cardiac size. No pulmonary vascular congestion. OSSEOUS STRUCTURES: No significant abnormalities. VISUALIZED UPPER ABDOMEN: Normal. OTHER FINDINGS: Right-sided central line in satisfactory position IMPRESSION: Endotracheal and nasogastric tubes are in satisfactory position.
--- NOTE | 2018-09-05 11:31 | CP.CCUPN ---
<Lis Malik - Last Filed: 09/05/18 11:53> CCU Subjective - Physician Review Subjective (Free Text): CRITICAL CARE PROGRESS NOTE Lis Malik PGY1 Pt seen and examined at bedside in ICU. BP was maintained overnight in 138-142 systolic range. This am, pt is responding to commands, including moving RLE, squeezing R hand, raising eyebrow. Still doesn't open eyes spontaneously, non- verbal as she is on vent. She is more lethargic compared to yesterday on PS/CPAP: 40% FiO2, PEEP 5, PS above PEEP 5 Nicardipine 7.5 mg/h IVF @80cc/hr CCU Objective - Vital Signs / Intake & Output Vital Signs (Last 4 hours): Vital Signs Pulse 09/05/18 08:50 125 H Intake and Output (Last 8hrs): Intake & Output 09/04/18 09/05/18 09/05/18 22:59 06:59 14:59 Intake Total 1885 2439 210 Output Total 1200 2100 Balance 685 339 210 Intake: IV 1885 2039 210 Left Femoral 1839 1839 Other 400 Output: Urine 1200 2100 Urethral (Holliday) 1200 2100 Other: # Bowel Movements 0 - Physical Exam Head: Positive for: Atraumatic, Normocephalic Pupils: Positive for: PERRL Extroacular Muscles: Positive for: EOMI Conjunctiva: Positive for: Normal Mouth: Positive for: Moist Mucous Membranes Nose (Internal): Positive for: No Active Bleeding Neck: Positive for: Normal Range of Motion. Negative for: Meningeal Signs Respiratory/Chest: Positive for: Clear to Auscultation, Good Air Exchange Cardiovascular: Positive for: Regular Rate and Rhythm, Normal S1, S2 Abdomen: Positive for: Normal Bowel Sounds. Negative for: Tenderness, Distention, Peritoneal Signs Upper Extremity: Positive for: Normal Inspection. Negative for: Cyanosis, Edema Lower Extremity: Positive for: Normal Inspection. Negative for: Edema Neurological: Positive for: Other (Obeys verbal commands, Moves RLE , RUE spon taneously, squeezes fingers, raises eyebrows. PERRL. facial droop still presesnt) Skin: Positive for: Warm, Dry Psychiatric: Positive for: Lethargic - Medications Active Medications: Active Medications Generic Name Dose Route Start Last Admin Trade Name Freq PRN Reason Stop Dose Admin Famotidine 20 mg 09/04/18 10:45 09/05/18 09:09 Pepcid IVP 20 mg DAILY CLAY Administration Nicardipine HCl 20 mg in 200 mls @ 50 mls/hr 09/01/18 14:48 09/05/18 09:14 Cardene Iv Premix IV 7.5 mg/hr .Q4H PRN 75 mls/hr TITRATE PER MD ORDER Administration Protocol 5 MG/HR Propofol 1,000 mg in 100 mls @ 2.005 mls/hr 09/01/18 16:49 09/05/18 07:35 Diprivan IV 0 mcg/kg/min .Q24H PRN 0 mls/hr TITRATE PER MD ORDER Titration Protocol 5 MCG/KG/MIN Vancomycin HCl 1 gm in 250 mls @ 167 mls/hr 09/02/18 17:00 09/05/18 06:30 Vancomycin 1gm IVPB 167 mls/hr Q12H CLAY Administration Protocol Cefepime HCl 2 gm in 100 mls @ 100 mls/hr 09/02/18 18:17 09/05/18 06:37 Maxipime 2gm IVPB 09/07/18 17:24 100 mls/hr Q12H CLAY Administration Protocol Levetiracetam 750 mg/ Sodium 107.5 mls @ 215 mls/hr 09/04/18 10:00 09/05/18 0 9:26 Chloride IVPB 215 mls/hr Q12 CLAY Administration Acetaminophen 1,000 mg in 100 mls @ 400 mls/hr 09/04/18 08:19 09/04/18 14:52 Ofirmev IVPB 09/06/18 08:20 400 mls/hr Q6H PRN Administration Temperature Potassium Chloride 10 meq in 100 mls @ 50 mls/hr 09/05/18 08:15 09/05/18 09:25 Potassium Chloride 10 Meq/100 Ml IVPB 09/05/18 12:14 50 mls/hr Q2H CLAY Administration Labetalol HCl 20 mg 08/31/18 21:26 09/05/18 01:07 Trandate IV 20 mg Q2H PRN Administration Hypertension - Patient Studies Lab Studies: Microbiology Studies 09/02/18 09:50 Blood Culture - Preliminary Blood NO GROWTH AFTER 3 DAYS 09/03/18 09:30 Urine Culture - Final Urine,Holliday No Growth (<1,000 CFU/ML) Lab Studies 09/05/18 09/05/18 09/05/18 Range/Units 07:40 05:30 05:30 WBC 7.5 D (4.5-11.0) 10^3/uL RBC 4.46 (3.5-6.1) 10^6/uL Hgb 8.8 L (12.0-16.0) g/dL Hct 27.5 L (36.0-48.0) % MCV 61.7 L (80.0-105.0) fl MCH 19.7 L (25.0-35.0) pg MCHC 32.0 (31.0-37.0) g/dl RDW 15.7 H (11.5-14.5) % Plt Count 167 (120.0-450.0) 10^3/uL MPV 9.7 (7.0-11.0) fl pCO2 (35-45) mm/Hg pO2 (80-100) mm/Hg HCO3 (21-28) mmol/L ABG pH (7.35-7.45) ABG Total CO2 (22-28) mmol.L ABG O2 Saturation (95-98) % ABG O2 Content (15-23) ML/dl ABG Base Excess (-2.0-3.0) mmol/L ABG Hemoglobin (11.7-17.4) g/dL ABG Carboxyhemoglobin (0.5-1.5) % POC ABG HHb (Measured) (0-5) % ABG Methemoglobin (0.0-3.0) % ABG O2 Capacity (16-24) mL/dl Hgb O2 Saturation (95.0-98.0) % FiO2 % Sodium 141 (132-148) mmol/L Potassium 3.0 L (3.6-5.0) mmol/L Chloride 108 H (98-107) mmol/L Carbon Dioxide 26 (21-33) mmol/L Anion Gap 10 (10-20) BUN 15 (7-21) mg/dL Creatinine 0.5 L (0.7-1.2) mg/dl Est GFR ( Amer) > 60 Est GFR (Non-Af Amer) > 60 POC Glucose (mg/dL) 132 H (65-110) mg/dL Random Glucose 112 H (70-110) mg/dL Calcium 8.2 L (8.4-10.5) mg/dL Phosphorus 3.1 (2.5-4.5) mg/dL Magnesium 2.1 (1.7-2.2) mg/dL Iron (45-180) ug/dL % Saturation (20-55) % Ferritin ng/mL Total Bilirubin 0.5 (0.2-1.3) mg/dL Direct Bilirubin (0.0-0.4) mg/dL AST 30 (14-36) U/L ALT 14 (7-56) U/L Alkaline Phosphatase 78 (38-126) U/L Total Protein 6.0 (5.8-8.3) g/dL Albumin 2.9 L (3.0-4.8) g/dL Globulin 3.1 gm/dL Albumin/Globulin Ratio 0.9 L (1.1-1.8) Procalcitonin (0.19-0.49) NG/ML 09/05/18 09/04/18 09/04/18 Range/Units 05:10 21:51 16:51 WBC (4.5-11.0) 10^3/uL RBC (3.5-6.1) 10^6/uL Hgb (12.0-16.0) g/dL Hct (36.0-48.0) % MCV (80.0-105.0) fl MCH (25.0-35.0) pg MCHC (31.0-37.0) g/dl RDW (11.5-14.5) % Plt Count (120.0-450.0) 10^3/uL MPV (7.0-11.0) fl pCO2 26 L (35-45) mm/Hg pO2 245.0 H (80-100) mm/Hg HCO3 19.8 L (21-28) mmol/L ABG pH 7.49 H (7.35-7.45) ABG Total CO2 20.6 L (22-28) mmol.L ABG O2 Saturation 100.1 H (95-98) % ABG O2 Content 11.5 L (15-23) ML/dl ABG Base Excess -2.9 L (-2.0-3.0) mmol/L ABG Hemoglobin 7.9 L (11.7-17.4) g/dL ABG Carboxyhemoglobin 1.6 H (0.5-1.5) % POC ABG HHb (Measured) -0.1 L (0-5) % ABG Methemoglobin 1.3 (0.0-3.0) % ABG O2 Capacity 11.5 L (16-24) mL/dl Hgb O2 Saturation 97.3 (95.0-98.0) % FiO2 60.0 % Sodium (132-148) mmol/L Potassium (3.6-5.0) mmol/L Chloride (98-107) mmol/L Carbon Dioxide (21-33) mmol/L Anion Gap (10-20) BUN (7-21) mg/dL Creatinine (0.7-1.2) mg/dl Est GFR ( Amer) Est GFR (Non-Af Amer) POC Glucose (mg/dL) 122 H 113 H (65-110) mg/dL Random Glucose (70-110) mg/dL Calcium (8.4-10.5) mg/dL Phosphorus (2.5-4.5) mg/dL Magnesium (1.7-2.2) mg/dL Iron (45-180) ug/dL % Saturation (20-55) % Ferritin ng/mL Total Bilirubin (0.2-1.3) mg/dL Direct Bilirubin (0.0-0.4) mg/dL AST (14-36) U/L ALT (7-56) U/L Alkaline Phosphatase (38-126) U/L Total Protein (5.8-8.3) g/dL Albumin (3.0-4.8) g/dL Globulin gm/dL Albumin/Globulin Ratio (1.1-1.8) Procalcitonin (0.19-0.49) NG/ML 09/04/18 09/04/18 09/04/18 Range/Units 16:30 11:46 10:50 WBC (4.5-11.0) 10^3/uL RBC (3.5-6.1) 10^6/uL Hgb 8.8 L (12.0-16.0) g/dL Hct 27.5 L (36.0-48.0) % MCV (80.0-105.0) fl MCH (25.0-35.0) pg MCHC (31.0-37.0) g/dl RDW (11.5-14.5) % Plt Count (120.0-450.0) 10^3/uL MPV (7.0-11.0) fl pCO2 (35-45) mm/Hg pO2 (80-100) mm/Hg HCO3 (21-28) mmol/L ABG pH (7.35-7.45) ABG Total CO2 (22-28) mmol.L ABG O2 Saturation (95-98) % ABG O2 Content (15-23) ML/dl ABG Base Excess (-2.0-3.0) mmol/L ABG Hemoglobin (11.7-17.4) g/dL ABG Carboxyhemoglobin (0.5-1.5) % POC ABG HHb (Measured) (0-5) % ABG Methemoglobin (0.0-3.0) % ABG O2 Capacity (16-24) mL/dl Hgb O2 Saturation (95.0-98.0) % FiO2 % Sodium (132-148) mmol/L Potassium (3.6-5.0) mmol/L Chloride (98-107) mmol/L Carbon Dioxide (21-33) mmol/L Anion Gap (10-20) BUN (7-21) mg/dL Creatinine (0.7-1.2) mg/dl Est GFR ( Amer) Est GFR (Non-Af Amer) POC Glucose (mg/dL) 94 (65-110) mg/dL Random Glucose (70-110) mg/dL Calcium (8.4-10.5) mg/dL Phosphorus (2.5-4.5) mg/dL Magnesium (1.7-2.2) mg/dL Iron (45-180) ug/dL % Saturation (20-55) % Ferritin 147.0 ng/mL Total Bilirubin 0.4 (0.2-1.3) mg/dL Direct Bilirubin 0.1 (0.0-0.4) mg/dL AST 44 H D (14-36) U/L ALT 16 (7-56) U/L Alkaline Phosphatase 86 (38-126) U/L Total Protein 5.8 (5.8-8.3) g/dL Albumin 2.9 L (3.0-4.8) g/dL Globulin 3.0 gm/dL Albumin/Globulin Ratio 1.0 L (1.1-1.8) Procalcitonin (0.19-0.49) NG/ML 09/04/18 09/04/18 09/04/18 Range/Units 10:50 10:50 08:04 WBC (4.5-11.0) 10^3/uL RBC (3.5-6.1) 10^6/uL Hgb (12.0-16.0) g/dL Hct (36.0-48.0) % MCV (80.0-105.0) fl MCH (25.0-35.0) pg MCHC (31.0-37.0) g/dl RDW (11.5-14.5) % Plt Count (120.0-450.0) 10^3/uL MPV (7.0-11.0) fl pCO2 (35-45) mm/Hg pO2 (80-100) mm/Hg HCO3 (21-28) mmol/L ABG pH (7.35-7.45) ABG Total CO2 (22-28) mmol.L ABG O2 Saturation (95-98) % ABG O2 Content (15-23) ML/dl ABG Base Excess (-2.0-3.0) mmol/L ABG Hemoglobin (11.7-17.4) g/dL ABG Carboxyhemoglobin (0.5-1.5) % POC ABG HHb (Measured) (0-5) % ABG Methemoglobin (0.0-3.0) % ABG O2 Capacity (16-24) mL/dl Hgb O2 Saturation (95.0-98.0) % FiO2 % Sodium (132-148) mmol/L Potassium (3.6-5.0) mmol/L Chloride (98-107) mmol/L Carbon Dioxide (21-33) mmol/L Anion Gap (10-20) BUN (7-21) mg/dL Creatinine (0.7-1.2) mg/dl Est GFR ( Amer) Est GFR (Non-Af Amer) POC Glucose (mg/dL) 93 (65-110) mg/dL Random Glucose (70-110) mg/dL Calcium (8.4-10.5) mg/dL Phosphorus (2.5-4.5) mg/dL Magnesium (1.7-2.2) mg/dL Iron 28 L (45-180) ug/dL % Saturation 15 L (20-55) % Ferritin ng/mL Total Bilirubin (0.2-1.3) mg/dL Direct Bilirubin (0.0-0.4) mg/dL AST (14-36) U/L ALT (7-56) U/L Alkaline Phosphatase (38-126) U/L Total Protein (5.8-8.3) g/dL Albumin (3.0-4.8) g/dL Globulin gm/dL Albumin/Globulin Ratio (1.1-1.8) Procalcitonin 0.31 (0.19-0.49) NG/ML Laboratory Results - last 24 hr 09/04/18 09/04/18 09/04/18 08:04 10:50 10:50 WBC RBC Hgb Hct MCV MCH MCHC RDW Plt Count MPV pCO2 pO2 HCO3 ABG pH ABG Total CO2 ABG O2 Saturation ABG O2 Content ABG Base Excess ABG Hemoglobin ABG Carboxyhemoglobin POC ABG HHb (Measured) ABG Methemoglobin ABG O2 Capacity Hgb O2 Saturation FiO2 Sodium Potassium Chloride Carbon Dioxide Anion Gap BUN Creatinine Est GFR ( Amer) Est GFR (Non-Af Amer) POC Glucose (mg/dL) 93 Random Glucose Calcium Phosphorus Magnesium Iron 28 L % Saturation 15 L Ferritin Total Bilirubin Direct Bilirubin AST ALT Alkaline Phosphatase Total Protein Albumin Globulin Albumin/Globulin Ratio Procalcitonin 0.31 09/04/18 09/04/18 09/04/18 10:50 11:46 16:30 WBC RBC Hgb 8.8 L Hct 27.5 L MCV MCH MCHC RDW Plt Count MPV pCO2 pO2 HCO3 ABG pH ABG Total CO2 ABG O2 Saturation ABG O2 Content ABG Base Excess ABG Hemoglobin ABG Carboxyhemoglobin POC ABG HHb (Measured) ABG Methemoglobin ABG O2 Capacity Hgb O2 Saturation FiO2 Sodium Potassium Chloride Carbon Dioxide Anion Gap BUN Creatinine Est GFR ( Amer) Est GFR (Non-Af Amer) POC Glucose (mg/dL) 94 Random Glucose Calcium Phosphorus Magnesium Iron % Saturation Ferritin 147.0 Total Bilirubin 0.4 Direct Bilirubin 0.1 AST 44 H D ALT 16 Alkaline Phosphatase 86 Total Protein 5.8 Albumin 2.9 L Globulin 3.0 Albumin/Globulin Ratio 1.0 L Procalcitonin 09/04/18 09/04/18 09/05/18 16:51 21:51 05:10 WBC RBC Hgb Hct MCV MCH MCHC RDW Plt Count MPV pCO2 26 L pO2 245.0 H HCO3 19.8 L ABG pH 7.49 H ABG Total CO2 20.6 L ABG O2 Saturation 100.1 H ABG O2 Content 11.5 L ABG Base Excess -2.9 L ABG Hemoglobin 7.9 L ABG Carboxyhemoglobin 1.6 H POC ABG HHb (Measured) -0.1 L ABG Methemoglobin 1.3 ABG O2 Capacity 11.5 L Hgb O2 Saturation 97.3 FiO2 60.0 Sodium Potassium Chloride Carbon Dioxide Anion Gap BUN Creatinine Est GFR ( Amer) Est GFR (Non-Af Amer) POC Glucose (mg/dL) 113 H 122 H Random Glucose Calcium Phosphorus Magnesium Iron % Saturation Ferritin Total Bilirubin Direct Bilirubin AST ALT Alkaline Phosphatase Total Protein Albumin Globulin Albumin/Globulin Ratio Procalcitonin 09/05/18 09/05/18 09/05/18 05:30 05:30 07:40 WBC 7.5 D RBC 4.46 Hgb 8.8 L Hct 27.5 L MCV 61.7 L MCH 19.7 L MCHC 32.0 RDW 15.7 H Plt Count 167 MPV 9.7 pCO2 pO2 HCO3 ABG pH ABG Total CO2 ABG O2 Saturation ABG O2 Content ABG Base Excess ABG Hemoglobin ABG Carboxyhemoglobin POC ABG HHb (Measured) ABG Methemoglobin ABG O2 Capacity Hgb O2 Saturation FiO2 Sodium 141 Potassium 3.0 L Chloride 108 H Carbon Dioxide 26 Anion Gap 10 BUN 15 Creatinine 0.5 L Est GFR ( Amer) > 60 Est GFR (Non-Af Amer) > 60 POC Glucose (mg/dL) 132 H Random Glucose 112 H Calcium 8.2 L Phosphorus 3.1 Magnesium 2.1 Iron % Saturation Ferritin Total Bilirubin 0.5 Direct Bilirubin AST 30 ALT 14 Alkaline Phosphatase 78 Total Protein 6.0 Albumin 2.9 L Globulin 3.1 Albumin/Globulin Ratio 0.9 L Procalcitonin Radiology Impressions: Radiology Impressions Chest X-Ray 09/04/18 11:08 IMPRESSION: The nasogastric tube is in satisfactory position Chest X-Ray 09/04/18 20:12 IMPRESSION: Endotracheal and nasogastric tubes are in satisfactory position. Fingerstick Blood Sugar Results: 114 Review of Systems - Review of Systems Review of Systems: per HPI Critical Care Progress Note - Nutrition Nutrition: Nutrition Category Date Time Status NPO Diet [DIET] Diets 08/30/18 Dinner Ordered Assessment/Plan - Assessment and Plan (Free Text) Assessment: 63 yo F with PMH of migraines presents to [facility] for left-sided deficits. Admitted to ICU for close monitoring due to parenchymal hematoma in the right frontal parietal lobe with midline shift. Pt is s/p (09/03) craniotomy with evacuation of R parietal lobe hematoma Plan: Neuro: Intracranial hemorrhage with midline shift s/p craniotomy & evacuation of R parietal hematoma (09/03/18) continue neuro checks Q1H. Monitor for signs of progression continue hyperventilation, maintain PaCO2 30-35 Continue keppra 750mg bid per neurology recs Continue strict systolic BP control @140mmhg. Avoid rapid changes in blood pressure. Continue titratable nicardipine drip Continue daily head CTs in am HOB @ 40 degrees Maintain normothermia, IV tylenol & cooling blanket IV maintainence fluids discontinue mannitol & hypertonic saline Neuro/Neurosurgery consulted, recs appreciated Will attempt extubation if pt is more awake, opens eyes spontaneously and passes weaning trial Will stop getting daily head CTs CT Head (09/04): There has been a right frontal craniotomy with partial evacuation of the large right hemispheric hemorrhage. The hemorrhage is decreased in size and now measures 3 x 5.5 cm transversely. There is a large amount of vasogenic edema. There is persistent mass effect with 13 mm of midline shift. There is a small amount of postoperative air in the subdural space Video EEG (09/03): These findings are consistent with a moderate to severe diffuse disturbance of cortical activity, in keeping with a diffuse nixon matter dysfunction; these findings do not support a specific etiology, however these findings are commonly seen in toxic metabolic encephalopahties. The findings are also in keeping with w focal cortical abnormality involving the right hemisphere in keeping with a structural abnormality in the same area. CT Head (09/03): No significant change in right hemispheric hematoma and edema with 13 mm of midline shift. CT Head (09/02): There is no change in the right hemispheric intraparenchymal hematoma which measures 5.5 by 5.2 x 6.0 cm. There is a large amount of surrounding edema. There is mass effect with effacement of sulci and midline shift. There is 13 cm of midline shift. There is compression of the right lateral ventricle. CT Head (09/01): Redemonstrated is a large parenchymal hematoma right cerebral hemisphere extending from the vertex inferiorly into the anterior upper right middle cranial fossa region. This hemorrhage measures approximately 6.7 x 5.1 x 6.1 cm the rim of surrounding edema has increased in size as well. There is significant mass effect with compression of the overlying sulci and further compression of the right lateral ventricle which shifted across midline to the left. Emergent neurosurgical consultation is recommended. These findings discussed with ICU resident seasoning sprayer Dr. Gore CT Head (08/31): There is a large parenchymal hematoma within the right cerebral hemisphere which has increased in size extending from vertex inferiorly to below the level of the lateral ventricles and sylvian fissure extending anteriorly to the region of the lateral fissure. There is a fairly well-circumscribed rim of low-attenuation edema and or necrotic brain tissue. This hematoma exerts considerable surrounding mass effect with compression of the overlying sulci and right lateral ventricle. There is also mild [id number] midline shift of the septum pellucidum (subfalcine herniation) estimated at approximately 7 mm. No obstructive hydrocephalus. ID: Fever, r/o infection, central fevers procalcitonin <0.05, likely central fevers f/u blood/urine cultures continue empiric broad spectrum vanc/cefepime for 24 more hours. Will discontinue tomorrow continue IV acetaminophen. monitor LFTs continue cooling blanket maintain normothermia ID following Cardio: Monitor BP, target SBP 140mmHg per neurology/neurosurgery Continue titratable nicardipine drip for strict BP control. Avoid rapid changes in BP Maintain MAP > 65 Hold home ASA/anticoagulation Echo: Normal LVEF Pulm: Maintain O2 sat > 92% GI: Will continue tube feeds [employer] consult Protonix IVP NPO Renal: Monitor electrolytes, replete/correct as needed Maintain euvolemia Heme: SCD's for DVT PPx Endo: Maintain euglycemia DVT/GI: SCD/PTX Case seen, examined and discussed with attending physician, Dr. Elbert Malik PGY1 <Fantasma Boswell - Last Filed: 09/05/18 14:39> CCU Objective - Vital Signs / Intake & Output Vital Signs (Last 4 hours): Vital Signs Temp Pulse BP Pulse Ox 09/05/18 14:20 100.4 F H 104 H 96 09/05/18 14:15 100.4 F H 83 152/70 H 97 09/05/18 14:10 100.4 F H 95 H 97 09/05/18 14:00 100.4 F H 102 H 164/80 H 96 09/05/18 13:50 100.4 F H 92 H 97 09/05/18 13:45 100.4 F H 90 161/78 H 97 09/05/18 13:40 100.4 F H 76 97 09/05/18 13:30 157/78 H 09/05/18 13:29 100.4 F H 104 H 96 09/05/18 13:20 100.4 F H 91 H 97 09/05/18 13:15 100.4 F H 98 H 161/74 H 97 09/05/18 13:10 100.4 F H 99 H 97 09/05/18 13:00 100.4 F H 99 H 161/80 H 97 09/05/18 12:50 100.4 F H 92 H 97 09/05/18 12:45 100.4 F H 97 H 162/86 H 98 09/05/18 12:40 100.4 F H 88 97 09/05/18 12:30 100.4 F H 75 143/72 97 09/05/18 12:20 100.6 F H 84 97 09/05/18 12:15 100.6 F H 93 H 151/76 H 97 09/05/18 12:10 100.6 F H 89 97 09/05/18 12:00 100.6 F H 76 140/69 97 09/05/18 11:50 100.6 F H 72 97 09/05/18 11:45 100.6 F H 73 139/65 97 09/05/18 11:40 100.6 F H 74 97 09/05/18 11:30 100.6 F H 84 138/72 97 09/05/18 11:20 100.6 F H 72 97 09/05/18 11:15 100.4 F H 77 138/64 97 09/05/18 11:10 100.4 F H 76 97 09/05/18 11:00 100.4 F H 80 142/69 97 09/05/18 10:50 100.4 F H 112 H 94 L 09/05/18 10:45 100.4 F H 91 H 157/75 H 94 L 09/05/18 10:40 100.4 F H 92 H 97 Intake and Output (Last 8hrs): Intake & Output 09/04/18 09/05/18 09/05/18 22:59 06:59 14:59 Intake Total 1885 2439 460 Output Total 1200 2100 Balance 685 339 460 Intake: IV 1885 2039 460 Left Femoral 1839 1839 Other 400 Output: Urine 1200 2100 Urethral ([place]olliday) 1200 2100 Other: # Bowel Movements 0 - Medications Active Medications: Active Medications Generic Name Dose Route Start Last Admin Trade Name Freq PRN Reason Stop Dose Admin Famotidine 20 mg 09/04/18 10:45 09/05/18 09:09 Pepcid IVP 20 mg DAILY CLAY Administration Nicardipine HCl 20 mg in 200 mls @ 50 mls/hr 09/01/18 14:48 09/05/18 14:15 Cardene Iv Premix IV 10 mg/hr .Q4H PRN 100 mls/hr TITRATE PER MD ORDER Titration Protocol 5 MG/HR Propofol 1,000 mg in 100 mls @ 2.005 mls/hr 09/01/18 16:49 09/05/18 07:35 Diprivan IV 0 mcg/kg/min .Q24H PRN 0 mls/hr TITRATE PER MD ORDER Titration Protocol 5 MCG/KG/MIN Vancomycin HCl 1 gm in 250 mls @ 167 mls/hr 09/02/18 17:00 09/05/18 06:30 Vancomycin 1gm IVPB 167 mls/hr Q12H CLAY Administration Protocol Cefepime HCl 2 gm in 100 mls @ 100 mls/hr 09/02/18 18:17 09/05/18 06:37 Maxipime 2gm IVPB 09/07/18 17:24 100 mls/hr Q12H CLAY Administration Protocol Levetiracetam 750 mg/ Sodium 107.5 mls @ 215 mls/hr 09/04/18 10:00 09/05/18 09:26 Chloride IVPB 215 mls/hr Q12 CLAY Administration Acetaminophen 1,000 mg in 100 mls @ 400 mls/hr 09/04/18 08:19 09/04/18 14:52 Ofirmev IVPB 09/06/18 08:20 400 mls/hr Q6H PRN Administration Temperature Sodium Chloride 1,000 mls @ 80 mls/hr 09/06/18 01:00 Sodium Chloride 0.45% IV 09/06/18 13:29 .[id number] CLAY Potassium Chloride 60 meq/ 1,030 mls @ 80 mls/hr 09/05/18 11:45 09/05/18 12:00 Sodium Chloride IV 09/06/18 00:37 80 mls/hr .[id number] CLAY Administration Labetalol HCl 20 mg 08/31/18 21:26 09/05/18 01:07 Trandate IV 20 mg Q2H PRN Administration Hypertension - Patient Studies Lab Studies: Microbiology Studies 09/02/18 09:50 Blood Culture - Preliminary Blood NO GROWTH AFTER 3 DAYS 09/03/18 09:30 Urine Culture - Final Urine,Holliday No Growth (<1,000 CFU/ML) Lab Studies 09/05/18 09/05/18 09/05/18 Range/Units 11:25 07:40 05:30 WBC (4.5-11.0) 10^3/uL RBC (3.5-6.1) 10^6/uL Hgb (12.0-16.0) g/dL Hct (36.0-48.0) % MCV (80.0-105.0) fl MCH (25.0-35.0) pg MCHC (31.0-37.0) g/dl RDW (11.5-14.5) % Plt Count (120.0-450.0) 10^3/uL MPV (7.0-11.0) fl pCO2 (35-45) mm/Hg pO2 (80-100) mm/Hg HCO3 (21-28) mmol/L ABG pH (7.35-7.45) ABG Total CO2 (22-28) mmol.L ABG O2 Saturation (95-98) % ABG O2 Content (15-23) ML/dl ABG Base Excess (-2.0-3.0) mmol/L ABG Hemoglobin (11.7-17.4) g/dL ABG Carboxyhemoglobin (0.5-1.5) % POC ABG HHb (Measured) (0-5) % ABG Methemoglobin (0.0-3.0) % ABG O2 Capacity (16-24) mL/dl Hgb O2 Saturation (95.0-98.0) % FiO2 % Sodium 141 (132-148) mmol/L Potassium 3.0 L (3.6-5.0) mmol/L Chloride 108 H (98-107) mmol/L Carbon Dioxide 26 (21-33) mmol/L Anion Gap 10 (10-20) BUN 15 (7-21) mg/dL Creatinine 0.5 L (0.7-1.2) mg/dl Est GFR ( Amer) > 60 Est GFR (Non-Af Amer) > 60 POC Glucose (mg/dL) 139 H 132 H (65-110) mg/dL Random Glucose 112 H (70-110) mg/dL Calcium 8.2 L (8.4-10.5) mg/dL Phosphorus 3.1 (2.5-4.5) mg/dL Magnesium 2.1 (1.7-2.2) mg/dL Ferritin ng/mL Total Bilirubin 0.5 (0.2-1.3) mg/dL AST 30 (14-36) U/L ALT 14 (7-56) U/L Alkaline Phosphatase 78 (38-126) U/L Total Protein 6.0 (5.8-8.3) g/dL Albumin 2.9 L (3.0-4.8) g/dL Globulin 3.1 gm/dL Albumin/Globulin Ratio 0.9 L (1.1-1.8) Procalcitonin (0.19-0.49) NG/ML 09/05/18 09/05/18 09/04/18 Range/Units 05:30 05:10 21:51 WBC 7.5 D (4.5-11.0) 10^3/uL RBC 4.46 (3.5-6.1) 10^6/uL Hgb 8.8 L (12.0-16.0) g/dL Hct 27.5 L (36.0-48.0) % MCV 61.7 L (80.0-105.0) fl MCH 19.7 L (25.0-35.0) pg MCHC 32.0 (31.0-37.0) g/dl RDW 15.7 H (11.5-14.5) % Plt Count 167 (120.0-450.0) 10^3/uL MPV 9.7 (7.0-11.0) fl pCO2 26 L (35-45) mm/Hg pO2 245.0 H (80-100) mm/Hg HCO3 19.8 L (21-28) mmol/L ABG pH 7.49 H (7.35-7.45) ABG Total CO2 20.6 L (22-28) mmol.L ABG O2 Saturation 100.1 H (95-98) % ABG O2 Content 11.5 L (15-23) ML/dl ABG Base Excess -2.9 L (-2.0-3.0) mmol/L ABG Hemoglobin 7.9 L (11.7-17.4) g/dL ABG Carboxyhemoglobin 1.6 H (0.5-1.5) % POC ABG HHb (Measured) -0.1 L (0-5) % ABG Methemoglobin 1.3 (0.0-3.0) % ABG O2 Capacity 11.5 L (16-24) mL/dl Hgb O2 Saturation 97.3 (95.0-98.0) % FiO2 60.0 % Sodium (132-148) mmol/L Potassium (3.6-5.0) mmol/L Chloride (98-107) mmol/L Carbon Dioxide (21-33) mmol/L Anion Gap (10-20) BUN (7-21) mg/dL Creatinine (0.7-1.2) mg/dl Est GFR ( Amer) Est GFR (Non-Af Amer) POC Glucose (mg/dL) 122 H (65-110) mg/dL Random Glucose (70-110) mg/dL Calcium (8.4-10.5) mg/dL Phosphorus (2.5-4.5) mg/dL Magnesium (1.7-2.2) mg/dL Ferritin ng/mL Total Bilirubin (0.2-1.3) mg/dL AST (14-36) U/L ALT (7-56) U/L Alkaline Phosphatase (38-126) U/L Total Protein (5.8-8.3) g/dL Albumin (3.0-4.8) g/dL Globulin gm/dL Albumin/Globulin Ratio (1.1-1.8) Procalcitonin (0.19-0.49) NG/ML 09/04/18 09/04/18 09/04/18 Range/Units 16:51 16:30 11:46 WBC (4.5-11.0) 10^3/uL RBC (3.5-6.1) 10^6/uL Hgb 8.8 L (12.0-16.0) g/dL Hct 27.5 L (36.0-48.0) % MCV (80.0-105.0) fl MCH (25.0-35.0) pg MCHC (31.0-37.0) g/dl RDW (11.5-14.5) % Plt Count (120.0-450.0) 10^3/uL MPV (7.0-11.0) fl pCO2 (35-45) mm/Hg pO2 (80-100) mm/Hg HCO3 (21-28) mmol/L ABG pH (7.35-7.45) ABG Total CO2 (22-28) mmol.L ABG O2 Saturation (95-98) % ABG O2 Content (15-23) ML/dl ABG Base Excess (-2.0-3.0) mmol/L ABG Hemoglobin (11.7-17.4) g/dL ABG Carboxyhemoglobin (0.5-1.5) % POC ABG HHb (Measured) (0-5) % ABG Methemoglobin (0.0-3.0) % ABG O2 Capacity (16-24) mL/dl Hgb O2 Saturation (95.0-98.0) % FiO2 % Sodium (132-148) mmol/L Potassium (3.6-5.0) mmol/L Chloride (98-107) mmol/L Carbon Dioxide (21-33) mmol/L Anion Gap (10-20) BUN (7-21) mg/dL Creatinine (0.7-1.2) mg/dl Est GFR ( Amer) Est GFR (Non-Af Amer) POC Glucose (mg/dL) 113 H 94 (65-110) mg/dL Random Glucose (70-110) mg/dL Calcium (8.4-10.5) mg/dL Phosphorus (2.5-4.5) mg/dL Magnesium (1.7-2.2) mg/dL Ferritin ng/mL Total Bilirubin (0.2-1.3) mg/dL AST (14-36) U/L ALT (7-56) U/L Alkaline Phosphatase (38-126) U/L Total Protein (5.8-8.3) g/dL Albumin (3.0-4.8) g/dL Globulin gm/dL Albumin/Globulin Ratio (1.1-1.8) Procalcitonin (0.19-0.49) NG/ML 09/04/18 09/04/18 Range/Units 10:50 10:50 WBC (4.5-11.0) 10^3/uL RBC (3.5-6.1) 10^6/uL Hgb (12.0-16.0) g/dL Hct (36.0-48.0) % MCV (80.0-105.0) fl MCH (25.0-35.0) pg MCHC (31.0-37.0) g/dl RDW (11.5-14.5) % Plt Count (120.0-450.0) 10^3/uL MPV (7.0-11.0) fl pCO2 (35-45) mm/Hg pO2 (80-100) mm/Hg HCO3 (21-28) mmol/L ABG pH (7.35-7.45) ABG Total CO2 (22-28) mmol.L ABG O2 Saturation (95-98) % ABG O2 Content (15-23) ML/dl ABG Base Excess (-2.0-3.0) mmol/L ABG Hemoglobin (11.7-17.4) g/dL ABG Carboxyhemoglobin (0.5-1.5) % POC ABG HHb (Measured) (0-5) % ABG Methemoglobin (0.0-3.0) % ABG O2 Capacity (16-24) mL/dl Hgb O2 Saturation (95.0-98.0) % FiO2 % Sodium (132-148) mmol/L Potassium (3.6-5.0) mmol/L Chloride (98-107) mmol/L Carbon Dioxide (21-33) mmol/L Anion Gap (10-20) BUN (7-21) mg/dL Creatinine (0.7-1.2) mg/dl Est GFR ( Amer) Est GFR (Non-Af Amer) POC Glucose (mg/dL) (65-110) mg/dL Random Glucose (70-110) mg/dL Calcium (8.4-10.5) mg/dL Phosphorus (2.5-4.5) mg/dL Magnesium (1.7-2.2) mg/dL Ferritin 147.0 ng/mL Total Bilirubin (0.2-1.3) mg/dL AST (14-36) U/L ALT (7-56) U/L Alkaline Phosphatase (38-126) U/L Total Protein (5.8-8.3) g/dL Albumin (3.0-4.8) g/dL Globulin gm/dL Albumin/Globulin Ratio (1.1-1.8) Procalcitonin 0.31 (0.19-0.49) NG/ML Laboratory Results - last 24 hr 09/04/18 09/04/18 09/04/18 10:50 10:50 11:46 WBC RBC Hgb Hct MCV MCH MCHC RDW Plt Count MPV pCO2 pO2 HCO3 ABG pH ABG Total CO2 ABG O2 Saturation ABG O2 Content ABG Base Excess ABG Hemoglobin ABG Carboxyhemoglobin POC ABG HHb (Measured) ABG Methemoglobin ABG O2 Capacity Hgb O2 Saturation FiO2 Sodium Potassium Chloride Carbon Dioxide Anion Gap BUN Creatinine Est GFR ( Amer) Est GFR (Non-Af Amer) POC Glucose (mg/dL) 94 Random Glucose Calcium Phosphorus Magnesium Ferritin 147.0 Total Bilirubin AST ALT Alkaline Phosphatase Total Protein Albumin Globulin Albumin/Globulin Ratio Procalcitonin 0.31 09/04/18 09/04/18 09/04/18 16:30 16:51 21:51 WBC RBC Hgb 8.8 L Hct 27.5 L MCV MCH MCHC RDW Plt Count MPV pCO2 pO2 HCO3 ABG pH ABG Total CO2 ABG O2 Saturation ABG O2 Content ABG Base Excess ABG Hemoglobin ABG Carboxyhemoglobin POC ABG HHb (Measured) ABG Methemoglobin ABG O2 Capacity Hgb O2 Saturation FiO2 Sodium Potassium Chloride Carbon Dioxide Anion Gap BUN Creatinine Est GFR ( Amer) Est GFR (Non-Af Amer) POC Glucose (mg/dL) 113 H 122 H Random Glucose Calcium Phosphorus Magnesium Ferritin Total Bilirubin AST ALT Alkaline Phosphatase Total Protein Albumin Globulin Albumin/Globulin Ratio Procalcitonin 09/05/18 09/05/18 09/05/18 05:10 05:30 05:30 WBC 7.5 D RBC 4.46 Hgb 8.8 L Hct 27.5 L MCV 61.7 L MCH 19.7 L MCHC 32.0 RDW 15.7 H Plt Count 167 MPV 9.7 pCO2 26 L pO2 245.0 H HCO3 19.8 L ABG pH 7.49 H ABG Total CO2 20.6 L ABG O2 Saturation 100.1 H ABG O2 Content 11.5 L ABG Base Excess -2.9 L ABG Hemoglobin 7.9 L ABG Carboxyhemoglobin 1.6 H POC ABG HHb (Measured) -0.1 L ABG Methemoglobin 1.3 ABG O2 Capacity 11.5 L Hgb O2 Saturation 97.3 FiO2 60.0 Sodium 141 Potassium 3.0 L Chloride 108 H Carbon Dioxide 26 Anion Gap 10 BUN 15 Creatinine 0.5 L Est GFR ( Amer) > 60 Est GFR (Non-Af Amer) > 60 POC Glucose (mg/dL) Random Glucose 112 H Calcium 8.2 L Phosphorus 3.1 Magnesium 2.1 Ferritin Total Bilirubin 0.5 AST 30 ALT 14 Alkaline Phosphatase 78 Total Protein 6.0 Albumin 2.9 L Globulin 3.1 Albumin/Globulin Ratio 0.9 L Procalcitonin 09/05/18 09/05/18 07:40 11:25 WBC RBC Hgb Hct MCV MCH MCHC RDW Plt Count MPV pCO2 pO2 HCO3 ABG pH ABG Total CO2 ABG O2 Saturation ABG O2 Content ABG Base Excess ABG Hemoglobin ABG Carboxyhemoglobin POC ABG HHb (Measured) ABG Methemoglobin ABG O2 Capacity Hgb O2 Saturation FiO2 Sodium Potassium Chloride Carbon Dioxide Anion Gap BUN Creatinine Est GFR ( Amer) Est GFR (Non-Af Amer) POC Glucose (mg/dL) 132 H 139 H Random Glucose Calcium Phosphorus Magnesium Ferritin Total Bilirubin AST ALT Alkaline Phosphatase Total Protein Albumin Globulin Albumin/Globulin Ratio Procalcitonin Radiology Impressions: Radiology Impressions Chest X-Ray 09/04/18 20:12 IMPRESSION: Endotracheal and nasogastric tubes are in satisfactory position. Critical Care Progress Note - Nutrition Nutrition: Nutrition Category Date Time Status NPO Diet [DIET] Diets 08/30/18 Dinner Ordered Assessment/Plan - Assessment and Plan (Free Text) Plan: Patient see and examined on rounds with resident, agree with note with following additions/exceptions: Patient is 63yo female with PMHx migraines presents to [facility] for left-sided deficits, found to have large Right IPH. This morning, neurological exam has improved, opens eyes, follows commands. On 09/03 had OR evacuation of IPH by neurosurgery Pt has been febrile, pancutlured, started on broad spectrum abx. ID following, Neurology following. EEG negative Cultures thus far neg, procal neg, CXR normal This morning, grimaces to pain, squeezes hand, needs to be more alert prior to extubation IPH with midline shift Resp failure Fever, rule out infection, central fevers Recommend: - cont with vent support, maintain PCO2 30-35, avoid barotrauma, daily CPAP trial, ABG, CXR - would DC abx - Maintain SBp 120-140 - start feeds - Fever control - FS control - IV Tylenol, Cooling blanket as needed, maintain euthermia - GI ppx, Pepcid - DVT ppx, SCDs - Monitor in MICU Critical care time 35 minutes Prognosis is guarded
--- NOTE | 2018-09-05 12:14 | CP.PCM.PN ---
Subjective - Date & Time of Evaluation Date of Evaluation: 09/05/18 Time of Evaluation: 11:07 - Subjective Subjective: PGY-1 Neurology Progress note for Dr. Nagy Patient seen and examined at bed side. Family was at bedside. Patient is being weaned off from sedation. She is following commands and able to move her right arm and hand. She is still non-verbal due to being on ventilation. Objective - Vital Signs/Intake and Output Vital Signs (last 24 hours): Temp Pulse Resp BP Pulse Ox 100.3 F H 125 H 25 H 136/78 99 09/04/18 16:00 09/05/18 08:50 09/03/18 11:30 09/05/18 03:00 09/05/18 03:10 Intake and Output: 09/05/18 09/05/18 06:59 18:59 Intake Total 2477 210 Output Total 2100 Balance 377 210 - Medications Medications: Current Medications Famotidine (Pepcid) 20 mg IVP DAILY [facility] Last Admin: 09/05/18 09:09 Dose: 20 mg Nicardipine HCl (Cardene Iv Premix) 20 mg in 200 mls @ 50 mls/hr IV .Q4H PRN; Protocol PRN Reason: TITRATE PER MD ORDER Last Admin: 09/05/18 09:14 Dose: 7.5 mg/hr, 75 mls/hr Propofol (Diprivan) 1,000 mg in 100 mls @ 2.005 mls/hr IV .Q24H PRN; Protocol PRN Reason: TITRATE PER MD ORDER Last Titration: 09/05/18 07:35 Dose: 0 mcg/kg/min, 0 mls/hr Vancomycin HCl (Vancomycin 1gm) 1 gm in 250 mls @ 167 mls/hr IVPB Q12H [facility]; Protocol Last Admin: 09/05/18 06:30 Dose: 167 mls/hr Cefepime HCl (Maxipime 2gm) 2 gm in 100 mls @ 100 mls/hr IVPB Q12H [facility]; Protocol Stop: 09/07/18 17:24 Last Admin: 09/05/18 06:37 Dose: 100 mls/hr Levetiracetam 750 mg/ Sodium (Chloride) 107.5 mls @ 215 mls/hr IVPB Q12 [facility] Last Admin: 09/05/18 09:26 Dose: 215 mls/hr Acetaminophen (Ofirmev) 1,000 mg in 100 mls @ 400 mls/hr IVPB Q6H PRN PRN Reason: Temperature Stop: 09/06/18 08:20 Last Admin: 09/04/18 14:52 Dose: 400 mls/hr Potassium Chloride (Potassium Chloride 10 Meq/100 Ml) 10 meq in 100 mls @ 50 mls/hr IVPB Q2H [facility] Stop: 09/05/18 12:14 Last Admin: 09/05/18 09:25 Dose: 50 mls/hr Sodium Chloride (Sodium Chloride 0.45%) 1,000 mls @ 80 mls/hr IV .[id number] [facility] Stop: 09/06/18 13:29 Potassium Chloride 60 meq/ (Sodium Chloride) 1,030 mls @ 80 mls/hr IV .[id number] [facility] Stop: 09/06/18 00:37 Labetalol HCl (Trandate) 20 mg IV Q2H PRN PRN Reason: Hypertension Last Admin: 09/05/18 01:07 Dose: 20 mg - Labs Labs: 09/05/18 05:30 09/05/18 05:30 PT 11.5 SECONDS (9.4-12.5) 08/30/18 15:05 INR 1.04 08/30/18 15:05 APTT 33.6 Seconds (26.9-38.3) 08/30/18 15:05 - Additional Findings Additional findings: - Constitutional Appears: No Acute Distress, patient is intubated - Head Exam Head Exam: ATRAUMATIC, NORMAL INSPECTION, NORMOCEPHALIC - Eye Exam Eye Exam: EOMI, Normal appearance, PERRL Pupil Exam: NORMAL ACCOMODATION, PERRL - ENT Exam ENT Exam: Mucous Membranes Moist, Normal Exam - Neck Exam Neck Exam: Full ROM, Normal Inspection. absent: Lymphadenopathy - Respiratory Exam Respiratory Exam: Clear to Ausculation Bilateral, NORMAL BREATHING PATTERN - Cardiovascular Exam Cardiovascular Exam: REGULAR RHYTHM, +S1, +S2. absent: Murmur - GI/Abdominal Exam GI & Abdominal Exam: Soft, Normal Bowel Sounds. absent: Tenderness - Extremities Exam Extremities Exam: Full ROM, Normal Capillary Refill, Normal Inspection. absent: Joint Swelling, Pedal Edema - Neurological Exam Additional comments: Patient is following commands. Able to move her right arm and squeeze her right hands. Pupils are reactive. Gag reflex present. - Psychiatric Exam Psychiatric exam: Still sedated, getting weaned off - Skin Skin Exam: Dry, Intact, Normal Color, Warm Assessment and Plan - Assessment and Plan (Free Text) Assessment: Patient is a 63 year old female presenting with left-sided weakness, left facial droop, and dysarthria. Patient is admitted in ICU for close monitoring for parenchymal hematoma in the right frontal parietal lobe with midline shift. Pt is s/p (09/03) craniotomy with evacuation of R parietal lobe hematoma. Plan: - Continue to take daily head CT's - Continue Keppra 750mg IV Q12 - Continue to maintain SBP at 140mmhg - HOB at 40 degrees - Continue Neurochecks Q1H - Continue NS @80mls/hr - Further recommendations as per Dr. Nagy Patient seen and case discussed with attending, Dr. Nagy. Ino Cuellar, PGY-1
--- NOTE | 2018-09-05 13:28 | CP.PCM.PN ---
Subjective - Date & Time of Evaluation Date of Evaluation: 09/05/18 Time of Evaluation: 09:50 - Subjective Subjective: Still intubated, still with low grade fevers, not in distress. Objective - Vital Signs/Intake and Output Vital Signs (last 24 hours): Temp Pulse Resp BP Pulse Ox 100.0 F H 103 H 25 H 136/57 L 97 09/04/18 07:20 09/04/18 07:30 09/03/18 11:30 09/04/18 07:30 09/04/18 07:20 Intake and Output: 09/04/18 09/04/18 06:59 18:59 Intake Total 2460 251 Output Total 400 Balance 2060 251 - Medications Medications: Current Medications Famotidine (Pepcid) 20 mg IVP DAILY [facility] Last Admin: 09/04/18 11:08 Dose: 20 mg Nicardipine HCl (Cardene Iv Premix) 20 mg in 200 mls @ 50 mls/hr IV .Q4H PRN; Protocol PRN Reason: TITRATE PER MD ORDER Last Titration: 09/04/18 11:37 Dose: 0 mg/hr, 0 mls/hr Propofol (Diprivan) 1,000 mg in 100 mls @ 2.005 mls/hr IV .Q24H PRN; Protocol PRN Reason: TITRATE PER MD ORDER Last Titration: 09/04/18 12:05 Dose: 5 mcg/kg/min, 2.005 mls/hr Vancomycin HCl (Vancomycin 1gm) 1 gm in 250 mls @ 167 mls/hr IVPB Q12H [facility]; Protocol Last Admin: 09/04/18 04:50 Dose: 167 mls/hr Cefepime HCl (Maxipime 2gm) 2 gm in 100 mls @ 100 mls/hr IVPB Q12H [facility]; Protocol Stop: 09/07/18 17:24 Last Admin: 09/04/18 05:28 Dose: 100 mls/hr Levetiracetam 750 mg/ Sodium (Chloride) 107.5 mls @ 215 mls/hr IVPB Q12 [facility] Last Admin: 09/04/18 11:07 Dose: 215 mls/hr Sodium Chloride (Sodium Chloride 0.9%) 1,000 mls @ 80 mls/hr IV .[id number] [facility] Last Admin: 09/04/18 03:18 Dose: 80 mls/hr Acetaminophen (Ofirmev) 1,000 mg in 100 mls @ 400 mls/hr IVPB Q6H PRN PRN Reason: Temperature Stop: 09/06/18 08:20 Last Admin: 09/04/18 08:40 Dose: 400 mls/hr Labetalol HCl (Trandate) 20 mg IV Q2H PRN PRN Reason: Hypertension Last Admin: 09/01/18 14:21 Dose: 20 mg - Labs Labs: 09/04/18 05:30 09/04/18 05:30 PT 11.5 SECONDS (9.4-12.5) 08/30/18 15:05 INR 1.04 08/30/18 15:05 APTT 33.6 Seconds (26.9-38.3) 08/30/18 15:05 - Constitutional Appears: Chronically Ill - Head Exam Additional comments: right frontoparietal dressings in place - ENT Exam Additional comments: ET tube in place - Respiratory Exam Respiratory Exam: Decreased Breath Sounds - Cardiovascular Exam Cardiovascular Exam: +S1, +S2 - GI/Abdominal Exam GI & Abdominal Exam: Soft. absent: Tenderness Assessment and Plan - Assessment and Plan (Free Text) Plan: Assessment Systemic inflammatory response syndrome with fevers, probably due to right frontoparietal heomrrhagic CVA S/P right craniectomy and partial evacuation of hemorrhage POD #2, R/O sepsis R/O infection but so far no source identified history of migraines Plan on Vancomycin and Cefepime; blood cx are negative, awaiting urine cx; CXR does not show infiltrates - will d/c Vancomycin will continue to monitor and trend fever curve discussed with family at bedside
[2018-09-05] MEDS ORDERED: Mannitol 12.5 gm/50 ml Inj IV SCH (16:00)
[2018-09-06] MEDS: Nicardipine 20 MG/200 ML 20 MG/200 ML BAG IV PRN ×10 (00:25→22:46)
[2018-09-06] MEDS ORDERED: Sodium Chloride 0.45% 1,000 ML IV SCH (01:00)
[2018-09-06] MEDS: Propofol 10 mg/ml 1,000 MG/100 ML VIAL IV PRN (05:11)
[2018-09-06 06:18] LABS: ARTERIAL BLOOD GAS HCO3 25.9 mmol/L (21-28); ARTERIAL BLOOD GAS HEMOGLOBIN 10.1 g/dL (11.7-17.4); ARTERIAL BLOOD GAS O2 CAPACITY 13.9 mL/dl (16-24); ARTERIAL BLOOD GAS O2 CONTENT 13.9 ML/dl (15-23); ARTERIAL BLOOD GAS O2 SAT 99.8 % (95-98); ARTERIAL BLOOD GAS PCO2 34 mm/Hg (35-45); ARTERIAL BLOOD GAS PH 7.49 (7.35-7.45); ARTERIAL BLOOD GAS TCO2 26.9 mmol.L (22-28)
[2018-09-06 06:45] LABS: HEMOGLOBIN 9.6 g/dL (12.0-16.0); MEAN CELL VOLUME 61.8 fl (80.0-105.0); MEAN CORPUSCULAR HEMOGLOBIN 19.5 pg (25.0-35.0); MEAN CORPUSCULAR HGB CONC 31.6 g/dl (31.0-37.0); MEAN PLATELET VOLUME 9.6 fl (7.0-11.0); RBC 4.92 10^6/uL (3.5-6.1); RED CELL DISTRIBUTION WIDTH 15.8 % (11.5-14.5); WHITE BLOOD COUNT 7.7 10^3/uL (4.5-11.0)
[2018-09-06 07:20] LABS: ALBUMIN 3.2 g/dL (3.0-4.8); ALT/SGPT 28 U/L (7-56); AST/SGOT 46 U/L (14-36); BLOOD UREA NITROGEN 14 mg/dL (7-21); GFR NON-AFRICAN AMERICAN > 60
--- NOTE | 2018-09-06 10:00 | CP.PCM.PN ---
Subjective - Date & Time of Evaluation Date of Evaluation: 09/06/18 Time of Evaluation: 10:00 - Subjective Subjective: more a a foll commands attempt extubation no further surgical intervention at this time Objective - Vital Signs/Intake and Output Vital Signs (last 24 hours): Temp Pulse Resp BP Pulse Ox 98.6 F 75 20 124/58 L 98 09/06/18 04:00 09/06/18 06:00 09/05/18 19:28 09/05/18 20:30 09/05/18 20:30 Intake and Output: 09/06/18 09/06/18 06:59 18:59 Intake Total 2769 210 Output Total 1400 Balance 1369 210 - Medications Medications: Current Medications Famotidine (Pepcid) 20 mg IVP DAILY [facility] Last Admin: 09/06/18 09:35 Dose: 20 mg Nicardipine HCl (Cardene Iv Premix) 20 mg in 200 mls @ 50 mls/hr IV .Q4H PRN; Protocol PRN Reason: TITRATE PER MD ORDER Last Titration: 09/06/18 09:45 Dose: 10 mg/hr, 100 mls/hr Propofol (Diprivan) 1,000 mg in 100 mls @ 2.005 mls/hr IV .Q24H PRN; Protocol PRN Reason: TITRATE PER MD ORDER Last Titration: 09/06/18 07:09 Dose: 0 mcg/kg/min, 0 mls/hr Levetiracetam 750 mg/ Sodium (Chloride) 107.5 mls @ 215 mls/hr IVPB Q12 [facility] Last Admin: 09/05/18 22:30 Dose: 215 mls/hr Sodium Chloride (Sodium Chloride 0.45%) 1,000 mls @ 80 mls/hr IV .[id number] [facility] Stop: 09/06/18 13:29 Last Admin: 09/06/18 01:37 Dose: 80 mls/hr Potassium Chloride (Potassium Chloride 10 Meq/100 Ml) 10 meq in 100 mls @ 50 mls/hr IVPB Q2H [facility] Stop: 09/06/18 11:29 Last Admin: 09/06/18 08:34 Dose: 50 mls/hr Labetalol HCl (Trandate) 20 mg IV Q2H PRN PRN Reason: Hypertension Last Admin: 09/05/18 01:07 Dose: 20 mg - Labs Labs: 09/06/18 05:30 09/06/18 05:30 PT 11.5 SECONDS (9.4-12.5) 08/30/18 15:05 INR 1.04 08/30/18 15:05 APTT 33.6 Seconds (26.9-38.3) 08/30/18 15:05
--- NOTE | 2018-09-06 10:11 | RAD ---
Date of service: 09/06/2018 HISTORY: intubated COMPARISON: 09/04/2018 FINDINGS: LUNGS: Right perihilar infiltrate unchanged. PLEURA: No significant pleural effusion identified, no pneumothorax apparent. CARDIOVASCULAR: No aortic atherosclerotic calcification present. Normal cardiac size. No pulmonary vascular congestion. OSSEOUS STRUCTURES: No significant abnormalities. VISUALIZED UPPER ABDOMEN: Normal. OTHER FINDINGS: Central lines and tubes are unchanged. IMPRESSION: Right perihilar infiltrate unchanged
--- NOTE | 2018-09-06 10:23 | CP.PCM.PN ---
Subjective - Date & Time of Evaluation Date of Evaluation: 09/06/18 Time of Evaluation: 10:22 - Subjective Subjective: PGY-1 Neurology Progress note Patient seen and examined at bed side. Family was at bedside. She is following commands. She is still non-verbal due to being on ventilation. Objective - Vital Signs/Intake and Output Vital Signs (last 24 hours): Temp Pulse Resp BP Pulse Ox 98.6 F 75 20 124/58 L 98 09/06/18 04:00 09/06/18 06:00 09/05/18 19:28 09/05/18 20:30 09/05/18 20:30 Intake and Output: 09/06/18 09/06/18 06:59 18:59 Intake Total 2769 210 Output Total 1400 Balance 1369 210 - Medications Medications: Current Medications Famotidine (Pepcid) 20 mg IVP DAILY [facility] Last Admin: 09/06/18 09:35 Dose: 20 mg Nicardipine HCl (Cardene Iv Premix) 20 mg in 200 mls @ 50 mls/hr IV .Q4H PRN; Protocol PRN Reason: TITRATE PER MD ORDER Last Titration: 09/06/18 09:45 Dose: 10 mg/hr, 100 mls/hr Propofol (Diprivan) 1,000 mg in 100 mls @ 2.005 mls/hr IV .Q24H PRN; Protocol PRN Reason: TITRATE PER MD ORDER Last Titration: 09/06/18 07:09 Dose: 0 mcg/kg/min, 0 mls/hr Levetiracetam 750 mg/ Sodium (Chloride) 107.5 mls @ 215 mls/hr IVPB Q12 [facility] Last Admin: 09/05/18 22:30 Dose: 215 mls/hr Potassium Chloride (Potassium Chloride 10 Meq/100 Ml) 10 meq in 100 mls @ 50 mls/hr IVPB Q2H [facility] Stop: 09/06/18 11:29 Last Admin: 09/06/18 08:34 Dose: 50 mls/hr Labetalol HCl (Trandate) 20 mg IV Q2H PRN PRN Reason: Hypertension Last Admin: 09/05/18 01:07 Dose: 20 mg - Labs Labs: 09/06/18 05:30 09/06/18 05:30 PT 11.5 SECONDS (9.4-12.5) 08/30/18 15:05 INR 1.04 08/30/18 15:05 APTT 33.6 Seconds (26.9-38.3) 08/30/18 15:05 - Additional Findings Additional findings: - Constitutional Appears: No Acute Distress, patient is intubated - Head Exam Head Exam: ATRAUMATIC, NORMAL INSPECTION, NORMOCEPHALIC - Eye Exam Eye Exam: EOMI, Normal appearance, PERRL Pupil Exam: NORMAL ACCOMODATION, PERRL - ENT Exam ENT Exam: Mucous Membranes Moist, Normal Exam - Neck Exam Neck Exam: Full ROM, Normal Inspection. absent: Lymphadenopathy - Respiratory Exam Respiratory Exam: Clear to Ausculation Bilateral, NORMAL BREATHING PATTERN - Cardiovascular Exam Cardiovascular Exam: REGULAR RHYTHM, +S1, +S2. absent: Murmur - GI/Abdominal Exam GI & Abdominal Exam: Soft, Normal Bowel Sounds. absent: Tenderness - Extremities Exam Extremities Exam: Full ROM, Normal Capillary Refill, Normal Inspection. absent: Joint Swelling, Pedal Edema - Neurological Exam Additional comments: Patient is following commands. Able to move her right arm and squeeze her right hands. Pupils are reactive. Gag reflex present. - Skin Skin Exam: Dry, Intact, Normal Color, Warm Assessment and Plan - Assessment and Plan (Free Text) Assessment: Patient is a 63 year old female presenting with left-sided weakness, left facial droop, and dysarthria. Patient is admitted in ICU for close monitoring for parenchymal hematoma in the right frontal parietal lobe with midline shift. Pt is s/p (09/03) craniotomy with evacuation of R parietal lobe hematoma. Plan: - Continue Keppra 750mg IV Q12 - Continue to maintain SBP at 140mmhg - HOB at 40 degrees - Further recommendations as per Dr. Nagy Patient seen and case discussed with attending, Dr. Nagy. Ino Cuellar, PGY-1
--- NOTE | 2018-09-06 10:56 | CP.CCUPN ---
<Lis Malik - Last Filed: 09/06/18 11:03> CCU Subjective - Physician Review Subjective (Free Text): CRITICAL CARE PROGRESS NOTE Lis Chauhanfaraz PGY1 Pt seen and examined at bedside in ICU. BP was maintained overnight in 138-142 systolic range. This am, pt is responding to commands, including moving RLE, squeezing R hand, raising eyebrow. Still doesn't open eyes spontaneously, non- verbal as she is on vent. She attempts opening her eyes, however unable. Pt is b reathing on her own on pressure support. ROS unable to be obtained Drips: Nicardipine @10 Tube feeds @60ml/hr CCU Objective - Vital Signs / Intake & Output Intake and Output (Last 8hrs): Intake & Output 09/05/18 09/06/18 09/06/18 22:59 06:59 14:59 Intake Total 3249 2554 210 Output Total 2049 1400 Balance 1199 1154 210 Weight 71.668 kg Intake: IV 3049 1974 210 IVF 640 960 Propofol 9 24 Right Upper arm 300 antibiotics 400 0 cardene 1000 400 keppra 100 100 Tube Feeding 150 480 Other 50 100 Output: Urine 2049 1400 Urethral (Holliday) 2049 1400 Other 0 0 Other: # Bowel Movements 0 1 - Physical Exam Head: Positive for: Atraumatic, Normocephalic Pupils: Positive for: PERRL Extroacular Muscles: Positive for: EOMI Conjunctiva: Positive for: Normal Mouth: Positive for: Moist Mucous Membranes Nose (Internal): Positive for: No Active Bleeding Neck: Positive for: Normal Range of Motion. Negative for: Meningeal Signs Respiratory/Chest: Positive for: Clear to Auscultation, Good Air Exchange Cardiovascular: Positive for: Regular Rate and Rhythm, Normal S1, S2 Abdomen: Positive for: Normal Bowel Sounds. Negative for: Tenderness, Distention, Peritoneal Signs Upper Extremity: Positive for: Normal Inspection. Negative for: Cyanosis, Edema Lower Extremity: Positive for: Normal Inspection. Negative for: Edema Neurological: Positive for: Other (Obeys verbal commands, Moves RLE , RUE spontaneously, squeezes fingers, raises eyebrows. PERRL. facial droop still presesnt) Skin: Positive for: Warm, Dry Psychiatric: Positive for: Lethargic - Medications Active Medications: Active Medications Generic Name Dose Route Start Last Admin Trade Name Freq PRN Reason Stop Dose Admin Famotidine 20 mg 09/04/18 10:45 09/06/18 09:35 Pepcid IVP 20 mg DAILY CLAY Administration Nicardipine HCl 20 mg in 200 mls @ 50 mls/hr 09/01/18 14:48 09/06/18 09:45 Cardene Iv Premix IV 10 mg/hr .Q4H PRN 100 mls/hr TITRATE PER MD ORDER Titration Protocol 5 MG/HR Propofol 1,000 mg in 100 mls @ 2.005 mls/hr 09/01/18 16:49 09/06/18 07:09 Diprivan IV 0 mcg/kg/min .Q24H PRN 0 mls/hr TITRATE PER MD ORDER Titration Protocol 5 MCG/KG/MIN Levetiracetam 750 mg/ Sodium 107.5 mls @ 215 mls/hr 09/04/18 10:00 09/06/18 10:32 Chloride IVPB 215 mls/hr Q12 CLAY Administration Potassium Chloride 10 meq in 100 mls @ 50 mls/hr 09/06/18 07:30 09/06/18 10:37 Potassium Chloride 10 Meq/100 Ml IVPB 09/06/18 11:29 50 mls/hr Q2H CLAY Administration Labetalol HCl 20 mg 08/31/18 21:26 09/05/18 01:07 Trandate IV 20 mg Q2H PRN Administration Hypertension - Patient Studies Lab Studies: Microbiology Studies 09/02/18 09:50 Blood Culture - Preliminary Blood NO GROWTH AFTER 4 DAYS Lab Studies 09/06/18 09/06/18 09/06/18 Range/Units 07:51 05:40 05:30 WBC (4.5-11.0) 10^3/uL RBC (3.5-6.1) 10^6/uL Hgb (12.0-16.0) g/dL Hct (36.0-48.0) % MCV (80.0-105.0) fl MCH (25.0-35.0) pg MCHC (31.0-37.0) g/dl RDW (11.5-14.5) % Plt Count (120.0-450.0) 10^3/uL MPV (7.0-11.0) fl pCO2 34 L (35-45) mm/Hg pO2 107.0 H (80-100) mm/Hg HCO3 25.9 (21-28) mmol/L ABG pH 7.49 H (7.35-7.45) ABG Total CO2 26.9 (22-28) mmol.L ABG O2 Saturation 99.8 H (95-98) % ABG O2 Content 13.9 L (15-23) ML/dl ABG Base Excess 2.7 (-2.0-3.0) mmol/L ABG Hemoglobin 10.1 L (11.7-17.4) g/dL ABG Carboxyhemoglobin 1.9 H (0.5-1.5) % POC ABG HHb (Measured) 0.2 (0-5) % ABG Methemoglobin 1.0 (0.0-3.0) % ABG O2 Capacity 13.9 L (16-24) mL/dl Hgb O2 Saturation 96.9 (95.0-98.0) % FiO2 40.0 % Sodium 143 (132-148) mmol/L Potassium 3.3 L (3.6-5.0) mmol/L Chloride 108 H (98-107) mmol/L Carbon Dioxide 29 (21-33) mmol/L Anion Gap 10 (10-20) BUN 14 (7-21) mg/dL Creatinine 0.5 L (0.7-1.2) mg/dl Est GFR ( Amer) > 60 Est GFR (Non-Af Amer) > 60 POC Glucose (mg/dL) 157 H (65-110) mg/dL Random Glucose 148 H (70-110) mg/dL Calcium 9.0 (8.4-10.5) mg/dL Phosphorus 3.1 (2.5-4.5) mg/dL Magnesium 2.2 (1.7-2.2) mg/dL Total Bilirubin 0.4 (0.2-1.3) mg/dL AST 46 H D (14-36) U/L ALT 28 (7-56) U/L Alkaline Phosphatase 105 (38-126) U/L Total Protein 6.6 (5.8-8.3) g/dL Albumin 3.2 (3.0-4.8) g/dL Globulin 3.4 gm/dL Albumin/Globulin Ratio 1.0 L (1.1-1.8) 09/06/18 09/05/18 09/05/18 Range/Units 05:30 22:03 16:03 WBC 7.7 (4.5-11.0) 10^3/uL RBC 4.92 (3.5-6.1) 10^6/uL Hgb 9.6 L (12.0-16.0) g/dL Hct 30.4 L (36.0-48.0) % MCV 61.8 L (80.0-105.0) fl MCH 19.5 L (25.0-35.0) pg MCHC 31.6 (31.0-37.0) g/dl RDW 15.8 H (11.5-14.5) % Plt Count 210 (120.0-450.0) 10^3/uL MPV 9.6 (7.0-11.0) fl pCO2 (35-45) mm/Hg pO2 (80-100) mm/Hg HCO3 (21-28) mmol/L ABG pH (7.35-7.45) ABG Total CO2 (22-28) mmol.L ABG O2 Saturation (95-98) % ABG O2 Content (15-23) ML/dl ABG Base Excess (-2.0-3.0) mmol/L ABG Hemoglobin (11.7-17.4) g/dL ABG Carboxyhemoglobin (0.5-1.5) % POC ABG HHb (Measured) (0-5) % ABG Methemoglobin (0.0-3.0) % ABG O2 Capacity (16-24) mL/dl Hgb O2 Saturation (95.0-98.0) % FiO2 % Sodium (132-148) mmol/L Potassium (3.6-5.0) mmol/L Chloride (98-107) mmol/L Carbon Dioxide (21-33) mmol/L Anion Gap (10-20) BUN (7-21) mg/dL Creatinine (0.7-1.2) mg/dl Est GFR ( Amer) Est GFR (Non-Af Amer) POC Glucose (mg/dL) 170 H 144 H (65-110) mg/dL Random Glucose (70-110) mg/dL Calcium (8.4-10.5) mg/dL Phosphorus (2.5-4.5) mg/dL Magnesium (1.7-2.2) mg/dL Total Bilirubin (0.2-1.3) mg/dL AST (14-36) U/L ALT (7-56) U/L Alkaline Phosphatase (38-126) U/L Total Protein (5.8-8.3) g/dL Albumin (3.0-4.8) g/dL Globulin gm/dL Albumin/Globulin Ratio (1.1-1.8) 09/05/18 09/05/18 Range/Units 11:25 07:40 WBC (4.5-11.0) 10^3/uL RBC (3.5-6.1) 10^6/uL Hgb (12.0-16.0) g/dL Hct (36.0-48.0) % MCV (80.0-105.0) fl MCH (25.0-35.0) pg MCHC (31.0-37.0) g/dl RDW (11.5-14.5) % Plt Count (120.0-450.0) 10^3/uL MPV (7.0-11.0) fl pCO2 (35-45) mm/Hg pO2 (80-100) mm/Hg HCO3 (21-28) mmol/L ABG pH (7.35-7.45) ABG Total CO2 (22-28) mmol.L ABG O2 Saturation (95-98) % ABG O2 Content (15-23) ML/dl ABG Base Excess (-2.0-3.0) mmol/L ABG Hemoglobin (11.7-17.4) g/dL ABG Carboxyhemoglobin (0.5-1.5) % POC ABG HHb (Measured) (0-5) % ABG Methemoglobin (0.0-3.0) % ABG O2 Capacity (16-24) mL/dl Hgb O2 Saturation (95.0-98.0) % FiO2 % Sodium (132-148) mmol/L Potassium (3.6-5.0) mmol/L Chloride (98-107) mmol/L Carbon Dioxide (21-33) mmol/L Anion Gap (10-20) BUN (7-21) mg/dL Creatinine (0.7-1.2) mg/dl Est GFR ( Amer) Est GFR (Non-Af Amer) POC Glucose (mg/dL) 139 H 132 H (65-110) mg/dL Random Glucose (70-110) mg/dL Calcium (8.4-10.5) mg/dL Phosphorus (2.5-4.5) mg/dL Magnesium (1.7-2.2) mg/dL Total Bilirubin (0.2-1.3) mg/dL AST (14-36) U/L ALT (7-56) U/L Alkaline Phosphatase (38-126) U/L Total Protein (5.8-8.3) g/dL Albumin (3.0-4.8) g/dL Globulin gm/dL Albumin/Globulin Ratio (1.1-1.8) Laboratory Results - last 24 hr 09/05/18 09/05/18 09/05/18 07:40 11:25 16:03 WBC RBC Hgb Hct MCV MCH MCHC RDW Plt Count MPV pCO2 pO2 HCO3 ABG pH ABG Total CO2 ABG O2 Saturation ABG O2 Content ABG Base Excess ABG Hemoglobin ABG Carboxyhemoglobin POC ABG HHb (Measured) ABG Methemoglobin ABG O2 Capacity Hgb O2 Saturation FiO2 Sodium Potassium Chloride Carbon Dioxide Anion Gap BUN Creatinine Est GFR ( Amer) Est GFR (Non-Af Amer) POC Glucose (mg/dL) 132 H 139 H 144 H Random Glucose Calcium Phosphorus Magnesium Total Bilirubin AST ALT Alkaline Phosphatase Total Protein Albumin Globulin Albumin/Globulin Ratio 09/05/18 09/06/18 09/06/18 22:03 05:30 05:30 WBC 7.7 RBC 4.92 Hgb 9.6 L Hct 30.4 L MCV 61.8 L MCH 19.5 L MCHC 31.6 RDW 15.8 H Plt Count 210 MPV 9.6 pCO2 pO2 HCO3 ABG pH ABG Total CO2 ABG O2 Saturation ABG O2 Content ABG Base Excess ABG Hemoglobin ABG Carboxyhemoglobin POC ABG HHb (Measured) ABG Methemoglobin ABG O2 Capacity Hgb O2 Saturation FiO2 Sodium 143 Potassium 3.3 L Chloride 108 H Carbon Dioxide 29 Anion Gap 10 BUN 14 Creatinine 0.5 L Est GFR ( Amer) > 60 Est GFR (Non-Af Amer) > 60 POC Glucose (mg/dL) 170 H Random Glucose 148 H Calcium 9.0 Phosphorus 3.1 Magnesium 2.2 Total Bilirubin 0.4 AST 46 H D ALT 28 Alkaline Phosphatase 105 Total Protein 6.6 Albumin 3.2 Globulin 3.4 Albumin/Globulin Ratio 1.0 L 09/06/18 09/06/18 05:40 07:51 WBC RBC Hgb Hct MCV MCH MCHC RDW Plt Count MPV pCO2 34 L pO2 107.0 H HCO3 25.9 ABG pH 7.49 H ABG Total CO2 26.9 ABG O2 Saturation 99.8 H ABG O2 Content 13.9 L ABG Base Excess 2.7 ABG Hemoglobin 10.1 L ABG Carboxyhemoglobin 1.9 H POC ABG HHb (Measured) 0.2 ABG Methemoglobin 1.0 ABG O2 Capacity 13.9 L Hgb O2 Saturation 96.9 FiO2 40.0 Sodium Potassium Chloride Carbon Dioxide Anion Gap BUN Creatinine Est GFR ( Amer) Est GFR (Non-Af Amer) POC Glucose (mg/dL) 157 H Random Glucose Calcium Phosphorus Magnesium Total Bilirubin AST ALT Alkaline Phosphatase Total Protein Albumin Globulin Albumin/Globulin Ratio Radiology Impressions: Radiology Impressions Chest X-Ray 09/06/18 09:21 IMPRESSION: Right perihilar infiltrate unchanged Fingerstick Blood Sugar Results: 144 Review of Systems - Review of Systems Review of Systems: per [facility] Critical Care Progress Note - Nutrition Nutrition: Nutrition Category Date Time Status NPO Diet [DIET] Diets 08/30/18 Dinner Ordered Assessment/Plan - Assessment and Plan (Free Text) Assessment: 63 yo F with PMH of migraines presents to [facility] for left-sided deficits. Admitted to ICU for close monitoring due to parenchymal hematoma in the right frontal parietal lobe with midline shift. Pt is s/p (09/03) craniotomy with evacuation of R parietal lobe hematoma Plan: Neuro: Intracranial hemorrhage with midline shift s/p craniotomy & evacuation of R parietal hematoma (09/03/18) continue neuro checks Q1H. Monitor for signs of progression of neuro deficits continue hyperventilation on vent support, maintain PaCO2 30-35 Continue keppra 750mg bid per neurology recs Continue strict systolic BP control @140mmhg. Avoid rapid changes in blood pressure. Continue titratable nicardipine drip HOB @ 40 degrees Maintain normothermia with tylenol & cooling blanket Discontinue fluids as pt receiving tube feeds Neuro/Neurosurgery consulted, recs appreciated Will attempt extubation if pt is more awake, opens eyes spontaneously and passes weaning trial, obeys commands, withdraws to pain. Pt needs to be more awake to attempt extubation Will stop getting daily head CTs CT Head (09/04): There has been a right frontal craniotomy with partial evacuation of the large right hemispheric hemorrhage. The hemorrhage is decreased in size and now measures 3 x 5.5 cm transversely. There is a large amount of vasogenic edema. There is persistent mass effect with 13 mm of midline shift. There is a small amount of postoperative air in the subdural space Video EEG (09/03): These findings are consistent with a moderate to severe diffuse disturbance of cortical activity, in keeping with a diffuse nixon matter dysfunction; these findings do not support a specific etiology, however these findings are commonly seen in toxic metabolic encephalopahties. The findings are also in keeping with w focal cortical abnormality involving the right hemisphere in keeping with a structural abnormality in the same area. CT Head (09/03): No significant change in right hemispheric hematoma and edema with 13 mm of midline shift. CT Head (09/02): There is no change in the right hemispheric intraparenchymal hematoma which measures 5.5 by 5.2 x 6.0 cm. There is a large amount of surrounding edema. There is mass effect with effacement of sulci and midline shift. There is 13 cm of midline shift. There is compression of the right lateral ventricle. CT Head (09/01): Redemonstrated is a large parenchymal hematoma right cerebral hemisphere extending from the vertex inferiorly into the anterior upper right middle cranial fossa region. This hemorrhage measures approximately 6.7 x 5.1 x 6.1 cm the rim of surrounding edema has increased in size as well. There is significant mass effect with compression of the overlying sulci and further compression of the right lateral ventricle which shifted across midline to the left. Emergent neurosurgical consultation is recommended. These findings discussed with ICU resident vision mixer Dr. Gore CT Head (08/31): There is a large parenchymal hematoma within the right cerebral hemisphere which has increased in size extending from vertex inferiorly to below the level of the lateral ventricles and sylvian fissure extending anteriorly to the region of the lateral fissure. There is a fairly well-circumscribed rim of low-attenuation edema and or necrotic brain tissue. This hematoma exerts considerable surrounding mass effect with compression of the overlying sulci and right lateral ventricle. There is also mild [id number] midline shift of the septum pellucidum (subfalcine herniation) estimated at approximately 7 mm. No obstructive hydrocephalus. ID: Fever, r/o infection, central fevers procalcitonin <0.05, likely central fevers corea cultures have been negative continue acetaminophen. monitor LFTs continue cooling blanket prn maintain normothermia ID following Cardio: Monitor BP, target SBP 140mmHg per neurology/neurosurgery Continue titratable nicardipine drip for strict BP control. Avoid rapid changes in BP Maintain MAP > 65 Hold home ASA/anticoagulation Echo: Normal LVEF Pulm: Daily sedation vacation. Attempt extubation. 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 Elbert Malik PGY1 <Fantasma Boswell - Last Filed: 09/06/18 14:25> CCU Objective - Vital Signs / Intake & Output Vital Signs (Last 4 hours): Vital Signs Pulse 09/06/18 11:00 103 H Intake and Output (Last 8hrs): Intake & Output 09/05/18 09/06/18 09/06/18 22:59 06:59 14:59 Intake Total 3249 2554 600 Output Total 2049 1400 Balance 1199 1154 600 Weight 158 lb Intake: IV 3049 1974 600 IVF 640 960 Propofol 9 24 Right Upper arm 300 antibiotics 400 0 cardene 1000 400 keppra 100 100 Tube Feeding 150 480 Other 50 100 Output: Urine 2049 1400 Urethral (Holliday) 2049 1400 Other 0 0 Other: # Bowel Movements 0 1 - Medications Active Medications: Active Medications Generic Name Dose Route Start Last Admin Trade Name Freq PRN Reason Stop Dose Admin Acetaminophen 650 mg 09/06/18 11:12 Tylenol 325mg Tab PO Q4 PRN Fever >100.4 F Famotidine 20 mg 09/04/18 10:45 09/06/18 09:35 Pepcid IVP 20 mg DAILY CLAY Administration Nicardipine HCl 20 mg in 200 mls @ 50 mls/hr 09/01/18 14:48 09/06/18 13:40 Cardene Iv Premix IV 15 mg/hr .Q4H PRN 150 mls/hr TITRATE PER MD ORDER Administration Protocol 5 MG/HR Propofol 1,000 mg in 100 mls @ 2.005 mls/hr 09/01/18 16:49 09/06/18 07:09 Diprivan IV 0 mcg/kg/min .Q24H PRN 0 mls/hr TITRATE PER MD ORDER Titration Protocol 5 MCG/KG/MIN Levetiracetam 750 mg/ Sodium 107.5 mls @ 215 mls/hr 09/04/18 10:00 09/06/18 10:32 Chloride IVPB 215 mls/hr Q12 CLAY Administration Labetalol HCl 20 mg 08/31/18 21:26 09/05/18 01:07 Trandate IV 20 mg Q2H PRN Administration Hypertension - Patient Studies Lab Studies: Microbiology Studies 09/02/18 09:50 Blood Culture - Preliminary Blood NO GROWTH AFTER 4 DAYS Lab Studies 09/06/18 09/06/18 09/06/18 Range/Units 11:02 07:51 05:40 WBC (4.5-11.0) 10^3/uL RBC (3.5-6.1) 10^6/uL Hgb (12.0-16.0) g/dL Hct (36.0-48.0) % MCV (80.0-105.0) fl MCH (25.0-35.0) pg MCHC (31.0-37.0) g/dl RDW (11.5-14.5) % Plt Count (120.0-450.0) 10^3/uL MPV (7.0-11.0) fl pCO2 34 L (35-45) mm/Hg pO2 107.0 H (80-100) mm/Hg HCO3 25.9 (21-28) mmol/L ABG pH 7.49 H (7.35-7.45) ABG Total CO2 26.9 (22-28) mmol.L ABG O2 Saturation 99.8 H (95-98) % ABG O2 Content 13.9 L (15-23) ML/dl ABG Base Excess 2.7 (-2.0-3.0) mmol/L ABG Hemoglobin 10.1 L (11.7-17.4) g/dL ABG Carboxyhemoglobin 1.9 H (0.5-1.5) % POC ABG HHb (Measured) 0.2 (0-5) % ABG Methemoglobin 1.0 (0.0-3.0) % ABG O2 Capacity 13.9 L (16-24) mL/dl Hgb O2 Saturation 96.9 (95.0-98.0) % FiO2 40.0 % Sodium (132-148) mmol/L Potassium (3.6-5.0) mmol/L Chloride (98-107) mmol/L Carbon Dioxide (21-33) mmol/L Anion Gap (10-20) BUN (7-21) mg/dL Creatinine (0.7-1.2) mg/dl Est GFR ( Amer) Est GFR (Non-Af Amer) POC Glucose (mg/dL) 129 H 157 H (65-110) mg/dL Random Glucose (70-110) mg/dL Calcium (8.4-10.5) mg/dL Phosphorus (2.5-4.5) mg/dL Magnesium (1.7-2.2) mg/dL Total Bilirubin (0.2-1.3) mg/dL AST (14-36) U/L ALT (7-56) U/L Alkaline Phosphatase (38-126) U/L Total Protein (5.8-8.3) g/dL Albumin (3.0-4.8) g/dL Globulin gm/dL Albumin/Globulin Ratio (1.1-1.8) 09/06/18 09/06/18 09/05/18 Range/Units 05:30 05:30 22:03 WBC 7.7 (4.5-11.0) 10^3/uL RBC 4.92 (3.5-6.1) 10^6/uL Hgb 9.6 L (12.0-16.0) g/dL Hct 30.4 L (36.0-48.0) % MCV 61.8 L (80.0-105.0) fl MCH 19.5 L (25.0-35.0) pg MCHC 31.6 (31.0-37.0) g/dl RDW 15.8 H (11.5-14.5) % Plt Count 210 (120.0-450.0) 10^3/uL MPV 9.6 (7.0-11.0) fl pCO2 (35-45) mm/Hg pO2 (80-100) mm/Hg HCO3 (21-28) mmol/L ABG pH (7.35-7.45) ABG Total CO2 (22-28) mmol.L ABG O2 Saturation (95-98) % ABG O2 Content (15-23) ML/dl ABG Base Excess (-2.0-3.0) mmol/L ABG Hemoglobin (11.7-17.4) g/dL ABG Carboxyhemoglobin (0.5-1.5) % POC ABG HHb (Measured) (0-5) % ABG Methemoglobin (0.0-3.0) % ABG O2 Capacity (16-24) mL/dl Hgb O2 Saturation (95.0-98.0) % FiO2 % Sodium 143 (132-148) mmol/L Potassium 3.3 L (3.6-5.0) mmol/L Chloride 108 H (98-107) mmol/L Carbon Dioxide 29 (21-33) mmol/L Anion Gap 10 (10-20) BUN 14 (7-21) mg/dL Creatinine 0.5 L (0.7-1.2) mg/dl Est GFR ( Amer) > 60 Est GFR (Non-Af Amer) > 60 POC Glucose (mg/dL) 170 H (65-110) mg/dL Random Glucose 148 H (70-110) mg/dL Calcium 9.0 (8.4-10.5) mg/dL Phosphorus 3.1 (2.5-4.5) mg/dL Magnesium 2.2 (1.7-2.2) mg/dL Total Bilirubin 0.4 (0.2-1.3) mg/dL AST 46 H D (14-36) U/L ALT 28 (7-56) U/L Alkaline Phosphatase 105 (38-126) U/L Total Protein 6.6 (5.8-8.3) g/dL Albumin 3.2 (3.0-4.8) g/dL Globulin 3.4 gm/dL Albumin/Globulin Ratio 1.0 L (1.1-1.8) 09/05/18 Range/Units 16:03 WBC (4.5-11.0) 10^3/uL RBC (3.5-6.1) 10^6/uL Hgb (12.0-16.0) g/dL Hct (36.0-48.0) % MCV (80.0-105.0) fl MCH (25.0-35.0) pg MCHC (31.0-37.0) g/dl RDW (11.5-14.5) % Plt Count (120.0-450.0) 10^3/uL MPV (7.0-11.0) fl pCO2 (35-45) mm/Hg pO2 (80-100) mm/Hg HCO3 (21-28) mmol/L ABG pH (7.35-7.45) ABG Total CO2 (22-28) mmol.L ABG O2 Saturation (95-98) % ABG O2 Content (15-23) ML/dl ABG Base Excess (-2.0-3.0) mmol/L ABG Hemoglobin (11.7-17.4) g/dL ABG Carboxyhemoglobin (0.5-1.5) % POC ABG HHb (Measured) (0-5) % ABG Methemoglobin (0.0-3.0) % ABG O2 Capacity (16-24) mL/dl Hgb O2 Saturation (95.0-98.0) % FiO2 % Sodium (132-148) mmol/L Potassium (3.6-5.0) mmol/L Chloride (98-107) mmol/L Carbon Dioxide (21-33) mmol/L Anion Gap (10-20) BUN (7-21) mg/dL Creatinine (0.7-1.2) mg/dl Est GFR ( Amer) Est GFR (Non-Af Amer) POC Glucose (mg/dL) 144 H (65-110) mg/dL Random Glucose (70-110) mg/dL Calcium (8.4-10.5) mg/dL Phosphorus (2.5-4.5) mg/dL Magnesium (1.7-2.2) mg/dL Total Bilirubin (0.2-1.3) mg/dL AST (14-36) U/L ALT (7-56) U/L Alkaline Phosphatase (38-126) U/L Total Protein (5.8-8.3) g/dL Albumin (3.0-4.8) g/dL Globulin gm/dL Albumin/Globulin Ratio (1.1-1.8) Laboratory Results - last 24 hr 09/05/18 09/05/18 09/06/18 16:03 22:03 05:30 WBC 7.7 RBC 4.92 Hgb 9.6 L Hct 30.4 L MCV 61.8 L MCH 19.5 L MCHC 31.6 RDW 15.8 H Plt Count 210 MPV 9.6 pCO2 pO2 HCO3 ABG pH ABG Total CO2 ABG O2 Saturation ABG O2 Content ABG Base Excess ABG Hemoglobin ABG Carboxyhemoglobin POC ABG HHb (Measured) ABG Methemoglobin ABG O2 Capacity Hgb O2 Saturation FiO2 Sodium Potassium Chloride Carbon Dioxide Anion Gap BUN Creatinine Est GFR ( Amer) Est GFR (Non-Af Amer) POC Glucose (mg/dL) 144 H 170 H Random Glucose Calcium Phosphorus Magnesium Total Bilirubin AST ALT Alkaline Phosphatase Total Protein Albumin Globulin Albumin/Globulin Ratio 09/06/18 09/06/18 09/06/18 05:30 05:40 07:51 WBC RBC Hgb Hct MCV MCH MCHC RDW Plt Count MPV pCO2 34 L pO2 107.0 H HCO3 25.9 ABG pH 7.49 H ABG Total CO2 26.9 ABG O2 Saturation 99.8 H ABG O2 Content 13.9 L ABG Base Excess 2.7 ABG Hemoglobin 10.1 L ABG Carboxyhemoglobin 1.9 H POC ABG HHb (Measured) 0.2 ABG Methemoglobin 1.0 ABG O2 Capacity 13.9 L Hgb O2 Saturation 96.9 FiO2 40.0 Sodium 143 Potassium 3.3 L Chloride 108 H Carbon Dioxide 29 Anion Gap 10 BUN 14 Creatinine 0.5 L Est GFR ( Amer) > 60 Est GFR (Non-Af Amer) > 60 POC Glucose (mg/dL) 157 H Random Glucose 148 H Calcium 9.0 Phosphorus 3.1 Magnesium 2.2 Total Bilirubin 0.4 AST 46 H D ALT 28 Alkaline Phosphatase 105 Total Protein 6.6 Albumin 3.2 Globulin 3.4 Albumin/Globulin Ratio 1.0 L 09/06/18 11:02 WBC RBC Hgb Hct MCV MCH MCHC RDW Plt Count MPV pCO2 pO2 HCO3 ABG pH ABG Total CO2 ABG O2 Saturation ABG O2 Content ABG Base Excess ABG Hemoglobin ABG Carboxyhemoglobin POC ABG HHb (Measured) ABG Methemoglobin ABG O2 Capacity Hgb O2 Saturation FiO2 Sodium Potassium Chloride Carbon Dioxide Anion Gap BUN Creatinine Est GFR ( Amer) Est GFR (Non-Af Amer) POC Glucose (mg/dL) 129 H Random Glucose Calcium Phosphorus Magnesium Total Bilirubin AST ALT Alkaline Phosphatase Total Protein Albumin Globulin Albumin/Globulin Ratio Radiology Impressions: Radiology Impressions Chest X-Ray 09/06/18 09:21 IMPRESSION: Right perihilar infiltrate unchanged Critical Care Progress Note - Nutrition Nutrition: Nutrition Category Date Time Status NPO Diet [DIET] Diets 08/30/18 Dinner Ordered Assessment/Plan - Assessment and Plan (Free Text) Plan: Patient see and examined on rounds with resident, agree with note with following additions/exceptions: Patient is 63yo female with PMHx migraines presents to [facility] [place] for left-sided deficits, found to have large Right IPH. This morning, neurological exam has improved, opens eyes, follows commands. On 09/03 had OR evacuation of IPH by neurosurgery EEG negative Cultures thus far neg, procal neg, CXR normal OFF Abx Passes SBT, ABG acceptable, CXR clear, but is still not fully awake to be safely extubated, may require tracheostomy IPH with midline shift Resp failure Recommend: - cont with vent support, avoid barotrauma, daily CPAP trial, ABG, CXR - Maintain SBp 120-140 - feeds - Fever control - FS control - cont surgery for possible tracheostomy - IV Tylenol, Cooling blanket as needed, maintain euthermia - GI ppx, Pepcid - DVT ppx, SCDs - Monitor in MICU Critical care time 30 minutes Prognosis is guarded
[2018-09-06] MEDS ORDERED: Potassium Chloride 20 mEq/15 ml LIQ UD PO STA (11:02)
--- NOTE | 2018-09-06 12:38 | CP.PCM.PN ---
<Puneet Shankar - Last Filed: 09/06/18 12:35> Subjective - Date & Time of Evaluation Date of Evaluation: 09/06/18 Time of Evaluation: 12:35 - Subjective Subjective: PGY-2 medicine progress note for Dr Narayan No acute events noted overnight. Patient now on tube feeds. Able to intermittently follow commands such as squeezing right hand when prompted. Still unable to open her eyes. Sedation vacation planned today. Objective - Vital Signs/Intake and Output Vital Signs (last 24 hours): Temp Pulse Resp BP Pulse Ox 98.6 F 75 20 124/58 L 98 09/06/18 04:00 09/06/18 06:00 09/05/18 19:28 09/05/18 20:30 09/05/18 20:30 Intake and Output: 09/06/18 09/06/18 06:59 18:59 Intake Total 2769 210 Output Total 1400 Balance 1369 210 - Medications Medications: Current Medications Acetaminophen (Tylenol 325mg Tab) 650 mg PO Q4 PRN PRN Reason: Fever >100.4 F Famotidine (Pepcid) 20 mg IVP DAILY [facility] Last Admin: 09/06/18 09:35 Dose: 20 mg Nicardipine HCl (Cardene Iv Premix) 20 mg in 200 mls @ 50 mls/hr IV .Q4H PRN; Protocol PRN Reason: TITRATE PER MD ORDER Last Titration: 09/06/18 09:45 Dose: 10 mg/hr, 100 mls/hr Propofol (Diprivan) 1,000 mg in 100 mls @ 2.005 mls/hr IV .Q24H PRN; Protocol PRN Reason: TITRATE PER MD ORDER Last Titration: 09/06/18 07:09 Dose: 0 mcg/kg/min, 0 mls/hr Levetiracetam 750 mg/ Sodium (Chloride) 107.5 mls @ 215 mls/hr IVPB Q12 [facility] Last Admin: 09/06/18 10:32 Dose: 215 mls/hr Potassium Chloride (Potassium Chloride 10 Meq/100 Ml) 10 meq in 100 mls @ 50 mls/hr IVPB Q2H [facility] Stop: 09/06/18 16:44 Labetalol HCl (Trandate) 20 mg IV Q2H PRN PRN Reason: Hypertension Last Admin: 09/05/18 01:07 Dose: 20 mg - Labs Labs: 09/06/18 05:30 09/06/18 05:30 PT 11.5 SECONDS (9.4-12.5) 08/30/18 15:05 INR 1.04 08/30/18 15:05 APTT 33.6 Seconds (26.9-38.3) 08/30/18 15:05 - Additional Findings Additional findings: - Constitutional Appears: Well, No Acute Distress - Head Exam Head Exam: ATRAUMATIC, NORMAL INSPECTION - Eye Exam Eye Exam: EOMI, Normal appearance, PERRL - ENT Exam ENT Exam: Mucous Membranes Moist - Respiratory Exam Respiratory Exam: Clear to Ausculation Bilateral, NORMAL BREATHING PATTERN. absent: Rales, Rhonchi, Wheezes - Cardiovascular Exam Cardiovascular Exam: REGULAR RHYTHM, +S1, +S2. absent: Tachycardia, Murmur - GI/Abdominal Exam GI & Abdominal Exam: Soft, Normal Bowel Sounds. absent: Tenderness - Extremities Exam Extremities Exam: Normal Capillary Refill, Pedal Edema. absent: Full ROM - Neurological Exam Neurological Exam: absent: Awake Additional comments: Obeys verbal commands, Moves RLE , RUE spontaneously, squeezes fingers, raises eyebrows. PERRL. No LUE/LLE movement upon commands. Facial droop present - Skin Skin Exam: Normal Color, Warm Assessment and Plan - Assessment and Plan (Free Text) Plan: Mrs Pimentel is a 63 year old female with a PMHx of migraines who had a hemorrhagic stroke in our vascular lab while her was having a procedure done: #Hemorrhagic Stroke -CT head showed initial frontal parietal lobe hematoma of 4 x 3.8cm that increased in size and resulted in increased midline shift with significant mass effect as showed by subsequent CT head scans -hypertonic therapy was initially tried to control edema however sodium failed to increase to goal of 145-150 - hypertonic saline was discontinued and mannitol taper was given -on 09/03 patient clinically worsened and neurosurgery took her to OR for evacuation -she is on prophylactic seizure medication keppra 750mg ivpb q12h * EEG performed 09/03 showed findings consistent with focal cortical abnormality -consulted neurosurgery, Dr Paula * no need for frequent CT's - order CT head if clinical decline -consulted neurology, Dr Gutierrez #Fever of Unknown Origin -possibly 2/2 central fevers; r/o infectious causes -procalc negative, blood cx negative up to date, urine cx negative, repeat procalc negative -f/u echo to assess for vegetations * normal EF, grade I-abnormal relaxation pattern, AV and MV are not well visualized, mild pulm HTN -f/u cxr 09/04 * improved right lower lobe infiltrate -on cefepime 2g ivpb q12h (started 09/02) and vancomycin 1g ivpb q12h (started 09/02 - discontinued 09/05) -tylenol iv to control fevers -ID consulted, Dr Henriquez #Respiratory Distress -intubated on 09/01 due to labored and agonal breathing and mucous coated vocal cords discovered - likely unable to clear secretions -vacation sedation planned as per neurosurgery and ICU attending -sedate with propofol #Iron Deficiency Anemia -f/u iron studies -iron studies indicate iron deficiency anemia with overlying dilutional component with blood loss from craniotomy possibly contributing #Hypokalemia -replete with riders and potassium additive to NS 1L, will switch to 1/2NS after to replace urinary free water losses #HTN -nicardipine drip #PPX -pepcid 20mg ivp qd Discussed with Dr Narayan <Santy Narayan S - Last Filed: 09/06/18 18:47> Objective - Vital Signs/Intake and Output Vital Signs (last 24 hours): Temp Pulse Resp BP Pulse Ox 99.5 F 96 H 20 132/68 98 09/06/18 16:00 09/06/18 16:00 09/05/18 19:28 09/06/18 16:00 09/06/18 16:00 Intake and Output: 09/06/18 09/06/18 06:59 18:59 Intake Total 2769 1210 Output Total 1400 Balance 1369 1210 - Medications Medications: Current Medications Acetaminophen (Tylenol 325mg Tab) 650 mg PO Q4 PRN PRN Reason: Fever >100.4 F Famotidine (Pepcid) 20 mg IVP DAILY [facility] Last Admin: 09/06/18 09:35 Dose: 20 mg Nicardipine HCl (Cardene Iv Premix) 20 mg in 200 mls @ 50 mls/hr IV .Q4H PRN; Protocol PRN Reason: TITRATE PER MD ORDER Last Admin: 09/06/18 18:05 Dose: 15 mg/hr, 150 mls/hr Propofol (Diprivan) 1,000 mg in 100 mls @ 2.005 mls/hr IV .Q24H PRN; Protocol PRN Reason: TITRATE PER MD ORDER Last Titration: 09/06/18 16:06 Dose: 5 mcg/kg/min, 2.005 mls/hr Levetiracetam 750 mg/ Sodium (Chloride) 107.5 mls @ 215 mls/hr IVPB Q12 [facility] Last Admin: 09/06/18 10:32 Dose: 215 mls/hr Labetalol HCl (Trandate) 20 mg IV Q2H PRN PRN Reason: Hypertension Last Admin: 09/05/18 01:07 Dose: 20 mg - Labs Labs: 09/06/18 05:30 09/06/18 05:30 PT 11.5 SECONDS (9.4-12.5) 08/30/18 15:05 INR 1.04 08/30/18 15:05 APTT 33.6 Seconds (26.9-38.3) 08/30/18 15:05 Assessment and Plan - Assessment and Plan (Free Text) Plan: Pt seen and examined by me. I have reviewed the note of the medical cash poster and I agree with it. I have discussed the assessment and plan with the resident. I have reviewed the medications and the last labs. Pt with CVA s/p evacuation. She remains on the vent for her resp failuare and has been placed on CPAP for weaning trial. She is responding well enough off sedation to be extubated She is on Propofol. She has fevers and is on Abx. She may have central fevers. She is on IVF. prognosis is guarded
--- NOTE | 2018-09-06 13:25 | CP.PCM.PN ---
Subjective - Date & Time of Evaluation Date of Evaluation: 09/06/18 Time of Evaluation: 09:50 - Subjective Subjective: Still on the ventilator, a little more responsive today, no fevers this morning, follows some simple commands. Objective - Vital Signs/Intake and Output Vital Signs (last 24 hours): Temp Pulse Resp BP Pulse Ox 100.3 F H 125 H 25 H 136/78 99 09/04/18 16:00 09/05/18 08:50 09/03/18 11:30 09/05/18 03:00 09/05/18 03:10 Intake and Output: 09/05/18 09/05/18 06:59 18:59 Intake Total 2477 410 Output Total 2100 Balance 377 410 - Medications Medications: Current Medications Famotidine (Pepcid) 20 mg IVP DAILY [facility] Last Admin: 09/05/18 09:09 Dose: 20 mg Nicardipine HCl (Cardene Iv Premix) 20 mg in 200 mls @ 50 mls/hr IV .Q4H PRN; Protocol PRN Reason: TITRATE PER MD ORDER Last Admin: 09/05/18 12:20 Dose: 7.5 mg/hr, 75 mls/hr Propofol (Diprivan) 1,000 mg in 100 mls @ 2.005 mls/hr IV .Q24H PRN; Protocol PRN Reason: TITRATE PER MD ORDER Last Titration: 09/05/18 07:35 Dose: 0 mcg/kg/min, 0 mls/hr Vancomycin HCl (Vancomycin 1gm) 1 gm in 250 mls @ 167 mls/hr IVPB Q12H [facility]; Protocol Last Admin: 09/05/18 06:30 Dose: 167 mls/hr Cefepime HCl (Maxipime 2gm) 2 gm in 100 mls @ 100 mls/hr IVPB Q12H [facility]; Protocol Stop: 09/07/18 17:24 Last Admin: 09/05/18 06:37 Dose: 100 mls/hr Levetiracetam 750 mg/ Sodium (Chloride) 107.5 mls @ 215 mls/hr IVPB Q12 [facility] Last Admin: 09/05/18 09:26 Dose: 215 mls/hr Acetaminophen (Ofirmev) 1,000 mg in 100 mls @ 400 mls/hr IVPB Q6H PRN PRN Reason: Temperature Stop: 09/06/18 08:20 Last Admin: 09/04/18 14:52 Dose: 400 mls/hr Sodium Chloride (Sodium Chloride 0.45%) 1,000 mls @ 80 mls/hr IV .[id number] [facility] Stop: 09/06/18 13:29 Potassium Chloride 60 meq/ (Sodium Chloride) 1,030 mls @ 80 mls/hr IV .[id number] [facility] Stop: 09/06/18 00:37 Last Admin: 09/05/18 12:00 Dose: 80 mls/hr Labetalol HCl (Trandate) 20 mg IV Q2H PRN PRN Reason: Hypertension Last Admin: 09/05/18 01:07 Dose: 20 mg - Labs Labs: 09/05/18 05:30 09/05/18 05:30 PT 11.5 SECONDS (9.4-12.5) 08/30/18 15:05 INR 1.04 08/30/18 15:05 APTT 33.6 Seconds (26.9-38.3) 08/30/18 15:05 - Constitutional Appears: Chronically Ill, Other (intubated) - Head Exam Additional comments: right sided dressings in place - ENT Exam Additional comments: ET tube in place - Respiratory Exam Respiratory Exam: Decreased Breath Sounds - Cardiovascular Exam Cardiovascular Exam: +S1, +S2 - GI/Abdominal Exam GI & Abdominal Exam: Soft. absent: Tenderness Assessment and Plan - Assessment and Plan (Free Text) Plan: Assessment Systemic inflammatory response syndrome with fevers, probably due to right frontoparietal heomrrhagic CVA S/P right craniectomy and partial evacuation of hemorrhage POD #3, no evidence of sepsis identified history of migraines Plan will d/c Vancomycin and Cefepime; blood cx are negative, urine cx as week; CXR does not show infiltrates will continue to monitor clinically off antibiotics discussed with family at bedside
[2018-09-07] MEDS: Nicardipine 20 MG/200 ML 20 MG/200 ML BAG IV PRN ×4 (04:31→17:19)
[2018-09-07 06:21] LABS: HEMOGLOBIN 10.2 g/dL (12.0-16.0); MEAN CELL VOLUME 61.4 fl (80.0-105.0); MEAN CORPUSCULAR HEMOGLOBIN 19.8 pg (25.0-35.0); MEAN CORPUSCULAR HGB CONC 32.3 g/dl (31.0-37.0); MEAN PLATELET VOLUME 9.5 fl (7.0-11.0); RBC 5.15 10^6/uL (3.5-6.1); RED CELL DISTRIBUTION WIDTH 15.5 % (11.5-14.5); WHITE BLOOD COUNT 10.4 10^3/uL (4.5-11.0)
[2018-09-07 06:28] LABS: ALB/GLOB RATIO 0.9 (1.1-1.8); ALBUMIN 3.2 g/dL (3.0-4.8); ALT/SGPT 37 U/L (7-56); AST/SGOT 45 U/L (14-36); BLOOD UREA NITROGEN 13 mg/dL (7-21); CALCIUM 9.2 mg/dL (8.4-10.5); GFR NON-AFRICAN AMERICAN > 60
[2018-09-07 07:16] LABS: ARTERIAL BLOOD GAS HCO3 26.5 mmol/L (21-28); ARTERIAL BLOOD GAS HEMOGLOBIN 10.1 g/dL (11.7-17.4); ARTERIAL BLOOD GAS O2 CAPACITY 13.8 mL/dl (16-24); ARTERIAL BLOOD GAS O2 CONTENT 13.4 ML/dl (15-23); ARTERIAL BLOOD GAS O2 SAT 96.8 % (95-98); ARTERIAL BLOOD GAS PCO2 34 mm/Hg (35-45); ARTERIAL BLOOD GAS TCO2 27.5 mmol.L (22-28)
--- NOTE | 2018-09-07 08:20 | CP.PCM.CON ---
History of Present Illness - History of Present Illness History of Present Illness: Surgery: Dr. Angulo CC: Vent dependent respiratory failure HPI: 63F with pmh of migraine headaches, presenting to ED on 08/30/18 with left- sided weakness, left-sided facial droop, and slurred speech. In the ED, patient was found to have a 4x3.8 cm parenchymal hematoma in the right frontoparietal lobe with surrounding edema. Pt underwent craniotomy on 09/03 for evacuation of hematoma, and has had vent dependent respiratory failure since, for which surgery has been consulted. PMH: Migraines PSH: Denied Meds: MAR reviewed ALL: Iodinated Contrast dye SH: Denied tobacco, EtOH, and illicit drug use FHx: CAD, CHF Review of Systems - Review of Systems Systems not reviewed;Unavailable: Altered Mental Status, Intubated Past Patient History - Past Social History Smoking Status: Never Smoked - CARDIAC Hx Pacemaker: No - PULMONARY Hx Respiratory Disorders: No - NEUROLOGICAL Hx Neurological Disorder: Yes (INTRACRANIAL HEMORRHAGE-HAS A 4 X 3.8 CM PARENCHYMAL HEMATOMA) Hx Migraine: Yes Other/Comment: 08-30-18 L SIDED WEAKNESS,L FACIAL DROOP,DYSARTHRIA,L HOMONYMOUS HEMIANOPSIA,L HEMIPHLEGIA. - HEENT Hx HEENT Problems: Yes (L HOMONYMOUR HEMIANOPSIA.) - RENAL Hx Chronic Kidney Disease: No - ENDOCRINE/METABOLIC Hx Endocrine Disorders: No - HEMATOLOGICAL/ONCOLOGICAL Hx Cancer: No - INTEGUMENTARY Hx Dermatological Problems: No - MUSCULOSKELETAL/RHEUMATOLOGICAL Hx Musculoskeletal Disorders: No Hx Falls: No - GASTROINTESTINAL Hx Gastrointestinal Disorders: No - GENITOURINARY/GYNECOLOGICAL Hx Genitourinary Disorders: Yes Hx Urinary Tract Infection: Yes - PSYCHIATRIC Hx Psychophysiologic Disorder: No Hx Substance Use: No - SURGICAL HISTORY Hx Mastectomy: No Meds Allergies/Adverse Reactions: Allergies Allergy/AdvReac Type Severity Reaction Status Date / Time Iodinated Contrast- Oral and AdvReac SHORTNESS Verified 08/30/18 18:43 IV Dye OF BREATH - Medications Medications: Current Medications Acetaminophen (Tylenol 325mg Tab) 650 mg PO Q4 PRN PRN Reason: Fever >100.4 F Famotidine (Pepcid) 20 mg IVP DAILY [facility] Last Admin: 09/06/18 09:35 Dose: 20 mg Nicardipine HCl (Cardene Iv Premix) 20 mg in 200 mls @ 50 mls/hr IV .Q4H PRN; Protocol PRN Reason: TITRATE PER MD ORDER Last Admin: 09/07/18 08:10 Dose: 10 mg/hr, 100 mls/hr Propofol (Diprivan) 1,000 mg in 100 mls @ 2.005 mls/hr IV .Q24H PRN; Protocol PRN Reason: TITRATE PER MD ORDER Last Titration: 09/06/18 16:06 Dose: 5 mcg/kg/min, 2.005 mls/hr Levetiracetam 750 mg/ Sodium (Chloride) 107.5 mls @ 215 mls/hr IVPB Q12 [facility] Last Admin: 09/06/18 22:44 Dose: 215 mls/hr Acetaminophen (Ofirmev) 1,000 mg in 100 mls @ 400 mls/hr IVPB Q6H PRN PRN Reason: Temperature Stop: 09/09/18 00:31 Last Admin: 09/07/18 00:51 Dose: 400 mls/hr Labetalol HCl (Trandate) 20 mg IV Q2H PRN PRN Reason: Hypertension Last Admin: 09/05/18 01:07 Dose: 20 mg Physical Exam - Constitutional Appears: Non-toxic, No Acute Distress - Head Exam Additional comments: R scalp dressing, C/D/I - ENT Exam ENT Exam: Mucous Membranes Moist - Respiratory Exam Additional comments: intubated - Cardiovascular Exam Cardiovascular Exam: REGULAR RHYTHM - GI/Abdominal Exam GI & Abdominal Exam: Soft. absent: Tenderness - Extremities Exam Extremities exam: Negative for: calf tenderness, pedal edema - Neurological Exam Neurological exam: Alert, Oriented x3 Results - Vital Signs Recent Vital Signs: Last Vital Signs Temp 99.7 F H 09/07/18 04:00 Pulse 79 09/07/18 04:00 Resp 18 09/07/18 04:00 BP 126/65 09/07/18 04:00 Pulse Ox 93 L 09/06/18 19:14 - Labs Result Diagrams: 09/07/18 05:00 09/07/18 05:00 Labs: Laboratory Results - last 24 hr 09/06/18 09/06/18 09/07/18 11:02 15:40 05:00 WBC 10.4 D RBC 5.15 Hgb 10.2 L Hct 31.6 L MCV 61.4 L MCH 19.8 L MCHC 32.3 RDW 15.5 H Plt Count 229 MPV 9.5 pCO2 pO2 HCO3 ABG pH ABG Total CO2 ABG O2 Saturation ABG O2 Content ABG Base Excess ABG Hemoglobin ABG Carboxyhemoglobin POC ABG HHb (Measured) ABG Methemoglobin ABG O2 Capacity Hgb O2 Saturation FiO2 Sodium Potassium Chloride Carbon Dioxide Anion Gap BUN Creatinine Est GFR ( Amer) Est GFR (Non-Af Amer) POC Glucose (mg/dL) 129 H 182 H Random Glucose Calcium Phosphorus Magnesium Total Bilirubin AST ALT Alkaline Phosphatase Total Protein Albumin Globulin Albumin/Globulin Ratio 09/07/18 09/07/18 05:00 07:00 WBC RBC Hgb Hct MCV MCH MCHC RDW Plt Count MPV pCO2 34 L pO2 65.0 L HCO3 26.5 ABG pH 7.50 H ABG Total CO2 27.5 ABG O2 Saturation 96.8 ABG O2 Content 13.4 L ABG Base Excess 3.4 H ABG Hemoglobin 10.1 L ABG Carboxyhemoglobin 1.9 H POC ABG HHb (Measured) 3.1 ABG Methemoglobin 0.9 ABG O2 Capacity 13.8 L Hgb O2 Saturation 94.1 L FiO2 40.0 Sodium 142 Potassium 3.4 L Chloride 103 Carbon Dioxide 31 Anion Gap 11 BUN 13 Creatinine 0.5 L Est GFR ( Amer) > 60 Est GFR (Non-Af Amer) > 60 POC Glucose (mg/dL) Random Glucose 155 H Calcium 9.2 Phosphorus 4.0 Magnesium 2.3 H Total Bilirubin 0.5 AST 45 H ALT 37 Alkaline Phosphatase 99 Total Protein 6.7 Albumin 3.2 Globulin 3.4 Albumin/Globulin Ratio 0.9 L - Imaging and Cardiology CT scan - head Status: Image reviewed by me, Report reviewed by me Assessment & Plan - Assessment and Plan (Free Text) Assessment: 63F w. R side hemorrhagic stroke, s/p evacuation of hematoma, now w. vent dependent respiratory failure -will plan for trach on Sunday -c/w current medical management -d/w marcell Layne PGY4
--- NOTE | 2018-09-07 12:42 | PN ---
DATE: 09/07/2018 SUBJECTIVE: The patient has no complaints, the patient is intubated. PHYSICAL EXAMINATION: VITAL SIGNS: Temperature is 99.7, pulse of 79, blood pressure 126/65, respirations 18, O2 saturations 60. GENERAL: The patient is lying in bed, flat, comfortable. HEENT: No oral lesion. Anicteric sclerae. Moist mucosa. The patient is intubated. NECK: No JVD, adenopathy, or thyromegaly. CARDIOVASCULAR: S1 and S2, regular. No murmurs, rubs, or gallops. LUNGS: Clear to auscultation bilaterally. No wheeze, rales, or rhonchi. ABDOMEN: Bowel sounds are positive, soft, nontender and nondistended. EXTREMITIES: no cyanosis, clubbing or edema. ASSESSMENT: 1. Hemorrhagic stroke of the left parietal lobe, status post evacuation. 2. Fevers. 3. Respiratory failure, on ventilator. 4. Iron deficiency anemia. 5. Hypokalemia. 6. Hypertension. PLAN: The patient has a hemoglobin of 10.2. The patient's potassium is 3.4. She is going to continue on Keppra for seizure prophylaxis. She is on Pepcid daily. She is going to be continue on propofol for sedation. She is on the ventilator. She remains n.p.o., but has been started on tube feedings. She remains critically ill in the ICU. Santy Narayan MD
--- NOTE | 2018-09-07 13:59 | PN ---
DATE: 09/07/2018 SUBJECTIVE: The patient is sedated on the ventilator, fairly unresponsive at this time. She has a FIO2 of 40%. Note, the patient is scheduled for tracheostomy on Sunday. PHYSICAL EXAMINATION: VITAL SIGNS: Temperature is 99.7, her pulse is 79, respirations are 18 and BP is 126/65. SKIN: Warm and dry. HEENT: Head: Atraumatic, normocephalic. Eyes: No change. Ear, nose and throat seemed to be within normal limits. NECK: Supple. No JVD. No thyroid enlargement, no lymph nodes. HEART: Has regular rate and rhythm. Normal S1, S2. LUNGS: Reveal fairly good breath sounds bilaterally. ABDOMEN: Soft, nontender. Normal bowel sounds. No organomegaly noted. GENITALIA AND RECTAL: Deferred. MUSCULOSKELETAL: No joint deformities. EXTREMITIES: Trace lower extremity edema. NEUROLOGIC: The patient is ventilator dependent and fairly unresponsive at this time. LABORATORY DATA: Her white count is 10.4, hemoglobin is 10.2, hematocrit is 31.6 with platelets of 229,000. Her arterial blood gas reveals a pH of 7.5, pCO2 of 34, pO2 of 65. Her sodium is 142, potassium 3.4, chloride 103, CO2 of 31 with a BUN of 13, creatinine of 0.5 and a glucose of 136. IMPRESSION: The patient has intracranial hemorrhage and is status post craniotomy on the right. The craniotomy was for a hematoma of the right frontoparietal area. The patient has a history of migraines and is noted to have anemia at this time. She has respiratory failure requiring ventilator support. PLAN: We will continue with respiratory support via the ventilator. Continue with aggressive pulmonary toilet and follow her chest x-ray and arterial blood gas closely. Note that the patient is scheduled for tracheostomy on Sunday. She is getting Keppra as well as nicardipine, Pepcid. She is on propofol and labetalol. We will continue to treat aggressively along with the other consultants and the primary care doctor. Robert Chamorro MD
--- NOTE | 2018-09-07 14:04 | PN ---
DATE: 09/07/2018 SUBJECTIVE: The patient is seen earlier today in 128, bed 3, intubated on a ventilator. She does have low-grade fevers with family member sitting in chair sleeping. PHYSICAL EXAMINATION VITAL SIGNS: Temperature is 100.9, heart rate of 101, respiratory rate on the vent, blood pressure is 153/70. HEENT: Examination of HEENT is unremarkable. NECK: Is supple. LUNGS: Have decreased breath sounds. HEART: Normal S1 and S2. ABDOMEN: Soft, nontender. LABORATORY EXAMINATION: Reveals the white count is 10.4, hemoglobin of 10, platelets of 229. BUN of 13, creatinine of 0.5. Microbiology: Urine culture is negative. MRSA screen is negative. Blood cultures are negative. Review of orders reveals the patient is off antibiotics. Dr. Ian Layne' consultation from this morning is reviewed trach on Sunday. ASSESSMENT AND PLAN: This is a 63-year-old woman seen earlier this morning in 128, bed 3 with respiratory failure, intubated on a ventilator with systemic inflammatory response syndrome secondary to right frontoparietal hemorrhagic cerebrovascular accident, status post right craniectomy, partial evacuation of the hemorrhage, post day #4 with no evidence of sepsis at this time with history of migraines, off antibiotics. Cultures negative. The patient did have a fever this morning of 100.9. The patient has been having fevers all along. Cultures from 09/02 were negative, we will repeat pancultures. She is at very high risk of developing nosocomial infections. We will order blood, urine, sputum, MRSA screen, and we will also order a procalcitonin. The patient had a chest x-ray yesterday, which is reviewed with the right perihilar infiltrate unchanged. We will repeat pancultures and procalcitonin and we will follow, off antibiotics for now. Wm Meneses MD
[2018-09-07] MEDS: Propofol 10 mg/ml 1,000 MG/100 ML VIAL IV PRN (17:24)
[2018-09-08] MEDS: Nicardipine 20 MG/200 ML 20 MG/200 ML BAG IV PRN ×4 (02:10→19:21)
[2018-09-08 05:46] LABS: ARTERIAL BLOOD GAS HCO3 28.4 mmol/L (21-28); ARTERIAL BLOOD GAS HEMOGLOBIN 9.7 g/dL (11.7-17.4); ARTERIAL BLOOD GAS O2 CAPACITY 13.3 mL/dl (16-24); ARTERIAL BLOOD GAS O2 CONTENT 13.2 ML/dl (15-23); ARTERIAL BLOOD GAS O2 SAT 98.9 % (95-98); ARTERIAL BLOOD GAS PCO2 31 mm/Hg (35-45); ARTERIAL BLOOD GAS PH 7.57 (7.35-7.45); ARTERIAL BLOOD GAS TCO2 29.4 mmol.L (22-28)
[2018-09-08 06:18] LABS: ALB/GLOB RATIO 0.9 (1.1-1.8); ALBUMIN 3.2 g/dL (3.0-4.8); ALT/SGPT 49 U/L (7-56); AST/SGOT 69 U/L (14-36); BLOOD UREA NITROGEN 15 mg/dL (7-21); CALCIUM 8.6 mg/dL (8.4-10.5); GFR NON-AFRICAN AMERICAN > 60
--- NOTE | 2018-09-08 08:45 | CP.PCM.PN ---
Subjective - Date & Time of Evaluation Date of Evaluation: 09/08/18 Time of Evaluation: 08:43 - Subjective Subjective: Surgery: Dr. Angulo Pt seen and examined. No acute events overnight. Remains intubated. Objective - Vital Signs/Intake and Output Vital Signs (last 24 hours): Temp Pulse Resp BP Pulse Ox 100.2 F H 101 H 27 H 146/76 97 09/08/18 07:50 09/08/18 07:50 09/08/18 04:10 09/08/18 07:45 09/08/18 07:50 Intake and Output: 09/08/18 09/08/18 06:59 18:59 Intake Total 1675 Output Total 1100 Balance 575 - Medications Medications: Current Medications Acetaminophen (Tylenol 325mg Tab) 650 mg PO Q4 PRN PRN Reason: Fever >100.4 F Famotidine (Pepcid) 20 mg IVP DAILY [facility] Last Admin: 09/07/18 12:21 Dose: 20 mg Nicardipine HCl (Cardene Iv Premix) 20 mg in 200 mls @ 50 mls/hr IV .Q4H PRN; Protocol PRN Reason: TITRATE PER MD ORDER Last Admin: 09/08/18 02:10 Dose: 2.5 mg/hr, 25 mls/hr Propofol (Diprivan) 1,000 mg in 100 mls @ 2.005 mls/hr IV .Q24H PRN; Protocol PRN Reason: TITRATE PER MD ORDER Last Admin: 09/07/18 17:24 Dose: 10 mcg/kg/min, 4.009 mls/hr Levetiracetam 750 mg/ Sodium (Chloride) 107.5 mls @ 215 mls/hr IVPB Q12 [facility] Last Admin: 09/07/18 21:15 Dose: 215 mls/hr Acetaminophen (Ofirmev) 1,000 mg in 100 mls @ 400 mls/hr IVPB Q6H PRN PRN Reason: Temperature Stop: 09/09/18 00:31 Last Admin: 09/07/18 00:51 Dose: 400 mls/hr Potassium Chloride (Potassium Chloride 20 Meq/100 Ml) 20 meq in 100 mls @ 50 mls/hr IVPB ONCE ONE Stop: 09/08/18 09:15 Labetalol HCl (Trandate) 20 mg IV Q2H PRN PRN Reason: Hypertension Last Admin: 09/05/18 01:07 Dose: 20 mg - Labs Labs: 09/07/18 05:00 09/08/18 05:00 PT 11.5 SECONDS (9.4-12.5) 08/30/18 15:05 INR 1.04 08/30/18 15:05 APTT 33.6 Seconds (26.9-38.3) 08/30/18 15:05 - Constitutional Appears: Non-toxic, No Acute Distress - Head Exam Additional comments: R head s/p craniotomy, dressing in place C/D/I - ENT Exam ENT Exam: Mucous Membranes Moist - Neck Exam Neck Exam: absent: Thyromegaly - Respiratory Exam Additional comments: Intubated - Cardiovascular Exam Cardiovascular Exam: Tachycardia - GI/Abdominal Exam GI & Abdominal Exam: Soft. absent: Distended, Firm, Guarding, Rigid, Tenderness - Extremities Exam Extremities Exam: absent: Calf Tenderness, Pedal Edema - Neurological Exam Neurological Exam: absent: Alert, Awake, Oriented x3 Assessment and Plan - Assessment and Plan (Free Text) Assessment: 63F w. R side hemorrhagic stroke, s/p evacuation of hematoma, now w. vent dependent respiratory failure -will plan for trach on Sunday -NPO at midnight/hold tube feeds -c/w current medical management -d/w attending Xi PGY4
[2018-09-08 10:10] LABS: BASO # 0.02 K/mm3 (0.0-2.0); BASO % 0.2 % (0.0-3.0); EOS # 0.1 (0.0-0.7); HEMOGLOBIN 9.8 g/dL (12.0-16.0); LYMPH # 0.9 (1.2-3.4); LYMPH % 7.3 % (22.0-35.0); MEAN CELL VOLUME 62.4 fl (80.0-105.0); MEAN CORPUSCULAR HEMOGLOBIN 19.7 pg (25.0-35.0); MEAN CORPUSCULAR HGB CONC 31.5 g/dl (31.0-37.0); MEAN PLATELET VOLUME 9.2 fl (7.0-11.0); MONO # 1.2 (0.1-0.6); MONO % 9.9 % (1.0-6.0); RBC 4.98 10^6/uL (3.5-6.1); RED CELL DISTRIBUTION WIDTH 15.9 % (11.5-14.5); WHITE BLOOD COUNT 12.2 10^3/uL (4.5-11.0)
--- NOTE | 2018-09-08 11:06 | RAD ---
Date of service: 09/08/2018 HISTORY: vent COMPARISON: 09/06/2018 FINDINGS: The endotracheal tube terminates in the mid trachea. The nasogastric tube terminates in the stomach. The right PICC line terminates in the SVC. LUNGS: The lungs are well inflated. There is worsening consolidation in the right lower lobe. No focal consolidation in the left lung. There is multifocal discoid atelectasis in the lungs. PLEURA: No pleural effusions or pneumothorax. CARDIOVASCULAR: The heart is normal in size. No aortic atherosclerotic calcifications present. OSSEOUS STRUCTURES: Within normal limits for the patient's age. VISUALIZED UPPER ABDOMEN: Normal. OTHER FINDINGS: None. IMPRESSION: Worsening right lower lobe pneumonia. Follow-up after medical management is recommended to ensure complete resolution. Stable position of support line and tubes.
[2018-09-08] MEDS: Propofol 10 mg/ml 1,000 MG/100 ML VIAL IV PRN (11:45)
[2018-09-08] MEDS: Vancomycin 1gm in NS 250ml 1 GM/250 ML BAG IVPB SCH (12:25)
--- NOTE | 2018-09-08 12:34 | PN ---
DATE: 09/08/2018 SUBJECTIVE: The patient is sedated with propofol on the ventilator and is unresponsive at this time. Her FIO2 on the ventilator is 40% and the patient is noted that she is scheduled for tracheostomy on Sunday. She is hemodynamically stable at this time. PHYSICAL EXAMINATION: VITAL SIGNS: Her temperature is 100.2, pulse is 101, respirations are 20 and BP is 146/76. SKIN: Warm and dry. HEENT: Head atraumatic, other than the surgical site, which has a large bandage and normocephalic. Eyes; no change. Ears, nose and throat seemed to be within normal limits. NECK: Supple. No JVD. No thyroid enlargement, no lymph nodes. HEART: Regular rate and rhythm. Normal S1, S2, but slightly tachycardic. LUNGS: Reveal fairly good breath sounds bilaterally. ABDOMEN: Soft. Decreased bowel sounds. GENITALIA: Deferred. RECTAL: Deferred. MUSCULOSKELETAL: No joint deformities. EXTREMITIES: Reveal trace edema. NEUROLOGIC: The patient is unresponsive on the ventilator with sedation. LABORATORY DATA: Glucose is 137. Other laboratories are pending. Arterial blood gas reveals a pH of 7.57, pCO2 of 30, pO2 of 80. IMPRESSION: This patient has intracranial hemorrhage and is status post craniotomy on the right. The craniotomy was for a hematoma on the right frontal parietal area. Has a history of migraines and noted to have anemia. She has respiratory failure requiring ventilator support. PLAN: We will continue with ventilator support, follow her chest x-ray and arterial blood gas and be aggressive with pulmonary toilet. The patient still is getting Keppra as well as nicardipine, Pepcid, propofol, labetalol and Tylenol p.r.n. We will continue to treat aggressively along with the other consultants and the primary care doctor. Robert Chamorro MD
[2018-09-08] MEDS: Cefepime 1gm in NS 100ml 1 GM/100 ML BAG IVPB SCH ×2 (14:48→22:10)
--- NOTE | 2018-09-08 17:57 | PN ---
DATE: 09/08/2018 SUBJECTIVE: The patient was seen early this morning in the ICU 128, bed three. The patient does have low grade fevers. PHYSICAL EXAMINATION: VITAL SIGNS: Temperature of 100.2, heart rate of 101, blood pressure is 140/70. HEENT: Unremarkable. NECK: Supple. LUNGS: Have decreased breath sounds. HEART: Normal S1 and S2. ABDOMEN: Soft. LABORATORY DATA: Reveals a white count is up to 12,200, hemoglobin of 9. Chemistries reveal the creatinine 0.5. Procalcitonin yesterday was 0.15. Urinalysis is noted. Microbiology reveals the blood cultures from yesterday, no growth. The urine cultures in the past have been negative and blood cultures are negative. Review of orders reveals the nasal MRSA screen is pending. Urine cultures were repeated and sputum cultures are pending. The patient also had a chest x-ray this morning, worsening consolidation in the right lower lobe. Dr. Ian Layne' progress note from this morning is noted. He says the patient has a right-sided hemorrhagic stroke status post evacuation of hematoma, vent-dependent respiratory failure, he is planning for a trach on Sunday. Dr. Narayan's note from yesterday is reviewed. ASSESSMENT AND PLAN: This is a 63-year-old female with respiratory failure, intubated on a ventilator with systemic inflammatory response syndrome with a right frontoparietal hemorrhagic cerebrovascular accident, status post craniotomy and currently off of antibiotics. However, the patient did have fevers and concerned about nosocomial pneumonia. We will start the patient on vancomycin and Maxipime pending repeat pancultures, sputum, methicillin-resistant staphylococcus screen. We will make further recommendations. Overall prognosis quite poor. We will follow closely with you, empirically start vanco, cefepime pending repeat pancultures, although the patient's procalcitonin yesterday was 0.15. Wm Meneses MD
--- NOTE | 2018-09-08 22:22 | PN ---
DATE: 09/08/2018 SUBJECTIVE: The patient is intubated. PHYSICAL EXAMINATION: VITAL SIGNS: Temperature is 99.5, pulse of 103, blood pressure is 145/77, respirations 20. GENERAL: The patient is lying in bed, flat, comfortable. HEENT: No oral lesion. Anicteric sclerae. Moist mucosa. Positive ETT. NECK: No JVD, adenopathy, or thyromegaly. CARDIOVASCULAR: S1 and S2, regular. No murmurs, rubs, or gallops. LUNGS: Clear to auscultation bilaterally. No wheeze, rales, or rhonchi. ABDOMEN: Bowel sounds are positive, soft, nontender and nondistended. EXTREMITIES: No cyanosis, clubbing, or edema. LABORATORY DATA: White count of 12.2, hemoglobin 9.8, creatinine is 0.5, potassium is 3.5. Chest x-ray shows worsening right lower lobe pneumonia. ASSESSMENT: 1. Ventilator-associated pneumonia. 2. Hemorrhagic stroke of the right cerebral hemisphere, status post evacuation. 3. Respiratory failure, on ventilator. 4. Iron deficiency anemia. 5. Hypokalemia, improved. 6. Hypertension. PLAN: The patient remains critically ill. She had multiple blood cultures that has been negative. She is currently receiving Keppra for seizure prophylaxis. She is on nicardipine drip. The patient is on vancomycin and cefepime for antibiotics, weaning is being attempted by the ICU team. I did speak to the patient's sister at the bedside. She remains critically ill. Santy Narayan MD
[2018-09-09] MEDS: Vancomycin 1gm in NS 250ml 1 GM/250 ML BAG IVPB SCH ×2 (00:25→12:07)
[2018-09-09] MEDS: Propofol 10 mg/ml 1,000 MG/100 ML VIAL IV PRN (03:24)
[2018-09-09] MEDS: Nicardipine 20 MG/200 ML 20 MG/200 ML BAG IV PRN ×4 (03:25→19:46)
[2018-09-09] MEDS: Cefepime 1gm in NS 100ml 1 GM/100 ML BAG IVPB SCH ×3 (06:26→22:06)
[2018-09-09] MEDS: Sodium Chloride 0.9% 1,000 ML IV SCH (06:26)
[2018-09-09 07:10] LABS: BASO # 0.03 K/mm3 (0.0-2.0); BASO % 0.3 % (0.0-3.0); EOS # 0.1 (0.0-0.7); EOS % 1.3 % (1.5-5.0); HEMOGLOBIN 8.5 g/dL (12.0-16.0); LYMPH # 0.9 (1.2-3.4); LYMPH % 8.1 % (22.0-35.0); MEAN CORPUSCULAR HEMOGLOBIN 19.2 pg (25.0-35.0); MEAN PLATELET VOLUME 9.2 fl (7.0-11.0); MONO # 0.8 (0.1-0.6); MONO % 7.4 % (1.0-6.0); RBC 4.42 10^6/uL (3.5-6.1); RED CELL DISTRIBUTION WIDTH 15.7 % (11.5-14.5); WHITE BLOOD COUNT 10.9 10^3/uL (4.5-11.0)
[2018-09-09 07:13] LABS: INR 1.19; PARTIAL THROMBOPLASTIN TIME 28.7 Seconds (26.9-38.3); PROTHROMBIN TIME 13.5 SECONDS (9.4-12.5)
[2018-09-09 07:43] LABS: ALB/GLOB RATIO 0.8 (1.1-1.8); ALBUMIN 2.8 g/dL (3.0-4.8); ALT/SGPT 92 U/L (7-56); AST/SGOT 79 U/L (14-36); BLOOD UREA NITROGEN 15 mg/dL (7-21); CALCIUM 8.6 mg/dL (8.4-10.5); GFR NON-AFRICAN AMERICAN > 60
[2018-09-09 09:19] LABS: ARTERIAL BLOOD GAS HCO3 25.7 mmol/L (21-28); ARTERIAL BLOOD GAS HEMOGLOBIN 8.3 g/dL (11.7-17.4); ARTERIAL BLOOD GAS O2 CAPACITY 11.6 mL/dl (16-24); ARTERIAL BLOOD GAS O2 CONTENT 11.5 ML/dl (15-23); ARTERIAL BLOOD GAS O2 SAT 99.3 % (95-98); ARTERIAL BLOOD GAS PCO2 33 mm/Hg (35-45); ARTERIAL BLOOD GAS TCO2 26.7 mmol.L (22-28)
--- NOTE | 2018-09-09 11:29 | CP.CCUPN ---
<Lis Malik - Last Filed: 09/09/18 16:02> CCU Subjective - Physician Review Subjective (Free Text): CRITICAL CARE PROGRESS NOTE Lis Malik PGY1 Pt seen and examined at bedside in ICU. BP was maintained overnight in 138-142 systolic range. Pt is intubated & sedated on propofol and therefore was not responding to commands this am. She has been NPO overnight for planned tracheostomy this am. ROS unable to be obtained Vent: 350/40%/20/5 Drips: Nicardipine 1 mg/h Propofol 10 mcg/min CCU Objective - Vital Signs / Intake & Output Intake and Output (Last 8hrs): Intake & Output 09/08/18 09/09/18 09/09/18 22:59 06:59 14:59 Intake Total 1700 300 Output Total 1650 Balance 50 300 Intake: IV 1000 300 Propofol 100 cardene 400 keppra 100 Tube Feeding 600 Other 100 Output: Urine 1650 Urethral (Holliday) 1650 Other: # Voids Urethral (Holliday) 0 # Bowel Movements 0 - Physical Exam Head: Positive for: Atraumatic, Normocephalic Pupils: Positive for: PERRL Extroacular Muscles: Positive for: EOMI Conjunctiva: Positive for: Normal Mouth: Positive for: Moist Mucous Membranes, Drooling, Other (intubated) Nose (Internal): Positive for: No Active Bleeding Neck: Positive for: Normal Range of Motion. Negative for: Meningeal Signs Respiratory/Chest: Positive for: Clear to Auscultation, Good Air Exchange Cardiovascular: Positive for: Regular Rate and Rhythm, Normal S1, S2 Abdomen: Positive for: Normal Bowel Sounds. Negative for: Tenderness, Distention, Peritoneal Signs Upper Extremity: Positive for: Normal Inspection. Negative for: Cyanosis, Edema Lower Extremity: Positive for: Normal Inspection. Negative for: Edema Neurological: Positive for: Other (sedated) Skin: Positive for: Warm, Dry Psychiatric: Positive for: Other (sedated) - Medications Active Medications: Active Medications Generic Name Dose Route Start Last Admin Trade Name Freq PRN Reason Stop Dose Admin Acetaminophen 650 mg 09/06/18 11:12 Tylenol 325mg Tab PO Q4 PRN Fever >100.4 F Famotidine 20 mg 09/04/18 10:45 09/09/18 09:51 Pepcid IVP 20 mg DAILY CLAY Administration Nicardipine HCl 20 mg in 200 mls @ 50 mls/hr 09/01/18 14:48 09/09/18 03:25 Cardene Iv Premix IV 2.5 mg/hr .Q4H PRN 25 mls/hr TITRATE PER MD ORDER Administration Protocol 5 MG/HR Propofol 1,000 mg in 100 mls @ 2.005 mls/hr 09/01/18 16:49 09/09/18 03:24 Diprivan IV 10 mcg/kg/min .Q24H PRN 4.009 mls/hr TITRATE PER MD ORDER Administration Protocol 5 MCG/KG/MIN Levetiracetam 750 mg/ Sodium 107.5 mls @ 215 mls/hr 09/04/18 10:00 09/09/18 09:51 Chloride IVPB 215 mls/hr Q12 CLAY Administration Cefepime HCl 1 gm in 100 mls @ 100 mls/hr 09/08/18 14:00 09/09/18 06:26 Maxipime 1gm IVPB 09/17/18 14:01 100 mls/hr Q8 CLAY Administration Protocol Vancomycin HCl 1 gm in 250 mls @ 167 mls/hr 09/08/18 12:00 09/09/18 00:25 Vancomycin 1gm IVPB 09/18/18 12:01 167 mls/hr Q12H CLAY Administration Protocol Sodium Chloride 1,000 mls @ 100 mls/hr 09/09/18 06:00 09/09/18 06:26 Sodium Chloride 0.9% IV 100 mls/hr .Q10H CLAY Administration Labetalol HCl 20 mg 08/31/18 21:26 09/05/18 01:07 Trandate IV 20 mg Q2H PRN Administration Hypertension - Patient Studies Lab Studies: Microbiology Studies 09/07/18 18:18 Urine Culture - Final Urine Random No Growth (<1,000 CFU/ML) 09/07/18 21:30 Gram Stain - Final Sputum 09/07/18 11:45 Blood Culture - Preliminary Blood NO GROWTH AFTER 24 HOURS 09/07/18 11:15 Blood Culture - Preliminary Blood NO GROWTH AFTER 24 HOURS Lab Studies 09/09/18 09/09/18 09/09/18 Range/Units 09:00 07:26 06:00 WBC (4.5-11.0) 10^3/uL RBC (3.5-6.1) 10^6/uL Hgb (12.0-16.0) g/dL Hct (36.0-48.0) % MCV (80.0-105.0) fl MCH (25.0-35.0) pg MCHC (31.0-37.0) g/dl RDW (11.5-14.5) % Plt Count (120.0-450.0) 10^3/uL MPV (7.0-11.0) fl Neut % (Auto) (50.0-68.0) % Lymph % (Auto) (22.0-35.0) % Peach % (Auto) (1.0-6.0) % Eos % (Auto) (1.5-5.0) % Baso % (Auto) (0.0-3.0) % Lymph # (Auto) (1.2-3.4) Peach # (Auto) (0.1-0.6) Eos # (Auto) (0.0-0.7) Baso # (Auto) (0.0-2.0) K/mm3 Absolute Neuts (auto) (1.4-6.5) PT 13.5 H (9.4-12.5) SECONDS INR 1.19 APTT 28.7 (26.9-38.3) Seconds pCO2 33 L (35-45) mm/Hg pO2 95.0 (80-100) mm/Hg HCO3 25.7 (21-28) mmol/L ABG pH 7.50 H (7.35-7.45) ABG Total CO2 26.7 (22-28) mmol.L ABG O2 Saturation 99.3 H (95-98) % ABG O2 Content 11.5 L (15-23) ML/dl ABG Base Excess 2.5 (-2.0-3.0) mmol/L ABG Hemoglobin 8.3 L (11.7-17.4) g/dL ABG Carboxyhemoglobin 1.7 H (0.5-1.5) % POC ABG HHb (Measured) 0.7 (0-5) % ABG Methemoglobin 0.9 (0.0-3.0) % ABG O2 Capacity 11.6 L (16-24) mL/dl Hgb O2 Saturation 96.7 (95.0-98.0) % FiO2 40.0 % Sodium (132-148) mmol/L Potassium (3.6-5.0) mmol/L Chloride (98-107) mmol/L Carbon Dioxide (21-33) mmol/L Anion Gap (10-20) BUN (7-21) mg/dL Creatinine (0.7-1.2) mg/dl Est GFR ( Amer) Est GFR (Non-Af Amer) POC Glucose (mg/dL) 106 (65-110) mg/dL Random Glucose (70-110) mg/dL Calcium (8.4-10.5) mg/dL Total Bilirubin (0.2-1.3) mg/dL AST (14-36) U/L ALT (7-56) U/L Alkaline Phosphatase (38-126) U/L Total Protein (5.8-8.3) g/dL Albumin (3.0-4.8) g/dL Globulin gm/dL Albumin/Globulin Ratio (1.1-1.8) 09/09/18 09/09/18 09/08/18 Range/Units 06:00 06:00 22:00 WBC 10.9 (4.5-11.0) 10^3/uL RBC 4.42 (3.5-6.1) 10^6/uL Hgb 8.5 L (12.0-16.0) g/dL Hct 27.4 L (36.0-48.0) % MCV 62.0 L (80.0-105.0) fl MCH 19.2 L (25.0-35.0) pg MCHC 31.0 (31.0-37.0) g/dl RDW 15.7 H (11.5-14.5) % Plt Count 245 (120.0-450.0) 10^3/uL MPV 9.2 (7.0-11.0) fl Neut % (Auto) 82.9 H (50.0-68.0) % Lymph % (Auto) 8.1 L (22.0-35.0) % Peach % (Auto) 7.4 H (1.0-6.0) % Eos % (Auto) 1.3 L (1.5-5.0) % Baso % (Auto) 0.3 (0.0-3.0) % Lymph # (Auto) 0.9 L (1.2-3.4) Peach # (Auto) 0.8 H (0.1-0.6) Eos # (Auto) 0.1 (0.0-0.7) Baso # (Auto) 0.03 (0.0-2.0) K/mm3 Absolute Neuts (auto) 9.02 H (1.4-6.5) PT (9.4-12.5) SECONDS INR APTT (26.9-38.3) Seconds pCO2 (35-45) mm/Hg pO2 (80-100) mm/Hg HCO3 (21-28) mmol/L ABG pH (7.35-7.45) ABG Total CO2 (22-28) mmol.L ABG O2 Saturation (95-98) % ABG O2 Content (15-23) ML/dl ABG Base Excess (-2.0-3.0) mmol/L ABG Hemoglobin (11.7-17.4) g/dL ABG Carboxyhemoglobin (0.5-1.5) % POC ABG HHb (Measured) (0-5) % ABG Methemoglobin (0.0-3.0) % ABG O2 Capacity (16-24) mL/dl Hgb O2 Saturation (95.0-98.0) % FiO2 % Sodium 140 (132-148) mmol/L Potassium 4.4 (3.6-5.0) mmol/L Chloride 105 (98-107) mmol/L Carbon Dioxide 31 (21-33) mmol/L Anion Gap 8 L (10-20) BUN 15 (7-21) mg/dL Creatinine 0.4 L (0.7-1.2) mg/dl Est GFR ( Amer) > 60 Est GFR (Non-Af Amer) > 60 POC Glucose (mg/dL) 116 H (65-110) mg/dL Random Glucose 112 H (70-110) mg/dL Calcium 8.6 (8.4-10.5) mg/dL Total Bilirubin 0.4 (0.2-1.3) mg/dL AST 79 H (14-36) U/L ALT 92 H (7-56) U/L Alkaline Phosphatase 110 (38-126) U/L Total Protein 6.2 (5.8-8.3) g/dL Albumin 2.8 L (3.0-4.8) g/dL Globulin 3.3 gm/dL Albumin/Globulin Ratio 0.8 L (1.1-1.8) 09/08/18 09/08/18 Range/Units 16:00 11:07 WBC (4.5-11.0) 10^3/uL RBC (3.5-6.1) 10^6/uL Hgb (12.0-16.0) g/dL Hct (36.0-48.0) % MCV (80.0-105.0) fl MCH (25.0-35.0) pg MCHC (31.0-37.0) g/dl RDW (11.5-14.5) % Plt Count (120.0-450.0) 10^3/uL MPV (7.0-11.0) fl Neut % (Auto) (50.0-68.0) % Lymph % (Auto) (22.0-35.0) % Peach % (Auto) (1.0-6.0) % Eos % (Auto) (1.5-5.0) % Baso % (Auto) (0.0-3.0) % Lymph # (Auto) (1.2-3.4) Peach # (Auto) (0.1-0.6) Eos # (Auto) (0.0-0.7) Baso # (Auto) (0.0-2.0) K/mm3 Absolute Neuts (auto) (1.4-6.5) PT (9.4-12.5) SECONDS INR APTT (26.9-38.3) Seconds pCO2 (35-45) mm/Hg pO2 (80-100) mm/Hg HCO3 (21-28) mmol/L ABG pH (7.35-7.45) ABG Total CO2 (22-28) mmol.L ABG O2 Saturation (95-98) % ABG O2 Content (15-23) ML/dl ABG Base Excess (-2.0-3.0) mmol/L ABG Hemoglobin (11.7-17.4) g/dL ABG Carboxyhemoglobin (0.5-1.5) % POC ABG HHb (Measured) (0-5) % ABG Methemoglobin (0.0-3.0) % ABG O2 Capacity (16-24) mL/dl Hgb O2 Saturation (95.0-98.0) % FiO2 % Sodium (132-148) mmol/L Potassium (3.6-5.0) mmol/L Chloride (98-107) mmol/L Carbon Dioxide (21-33) mmol/L Anion Gap (10-20) BUN (7-21) mg/dL Creatinine (0.7-1.2) mg/dl Est GFR ( Amer) Est GFR (Non-Af Amer) POC Glucose (mg/dL) 137 H 139 H (65-110) mg/dL Random Glucose (70-110) mg/dL Calcium (8.4-10.5) mg/dL Total Bilirubin (0.2-1.3) mg/dL AST (14-36) U/L ALT (7-56) U/L Alkaline Phosphatase (38-126) U/L Total Protein (5.8-8.3) g/dL Albumin (3.0-4.8) g/dL Globulin gm/dL Albumin/Globulin Ratio (1.1-1.8) Laboratory Results - last 24 hr 09/08/18 09/08/18 09/08/18 11:07 16:00 22:00 WBC RBC Hgb Hct MCV MCH MCHC RDW Plt Count MPV Neut % (Auto) Lymph % (Auto) Peach % (Auto) Eos % (Auto) Baso % (Auto) Lymph # (Auto) Peach # (Auto) Eos # (Auto) Baso # (Auto) Absolute Neuts (auto) PT INR APTT pCO2 pO2 HCO3 ABG pH ABG Total CO2 ABG O2 Saturation ABG O2 Content ABG Base Excess ABG Hemoglobin ABG Carboxyhemoglobin POC ABG HHb (Measured) ABG Methemoglobin ABG O2 Capacity Hgb O2 Saturation FiO2 Sodium Potassium Chloride Carbon Dioxide Anion Gap BUN Creatinine Est GFR ( Amer) Est GFR (Non-Af Amer) POC Glucose (mg/dL) 139 H 137 H 116 H Random Glucose Calcium Total Bilirubin AST ALT Alkaline Phosphatase Total Protein Albumin Globulin Albumin/Globulin Ratio 09/09/18 09/09/18 09/09/18 06:00 06:00 06:00 WBC 10.9 RBC 4.42 Hgb 8.5 L Hct 27.4 L MCV 62.0 L MCH 19.2 L MCHC 31.0 RDW 15.7 H Plt Count 245 MPV 9.2 Neut % (Auto) 82.9 H Lymph % (Auto) 8.1 L Peach % (Auto) 7.4 H Eos % (Auto) 1.3 L Baso % (Auto) 0.3 Lymph # (Auto) 0.9 L Peach # (Auto) 0.8 H Eos # (Auto) 0.1 Baso # (Auto) 0.03 Absolute Neuts (auto) 9.02 H PT 13.5 H INR 1.19 APTT 28.7 pCO2 pO2 HCO3 ABG pH ABG Total CO2 ABG O2 Saturation ABG O2 Content ABG Base Excess ABG Hemoglobin ABG Carboxyhemoglobin POC ABG HHb (Measured) ABG Methemoglobin ABG O2 Capacity Hgb O2 Saturation FiO2 Sodium 140 Potassium 4.4 Chloride 105 Carbon Dioxide 31 Anion Gap 8 L BUN 15 Creatinine 0.4 L Est GFR ( Amer) > 60 Est GFR (Non-Af Amer) > 60 POC Glucose (mg/dL) Random Glucose 112 H Calcium 8.6 Total Bilirubin 0.4 AST 79 H ALT 92 H Alkaline Phosphatase 110 Total Protein 6.2 Albumin 2.8 L Globulin 3.3 Albumin/Globulin Ratio 0.8 L 09/09/18 09/09/18 07:26 09:00 WBC RBC Hgb Hct MCV MCH MCHC RDW Plt Count MPV Neut % (Auto) Lymph % (Auto) Peach % (Auto) Eos % (Auto) Baso % (Auto) Lymph # (Auto) Peach # (Auto) Eos # (Auto) Baso # (Auto) Absolute Neuts (auto) PT INR APTT pCO2 33 L pO2 95.0 HCO3 25.7 ABG pH 7.50 H ABG Total CO2 26.7 ABG O2 Saturation 99.3 H ABG O2 Content 11.5 L ABG Base Excess 2.5 ABG Hemoglobin 8.3 L ABG Carboxyhemoglobin 1.7 H POC ABG HHb (Measured) 0.7 ABG Methemoglobin 0.9 ABG O2 Capacity 11.6 L Hgb O2 Saturation 96.7 FiO2 40.0 Sodium Potassium Chloride Carbon Dioxide Anion Gap BUN Creatinine Est GFR ( Amer) Est GFR (Non-Af Amer) POC Glucose (mg/dL) 106 Random Glucose Calcium Total Bilirubin AST ALT Alkaline Phosphatase Total Protein Albumin Globulin Albumin/Globulin Ratio Fingerstick Blood Sugar Results: 137 Review of Systems - Review of Systems Review of Systems: unable to be obtained Critical Care Progress Note - Nutrition Nutrition: Nutrition Category Date Time Status NPO Diet [DIET] Diets 09/09/18 Breakfast Ordered Assessment/Plan - Assessment and Plan (Free Text) Assessment: 63 yo F with PMH of migraines [place] [facility] [place]. Admitted to ICU for close monitoring due to parenchymal hematoma in the right frontal parietal lobe with midline shift. Pt is s/p (09/03) craniotomy with evacuation of R parietal lobe hematoma. Plan for tracheostomy and LTAC Plan: Neuro: Intracranial hemorrhage with midline shift s/p craniotomy & evacuation of R parietal hematoma (09/03/18) continue neuro checks Q1H. Monitor for signs of progression of neuro deficits continue hyperventilation on vent support, maintain PaCO2 30-35 Continue keppra 750mg bid per neurology recs Continue strict systolic BP control @140mmhg. Avoid rapid changes in blood pressure. Continue titratable nicardipine drip Maintain normothermia with tylenol & cooling blanket Discontinue fluids as pt receiving tube feeds Neuro/Neurosurgery consulted, recs appreciated Will stop getting daily head CTs Pending tracheostomy placement and LTAC placement ID: RLL VAP procalcitonin <0.15. CXR reveals worsening RLL PNA continue vanc cefepime ID following HOB>40 degrees daily sedation vacation GT/DVT prophylaxis daily subglottic suctioning Central fevers continue acetaminophen. monitor LFTs continue cooling blanket prn maintain normothermia Cardio: Monitor BP, target SBP 140mmHg per neurology/neurosurgery Continue titratable nicardipine drip for strict BP control. Avoid rapid changes in BP Maintain MAP > 65 Hold home ASA/anticoagulation Echo: Normal LVEF Pulm: RLL PNA continue abx Pending tracheostomy. Pt needs to be more awake for extubation Maintain O2 sat > 92% Will attempt weaning trial today GI: Currently NPO for possible OR for tracheostomy placement Pepcid IVP NPO Renal: Monitor electrolytes, replete/correct as needed Maintain euvolemia Heme: SCD's for DVT PPx Endo: Maintain euglycemia b/w 140-180 per NICE-SUGAR trial DVT/GI: SCD/pepcid Case seen, examined and discussed with attending physician, Dr. Elbert Malik PGY1 <Tim Pierce - Last Filed: 09/10/18 14:17> CCU Objective - Vital Signs / Intake & Output Intake and Output (Last 8hrs): Intake & Output 09/09/18 09/10/18 09/10/18 22:59 06:59 14:59 Intake Total 3150 1625 Output Total 1800 2100 Balance 1350 -475 Intake: IV 2450 1625 Right Hand 1200 1200 Right Upper arm 450 200 cardene 400 Tube Feeding 600 Other 100 Output: Urine 1800 2100 Urethral (Holliday) 1800 2100 Other 0 Other: # Voids Urethral (Holliday) 0 # Bowel Movements 0 - Medications Active Medications: Active Medications Generic Name Dose Route Start Last Admin Trade Name Freq PRN Reason Stop Dose Admin Acetaminophen 650 mg 09/06/18 11:12 Tylenol 325mg Tab PO Q4 PRN Fever >100.4 F Famotidine 20 mg 09/04/18 10:45 09/10/18 11:00 Pepcid IVP 20 mg DAILY CLAY Administration Nicardipine HCl 20 mg in 200 mls @ 50 mls/hr 09/01/18 14:48 09/10/18 05:05 Cardene Iv Premix IV 2.5 mg/hr .Q4H PRN 25 mls/hr TITRATE PER MD ORDER Titration Protocol 5 MG/HR Propofol 1,000 mg in 100 mls @ 2.005 mls/hr 09/01/18 16:49 09/09/18 14:30 Diprivan IV 0 mcg/kg/min .Q24H PRN 0 mls/hr TITRATE PER MD ORDER Titration Protocol 5 MCG/KG/MIN Levetiracetam 750 mg/ Sodium 107.5 mls @ 215 mls/hr 09/04/18 10:00 09/10/18 11:01 Chloride IVPB 215 mls/hr Q12 CLAY Administration Cefepime HCl 1 gm in 100 mls @ 100 mls/hr 09/08/18 14:00 09/10/18 05:07 Maxipime 1gm IVPB 03/05/19 14:01 100 mls/hr Q8 CLAY Administration Protocol Vancomycin HCl 1 gm in 250 mls @ 167 mls/hr 09/08/18 12:00 09/10/18 01:00 Vancomycin 1gm IVPB 09/18/18 12:01 167 mls/hr Q12H CLAY Administration Protocol Sodium Chloride 1,000 mls @ 100 mls/hr 09/09/18 06:00 09/10/18 03:57 Sodium Chloride 0.9% IV 100 mls/hr .Q10H CLAY Administration Labetalol HCl 20 mg 08/31/18 21:26 09/05/18 01:07 Trandate IV 20 mg Q2H PRN Administration Hypertension - Patient Studies Lab Studies: Microbiology Studies 09/07/18 11:45 Blood Culture - Preliminary Blood NO GROWTH AFTER 3 DAYS 09/07/18 11:15 Blood Culture - Preliminary Blood NO GROWTH AFTER 3 DAYS 09/07/18 21:30 Gram Stain - Final Sputum Sputum Culture - Final Staphylococcus Aureus 09/07/18 18:18 MRSA Culture (Admit) - Final Naris MRSA NOT DETECTED 09/07/18 18:18 Urine Culture - Final Urine Random No Growth (<1,000 CFU/ML) Lab Studies 09/10/18 09/10/18 09/10/18 Range/Units 07:19 06:00 06:00 WBC 12.8 H (4.5-11.0) 10^3/uL RBC 4.25 (3.5-6.1) 10^6/uL Hgb 8.2 L (12.0-16.0) g/dL Hct 26.7 L (36.0-48.0) % MCV 62.8 L (80.0-105.0) fl MCH 19.3 L (25.0-35.0) pg MCHC 30.7 L (31.0-37.0) g/dl RDW 16.0 H (11.5-14.5) % Plt Count 275 (120.0-450.0) 10^3/uL MPV 9.0 (7.0-11.0) fl Neut % (Auto) 88.1 H (50.0-68.0) % Lymph % (Auto) 5.5 L (22.0-35.0) % Peach % (Auto) 5.5 (1.0-6.0) % Eos % (Auto) 0.8 L (1.5-5.0) % Baso % (Auto) 0.1 (0.0-3.0) % Lymph # (Auto) 0.7 L (1.2-3.4) Peach # (Auto) 0.7 H (0.1-0.6) Eos # (Auto) 0.1 (0.0-0.7) Baso # (Auto) 0.01 (0.0-2.0) K/mm3 Absolute Neuts (auto) 11.30 H (1.4-6.5) Sodium 146 (132-148) mmol/L Potassium 3.6 (3.6-5.0) mmol/L Chloride 110 H (98-107) mmol/L Carbon Dioxide 32 (21-33) mmol/L Anion Gap 7 L (10-20) BUN 15 (7-21) mg/dL Creatinine 0.5 L (0.7-1.2) mg/dl Est GFR ( Amer) > 60 Est GFR (Non-Af Amer) > 60 POC Glucose (mg/dL) 125 H (65-110) mg/dL Random Glucose 121 H (70-110) mg/dL Calcium 8.7 (8.4-10.5) mg/dL Total Bilirubin 0.2 (0.2-1.3) mg/dL AST 106 H D (14-36) U/L ALT 155 H (7-56) U/L Alkaline Phosphatase 137 H D (38-126) U/L Total Protein 6.2 (5.8-8.3) g/dL Albumin 2.8 L (3.0-4.8) g/dL Globulin 3.3 gm/dL Albumin/Globulin Ratio 0.8 L (1.1-1.8) 09/09/18 09/09/18 Range/Units 21:56 16:27 WBC (4.5-11.0) 10^3/uL RBC (3.5-6.1) 10^6/uL Hgb (12.0-16.0) g/dL Hct (36.0-48.0) % MCV (80.0-105.0) fl MCH (25.0-35.0) pg MCHC (31.0-37.0) g/dl RDW (11.5-14.5) % Plt Count (120.0-450.0) 10^3/uL MPV (7.0-11.0) fl Neut % (Auto) (50.0-68.0) % Lymph % (Auto) (22.0-35.0) % Peach % (Auto) (1.0-6.0) % Eos % (Auto) (1.5-5.0) % Baso % (Auto) (0.0-3.0) % Lymph # (Auto) (1.2-3.4) Peach # (Auto) (0.1-0.6) Eos # (Auto) (0.0-0.7) Baso # (Auto) (0.0-2.0) K/mm3 Absolute Neuts (auto) (1.4-6.5) Sodium (132-148) mmol/L Potassium (3.6-5.0) mmol/L Chloride (98-107) mmol/L Carbon Dioxide (21-33) mmol/L Anion Gap (10-20) BUN (7-21) mg/dL Creatinine (0.7-1.2) mg/dl Est GFR ( Amer) Est GFR (Non-Af Amer) POC Glucose (mg/dL) 157 H 157 H (65-110) mg/dL Random Glucose (70-110) mg/dL Calcium (8.4-10.5) mg/dL Total Bilirubin (0.2-1.3) mg/dL AST (14-36) U/L ALT (7-56) U/L Alkaline Phosphatase (38-126) U/L Total Protein (5.8-8.3) g/dL Albumin (3.0-4.8) g/dL Globulin gm/dL Albumin/Globulin Ratio (1.1-1.8) Laboratory Results - last 24 hr 09/09/18 09/09/18 09/10/18 16:27 21:56 06:00 WBC 12.8 H RBC 4.25 Hgb 8.2 L Hct 26.7 L MCV 62.8 L MCH 19.3 L MCHC 30.7 L RDW 16.0 H Plt Count 275 MPV 9.0 Neut % (Auto) 88.1 H Lymph % (Auto) 5.5 L Peach % (Auto) 5.5 Eos % (Auto) 0.8 L Baso % (Auto) 0.1 Lymph # (Auto) 0.7 L Peach # (Auto) 0.7 H Eos # (Auto) 0.1 Baso # (Auto) 0.01 Absolute Neuts (auto) 11.30 H Sodium Potassium Chloride Carbon Dioxide Anion Gap BUN Creatinine Est GFR ( Amer) Est GFR (Non-Af Amer) POC Glucose (mg/dL) 157 H 157 H Random Glucose Calcium Total Bilirubin AST ALT Alkaline Phosphatase Total Protein Albumin Globulin Albumin/Globulin Ratio 09/10/18 09/10/18 06:00 07:19 WBC RBC Hgb Hct MCV MCH MCHC RDW Plt Count MPV Neut % (Auto) Lymph % (Auto) Peach % (Auto) Eos % (Auto) Baso % (Auto) Lymph # (Auto) Peach # (Auto) Eos # (Auto) Baso # (Auto) Absolute Neuts (auto) Sodium 146 Potassium 3.6 Chloride 110 H Carbon Dioxide 32 Anion Gap 7 L BUN 15 Creatinine 0.5 L Est GFR ( Amer) > 60 Est GFR (Non-Af Amer) > 60 POC Glucose (mg/dL) 125 H Random Glucose 121 H Calcium 8.7 Total Bilirubin 0.2 AST 106 H D ALT 155 H Alkaline Phosphatase 137 H D Total Protein 6.2 Albumin 2.8 L Globulin 3.3 Albumin/Globulin Ratio 0.8 L Radiology Impressions: Radiology Impressions Head CT 09/09/18 09:27 IMPRESSION: Decreasing parenchymal hemorrhage right frontotemporal status post craniotomy and evacuation. Increasing midline shift towards the left. Effacement of suprasellar cistern. Effacement of right lateral ventricle. No downward herniation. Critical Care Progress Note - Nutrition Nutrition: Nutrition Category Date Time Status NPO Diet [DIET] Diets 09/09/18 Breakfast Ordered Attending/Attestation - Attestation I have personally seen and examined this patient.: Yes I have fully participated in the care of the patient.: Yes I have reviewed all pertinent clinical information: Yes Notes (Text): 09/10/18 14:[address] Pierce's note
--- NOTE | 2018-09-09 12:03 | RAD ---
Date of service: 09/09/2018 HISTORY: vent COMPARISON: Comparison chest 09/08/2018. FINDINGS: In situ ETT, tip of which lies approximately 4.6 cm above didier. In situ feeding tube tip of which has not been included on this film though distal aspect does lie well below EG junction. No change right-sided PICC line tip in the SVC. LUNGS: Right lower lobe infiltrate again noted. There appears to be some mild left basilar atelectasis as well. PLEURA: No significant pleural effusion identified, no pneumothorax apparent. CARDIOVASCULAR: Suspect minimal aortic atherosclerotic calcification present. Heart size is stable. OSSEOUS STRUCTURES: No significant abnormalities. VISUALIZED UPPER ABDOMEN: Normal. OTHER FINDINGS: None. IMPRESSION: Support lines and tubes as above. Persistent right lower lobe infiltrate with suspected mild left basilar atelectasis
--- NOTE | 2018-09-09 13:28 | PN ---
DATE: 09/09/2018 SUBJECTIVE: The patient is seen and examined at bedside. She is on small dose of propofol as per Neurosurgery request, however, she tolerates pressure support 5/5 with FIO2 40%, very well. She is pulling tidal volume of more than 400 and respiratory rate 17-18. Her rapid shallow breathing index on that setting is 37. She is on Cardene drip at 1 mg per hour. Fluids 100 mL per hour. She tolerates enteral nutrition well. The patient is scheduled for tracheotomy tomorrow at 07:[address] Angulo. PHYSICAL EXAMINATION: VITAL SIGNS: Blood pressure 149/83, temperature 99.7, end-tidal CO2 on the monitor 38, oxygen saturation 100% on 40% FIO2, heart rate 86. ENT: Head and neck atraumatic. The patient is intubated. The patient has a decline in the right brachiocephalic vein. HEART: Regular rate and rhythm. S1, S2 normal. ABDOMEN: Nontender, nondistended. The patient tolerates enteral feeds well. MUSCULOSKELETAL: No C/C/E. NEURO: The patient is sedated. SKIN: Moist. PSYCH: The patient is sedated. LABORATORY DATA: WBC 10.9, hemoglobin 8.5, platelet count 245. Sodium 140, potassium 4.5, chloride 105, carbon dioxide 31, BUN 15, creatinine 0.4, glucose 106, AST 79, ALT 92, total bilirubin 0.4. MEDICATIONS: Tylenol p.r.n., Pepcid, Keppra, labetalol p.r.n., cefepime, Cardene drip, sodium chloride 100 mL/hour, vancomycin. ASSESSMENT AND PLAN: This is a 63-year-old lady with intracranial hemorrhage status post evacuation. At the present time, her mental status still fluctuates and currently she is on propofol as per neurosurgical request as well as in anticipation of tracheotomy placement tomorrow. The patient tolerates pressure support trial well and tracheotomy is mostly for airway protection. NEURO: The patient is on Keppra for seizure prophylaxis. She is also on propofol drip at the present time. Once tracheotomy is placed, propofol will be weaned and mental status reassessed. Neurology service is on board. PULMONARY: At the present time, the patient tolerated pressure support trial well. Rapid shallow breathing index is 37. We will continue with maintaining euvolemia and proceed with conservative oxygen management. Head of bed elevated more than 35 degrees. Oral hygiene. Once tracheotomy is placed, daily sedation vacation and weaning trials. CARDIOVASCULAR: The patient is hemodynamically stable. GI: The patient tolerates enteral nutrition well. Will be n.p.o. for the procedure. NEPHROLOGY: The patient has normal renal function, making good urine. We will maintain euvolemia, euglycemia, normothermia and oxygen saturation more than 90%. ENDOCRINE. We will maintain blood glucose within normal limits. INFECTIOUS DISEASE: The patient is afebrile today. She is on broad-spectrum antibiotics and ID service is following her as well. ccm time 40 min Tim Pierce MD [facility]
--- NOTE | 2018-09-09 14:39 | CP.PCM.PN ---
Subjective - Date & Time of Evaluation Date of Evaluation: 09/09/18 Time of Evaluation: 09:10 - Subjective Subjective: Still on the ventilator, no fevers this morning, still not as responsive. Objective - Vital Signs/Intake and Output Vital Signs (last 24 hours): Temp Pulse Resp BP Pulse Ox 97.3 F L 106 H 27 H 161/85 H 99 09/08/18 18:08 09/08/18 22:00 09/08/18 04:10 09/08/18 18:08 09/08/18 18:08 Intake and Output: 09/09/18 09/09/18 06:59 18:59 Intake Total 500 Balance 500 - Medications Medications: Current Medications Acetaminophen (Tylenol 325mg Tab) 650 mg PO Q4 PRN PRN Reason: Fever >100.4 F Famotidine (Pepcid) 20 mg IVP DAILY CLAY Last Admin: 09/08/18 09:38 Dose: 20 mg Nicardipine HCl (Cardene Iv Premix) 20 mg in 200 mls @ 50 mls/hr IV .Q4H PRN; Protocol PRN Reason: TITRATE PER MD ORDER Last Admin: 09/09/18 03:25 Dose: 2.5 mg/hr, 25 mls/hr Propofol (Diprivan) 1,000 mg in 100 mls @ 2.005 mls/hr IV .Q24H PRN; Protocol PRN Reason: TITRATE PER MD ORDER Last Admin: 09/09/18 03:24 Dose: 10 mcg/kg/min, 4.009 mls/hr Levetiracetam 750 mg/ Sodium (Chloride) 107.5 mls @ 215 mls/hr IVPB Q12 CLAY Last Admin: 09/08/18 22:25 Dose: 215 mls/hr Cefepime HCl (Maxipime 1gm) 1 gm in 100 mls @ 100 mls/hr IVPB Q8 CLAY; Protocol Stop: 09/17/18 14:01 Last Admin: 09/09/18 06:26 Dose: 100 mls/hr Vancomycin HCl (Vancomycin 1gm) 1 gm in 250 mls @ 167 mls/hr IVPB Q12H CLAY; Protocol Stop: 09/18/18 12:01 Last Admin: 09/09/18 00:25 Dose: 167 mls/hr Sodium Chloride (Sodium Chloride 0.9%) 1,000 mls @ 100 mls/hr IV .Q10H CLAY Last Admin: 09/09/18 06:26 Dose: 100 mls/hr Labetalol HCl (Trandate) 20 mg IV Q2H PRN PRN Reason: Hypertension Last Admin: 09/05/18 01:07 Dose: 20 mg - Labs Labs: 09/09/18 06:00 09/09/18 06:00 PT 13.5 SECONDS (9.4-12.5) H 09/09/18 06:00 INR 1.19 09/09/18 06:00 APTT 28.7 Seconds (26.9-38.3) 09/09/18 06:00 - Constitutional Appears: Chronically Ill, Other (intubated) - Head Exam Additional comments: right frontotemporal area with dressings in place - ENT Exam Additional comments: ET tube in place - Respiratory Exam Respiratory Exam: Decreased Breath Sounds - Cardiovascular Exam Cardiovascular Exam: +S1, +S2 - GI/Abdominal Exam GI & Abdominal Exam: Soft. absent: Tenderness - Extremities Exam Additional comments: right arm with PICC line in place Assessment and Plan - Assessment and Plan (Free Text) Plan: Assessment Systemic inflammatory response syndrome with fevers, probably due to right frontoparietal heomrrhagic CVA S/P right craniectomy and partial evacuation of hemorrhage POD #6, R/O sepsis from right sided HAP history of migraines Plan continue Vancomycin and Cefepime day 2 ; blood cx are negative so far, follow up sputum cx; reviewed CXR which shows increasing right sided infiltrate but PCT is only 0.25 overall prognosis is poor will continue to monitor clinically
--- NOTE | 2018-09-09 23:49 | PN ---
DATE: 09/09/2018 SUBJECTIVE: A 63-year-old white female seen on 09/09/2018 in the ICU, bed 3. The patient is in the ICU since she had an intercerebral bleed in the right hemisphere causing left hemiparesis. The patient had an EEG, CAT scan and a surgical evacuation of hematoma by Dr. Paula. The patient is currently intubated and ventilator dependent. She is on a ventilator at this point. She has been sedated until today when the sedation has just been weaned today. She has not responded at this point. She had been moving her right upper and right lower extremities prior to the surgery, however, deteriorated before the surgery and then she was taken to Surgery. She is scheduled to have a tracheostomy placed in the morning. The patient was seen with her daughter at the bedside. She is obtunded. Her left pupil is fixed and dilated. Her right pupil is reactive. She at this point still sedated and not responding to verbal or tactile stimuli. She is not moving either upper or lower extremities. Her Babinski is upgoing bilaterally. She has had ow-grade fevers for the last week. She is on multiple antibiotics. PHYSICAL EXAMINATION: VITAL SIGNS: Today's temperature is 98.2, blood pressure 161/85, pulse is 97. CHEST: Clear to auscultation. HEART: S1 and S2. Sinus rhythm. EXTREMITIES: No cyanosis, clubbing or edema. NEUROLOGIC: As stated above. LABORATORY DATA: Her laboratory data are unremarkable except for a slightly low hemoglobin of 8.5, white count is 10.9. Potassium is 4.4 and sodium is 140. The patient has had an EEG which showed evidence of multifocal encephalopathy and also structural defects. No evidence of seizure disorder. ASSESSMENT AND PLAN: Prognosis is poor. Plan is for tracheostomy, weaning from her sedation and attempts that weaning to follow. The patient was seen. Pal Elizabeth MD
[2018-09-10] MEDS: Nicardipine 20 MG/200 ML 20 MG/200 ML BAG IV PRN (00:30)
[2018-09-10] MEDS: Vancomycin 1gm in NS 250ml 1 GM/250 ML BAG IVPB SCH ×2 (01:00→14:49)
[2018-09-10] MEDS: Sodium Chloride 0.9% 1,000 ML IV SCH ×2 (03:57→11:04)
[2018-09-10] MEDS: Cefepime 1gm in NS 100ml 1 GM/100 ML BAG IVPB SCH ×3 (05:07→21:20)
[2018-09-10 07:22] LABS: BASO # 0.01 K/mm3 (0.0-2.0); BASO % 0.1 % (0.0-3.0); EOS # 0.1 (0.0-0.7); EOS % 0.8 % (1.5-5.0); HEMOGLOBIN 8.2 g/dL (12.0-16.0); LYMPH # 0.7 (1.2-3.4); LYMPH % 5.5 % (22.0-35.0); MEAN CELL VOLUME 62.8 fl (80.0-105.0); MEAN CORPUSCULAR HEMOGLOBIN 19.3 pg (25.0-35.0); MEAN CORPUSCULAR HGB CONC 30.7 g/dl (31.0-37.0); MONO # 0.7 (0.1-0.6); MONO % 5.5 % (1.0-6.0); RBC 4.25 10^6/uL (3.5-6.1); WHITE BLOOD COUNT 12.8 10^3/uL (4.5-11.0)
[2018-09-10] MEDS ORDERED: Lidocaine 1% Inj (20ml) ONE (07:31)
[2018-09-10 07:38] LABS: ALB/GLOB RATIO 0.8 (1.1-1.8); ALBUMIN 2.8 g/dL (3.0-4.8); ALT/SGPT 155 U/L (7-56); AST/SGOT 106 U/L (14-36); BLOOD UREA NITROGEN 15 mg/dL (7-21); CALCIUM 8.7 mg/dL (8.4-10.5); GFR NON-AFRICAN AMERICAN > 60
[2018-09-10] MEDS ORDERED: Rocuronium 10 mg/ml (5 ml) ONE (08:11)
[2018-09-10] MEDS ORDERED: Lidocaine 1% Inj (20ml) IJ ONE (08:27)
--- NOTE | 2018-09-10 09:16 | CT ---
Date of service: 09/09/2018 PROCEDURE: CT HEAD WITHOUT CONTRAST. HISTORY: post op COMPARISON: 09/04/2018 TECHNIQUE: Axial computed tomography images were obtained through the head/brain without intravenous contrast. Radiation dose: Total exam DLP = 1075.53 mGy-cm. This CT exam was performed using one or more of the following dose reduction techniques: Automated exposure control, adjustment of the mA and/or kV according to patient size, and/or use of iterative reconstruction technique. FINDINGS: HEMORRHAGE: Extensive right frontotemporal parenchymal hemorrhage again noted slightly decreased in extent. E Overall size of the acute hemorrhage is approximately 5.1 x 2.3 cm. E Xtensive surrounding vasogenic edema is noted. The patient is status post right parietal craniotomy. There is minimal residual pneumocephalus. There is no extra-axial collection. There is no intraventricular hemorrhage appreciated. BRAIN: No definite intracranial mass appreciated. Cannot rule out underlying mass associated with the focal frontotemporal hemorrhage. VENTRICLES: There is almost complete effacement of the right lateral ventricle. There is subfalcine herniation with midline shift of approximately 17 mm. This is slightly increased compared to the prior examination. Perimesencephalic cisterns are preserved. There effacement of the suprasellar cistern. No evidence of cerebellar tonsillar herniation. CALVARIUM: Right frontal craniotomy. No calvarial fracture. There is hematoma/seroma overlying the craniotomy site. PARANASAL SINUSES: Unremarkable as visualized. No significant inflammatory changes. MASTOID AIR CELLS: Bilateral nonspecific mastoid effusion. OTHER FINDINGS: None. IMPRESSION: Decreasing parenchymal hemorrhage right frontotemporal status post craniotomy and evacuation. Increasing midline shift towards the left. Effacement of suprasellar cistern. Effacement of right lateral ventricle. No downward herniation.
[2018-09-10] MEDS ORDERED: Ketamine 10 mg/ml Inj (20 ml) ONE (09:31)
--- NOTE | 2018-09-10 11:35 | PCM.SURG1 ---
Surgeon's Initial Post Op Note - Surgeon's Notes Surgeon: Dr. Angulo [employer] Superintendent: Hiarm PGY2 Type of Anesthesia: General Endo, Local Anesthesia Administered By: Dr. Doni Viveros Pre-Operative Diagnosis: Ventilator Dependent Respiratory Failure Operative Findings: See operative report Post-Operative Diagnosis: Same Operation Performed: Open Tracheostomy. Size 8 cuffed Tracheostomy Specimen/Specimens Removed: none Estimated Blood Loss: EBL {In ML}: 5 Blood Products Given: N/A Drains Used: No Drains Post-Op Condition: Fair Date of Surgery/Procedure: 09/10/18 Time of Surgery/Procedure: 09:34
--- NOTE | 2018-09-10 12:19 | CP.CCUPN ---
<Lis Malik - Last Filed: 09/10/18 14:32> CCU Subjective - Physician Review Subjective (Free Text): CRITICAL CARE PROGRESS NOTE Lis Malik PGY1 Pt seen and examined at bedside in ICU. She is s/p tracheostomy. She is off of sedation. She is not currently responding to commands. Vent: 400/50%/12/5 CCU Objective - Vital Signs / Intake & Output Intake and Output (Last 8hrs): Intake & Output 09/09/18 09/10/18 09/10/18 22:59 06:59 14:59 Intake Total 3150 1625 Output Total 1800 2100 Balance 1350 -475 Intake: IV 2450 1625 Right Hand 1200 1200 Right Upper arm 450 200 cardene 400 Tube Feeding 600 Other 100 Output: Urine 1800 2100 Urethral (Holliday) 1800 2100 Other 0 Other: # Voids Urethral (Holliday) 0 # Bowel Movements 0 - Physical Exam Head: Positive for: Atraumatic, Normocephalic Pupils: Positive for: Sluggish Extroacular Muscles: Positive for: EOMI Conjunctiva: Positive for: Normal Mouth: Positive for: Moist Mucous Membranes, Drooling Pharnyx: Positive for: Other (tracheostomy in place) Nose (Internal): Positive for: No Active Bleeding Neck: Positive for: Normal Range of Motion. Negative for: Meningeal Signs Respiratory/Chest: Positive for: Clear to Auscultation, Good Air Exchange Cardiovascular: Positive for: Regular Rate and Rhythm, Normal S1, S2 Abdomen: Positive for: Normal Bowel Sounds. Negative for: Tenderness, Distention, Peritoneal Signs Upper Extremity: Positive for: Normal Inspection. Negative for: Cyanosis, Edema Lower Extremity: Positive for: Normal Inspection. Negative for: Edema Skin: Positive for: Warm, Dry - Medications Active Medications: Active Medications Generic Name Dose Route Start Last Admin Trade Name Freq PRN Reason Stop Dose Admin Acetaminophen 650 mg 09/06/18 11:12 Tylenol 325mg Tab PO Q4 PRN Fever >100.4 F Famotidine 20 mg 09/04/18 10:45 09/10/18 11:00 Pepcid IVP 20 mg DAILY CLAY Administration Nicardipine HCl 20 mg in 200 mls @ 50 mls/hr 09/01/18 14:48 09/10/18 05:05 Cardene Iv Premix IV 2.5 mg/hr .Q4H PRN 25 mls/hr TITRATE PER MD ORDER Titration Protocol 5 MG/HR Propofol 1,000 mg in 100 mls @ 2.005 mls/hr 09/01/18 16:49 09/09/18 14:30 Diprivan IV 0 mcg/kg/min .Q24H PRN 0 mls/hr TITRATE PER MD ORDER Titration Protocol 5 MCG/KG/MIN Levetiracetam 750 mg/ Sodium 107.5 mls @ 215 mls/hr 09/04/18 10:00 09/10/18 11:01 Chloride IVPB 215 mls/hr Q12 CLAY Administration Cefepime HCl 1 gm in 100 mls @ 100 mls/hr 09/08/18 14:00 09/10/18 05:07 Maxipime 1gm IVPB 09/17/18 14:01 100 mls/hr Q8 CLAY Administration Protocol Vancomycin HCl 1 gm in 250 mls @ 167 mls/hr 09/08/18 12:00 09/10/18 01:00 Vancomycin 1gm IVPB 09/18/18 12:01 167 mls/hr Q12H CLAY Administration Protocol Sodium Chloride 1,000 mls @ 100 mls/hr 09/09/18 06:00 09/10/18 03:57 Sodium Chloride 0.9% IV 100 mls/hr .Q10H CLAY Administration Labetalol HCl 20 mg 08/31/18 21:26 09/05/18 01:07 Trandate IV 20 mg Q2H PRN Administration Hypertension - Patient Studies Lab Studies: Microbiology Studies 09/07/18 11:45 Blood Culture - Preliminary Blood NO GROWTH AFTER 3 DAYS 09/07/18 11:15 Blood Culture - Preliminary Blood NO GROWTH AFTER 3 DAYS 09/07/18 21:30 Gram Stain - Final Sputum Sputum Culture - Final Staphylococcus Aureus 09/07/18 18:18 MRSA Culture (Admit) - Final Naris MRSA NOT DETECTED 09/07/18 18:18 Urine Culture - Final Urine Random No Growth (<1,000 CFU/ML) Lab Studies 09/10/18 09/10/18 09/10/18 Range/Units 07:19 06:00 06:00 WBC 12.8 H (4.5-11.0) 10^3/uL RBC 4.25 (3.5-6.1) 10^6/uL Hgb 8.2 L (12.0-16.0) g/dL Hct 26.7 L (36.0-48.0) % MCV 62.8 L (80.0-105.0) fl MCH 19.3 L (25.0-35.0) pg MCHC 30.7 L (31.0-37.0) g/dl RDW 16.0 H (11.5-14.5) % Plt Count 275 (120.0-450.0) 10^3/uL MPV 9.0 (7.0-11.0) fl Neut % (Auto) 88.1 H (50.0-68.0) % Lymph % (Auto) 5.5 L (22.0-35.0) % Lea % (Auto) 5.5 (1.0-6.0) % Eos % (Auto) 0.8 L (1.5-5.0) % Baso % (Auto) 0.1 (0.0-3.0) % Lymph # (Auto) 0.7 L (1.2-3.4) Lea # (Auto) 0.7 H (0.1-0.6) Eos # (Auto) 0.1 (0.0-0.7) Baso # (Auto) 0.01 (0.0-2.0) K/mm3 Absolute Neuts (auto) 11.30 H (1.4-6.5) Sodium 146 (132-148) mmol/L Potassium 3.6 (3.6-5.0) mmol/L Chloride 110 H (98-107) mmol/L Carbon Dioxide 32 (21-33) mmol/L Anion Gap 7 L (10-20) BUN 15 (7-21) mg/dL Creatinine 0.5 L (0.7-1.2) mg/dl Est GFR ( Amer) > 60 Est GFR (Non-Af Amer) > 60 POC Glucose (mg/dL) 125 H (65-110) mg/dL Random Glucose 121 H (70-110) mg/dL Calcium 8.7 (8.4-10.5) mg/dL Total Bilirubin 0.2 (0.2-1.3) mg/dL AST 106 H D (14-36) U/L ALT 155 H (7-56) U/L Alkaline Phosphatase 137 H D (38-126) U/L Total Protein 6.2 (5.8-8.3) g/dL Albumin 2.8 L (3.0-4.8) g/dL Globulin 3.3 gm/dL Albumin/Globulin Ratio 0.8 L (1.1-1.8) 09/09/18 09/09/18 09/09/18 Range/Units 21:56 16:27 12:12 WBC (4.5-11.0) 10^3/uL RBC (3.5-6.1) 10^6/uL Hgb (12.0-16.0) g/dL Hct (36.0-48.0) % MCV (80.0-105.0) fl MCH (25.0-35.0) pg MCHC (31.0-37.0) g/dl RDW (11.5-14.5) % Plt Count (120.0-450.0) 10^3/uL MPV (7.0-11.0) fl Neut % (Auto) (50.0-68.0) % Lymph % (Auto) (22.0-35.0) % Lea % (Auto) (1.0-6.0) % Eos % (Auto) (1.5-5.0) % Baso % (Auto) (0.0-3.0) % Lymph # (Auto) (1.2-3.4) Lea # (Auto) (0.1-0.6) Eos # (Auto) (0.0-0.7) Baso # (Auto) (0.0-2.0) K/mm3 Absolute Neuts (auto) (1.4-6.5) Sodium (132-148) mmol/L Potassium (3.6-5.0) mmol/L Chloride (98-107) mmol/L Carbon Dioxide (21-33) mmol/L Anion Gap (10-20) BUN (7-21) mg/dL Creatinine (0.7-1.2) mg/dl Est GFR ( Amer) Est GFR (Non-Af Amer) POC Glucose (mg/dL) 157 H 157 H 111 H (65-110) mg/dL Random Glucose (70-110) mg/dL Calcium (8.4-10.5) mg/dL Total Bilirubin (0.2-1.3) mg/dL AST (14-36) U/L ALT (7-56) U/L Alkaline Phosphatase (38-126) U/L Total Protein (5.8-8.3) g/dL Albumin (3.0-4.8) g/dL Globulin gm/dL Albumin/Globulin Ratio (1.1-1.8) Laboratory Results - last 24 hr 09/09/18 09/09/18 09/09/18 12:12 16:27 21:56 WBC RBC Hgb Hct MCV MCH MCHC RDW Plt Count MPV Neut % (Auto) Lymph % (Auto) Lea % (Auto) Eos % (Auto) Baso % (Auto) Lymph # (Auto) Lea # (Auto) Eos # (Auto) Baso # (Auto) Absolute Neuts (auto) Sodium Potassium Chloride Carbon Dioxide Anion Gap BUN Creatinine Est GFR ( Amer) Est GFR (Non-Af Amer) POC Glucose (mg/dL) 111 H 157 H 157 H Random Glucose Calcium Total Bilirubin AST ALT Alkaline Phosphatase Total Protein Albumin Globulin Albumin/Globulin Ratio 09/10/18 09/10/18 09/10/18 06:00 06:00 07:19 WBC 12.8 H RBC 4.25 Hgb 8.2 L Hct 26.7 L MCV 62.8 L MCH 19.3 L MCHC 30.7 L RDW 16.0 H Plt Count 275 MPV 9.0 Neut % (Auto) 88.1 H Lymph % (Auto) 5.5 L Lea % (Auto) 5.5 Eos % (Auto) 0.8 L Baso % (Auto) 0.1 Lymph # (Auto) 0.7 L Lea # (Auto) 0.7 H Eos # (Auto) 0.1 Baso # (Auto) 0.01 Absolute Neuts (auto) 11.30 H Sodium 146 Potassium 3.6 Chloride 110 H Carbon Dioxide 32 Anion Gap 7 L BUN 15 Creatinine 0.5 L Est GFR ( Amer) > 60 Est GFR (Non-Af Amer) > 60 POC Glucose (mg/dL) 125 H Random Glucose 121 H Calcium 8.7 Total Bilirubin 0.2 AST 106 H D ALT 155 H Alkaline Phosphatase 137 H D Total Protein 6.2 Albumin 2.8 L Globulin 3.3 Albumin/Globulin Ratio 0.8 L Radiology Impressions: Radiology Impressions Head CT 09/09/18 09:27 IMPRESSION: Decreasing parenchymal hemorrhage right frontotemporal status post craniotomy and evacuation. Increasing midline shift towards the left. Effacement of suprasellar cistern. Effacement of right lateral ventricle. No downward herniation. Fingerstick Blood Sugar Results: 157 Review of Systems - Review of Systems Review of Systems: per HPI Critical Care Progress Note - Nutrition Nutrition: Nutrition Category Date Time Status NPO Diet [DIET] Diets 09/09/18 Breakfast Ordered Assessment/Plan - Assessment and Plan (Free Text) Assessment: 63 yo F with PMH of migraines [place] [facility] [place]-sided deficits. Admitted to ICU for close monitoring due to parenchymal hematoma in the right frontal parietal lobe with midline shift. Pt is s/p (09/03) craniotomy with evacuation of R parietal lobe hematoma. S/p tracheostomy this am Plan: Neuro: Intracranial hemorrhage with midline shift s/p craniotomy & evacuation of R parietal hematoma (09/03/18) continue neuro checks Q1H. Monitor for signs of progression of neuro deficits continue hyperventilation on vent support, maintain PaCO2 30-35 Continue keppra 750mg bid per neurology recs avoid rapid changes in blood pressure. Maintain normothermia with tylenol & cooling blanket Pt receiving tube feeds Neuro/Neurosurgery consulted, recs appreciated Will stop getting daily head CTs Pending LTAC placement ID: RLL Pneumonia procalcitonin <0.15. CXR reveals worsening RLL PNA continue vanc/cefepime ID following HOB>40 degrees daily sedation vacation GT/DVT prophylaxis daily subglottic suctioning Central fevers continue acetaminophen. monitor LFTs continue cooling blanket prn maintain normothermia Cardio: Monitor BP, target SBP 140mmHg per neurology/neurosurgery Maintain MAP > 65 Hold home ASA/anticoagulation Echo: Normal LVEF Pulm: RLL PNA continue abx s/p tracheostomy placement Maintain O2 sat > 92% Will attempt weaning trial today GI: Pepcid IVP Renal: Monitor electrolytes, replete/correct as needed Maintain euvolemia Heme: SCD's for DVT PPx Endo: Maintain euglycemia b/w 140-180 per NICE-SUGAR trial DVT/GI: SCD/pepcid Case seen, examined and discussed with attending physician, Dr. Elbert Malik PGY1 <Tim Pierce - Last Filed: 09/10/18 18:41> CCU Objective - Vital Signs / Intake & Output Intake and Output (Last 8hrs): Intake & Output 09/10/18 09/10/18 09/10/18 06:59 14:59 22:59 Intake Total 1625 75 Output Total 2100 Balance -475 75 Intake: IV 1625 75 Right Hand 1200 Right Upper arm 200 Output: Urine 2100 Urethral (Holliday) 2100 - Medications Active Medications: Active Medications Generic Name Dose Route Start Last Admin Trade Name Freq PRN Reason Stop Dose Admin Acetaminophen 650 mg 09/06/18 11:12 Tylenol 325mg Tab PO Q4 PRN Fever >100.4 F Famotidine 20 mg 09/04/18 10:45 09/10/18 11:00 Pepcid IVP 20 mg DAILY CLAY Administration Nicardipine HCl 20 mg in 200 mls @ 50 mls/hr 09/01/18 14:48 09/10/18 10:00 Cardene Iv Premix IV 0 mg/hr .Q4H PRN 0 mls/hr TITRATE PER MD ORDER Titration Protocol 5 MG/HR Propofol 1,000 mg in 100 mls @ 2.005 mls/hr 09/01/18 16:49 09/09/18 14:30 Diprivan IV 0 mcg/kg/min .Q24H PRN 0 mls/hr TITRATE PER MD ORDER Titration Protocol 5 MCG/KG/MIN Levetiracetam 750 mg/ Sodium 107.5 mls @ 215 mls/hr 09/04/18 10:00 09/10/18 11:01 Chloride IVPB 215 mls/hr Q12 CLAY Administration Cefepime HCl 1 gm in 100 mls @ 100 mls/hr 09/08/18 14:00 09/10/18 14:50 Maxipime 1gm IVPB 09/17/18 14:01 100 mls/hr Q8 CLAY Administration Protocol Vancomycin HCl 1 gm in 250 mls @ 167 mls/hr 09/08/18 12:00 09/10/18 14:49 Vancomycin 1gm IVPB 09/18/18 12:01 167 mls/hr Q12H CLAY Administration Protocol Sodium Chloride 1,000 mls @ 100 mls/hr 09/09/18 06:00 09/10/18 11:04 Sodium Chloride 0.9% IV 100 mls/hr .Q10H CLAY Administration Labetalol HCl 20 mg 08/31/18 21:26 09/05/18 01:07 Trandate IV 20 mg Q2H PRN Administration Hypertension - Patient Studies Lab Studies: Microbiology Studies 09/07/18 11:45 Blood Culture - Preliminary Blood NO GROWTH AFTER 3 DAYS 09/07/18 11:15 Blood Culture - Preliminary Blood NO GROWTH AFTER 3 DAYS 09/07/18 21:30 Gram Stain - Final Sputum Sputum Culture - Final Staphylococcus Aureus 09/07/18 18:18 MRSA Culture (Admit) - Final Naris MRSA NOT DETECTED Lab Studies 09/10/18 09/10/18 09/10/18 Range/Units 16:39 11:30 07:19 WBC (4.5-11.0) 10^3/uL RBC (3.5-6.1) 10^6/uL Hgb (12.0-16.0) g/dL Hct (36.0-48.0) % MCV (80.0-105.0) fl MCH (25.0-35.0) pg MCHC (31.0-37.0) g/dl RDW (11.5-14.5) % Plt Count (120.0-450.0) 10^3/uL MPV (7.0-11.0) fl Neut % (Auto) (50.0-68.0) % Lymph % (Auto) (22.0-35.0) % Lea % (Auto) (1.0-6.0) % Eos % (Auto) (1.5-5.0) % Baso % (Auto) (0.0-3.0) % Lymph # (Auto) (1.2-3.4) Lea # (Auto) (0.1-0.6) Eos # (Auto) (0.0-0.7) Baso # (Auto) (0.0-2.0) K/mm3 Absolute Neuts (auto) (1.4-6.5) Sodium (132-148) mmol/L Potassium (3.6-5.0) mmol/L Chloride (98-107) mmol/L Carbon Dioxide (21-33) mmol/L Anion Gap (10-20) BUN (7-21) mg/dL Creatinine (0.7-1.2) mg/dl Est GFR ( Amer) Est GFR (Non-Af Amer) POC Glucose (mg/dL) 123 H 127 H 125 H (65-110) mg/dL Random Glucose (70-110) mg/dL Calcium (8.4-10.5) mg/dL Total Bilirubin (0.2-1.3) mg/dL AST (14-36) U/L ALT (7-56) U/L Alkaline Phosphatase (38-126) U/L Total Protein (5.8-8.3) g/dL Albumin (3.0-4.8) g/dL Globulin gm/dL Albumin/Globulin Ratio (1.1-1.8) 09/10/18 09/10/18 09/09/18 Range/Units 06:00 06:00 21:56 WBC 12.8 H (4.5-11.0) 10^3/uL RBC 4.25 (3.5-6.1) 10^6/uL Hgb 8.2 L (12.0-16.0) g/dL Hct 26.7 L (36.0-48.0) % MCV 62.8 L (80.0-105.0) fl MCH 19.3 L (25.0-35.0) pg MCHC 30.7 L (31.0-37.0) g/dl RDW 16.0 H (11.5-14.5) % Plt Count 275 (120.0-450.0) 10^3/uL MPV 9.0 (7.0-11.0) fl Neut % (Auto) 88.1 H (50.0-68.0) % Lymph % (Auto) 5.5 L (22.0-35.0) % Lea % (Auto) 5.5 (1.0-6.0) % Eos % (Auto) 0.8 L (1.5-5.0) % Baso % (Auto) 0.1 (0.0-3.0) % Lymph # (Auto) 0.7 L (1.2-3.4) Lea # (Auto) 0.7 H (0.1-0.6) Eos # (Auto) 0.1 (0.0-0.7) Baso # (Auto) 0.01 (0.0-2.0) K/mm3 Absolute Neuts (auto) 11.30 H (1.4-6.5) Sodium 146 (132-148) mmol/L Potassium 3.6 (3.6-5.0) mmol/L Chloride 110 H (98-107) mmol/L Carbon Dioxide 32 (21-33) mmol/L Anion Gap 7 L (10-20) BUN 15 (7-21) mg/dL Creatinine 0.5 L (0.7-1.2) mg/dl Est GFR ( Amer) > 60 Est GFR (Non-Af Amer) > 60 POC Glucose (mg/dL) 157 H (65-110) mg/dL Random Glucose 121 H (70-110) mg/dL Calcium 8.7 (8.4-10.5) mg/dL Total Bilirubin 0.2 (0.2-1.3) mg/dL AST 106 H D (14-36) U/L ALT 155 H (7-56) U/L Alkaline Phosphatase 137 H D (38-126) U/L Total Protein 6.2 (5.8-8.3) g/dL Albumin 2.8 L (3.0-4.8) g/dL Globulin 3.3 gm/dL Albumin/Globulin Ratio 0.8 L (1.1-1.8) Laboratory Results - last 24 hr 09/09/18 09/10/18 09/10/18 21:56 06:00 06:00 WBC 12.8 H RBC 4.25 Hgb 8.2 L Hct 26.7 L MCV 62.8 L MCH 19.3 L MCHC 30.7 L RDW 16.0 H Plt Count 275 MPV 9.0 Neut % (Auto) 88.1 H Lymph % (Auto) 5.5 L Lea % (Auto) 5.5 Eos % (Auto) 0.8 L Baso % (Auto) 0.1 Lymph # (Auto) 0.7 L Lea # (Auto) 0.7 H Eos # (Auto) 0.1 Baso # (Auto) 0.01 Absolute Neuts (auto) 11.30 H Sodium 146 Potassium 3.6 Chloride 110 H Carbon Dioxide 32 Anion Gap 7 L BUN 15 Creatinine 0.5 L Est GFR ( Amer) > 60 Est GFR (Non-Af Amer) > 60 POC Glucose (mg/dL) 157 H Random Glucose 121 H Calcium 8.7 Total Bilirubin 0.2 AST 106 H D ALT 155 H Alkaline Phosphatase 137 H D Total Protein 6.2 Albumin 2.8 L Globulin 3.3 Albumin/Globulin Ratio 0.8 L 09/10/18 09/10/18 09/10/18 07:19 11:30 16:39 WBC RBC Hgb Hct MCV MCH MCHC RDW Plt Count MPV Neut % (Auto) Lymph % (Auto) Lea % (Auto) Eos % (Auto) Baso % (Auto) Lymph # (Auto) Lea # (Auto) Eos # (Auto) Baso # (Auto) Absolute Neuts (auto) Sodium Potassium Chloride Carbon Dioxide Anion Gap BUN Creatinine Est GFR ( Amer) Est GFR (Non-Af Amer) POC Glucose (mg/dL) 125 H 127 H 123 H Random Glucose Calcium Total Bilirubin AST ALT Alkaline Phosphatase Total Protein Albumin Globulin Albumin/Globulin Ratio Radiology Impressions: Radiology Impressions Head CT 09/09/18 09:27 IMPRESSION: Decreasing parenchymal hemorrhage right frontotemporal status post craniotomy and evacuation. Increasing midline shift towards the left. Effacement of suprasellar cistern. Effacement of right lateral ventricle. No downward herniation. Critical Care Progress Note - Nutrition Nutrition: Nutrition Category Date Time Status NPO Diet [DIET] Diets 09/10/18 Breakfast Ordered Attending/Attestation - Attestation I have personally seen and examined this patient.: Yes I have fully participated in the care of the patient.: Yes I have reviewed all pertinent clinical information: Yes Notes (Text): 09/10/18 18:36 63 yo with ICH, s/p evacuation, complicated by VDRF, now s/p trach. will continue to wean her off of vent. monitor mental status. maintain euvolemia, euglycemia and 02 sat>90%, HOB>35, oral hygene, sedation vacation and weaning trials daily. dvt/gi prophylaxis ccm time 40 min
--- NOTE | 2018-09-10 12:33 | PN ---
DATE: 09/10/2018 SUBJECTIVE: A 64-year-old white female, status post right intercerebral bleed with left hemiparesis status post evacuation of cerebral hematoma. The patient is for trach today. Vital signs are stable. The patient was taken off propofol yesterday without any change in her mental status, still unresponsive with unresponsive left pupil, Babinski are upgoing bilaterally. No left or right. The patient is not responsive to verbal or tactile stimuli. The patient is ventilatory dependant. Chest is clear to auscultation and percussion. Heart examination reveals sinus rhythm. The patient is slightly anemic at 8.2. White count is 12.8. Temperature is 98.8. Rest of vital signs are stable. The patient will be reassessed on post tracheostomy. . Reassess neurological function post tracheostomy. Pal Elizabeth MD
--- NOTE | 2018-09-10 13:06 | CP.PCM.PN ---
Subjective - Date & Time of Evaluation Date of Evaluation: 09/10/18 Time of Evaluation: 09:45 - Subjective Subjective: Tracheostomy was done yesterday, no fevers overnight, still not very responsive. Objective - Vital Signs/Intake and Output Vital Signs (last 24 hours): Temp Pulse Resp BP Pulse Ox 99.7 F H 106 H 27 H 161/85 H 99 09/09/18 08:00 09/08/18 22:00 09/08/18 04:10 09/08/18 18:08 09/09/18 08:00 Intake and Output: 09/09/18 09/09/18 06:59 18:59 Intake Total 500 170 Balance 500 170 - Medications Medications: Current Medications Acetaminophen (Tylenol 325mg Tab) 650 mg PO Q4 PRN PRN Reason: Fever >100.4 F Famotidine (Pepcid) 20 mg IVP DAILY CLAY Last Admin: 09/09/18 09:51 Dose: 20 mg Nicardipine HCl (Cardene Iv Premix) 20 mg in 200 mls @ 50 mls/hr IV .Q4H PRN; Protocol PRN Reason: TITRATE PER MD ORDER Last Titration: 09/09/18 14:00 Dose: 5 mg/hr, 50 mls/hr Propofol (Diprivan) 1,000 mg in 100 mls @ 2.005 mls/hr IV .Q24H PRN; Protocol PRN Reason: TITRATE PER MD ORDER Last Admin: 09/09/18 03:24 Dose: 10 mcg/kg/min, 4.009 mls/hr Levetiracetam 750 mg/ Sodium (Chloride) 107.5 mls @ 215 mls/hr IVPB Q12 CLAY Last Admin: 09/09/18 09:51 Dose: 215 mls/hr Cefepime HCl (Maxipime 1gm) 1 gm in 100 mls @ 100 mls/hr IVPB Q8 CLAY; Protocol Stop: 09/17/18 14:01 Last Admin: 09/09/18 06:26 Dose: 100 mls/hr Vancomycin HCl (Vancomycin 1gm) 1 gm in 250 mls @ 167 mls/hr IVPB Q12H CLAY; Protocol Stop: 09/18/18 12:01 Last Admin: 09/09/18 12:07 Dose: 167 mls/hr Sodium Chloride (Sodium Chloride 0.9%) 1,000 mls @ 100 mls/hr IV .Q10H CLAY Last Admin: 09/09/18 06:26 Dose: 100 mls/hr Labetalol HCl (Trandate) 20 mg IV Q2H PRN PRN Reason: Hypertension Last Admin: 09/05/18 01:07 Dose: 20 mg - Labs Labs: 09/09/18 06:00 09/09/18 06:00 PT 13.5 SECONDS (9.4-12.5) H 09/09/18 06:00 INR 1.19 09/09/18 06:00 APTT 28.7 Seconds (26.9-38.3) 09/09/18 06:00 - Constitutional Appears: Chronically Ill, Other (on the ventilator) - Head Exam Additional comments: right frontotemporal area with dressings in place - ENT Exam Additional comments: tracheostomy tube in place - Respiratory Exam Respiratory Exam: Decreased Breath Sounds - Cardiovascular Exam Cardiovascular Exam: +S1, +S2 - GI/Abdominal Exam GI & Abdominal Exam: Soft. absent: Tenderness Assessment and Plan - Assessment and Plan (Free Text) Plan: Assessment Systemic inflammatory response syndrome with fevers, probably due to right frontoparietal heomrrhagic CVA S/P right craniectomy and partial evacuation of hemorrhage POD #7, R/O sepsis from right sided HAP history of migraines Plan continue Vancomycin and Cefepime day 3 ; blood cx are negative so far, sputum cx showing MSSA; reviewed CXR which shows increasing right sided infiltrate but PCT is only 0.25; target 4-7 days of antibiotics overall prognosis is poor will continue to monitor clinically
[2018-09-11] MEDS: Vancomycin 1gm in NS 250ml 1 GM/250 ML BAG IVPB SCH ×3 (00:35→23:21)
[2018-09-11 04:52] LABS: BASO # 0.03 K/mm3 (0.0-2.0); BASO % 0.2 % (0.0-3.0); EOS # 0.1 (0.0-0.7); EOS % 0.6 % (1.5-5.0); HEMOGLOBIN 9.1 g/dL (12.0-16.0); LYMPH # 1.4 (1.2-3.4); MEAN CELL VOLUME 64.2 fl (80.0-105.0); MEAN CORPUSCULAR HEMOGLOBIN 19.5 pg (25.0-35.0); MEAN CORPUSCULAR HGB CONC 30.4 g/dl (31.0-37.0); MEAN PLATELET VOLUME 9.2 fl (7.0-11.0); MONO # 1.1 (0.1-0.6); MONO % 7.2 % (1.0-6.0); RBC 4.66 10^6/uL (3.5-6.1); RED CELL DISTRIBUTION WIDTH 16.3 % (11.5-14.5); WHITE BLOOD COUNT 15.8 10^3/uL (4.5-11.0)
[2018-09-11 05:11] LABS: ALB/GLOB RATIO 0.8 (1.1-1.8); ALBUMIN 2.9 g/dL (3.0-4.8); ALT/SGPT 176 U/L (7-56); AST/SGOT 128 U/L (14-36); BLOOD UREA NITROGEN 21 mg/dL (7-21); CALCIUM 8.7 mg/dL (8.4-10.5); GFR NON-AFRICAN AMERICAN > 60
[2018-09-11 05:17] LABS: TROPONIN I < 0.01 ng/mL
[2018-09-11] MEDS: Cefepime 1gm in NS 100ml 1 GM/100 ML BAG IVPB SCH ×3 (05:31→21:32)
--- NOTE | 2018-09-11 06:10 | OP ---
PROCEDURE DATE: 09/10/2018 TIME OF SURGERY: 9 a.m. PRIMARY SURGEON: Ze Angulo MD. DETAILER FURNITURE: Ronald Gandhi DO, PGY-2. TYPE OF ANESTHESIA: General endotracheal and local anesthesia. ANESTHESIA ADMINISTERED BY: Juju Viveros MD REOPERATIVE DIAGNOSIS: Ventilator-dependent respiratory failure. POSTOPERATIVE DIAGNOSIS: Ventilator-dependent respiratory failure. OPERATION PERFORMED: Open tracheostomy using size 8 cuffed tracheostomy. SPECIMENS: There are no specimens. ESTIMATED BLOOD LOSS: 5 mL. BLOOD PRODUCTS: There were no blood products given intraoperatively. DRAINS: There were no drains used. POSTOPERATIVE CONDITION: Fair. INDICATIONS: Ms. Yandy Pimentel is 63-year-old female who unfortunately underwent craniotomy for a right-sided parenchymal hematoma in the frontoparietal region. The patient had a craniotomy on 09/03/2018 for evacuation of hematoma and has had ventilator dependence since. Surgery was consulted for tracheostomy placement for aggressive ventilator weaning and further management. A detailed description of the procedure, risks, and benefits reasonably obtained from the surgery were discussed with the patient's family and informed written consent was obtained and witnessed by the nursing staff. DESCRIPTION OF PROCEDURE: The patient was taken to the operating room and placed in the supine position. A shoulder roll was placed beneath the shoulder in order to expose the neck area adequately. The patient was placed on adequate monitoring by the anesthesia team to continue sedation safely throughout the case. The patient's neck was prepped using Betadine and draped in the usual sterile fashion. A surgical timeout was performed, identifying the evelin on the neck, identifying the patient's identity using the ID bracelet, and a surgical debriefing was performed with all members of the OR staff. The landmarks of the thyroid cartilage, cricoid, and the angle of Darrion were marked using a marking pen and midline was also marked. The neck was then infiltrated with 1% lidocaine and a vertical incision was carried out using a #15 scalpel blade to approximately 3 cm in length. The skin, the subcutaneous tissues, the platysma, the subplatysmal fascia were dissected using electrocautery. The skin was then retracted laterally and superiorly. The strap muscles were in the midline, and the dissection was carried down to the visceral fascia. The sweet spot beneath the cricoid and above the thyroid isthmus was found, and the midline tracheal rings were palpated, and the overlying fascia was dissected using electrocautery. Once the trachea was exposed, and the midline tracheal rings were palpated, the trachea was incised using electrocautery below the second tracheal ring and above the third. With the hemostat directed towards the trachea, blunt dissection with the tip of the hemostat identified the anterior tracheal wall. The hemostat was then redirected inferiorly to separate the posterior aspect of the thyroid isthmus from the trachea. The Stephie clamp was then used to clamp the lateral cook of the tracheal incision to ensure adequate control of the trachea throughout. The incision was then dilated using the 3 prong retractor/dilator. The #8 tracheostomy was then inserted while the ET tube was pulled out slowly by the anesthesia team. Under direct vision, the tracheostomy was then inserted without any complications or any resistance and with ease. Surgical lubricant was on the tube while we inserted the tracheostomy. The cuff was inflated with approximately 7 mL of air. The anesthesiology team ensured adequate ventilation and proper placement was confirmed with CO2 return on the anesthesiology monitor. Once proper placement was ensured, layered closure was carried out using 3-0 Vicryl as we reapproximated the strap muscles in interrupted fashion, and then reapproximated the platysmal and the dermal layers. The trachea was secured to the skin using 3-0 silk sutures. The skin incision above the tracheostomy was closed using 4-0 Monocryl in the interrupted vertical mattress fashion and Dermabond was placed. Gauze was placed around the tracheostomy to ensure a tight seal. The tracheostomy tube was then secured with Velcro strap around the neck. The needle and sponge counts were declared correct by the OR staff. Once the procedure was completed, a surgical debriefing was again performed. The patient was taken back to the intensive care unit in satisfactory condition. The patient tolerated the procedure well without any complications. Ronald Gandhi DO Ze Angulo MD DEX
[2018-09-11] MEDS: Sodium Chloride 0.9% 1,000 ML IV SCH ×2 (08:00→22:26)
--- NOTE | 2018-09-11 09:14 | CT ---
Date of service: 09/11/2018 PROCEDURE: CT HEAD WITHOUT CONTRAST. HISTORY: follow up COMPARISON: Unenhanced head CT 09/09/2018. TECHNIQUE: Axial computed tomography images were obtained through the head/brain without intravenous contrast. Radiation dose: Total exam DLP = 895.64 mGy-cm. This CT exam was performed using one or more of the following dose reduction techniques: Automated exposure control, adjustment of the mA and/or kV according to patient size, and/or use of iterative reconstruction technique. FINDINGS: Patient is again seen to be status post right frontotemporal craniotomy for right frontal intraparenchymal hemorrhage. Postoperative changes are stable at the right frontotemporal scalp. Right frontal intraparenchymal hemorrhage is borderline small in volume measuring 4.7 x 2.7 cm with prominent surrounding edema identified once again up to the right frontal parietal vertex. Edema extends into the anterior and mid segments right temporal lobe once again. Pneumocephaly is not significantly changed and remains minimal in volume. Leftward midline shift is identified remaining 17 mm. The aforementioned mass effect results in large right posterior cerebral artery infarct affecting right temporooccipital distribution. There is a small infarct at the left thalamus and mass effect narrows the upper basilar cisterns mildly with impression of the bilateral cerebral peduncles identified. Mild dilatation left lateral ventricle is noted with effacement of the right lateral ventricle again evident and loss of the suprasellar cistern. PARANASAL SINUSES: Unremarkable as visualized. No significant inflammatory changes. MASTOID AIR CELLS: Bilateral mastoid effusions reiterated, right greater than left. OTHER FINDINGS: None. IMPRESSION: Postoperative changes status post right frontal craniotomy with trace residual pneumocephaly limited right frontal parietal temporal scalp fluid collection. Intraparenchymal hemorrhage is stable at the right frontal parietal distribution with edema extending into right frontal, temporal and parietal lobes once again without significant interval change greater leftward midline shift is stable at 17 mm. However, an acute subacute large ischemic infarct affecting the right posterior artery distribution with a small ischemic infarct at the left thalamus. Some crowding of the upper basilar cisterns identified with mild dilatation of the left lateral ventricle noted and effacement of the right lateral ventricle stable. Findings discussed with Dr. Hinds in lieu of Dr. Sheikh written down read back verification 09/11/2018 9:01 a.m..
--- NOTE | 2018-09-11 10:23 | RAD ---
Date of service: 09/11/2018 HISTORY: RLL PNA, tracheostomy COMPARISON: 09/09/2018 FINDINGS: LUNGS: Minimal infiltrate at the right lung base. A tracheostomy is now in place. Nasogastric tube remains in satisfactory position PLEURA: No significant pleural effusion identified, no pneumothorax apparent. CARDIOVASCULAR: No aortic atherosclerotic calcification present. Normal cardiac size. No pulmonary vascular congestion. OSSEOUS STRUCTURES: No significant abnormalities. VISUALIZED UPPER ABDOMEN: Normal. OTHER FINDINGS: None. IMPRESSION: Minimal infiltrate at the right lung base. A tracheostomy is now in place. Nasogastric tube remains in satisfactory position
--- NOTE | 2018-09-11 11:46 | PN ---
DATE: 09/11/2018 SUBJECTIVE: A 63-year-old white female seen in ICU, bed 3. The patient is post tracheostomy, post evacuation of cerebral hematoma for right-sided intracerebral bleed. The patient is worse today. She is less responsive. She is now becoming bradycardic and hypotensive. Her sodium is up to 154, potassium 3.2. Her white count is elevated at 15,800. Her hemoglobin is stable at 9.1. Her family is at the bedside. She has upgoing Babinski bilaterally. Her both pupils were fixed, but not dilated. She is off propofol. She has had no response. She is assisted with ventilator. She has no response to verbal or tactile stimuli or painful stimuli. She is not moving the left or right side of her body. She had had a repeat CT with essentially no change. Her family is aware. ASSESSMENT AND PLAN: We discussed possibility of reducing the level of care because of the patient's deteriorating condition. The daughter will be summoned to be at the bedside. We will observe the patient carefully today and treat as per the family's wishes. Pal Elizabeth MD
--- NOTE | 2018-09-11 11:51 | CARD ---
APPROVED REPORT Date of service: 09/11/2018 EKG Measurement Heart [id number] <Conclusion> Marked sinus bradycardia Nonspecific intraventricular block T wave abnormality, consider anterolateral ischemia Abnormal ECG
--- NOTE | 2018-09-11 12:34 | CP.PCM.PN ---
Subjective - Date & Time of Evaluation Date of Evaluation: 09/11/18 Time of Evaluation: 08:30 - Subjective Subjective: Continues to be on the ventilator, had one temperature of 100 F overnight, still not very responsive. Tracheostomy was done yesterday. Objective - Vital Signs/Intake and Output Vital Signs (last 24 hours): Temp Pulse Resp BP Pulse Ox 98.8 F 61 17 151/78 H 98 09/10/18 04:00 09/10/18 06:00 09/10/18 07:40 09/10/18 04:00 09/10/18 07:40 Intake and Output: 09/10/18 09/10/18 06:59 18:59 Intake Total 1725 Output Total 2100 Balance -375 - Medications Medications: Current Medications Acetaminophen (Tylenol 325mg Tab) 650 mg PO Q4 PRN PRN Reason: Fever >100.4 F Famotidine (Pepcid) 20 mg IVP DAILY CLAY Last Admin: 09/10/18 11:00 Dose: 20 mg Nicardipine HCl (Cardene Iv Premix) 20 mg in 200 mls @ 50 mls/hr IV .Q4H PRN; Protocol PRN Reason: TITRATE PER MD ORDER Last Titration: 09/10/18 05:05 Dose: 2.5 mg/hr, 25 mls/hr Propofol (Diprivan) 1,000 mg in 100 mls @ 2.005 mls/hr IV .Q24H PRN; Protocol PRN Reason: TITRATE PER MD ORDER Last Titration: 09/09/18 14:30 Dose: 0 mcg/kg/min, 0 mls/hr Levetiracetam 750 mg/ Sodium (Chloride) 107.5 mls @ 215 mls/hr IVPB Q12 CLAY Last Admin: 09/10/18 11:01 Dose: 215 mls/hr Cefepime HCl (Maxipime 1gm) 1 gm in 100 mls @ 100 mls/hr IVPB Q8 CLAY; Protocol Stop: 09/17/18 14:01 Last Admin: 09/10/18 05:07 Dose: 100 mls/hr Vancomycin HCl (Vancomycin 1gm) 1 gm in 250 mls @ 167 mls/hr IVPB Q12H CLAY; Protocol Stop: 09/18/18 12:01 Last Admin: 09/10/18 01:00 Dose: 167 mls/hr Sodium Chloride (Sodium Chloride 0.9%) 1,000 mls @ 100 mls/hr IV .Q10H CLAY Last Admin: 09/10/18 03:57 Dose: 100 mls/hr Labetalol HCl (Trandate) 20 mg IV Q2H PRN PRN Reason: Hypertension Last Admin: 09/05/18 01:07 Dose: 20 mg - Labs Labs: 09/10/18 06:00 09/10/18 06:00 PT 13.5 SECONDS (9.4-12.5) H 09/09/18 06:00 INR 1.19 09/09/18 06:00 APTT 28.7 Seconds (26.9-38.3) 09/09/18 06:00 - Constitutional Appears: Chronically Ill, Other (on the ventilator) - Head Exam Additional comments: right frontotemportal area with dressings in place - Neck Exam Additional comments: tracheostomy tube in place - Respiratory Exam Respiratory Exam: Decreased Breath Sounds - Cardiovascular Exam Cardiovascular Exam: +S1, +S2 - GI/Abdominal Exam GI & Abdominal Exam: Soft. absent: Tenderness Assessment and Plan - Assessment and Plan (Free Text) Plan: Assessment Systemic inflammatory response syndrome with fevers, probably due to right frontoparietal heomrrhagic CVA S/P right craniectomy and partial evacuation of hemorrhage POD #8, R/O sepsis from right sided HAP, on the ventilator, now S/P tracheostomy history of migraines Plan continue Vancomycin and Cefepime day 4 ; blood cx are negative so far, sputum cx showing MSSA; reviewed CXR today which shows minimal right sided infiltrate which is an improvement; PCT is only 0.25; target 4-7 days of antibiotics overall prognosis is poor will continue to monitor clinically
--- NOTE | 2018-09-11 14:32 | CP.CCUPN ---
<Lis Malik - Last Filed: 09/11/18 14:29> CCU Subjective - Physician Review Subjective (Free Text): CRITICAL CARE PROGRESS NOTE Lis Malik PGY1 Pt seen and examined at bedside in ICU. She is s/p tracheostomy. She is off of sedation. She is not currently responding to commands. Vent: 400/50%/12/5 CCU Objective - Vital Signs / Intake & Output Vital Signs (Last 4 hours): Vital Signs Temp Pulse Resp Pulse Ox 09/11/18 12:00 97.5 F L 69 12 94 L Intake and Output (Last 8hrs): Intake & Output 09/10/18 09/11/18 09/11/18 22:59 06:59 14:59 Intake Total 1560 1650 10 Output Total 1375 1200 Balance 185 450 10 Intake: IV 1560 1650 10 Right Hand 10 Right Upper arm 1550 1650 Oral 0 Output: Urine 1375 1200 Urethral (Holliday) 1375 1200 Other: # Bowel Movements 0 - Physical Exam Head: Positive for: Other (R parietal hematoma) Pupils: Positive for: Non-Reactive Conjunctiva: Positive for: Normal Mouth: Positive for: Moist Mucous Membranes, Drooling Pharnyx: Positive for: Other (tracheostomy in place) Nose (Internal): Positive for: No Active Bleeding Neck: Negative for: Meningeal Signs Respiratory/Chest: Positive for: Clear to Auscultation, Good Air Exchange Cardiovascular: Positive for: Regular Rate and Rhythm, Normal S1, S2 Abdomen: Positive for: Normal Bowel Sounds. Negative for: Tenderness, Distention, Peritoneal Signs Upper Extremity: Positive for: Normal Inspection. Negative for: Cyanosis, Edema Lower Extremity: Positive for: Normal Inspection. Negative for: Edema Neurological: Positive for: Other (sedated). Negative for: GCS=15 Skin: Positive for: Warm, Dry Psychiatric: Positive for: Other - Medications Active Medications: Active Medications Generic Name Dose Route Start Last Admin Trade Name Freq PRN Reason Stop Dose Admin Acetaminophen 650 mg 09/06/18 11:12 Tylenol 325mg Tab PO Q4 PRN Fever >100.4 F Famotidine 20 mg 09/04/18 10:45 09/11/18 09:16 Pepcid IVP 20 mg DAILY CLAY Administration Nicardipine HCl 20 mg in 200 mls @ 50 mls/hr 09/01/18 14:48 09/11/18 07:30 Cardene Iv Premix IV 0 mg/hr .Q4H PRN 0 mls/hr TITRATE PER MD ORDER Titration Protocol 5 MG/HR Propofol 1,000 mg in 100 mls @ 2.005 mls/hr 09/01/18 16:49 09/09/18 14:30 Diprivan IV 0 mcg/kg/min .Q24H PRN 0 mls/hr TITRATE PER MD ORDER Titration Protocol 5 MCG/KG/MIN Levetiracetam 750 mg/ Sodium 107.5 mls @ 215 mls/hr 09/04/18 10:00 09/11/18 09:16 Chloride IVPB 215 mls/hr Q12 CLAY Administration Cefepime HCl 1 gm in 100 mls @ 100 mls/hr 09/08/18 14:00 09/11/18 13:35 Maxipime 1gm IVPB 09/17/18 14:01 100 mls/hr Q8 CLAY Administration Protocol Vancomycin HCl 1 gm in 250 mls @ 167 mls/hr 09/08/18 12:00 09/11/18 11:31 Vancomycin 1gm IVPB 09/18/18 12:01 167 mls/hr Q12H CLAY Administration Protocol Sodium Chloride 1,000 mls @ 100 mls/hr 09/09/18 06:00 09/11/18 08:00 Sodium Chloride 0.9% IV 100 mls/hr .Q10H CLAY Administration Acetaminophen 1,000 mg in 100 mls @ 400 mls/hr 09/10/18 23:20 Ofirmev IVPB 09/12/18 23:21 Q6H PRN Temperature Potassium Chloride 10 meq in 100 mls @ 50 mls/hr 09/11/18 07:00 09/11/18 13:37 Potassium Chloride 10 Meq/100 Ml IVPB 09/11/18 14:59 50 mls/hr Q2H CLAY Administration Labetalol HCl 20 mg 08/31/18 21:26 09/05/18 01:07 Trandate IV 20 mg Q2H PRN Administration Hypertension - Patient Studies Lab Studies: Microbiology Studies 09/07/18 11:45 Blood Culture - Preliminary Blood NO GROWTH AFTER 4 DAYS 09/07/18 11:15 Blood Culture - Preliminary Blood NO GROWTH AFTER 4 DAYS 09/07/18 21:30 Gram Stain - Final Sputum Sputum Culture - Final Staphylococcus Aureus Lab Studies 09/11/18 09/11/18 09/11/18 Range/Units 11:45 07:33 04:32 WBC (4.5-11.0) 10^3/uL RBC (3.5-6.1) 10^6/uL Hgb (12.0-16.0) g/dL Hct (36.0-48.0) % MCV (80.0-105.0) fl MCH (25.0-35.0) pg MCHC (31.0-37.0) g/dl RDW (11.5-14.5) % Plt Count (120.0-450.0) 10^3/uL MPV (7.0-11.0) fl Neut % (Auto) (50.0-68.0) % Lymph % (Auto) (22.0-35.0) % [place] % (Auto) (1.0-6.0) % Eos % (Auto) (1.5-5.0) % Baso % (Auto) (0.0-3.0) % Lymph # (Auto) (1.2-3.4) [place] # (Auto) (0.1-0.6) Eos # (Auto) (0.0-0.7) Baso # (Auto) (0.0-2.0) K/mm3 Absolute Neuts (auto) (1.4-6.5) Sodium 154 H (132-148) mmol/L Potassium 3.2 L (3.6-5.0) mmol/L Chloride 120 H (98-107) mmol/L Carbon Dioxide 31 (21-33) mmol/L Anion Gap 7 L (10-20) BUN 21 (7-21) mg/dL Creatinine 0.6 L (0.7-1.2) mg/dl Est GFR ( Amer) > 60 Est GFR (Non-Af Amer) > 60 POC Glucose (mg/dL) 179 H 147 H (65-110) mg/dL Random Glucose 174 H (70-110) mg/dL Calcium 8.7 (8.4-10.5) mg/dL Total Bilirubin 0.3 (0.2-1.3) mg/dL AST 128 H D (14-36) U/L ALT 176 H (7-56) U/L Alkaline Phosphatase 187 H D (38-126) U/L Troponin I < 0.01 ng/mL Total Protein 6.5 (5.8-8.3) g/dL Albumin 2.9 L (3.0-4.8) g/dL Globulin 3.6 gm/dL Albumin/Globulin Ratio 0.8 L (1.1-1.8) 09/11/18 09/10/18 09/10/18 Range/Units 04:32 22:13 22:02 WBC 15.8 H D (4.5-11.0) 10^3/uL RBC 4.66 (3.5-6.1) 10^6/uL Hgb 9.1 L (12.0-16.0) g/dL Hct 29.9 L (36.0-48.0) % MCV 64.2 L (80.0-105.0) fl MCH 19.5 L (25.0-35.0) pg MCHC 30.4 L (31.0-37.0) g/dl RDW 16.3 H (11.5-14.5) % Plt Count 282 (120.0-450.0) 10^3/uL MPV 9.2 (7.0-11.0) fl Neut % (Auto) 83.0 H (50.0-68.0) % Lymph % (Auto) 9.0 L (22.0-35.0) % [place] % (Auto) 7.2 H (1.0-6.0) % Eos % (Auto) 0.6 L (1.5-5.0) % Baso % (Auto) 0.2 (0.0-3.0) % Lymph # (Auto) 1.4 (1.2-3.4) [place] # (Auto) 1.1 H (0.1-0.6) Eos # (Auto) 0.1 (0.0-0.7) Baso # (Auto) 0.03 (0.0-2.0) K/mm3 Absolute Neuts (auto) 13.08 H (1.4-6.5) Sodium (132-148) mmol/L Potassium (3.6-5.0) mmol/L Chloride (98-107) mmol/L Carbon Dioxide (21-33) mmol/L Anion Gap (10-20) BUN (7-21) mg/dL Creatinine (0.7-1.2) mg/dl Est GFR ( Amer) Est GFR (Non-Af Amer) POC Glucose (mg/dL) 218 H 125 H (65-110) mg/dL Random Glucose (70-110) mg/dL Calcium (8.4-10.5) mg/dL Total Bilirubin (0.2-1.3) mg/dL AST (14-36) U/L ALT (7-56) U/L Alkaline Phosphatase (38-126) U/L Troponin I ng/mL Total Protein (5.8-8.3) g/dL Albumin (3.0-4.8) g/dL Globulin gm/dL Albumin/Globulin Ratio (1.1-1.8) 09/10/18 09/10/18 Range/Units 16:39 11:30 WBC (4.5-11.0) 10^3/uL RBC (3.5-6.1) 10^6/uL Hgb (12.0-16.0) g/dL Hct (36.0-48.0) % MCV (80.0-105.0) fl MCH (25.0-35.0) pg MCHC (31.0-37.0) g/dl RDW (11.5-14.5) % Plt Count (120.0-450.0) 10^3/uL MPV (7.0-11.0) fl Neut % (Auto) (50.0-68.0) % Lymph % (Auto) (22.0-35.0) % [place] % (Auto) (1.0-6.0) % Eos % (Auto) (1.5-5.0) % Baso % (Auto) (0.0-3.0) % Lymph # (Auto) (1.2-3.4) [place] # (Auto) (0.1-0.6) Eos # (Auto) (0.0-0.7) Baso # (Auto) (0.0-2.0) K/mm3 Absolute Neuts (auto) (1.4-6.5) Sodium (132-148) mmol/L Potassium (3.6-5.0) mmol/L Chloride (98-107) mmol/L Carbon Dioxide (21-33) mmol/L Anion Gap (10-20) BUN (7-21) mg/dL Creatinine (0.7-1.2) mg/dl Est GFR ( Amer) Est GFR (Non-Af Amer) POC Glucose (mg/dL) 123 H 127 H (65-110) mg/dL Random Glucose (70-110) mg/dL Calcium (8.4-10.5) mg/dL Total Bilirubin (0.2-1.3) mg/dL AST (14-36) U/L ALT (7-56) U/L Alkaline Phosphatase (38-126) U/L Troponin I ng/mL Total Protein (5.8-8.3) g/dL Albumin (3.0-4.8) g/dL Globulin gm/dL Albumin/Globulin Ratio (1.1-1.8) Laboratory Results - last 24 hr 09/10/18 09/10/18 09/10/18 11:30 16:39 22:02 WBC RBC Hgb Hct MCV MCH MCHC RDW Plt Count MPV Neut % (Auto) Lymph % (Auto) [place] % (Auto) Eos % (Auto) Baso % (Auto) Lymph # (Auto) [place] # (Auto) Eos # (Auto) Baso # (Auto) Absolute Neuts (auto) Sodium Potassium Chloride Carbon Dioxide Anion Gap BUN Creatinine Est GFR ( Amer) Est GFR (Non-Af Amer) POC Glucose (mg/dL) 127 H 123 H 125 H Random Glucose Calcium Total Bilirubin AST ALT Alkaline Phosphatase Troponin I Total Protein Albumin Globulin Albumin/Globulin Ratio 09/10/18 09/11/18 09/11/18 22:13 04:32 04:32 WBC 15.8 H D RBC 4.66 Hgb 9.1 L Hct 29.9 L MCV 64.2 L MCH 19.5 L MCHC 30.4 L RDW 16.3 H Plt Count 282 MPV 9.2 Neut % (Auto) 83.0 H Lymph % (Auto) 9.0 L [place] % (Auto) 7.2 H Eos % (Auto) 0.6 L Baso % (Auto) 0.2 Lymph # (Auto) 1.4 [place] # (Auto) 1.1 H Eos # (Auto) 0.1 Baso # (Auto) 0.03 Absolute Neuts (auto) 13.08 H Sodium 154 H Potassium 3.2 L Chloride 120 H Carbon Dioxide 31 Anion Gap 7 L BUN 21 Creatinine 0.6 L Est GFR ( Amer) > 60 Est GFR (Non-Af Amer) > 60 POC Glucose (mg/dL) 218 H Random Glucose 174 H Calcium 8.7 Total Bilirubin 0.3 AST 128 H D ALT 176 H Alkaline Phosphatase 187 H D Troponin I < 0.01 Total Protein 6.5 Albumin 2.9 L Globulin 3.6 Albumin/Globulin Ratio 0.8 L 09/11/18 09/11/18 07:33 11:45 WBC RBC Hgb Hct MCV MCH MCHC RDW Plt Count MPV Neut % (Auto) Lymph % (Auto) [place] % (Auto) Eos % (Auto) Baso % (Auto) Lymph # (Auto) [place] # (Auto) Eos # (Auto) Baso # (Auto) Absolute Neuts (auto) Sodium Potassium Chloride Carbon Dioxide Anion Gap BUN Creatinine Est GFR ( Amer) Est GFR (Non-Af Amer) POC Glucose (mg/dL) 147 H 179 H Random Glucose Calcium Total Bilirubin AST ALT Alkaline Phosphatase Troponin I Total Protein Albumin Globulin Albumin/Globulin Ratio Radiology Impressions: Radiology Impressions Head CT 09/11/18 07:00 IMPRESSION: Postoperative changes status post right frontal craniotomy with trace residual pneumocephaly limited right frontal parietal temporal scalp fluid collection. Intraparenchymal hemorrhage is stable at the right frontal parietal distribution with edema extending into right frontal, temporal and parietal lobes once again without significant interval change greater leftward midline shift is stable at 17 mm. However, an acute subacute large ischemic infarct affecting the right posterior artery distribution with a small ischemic infarct at the left thalamus. Some crowding of the upper basilar cisterns identified with mild dilatation of the left lateral ventricle noted and effacement of the right lateral ventricle stable. Findings discussed with Dr. Hinds in lieu of Dr. Sheikh written down read back verification 09/11/2018 9:01 a.m.. Chest X-Ray 09/11/18 09:17 IMPRESSION: Minimal infiltrate at the right lung base. A tracheostomy is now in place. Nasogastric tube remains in satisfactory position EKG/Cardiology Studies: Cardiology / EKG Studies 09/11/18 04:21 EKG [ELECTROCARDIOGRAM] Stat Comment: Reason For Exam: bradicardia Fingerstick Blood Sugar Results: 179 Review of Systems - Review of Systems Review of Systems: unable to obtain Critical Care Progress Note - Nutrition Nutrition: Nutrition Category Date Time Status NPO Diet [DIET] Diets 09/10/18 Breakfast Ordered Assessment/Plan - Assessment and Plan (Free Text) Assessment: 63 yo F with PMH of migraines [place] [facility] [place]. Admitted to ICU for close monitoring due to parenchymal hematoma in the right frontal parietal lobe with midline shift. Pt is s/p (09/03) craniotomy with evacuation of R parietal lobe hematoma. S/p tracheostomy 09/10 Plan: Neuro: Intracranial hemorrhage with midline shift s/p craniotomy & evacuation of R parietal hematoma (09/03/18) Repeat CT scan reveals posterior RCA and L thalamic stroke continue neuro checks Q1H. Monitor for signs of progression of neuro deficits continue hyperventilation on vent support, maintain PaCO2 30-35 Continue keppra 750mg bid per neurology recs avoid rapid changes in blood pressure. Maintain normothermia with tylenol & cooling blanket Pt receiving tube feeds Neuro/Neurosurgery consulted, recs appreciated Will stop getting daily head CTs Pending LTAC placement ID: RLL Pneumonia procalcitonin <0.15. CXR reveals worsening RLL PNA continue vanc/cefepime ID following HOB>40 degrees daily sedation vacation GT/DVT prophylaxis daily subglottic suctioning Central fevers continue acetaminophen. monitor LFTs continue cooling blanket prn maintain normothermia Cardio: Monitor BP, target SBP 140mmHg per neurology/neurosurgery Maintain MAP > 65 Hold home ASA/anticoagulation Echo: Normal LVEF Pulm: RLL PNA continue abx s/p tracheostomy placement Maintain O2 sat > 92% Will attempt weaning trial today GI: Pepcid IVP Renal: Monitor electrolytes, replete/correct as needed Maintain euvolemia Heme: SCD's for DVT PPx Endo: Maintain euglycemia b/w 140-180 per NICE-SUGAR trial DVT/GI: SCD/pepcid Case seen, examined and discussed with attending physician, Dr. Elbert Malik PGY1 <Tim Pierce - Last Filed: 09/11/18 17:00> CCU Objective - Vital Signs / Intake & Output Vital Signs (Last 4 hours): Vital Signs Pulse 09/11/18 14:00 65 Intake and Output (Last 8hrs): Intake & Output 09/11/18 09/11/18 09/11/18 06:59 14:59 22:59 Intake Total 1650 10 Output Total 1200 Balance 450 10 Intake: IV 1650 10 Right Upper arm 1650 Output: Urine 1200 Urethral (Holliday) 1200 - Medications Active Medications: Active Medications Generic Name Dose Route Start Last Admin Trade Name Freq PRN Reason Stop Dose Admin Acetaminophen 650 mg 09/06/18 11:12 Tylenol 325mg Tab PO Q4 PRN Fever >100.4 F Famotidine 20 mg 09/04/18 10:45 09/11/18 09:16 Pepcid IVP 20 mg DAILY CLAY Administration Nicardipine HCl 20 mg in 200 mls @ 50 mls/hr 09/01/18 14:48 09/11/18 07:30 Cardene Iv Premix IV 0 mg/hr .Q4H PRN 0 mls/hr TITRATE PER MD ORDER Titration Protocol 5 MG/HR Propofol 1,000 mg in 100 mls @ 2.005 mls/hr 09/01/18 16:49 09/09/18 14:30 Diprivan IV 0 mcg/kg/min .Q24H PRN 0 mls/hr TITRATE PER MD ORDER Titration Protocol 5 MCG/KG/MIN Levetiracetam 750 mg/ Sodium 107.5 mls @ 215 mls/hr 09/04/18 10:00 09/11/18 09:16 Chloride IVPB 215 mls/hr Q12 CLAY Administration Cefepime HCl 1 gm in 100 mls @ 100 mls/hr 09/08/18 14:00 09/11/18 13:35 Maxipime 1gm IVPB 09/17/18 14:01 100 mls/hr Q8 CLAY Administration Protocol Vancomycin HCl 1 gm in 250 mls @ 167 mls/hr 09/08/18 12:00 09/11/18 11:31 Vancomycin 1gm IVPB 09/18/18 12:01 167 mls/hr Q12H CLAY Administration Protocol Sodium Chloride 1,000 mls @ 100 mls/hr 09/09/18 06:00 09/11/18 08:00 Sodium Chloride 0.9% IV 100 mls/hr .Q10H CLAY Administration Acetaminophen 1,000 mg in 100 mls @ 400 mls/hr 09/10/18 23:20 Ofirmev IVPB 09/12/18 23:21 Q6H PRN Temperature Labetalol HCl 20 mg 08/31/18 21:26 09/05/18 01:07 Trandate IV 20 mg Q2H PRN Administration Hypertension - Patient Studies Lab Studies: Microbiology Studies 09/07/18 11:45 Blood Culture - Preliminary Blood NO GROWTH AFTER 4 DAYS 09/07/18 11:15 Blood Culture - Preliminary Blood NO GROWTH AFTER 4 DAYS Lab Studies 09/11/18 09/11/18 09/11/18 Range/Units 15:47 11:45 07:33 WBC (4.5-11.0) 10^3/uL RBC (3.5-6.1) 10^6/uL Hgb (12.0-16.0) g/dL Hct (36.0-48.0) % MCV (80.0-105.0) fl MCH (25.0-35.0) pg MCHC (31.0-37.0) g/dl RDW (11.5-14.5) % Plt Count (120.0-450.0) 10^3/uL MPV (7.0-11.0) fl Neut % (Auto) (50.0-68.0) % Lymph % (Auto) (22.0-35.0) % [place] % (Auto) (1.0-6.0) % Eos % (Auto) (1.5-5.0) % Baso % (Auto) (0.0-3.0) % Lymph # (Auto) (1.2-3.4) [place] # (Auto) (0.1-0.6) Eos # (Auto) (0.0-0.7) Baso # (Auto) (0.0-2.0) K/mm3 Absolute Neuts (auto) (1.4-6.5) Sodium (132-148) mmol/L Potassium (3.6-5.0) mmol/L Chloride (98-107) mmol/L Carbon Dioxide (21-33) mmol/L Anion Gap (10-20) BUN (7-21) mg/dL Creatinine (0.7-1.2) mg/dl Est GFR ( Amer) Est GFR (Non-Af Amer) POC Glucose (mg/dL) 136 H 179 H 147 H (65-110) mg/dL Random Glucose (70-110) mg/dL Calcium (8.4-10.5) mg/dL Total Bilirubin (0.2-1.3) mg/dL AST (14-36) U/L ALT (7-56) U/L Alkaline Phosphatase (38-126) U/L Troponin I ng/mL Total Protein (5.8-8.3) g/dL Albumin (3.0-4.8) g/dL Globulin gm/dL Albumin/Globulin Ratio (1.1-1.8) 09/11/18 09/11/18 09/10/18 Range/Units 04:32 04:32 22:13 WBC 15.8 H D (4.5-11.0) 10^3/uL RBC 4.66 (3.5-6.1) 10^6/uL Hgb 9.1 L (12.0-16.0) g/dL Hct 29.9 L (36.0-48.0) % MCV 64.2 L (80.0-105.0) fl MCH 19.5 L (25.0-35.0) pg MCHC 30.4 L (31.0-37.0) g/dl RDW 16.3 H (11.5-14.5) % Plt Count 282 (120.0-450.0) 10^3/uL MPV 9.2 (7.0-11.0) fl Neut % (Auto) 83.0 H (50.0-68.0) % Lymph % (Auto) 9.0 L (22.0-35.0) % [place] % (Auto) 7.2 H (1.0-6.0) % Eos % (Auto) 0.6 L (1.5-5.0) % Baso % (Auto) 0.2 (0.0-3.0) % Lymph # (Auto) 1.4 (1.2-3.4) [place] # (Auto) 1.1 H (0.1-0.6) Eos # (Auto) 0.1 (0.0-0.7) Baso # (Auto) 0.03 (0.0-2.0) K/mm3 Absolute Neuts (auto) 13.08 H (1.4-6.5) Sodium 154 H (132-148) mmol/L Potassium 3.2 L (3.6-5.0) mmol/L Chloride 120 H (98-107) mmol/L Carbon Dioxide 31 (21-33) mmol/L Anion Gap 7 L (10-20) BUN 21 (7-21) mg/dL Creatinine 0.6 L (0.7-1.2) mg/dl Est GFR ( Amer) > 60 Est GFR (Non-Af Amer) > 60 POC Glucose (mg/dL) 218 H (65-110) mg/dL Random Glucose 174 H (70-110) mg/dL Calcium 8.7 (8.4-10.5) mg/dL Total Bilirubin 0.3 (0.2-1.3) mg/dL AST 128 H D (14-36) U/L ALT 176 H (7-56) U/L Alkaline Phosphatase 187 H D (38-126) U/L Troponin I < 0.01 ng/mL Total Protein 6.5 (5.8-8.3) g/dL Albumin 2.9 L (3.0-4.8) g/dL Globulin 3.6 gm/dL Albumin/Globulin Ratio 0.8 L (1.1-1.8) 09/10/18 Range/Units 22:02 WBC (4.5-11.0) 10^3/uL RBC (3.5-6.1) 10^6/uL Hgb (12.0-16.0) g/dL Hct (36.0-48.0) % MCV (80.0-105.0) fl MCH (25.0-35.0) pg MCHC (31.0-37.0) g/dl RDW (11.5-14.5) % Plt Count (120.0-450.0) 10^3/uL MPV (7.0-11.0) fl Neut % (Auto) (50.0-68.0) % Lymph % (Auto) (22.0-35.0) % [place] % (Auto) (1.0-6.0) % Eos % (Auto) (1.5-5.0) % Baso % (Auto) (0.0-3.0) % Lymph # (Auto) (1.2-3.4) [place] # (Auto) (0.1-0.6) Eos # (Auto) (0.0-0.7) Baso # (Auto) (0.0-2.0) K/mm3 Absolute Neuts (auto) (1.4-6.5) Sodium (132-148) mmol/L Potassium (3.6-5.0) mmol/L Chloride (98-107) mmol/L Carbon Dioxide (21-33) mmol/L Anion Gap (10-20) BUN (7-21) mg/dL Creatinine (0.7-1.2) mg/dl Est GFR ( Amer) Est GFR (Non-Af Amer) POC Glucose (mg/dL) 125 H (65-110) mg/dL Random Glucose (70-110) mg/dL Calcium (8.4-10.5) mg/dL Total Bilirubin (0.2-1.3) mg/dL AST (14-36) U/L ALT (7-56) U/L Alkaline Phosphatase (38-126) U/L Troponin I ng/mL Total Protein (5.8-8.3) g/dL Albumin (3.0-4.8) g/dL Globulin gm/dL Albumin/Globulin Ratio (1.1-1.8) Laboratory Results - last 24 hr 09/10/18 09/10/18 09/11/18 22:02 22:13 04:32 WBC 15.8 H D RBC 4.66 Hgb 9.1 L Hct 29.9 L MCV 64.2 L MCH 19.5 L MCHC 30.4 L RDW 16.3 H Plt Count 282 MPV 9.2 Neut % (Auto) 83.0 H Lymph % (Auto) 9.0 L [place] % (Auto) 7.2 H Eos % (Auto) 0.6 L Baso % (Auto) 0.2 Lymph # (Auto) 1.4 [place] # (Auto) 1.1 H Eos # (Auto) 0.1 Baso # (Auto) 0.03 Absolute Neuts (auto) 13.08 H Sodium Potassium Chloride Carbon Dioxide Anion Gap BUN Creatinine Est GFR ( Amer) Est GFR (Non-Af Amer) POC Glucose (mg/dL) 125 H 218 H Random Glucose Calcium Total Bilirubin AST ALT Alkaline Phosphatase Troponin I Total Protein Albumin Globulin Albumin/Globulin Ratio 09/11/18 09/11/18 09/11/18 04:32 07:33 11:45 WBC RBC Hgb Hct MCV MCH MCHC RDW Plt Count MPV Neut % (Auto) Lymph % (Auto) [place] % (Auto) Eos % (Auto) Baso % (Auto) Lymph # (Auto) [place] # (Auto) Eos # (Auto) Baso # (Auto) Absolute Neuts (auto) Sodium 154 H Potassium 3.2 L Chloride 120 H Carbon Dioxide 31 Anion Gap 7 L BUN 21 Creatinine 0.6 L Est GFR ( Amer) > 60 Est GFR (Non-Af Amer) > 60 POC Glucose (mg/dL) 147 H 179 H Random Glucose 174 H Calcium 8.7 Total Bilirubin 0.3 AST 128 H D ALT 176 H Alkaline Phosphatase 187 H D Troponin I < 0.01 Total Protein 6.5 Albumin 2.9 L Globulin 3.6 Albumin/Globulin Ratio 0.8 L 09/11/18 15:47 WBC RBC Hgb Hct MCV MCH MCHC RDW Plt Count MPV Neut % (Auto) Lymph % (Auto) [place] % (Auto) Eos % (Auto) Baso % (Auto) Lymph # (Auto) [place] # (Auto) Eos # (Auto) Baso # (Auto) Absolute Neuts (auto) Sodium Potassium Chloride Carbon Dioxide Anion Gap BUN Creatinine Est GFR ( Amer) Est GFR (Non-Af Amer) POC Glucose (mg/dL) 136 H Random Glucose Calcium Total Bilirubin AST ALT Alkaline Phosphatase Troponin I Total Protein Albumin Globulin Albumin/Globulin Ratio Radiology Impressions: Radiology Impressions Head CT 09/11/18 07:00 IMPRESSION: Postoperative changes status post right frontal craniotomy with trace residual pneumocephaly limited right frontal parietal temporal scalp fluid collection. Intraparenchymal hemorrhage is stable at the right frontal parietal distribution with edema extending into right frontal, temporal and parietal lobes once again without significant interval change greater leftward midline shift is stable at 17 mm. However, an acute subacute large ischemic infarct affecting the right posterior artery distribution with a small ischemic infarct at the left thalamus. Some crowding of the upper basilar cisterns identified with mild dilatation of the left lateral ventricle noted and effacement of the right lateral ventricle stable. Findings discussed with Dr. Hinds in lieu of Dr. Sheikh written down read back verification 09/11/2018 9:01 a.m.. Chest X-Ray 09/11/18 09:17 IMPRESSION: Minimal infiltrate at the right lung base. A tracheostomy is now in place. Nasogastric tube remains in satisfactory position EKG/Cardiology Studies: Cardiology / EKG Studies 09/11/18 04:21 EKG [ELECTROCARDIOGRAM] Stat Comment: Reason For Exam: [facility] Critical Care Progress Note - Nutrition Nutrition: Nutrition Category Date Time Status NPO Diet [DIET] Diets 09/10/18 Breakfast Ordered Attending/Attestation - Attestation I have personally seen and examined this patient.: Yes I have fully participated in the care of the patient.: Yes I have reviewed all pertinent clinical information: Yes Notes (Text): 09/11/18 16:52 63 yo female with ICH s/p evacuation, complicated by VDRF, s/p trach. Noted in am to have ams and non reactive pupils, but overbreathing vent-->CTH: thalamic and [employer] infarcts with swelling and subsequent herniation. As per neuro (Dr. Gutierrez): irreversible changes-->suggest pallaitive care. Discussed with family-->will continue supportive measures for now. mainatin euvolemia, euglycemia and normothermia, 02sat>90%. HOB>35, oral hygiene. dvt/gi prophyalxis ccm time 40 min
--- NOTE | 2018-09-11 15:42 | CP.PCM.PN ---
Subjective - Date & Time of Evaluation Date of Evaluation: 09/11/18 Time of Evaluation: 10:20 - Subjective Subjective: Surgery Progress note. Dr. Angulo Pt seen and examined at bedside. No acute events overnight. New ischemic infarcts noted on recent head CT. On vent. tracheostomy site clean and dry. Objective - Vital Signs/Intake and Output Vital Signs (last 24 hours): Temp Pulse Resp BP Pulse Ox 97.5 F L 65 12 140/43 L 94 L 09/11/18 12:00 09/11/18 14:00 09/11/18 12:00 09/11/18 04:00 09/11/18 12:00 Intake and Output: 09/11/18 09/11/18 06:59 18:59 Intake Total 1650 10 Output Total 1200 Balance 450 10 - Medications Medications: Current Medications Acetaminophen (Tylenol 325mg Tab) 650 mg PO Q4 PRN PRN Reason: Fever >100.4 F Famotidine (Pepcid) 20 mg IVP DAILY [facility] Last Admin: 09/11/18 09:16 Dose: 20 mg Nicardipine HCl (Cardene Iv Premix) 20 mg in 200 mls @ 50 mls/hr IV .Q4H PRN; Protocol PRN Reason: TITRATE PER MD ORDER Last Titration: 09/11/18 07:30 Dose: 0 mg/hr, 0 mls/hr Propofol (Diprivan) 1,000 mg in 100 mls @ 2.005 mls/hr IV .Q24H PRN; Protocol PRN Reason: TITRATE PER MD ORDER Last Titration: 09/09/18 14:30 Dose: 0 mcg/kg/min, 0 mls/hr Levetiracetam 750 mg/ Sodium (Chloride) 107.5 mls @ 215 mls/hr IVPB Q12 CLAY Last Admin: 09/11/18 09:16 Dose: 215 mls/hr Cefepime HCl (Maxipime 1gm) 1 gm in 100 mls @ 100 mls/hr IVPB Q8 CLAY; Protocol Stop: 09/17/18 14:01 Last Admin: 09/11/18 13:35 Dose: 100 mls/hr Vancomycin HCl (Vancomycin 1gm) 1 gm in 250 mls @ 167 mls/hr IVPB Q12H [facility]; Protocol Stop: 09/18/18 12:01 Last Admin: 09/11/18 11:31 Dose: 167 mls/hr Sodium Chloride (Sodium Chloride 0.9%) 1,000 mls @ 100 mls/hr IV .Q10H CLAY Last Admin: 09/11/18 08:00 Dose: 100 mls/hr Acetaminophen (Ofirmev) 1,000 mg in 100 mls @ 400 mls/hr IVPB Q6H PRN PRN Reason: Temperature Stop: 09/12/18 23:21 Labetalol HCl (Trandate) 20 mg IV Q2H PRN PRN Reason: Hypertension Last Admin: 09/05/18 01:07 Dose: 20 mg - Labs Labs: 09/11/18 04:32 09/11/18 04:32 PT 13.5 SECONDS (9.4-12.5) H 09/09/18 06:00 INR 1.19 09/09/18 06:00 APTT 28.7 Seconds (26.9-38.3) 09/09/18 06:00 - Constitutional Appears: Older Than Stated Age, Chronically Ill - Head Exam Additional comments: Craniotomy dressing in place. - Eye Exam Eye Exam: absent: Scleral icterus - ENT Exam ENT Exam: Mucous Membranes Moist Additional comments: Tracheostomy site clean and dry. On vent - Respiratory Exam Respiratory Exam: NORMAL BREATHING PATTERN - Cardiovascular Exam Cardiovascular Exam: absent: JVD Assessment and Plan - Assessment and Plan (Free Text) Assessment: 63yo F with large hemarrhagic stroke s/p craniotomy and subsequent VDRF. s/p Tracheostomy. POD 1 Plan: - Continue aggressive vent weaning as per ICU - Aggressive airway suctioning - Trach sutures to be removed in 10 days - all medical management as per neuro and ICU teams Further recs as per Dr. Kev Gandhi PYG2 surgery
[2018-09-12 05:00] VITALS: RESP 12
[2018-09-12] MEDS: Labetalol 5mg/ml (4ml) IV PRN (05:18)
[2018-09-12] MEDS: Cefepime 1gm in NS 100ml 1 GM/100 ML BAG IVPB SCH ×2 (05:22→15:12)
[2018-09-12 07:37] LABS: ALB/GLOB RATIO 0.8 (1.1-1.8); ALT/SGPT 165 U/L (7-56); AST/SGOT 103 U/L (14-36); BLOOD UREA NITROGEN 17 mg/dL (7-21); CALCIUM 8.9 mg/dL (8.4-10.5); GFR NON-AFRICAN AMERICAN > 60
[2018-09-12] MEDS ORDERED: Potassium Chloride 40 mEq/30 ml LIQ UD PO ONE (07:52)
--- NOTE | 2018-09-12 08:20 | CP.PCM.PN ---
Subjective - Date & Time of Evaluation Date of Evaluation: 09/12/18 Time of Evaluation: 08:11 - Subjective Subjective: Surgery Progress Note for Dr. Angulo S/E at bedside. Limited ROS 2/2 patient clinical condition. Trached with vent in place. Objective - Vital Signs/Intake and Output Vital Signs (last 24 hours): Temp Pulse Resp BP Pulse Ox 99.4 F 65 12 148/78 99 09/12/18 04:00 09/12/18 06:30 09/12/18 04:00 09/12/18 06:30 09/12/18 06:30 Intake and Output: 09/12/18 09/12/18 06:59 18:59 Intake Total 1300 Output Total 2700 Balance -1400 - Medications Medications: Current Medications Acetaminophen (Tylenol 325mg Tab) 650 mg PO Q4 PRN PRN Reason: Fever >100.4 F Famotidine (Pepcid) 20 mg IVP DAILY CLAY Last Admin: 09/11/18 09:16 Dose: 20 mg Nicardipine HCl (Cardene Iv Premix) 20 mg in 200 mls @ 50 mls/hr IV .Q4H PRN; Protocol PRN Reason: TITRATE PER MD ORDER Last Titration: 09/11/18 07:30 Dose: 0 mg/hr, 0 mls/hr Propofol (Diprivan) 1,000 mg in 100 mls @ 2.005 mls/hr IV .Q24H PRN; Protocol PRN Reason: TITRATE PER MD ORDER Last Titration: 09/09/18 14:30 Dose: 0 mcg/kg/min, 0 mls/hr Levetiracetam 750 mg/ Sodium (Chloride) 107.5 mls @ 215 mls/hr IVPB Q12 CLAY Last Admin: 09/11/18 21:42 Dose: 215 mls/hr Cefepime HCl (Maxipime 1gm) 1 gm in 100 mls @ 100 mls/hr IVPB Q8 CLAY; Protocol Stop: 09/17/18 14:01 Last Admin: 09/12/18 05:22 Dose: 100 mls/hr Vancomycin HCl (Vancomycin 1gm) 1 gm in 250 mls @ 167 mls/hr IVPB Q12H CLAY; Protocol Stop: 09/18/18 12:01 Last Admin: 09/11/18 23:21 Dose: 167 mls/hr Sodium Chloride (Sodium Chloride 0.9%) 1,000 mls @ 100 mls/hr IV .Q10H CLAY Last Admin: 09/11/18 22:26 Dose: 100 mls/hr Acetaminophen (Ofirmev) 1,000 mg in 100 mls @ 400 mls/hr IVPB Q6H PRN PRN Reason: Temperature Stop: 09/12/18 23:21 Last Admin: 09/11/18 21:31 Dose: 400 mls/hr Labetalol HCl (Trandate) 20 mg IV Q2H PRN PRN Reason: Hypertension Last Admin: 09/12/18 05:18 Dose: 20 mg - Labs Labs: 09/11/18 04:32 09/12/18 06:00 PT 13.5 SECONDS (9.4-12.5) H 09/09/18 06:00 INR 1.19 09/09/18 06:00 APTT 28.7 Seconds (26.9-38.3) 09/09/18 06:00 - Constitutional Appears: Chronically Ill - Head Exam Additional comments: craniotomy dressing noted - Eye Exam Eye Exam: absent: Scleral icterus - ENT Exam ENT Exam: Mucous Membranes Moist Additional comments: trached and vented - Respiratory Exam Respiratory Exam: NORMAL BREATHING PATTERN - Cardiovascular Exam Cardiovascular Exam: +S1, +S2 - GI/Abdominal Exam GI & Abdominal Exam: Soft - Neurological Exam Neurological Exam: absent: Alert, Awake - Skin Skin Exam: Intact, Normal Color Assessment and Plan - Assessment and Plan (Free Text) Assessment: 63yo F with large hemarrhagic stroke s/p craniotomy and subsequent VDRF. s/p Tracheostomy. POD 2 Plan: Continue aggressive vent weaning as per ICU Aggressive airway suctioning All medical management as per neuro and ICU teams Patient for ltach placement today. Will do trach change at bedside Further recs as per Dr. Angulo PGY-1 Tanya Maravilla
--- NOTE | 2018-09-12 10:00 | CP.PCM.PN ---
Subjective - Date & Time of Evaluation Date of Evaluation: 09/11/18 Time of Evaluation: 10:15 - Subjective Subjective: Neurology Progress Note Mrs. Nunez was seen and examined today at bedside in the ICU. I discussed the new CT scan findings with the patient's family and also informed them of the changes in her clinical status. She had a trach placed yesterday, last night pupils became less responsive. CT scan of the head done this morning showed worsening midline shift, edema and herniation on to the brainstem. Clinically, the patient's pupils were fixed, dilated and non-responsive to light. 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 Objective - Vital Signs/Intake and Output Vital Signs (last 24 hours): Temp Pulse Resp BP Pulse Ox 99.4 F 65 12 148/78 99 09/12/18 04:00 09/12/18 06:30 09/12/18 04:00 09/12/18 06:30 09/12/18 06:30 Intake and Output: 09/12/18 09/12/18 06:59 18:59 Intake Total 1300 Output Total 2700 Balance -1400 - Medications Medications: Current Medications Acetaminophen (Tylenol 325mg Tab) 650 mg PO Q4 PRN PRN Reason: Fever >100.4 F Famotidine (Pepcid) 20 mg IVP DAILY [facility] Last Admin: 09/11/18 09:16 Dose: 20 mg Nicardipine HCl (Cardene Iv Premix) 20 mg in 200 mls @ 50 mls/hr IV .Q4H PRN; Protocol PRN Reason: TITRATE PER MD ORDER Last Titration: 09/11/18 07:30 Dose: 0 mg/hr, 0 mls/hr Propofol (Diprivan) 1,000 mg in 100 mls @ 2.005 mls/hr IV .Q24H PRN; Protocol PRN Reason: TITRATE PER MD ORDER Last Titration: 09/09/18 14:30 Dose: 0 mcg/kg/min, 0 mls/hr Levetiracetam 750 mg/ Sodium (Chloride) 107.5 mls @ 215 mls/hr IVPB Q12 CLAY Last Admin: 09/11/18 21:42 Dose: 215 mls/hr Cefepime HCl (Maxipime 1gm) 1 gm in 100 mls @ 100 mls/hr IVPB Q8 CLAY; Protocol Stop: 09/17/18 14:01 Last Admin: 09/12/18 05:22 Dose: 100 mls/hr Vancomycin HCl (Vancomycin 1gm) 1 gm in 250 mls @ 167 mls/hr IVPB Q12H CLAY; Protocol Stop: 09/18/18 12:01 Last Admin: 09/11/18 23:21 Dose: 167 mls/hr Acetaminophen (Ofirmev) 1,000 mg in 100 mls @ 400 mls/hr IVPB Q6H PRN PRN Reason: Temperature Stop: 09/12/18 23:21 Last Admin: 09/11/18 21:31 Dose: 400 mls/hr Labetalol HCl (Trandate) 20 mg IV Q2H PRN PRN Reason: Hypertension Last Admin: 09/12/18 05:18 Dose: 20 mg - Labs Labs: 09/11/18 04:32 09/12/18 06:00 PT 13.5 SECONDS (9.4-12.5) H 09/09/18 06:00 INR 1.19 09/09/18 06:00 APTT 28.7 Seconds (26.9-38.3) 09/09/18 06:00 - Neurological Exam Neuro motor strength exam: Left Upper Extremity: 0, Right Upper Extremity: 0, Left Lower Extremity: 0, Right Lower Extremity: 0 Additional comments: Intubated, off sedation, pupils are fixed, dilated. Decorticate posturing on the right. No response to pain on the left. Does not open eyes to pain. GCS = 3T Assessment and Plan (1) Intracerebral hemorrhage Assessment & Plan: In addition, the patient has new and evolving ischemic strokes in the posterior and anterior circulation bilaterally. There is worsening edema, midline shift, uncal herniation and clinically the patient appears to be unresponsive with a GCS of 3T. The poor prognosis was expressed to the family. There is very little, if any, hope for a meaningful recovery at this time. I do not expect the patient to recover brainstem function. The family also wanted to speak with neurosurgery regarding the prognosis and if there were any other surgical options. I do not believe there is a surgical option at this time, but will defer to neurosurgery. Status: Acute
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
--- NOTE | 2018-09-12 12:05 | CP.PCM.PN ---
Subjective - Date & Time of Evaluation Date of Evaluation: 09/12/18 Time of Evaluation: 09:15 - Subjective Subjective: Continues to be on the ventilator, poorly responsive, no fevers. Objective - Vital Signs/Intake and Output Vital Signs (last 24 hours): Temp Pulse Resp BP Pulse Ox 97.6 F 56 L 16 140/43 L 97 09/11/18 08:00 09/11/18 10:00 09/11/18 08:00 09/11/18 04:00 09/11/18 08:00 Intake and Output: 09/11/18 09/11/18 06:59 18:59 Intake Total 1650 10 Output Total 1200 Balance 450 10 - Medications Medications: Current Medications Acetaminophen (Tylenol 325mg Tab) 650 mg PO Q4 PRN PRN Reason: Fever >100.4 F Famotidine (Pepcid) 20 mg IVP DAILY CLAY Last Admin: 09/11/18 09:16 Dose: 20 mg Nicardipine HCl (Cardene Iv Premix) 20 mg in 200 mls @ 50 mls/hr IV .Q4H PRN; Protocol PRN Reason: TITRATE PER MD ORDER Last Titration: 09/11/18 07:30 Dose: 0 mg/hr, 0 mls/hr Propofol (Diprivan) 1,000 mg in 100 mls @ 2.005 mls/hr IV .Q24H PRN; Protocol PRN Reason: TITRATE PER MD ORDER Last Titration: 09/09/18 14:30 Dose: 0 mcg/kg/min, 0 mls/hr Levetiracetam 750 mg/ Sodium (Chloride) 107.5 mls @ 215 mls/hr IVPB Q12 CLAY Last Admin: 09/11/18 09:16 Dose: 215 mls/hr Cefepime HCl (Maxipime 1gm) 1 gm in 100 mls @ 100 mls/hr IVPB Q8 CLAY; Protocol Stop: 09/17/18 14:01 Last Admin: 09/11/18 05:31 Dose: 100 mls/hr Vancomycin HCl (Vancomycin 1gm) 1 gm in 250 mls @ 167 mls/hr IVPB Q12H CLAY; Protocol Stop: 09/18/18 12:01 Last Admin: 09/11/18 11:31 Dose: 167 mls/hr Sodium Chloride (Sodium Chloride 0.9%) 1,000 mls @ 100 mls/hr IV .Q10H CLAY Last Admin: 09/11/18 08:00 Dose: 100 mls/hr Acetaminophen (Ofirmev) 1,000 mg in 100 mls @ 400 mls/hr IVPB Q6H PRN PRN Reason: Temperature Stop: 09/12/18 23:21 Potassium Chloride (Potassium Chloride 10 Meq/100 Ml) 10 meq in 100 mls @ 50 mls/hr IVPB Q2H CLAY Stop: 09/11/18 14:59 Last Admin: 09/11/18 11:30 Dose: 50 mls/hr Labetalol HCl (Trandate) 20 mg IV Q2H PRN PRN Reason: Hypertension Last Admin: 09/05/18 01:07 Dose: 20 mg - Labs Labs: 09/11/18 04:32 09/11/18 04:32 PT 13.5 SECONDS (9.4-12.5) H 09/09/18 06:00 INR 1.19 09/09/18 06:00 APTT 28.7 Seconds (26.9-38.3) 09/09/18 06:00 - Constitutional Appears: Chronically Ill - Head Exam Additional comments: right frontotemporal area with dressings in place - Respiratory Exam Respiratory Exam: Decreased Breath Sounds - Cardiovascular Exam Cardiovascular Exam: +S1, +S2 - GI/Abdominal Exam GI & Abdominal Exam: Soft. absent: Tenderness Assessment and Plan - Assessment and Plan (Free Text) Plan: Assessment Systemic inflammatory response syndrome with fevers, probably due to right frontoparietal heomrrhagic CVA S/P right craniectomy and partial evacuation of hemorrhage POD #9, R/O sepsis from right sided HAP, on the ventilator, now S/P tracheostomy history of migraines Plan continue Cefepime day 5 ; blood cx are negative, MRSA screen is negative, sputum cx showing MSSA; reviewed CXR yesterday which shows minimal right sided infiltrate which is an improvement; PCT is only 0.25; target up to 7 days of antibiotics overall prognosis is poor will continue to monitor clinically
[2018-09-12 12:48] LABS: BASO # 0.01 K/mm3 (0.0-2.0); BASO % 0.1 % (0.0-3.0); EOS # 0.2 (0.0-0.7); EOS % 1.7 % (1.5-5.0); HEMOGLOBIN 8.6 g/dL (12.0-16.0); LYMPH # 0.7 (1.2-3.4); LYMPH % 6.6 % (22.0-35.0); MEAN CELL VOLUME 65.2 fl (80.0-105.0); MEAN CORPUSCULAR HEMOGLOBIN 19.8 pg (25.0-35.0); MEAN CORPUSCULAR HGB CONC 30.4 g/dl (31.0-37.0); MEAN PLATELET VOLUME 9.5 fl (7.0-11.0); MONO # 0.8 (0.1-0.6); MONO % 6.8 % (1.0-6.0); RBC 4.34 10^6/uL (3.5-6.1); RED CELL DISTRIBUTION WIDTH 16.3 % (11.5-14.5)
[2018-09-12 13:17] LABS: BLOOD UREA NITROGEN 18 mg/dL (7-21); CALCIUM 8.9 mg/dL (8.4-10.5); GFR NON-AFRICAN AMERICAN > 60
--- NOTE | 2018-09-12 13:38 | PN ---
DATE: 09/12/2018 SUBJECTIVE: A 63-year-old white female in the intensive care unit, bed 3. The patient is status post trach, status post right intracerebral bleed, status post surgical intervention for evacuation of clot. The patient has had recurrent MRIs have shown other areas of CVA in the right hemisphere, but in the left hemisphere and the left thalamus, the patient has no response off sedation. She is not respirator. She is not responding to verbal or tactile stimuli. Pupils are fixed, but not dilated. PHYSICAL EXAMINATION: GENERAL: She is not sedated. She is intubated, not responsive. VITAL SIGNS: Her temperature is 99.4, blood pressure is 148/78, heart rate is 70. CHEST: Clear to auscultation and percussion. HEART: Regular sinus rhythm. EXTREMITIES: Her Babinski's are upgoing bilaterally. She has no tone in the upper or lower extremities. NEUROLOGIC: Her reflexes are flat. She is not responding to painful or tactile stimuli or to verbal stimuli. LABORATORY DATA: She does have an elevated white count of 15,800. She does have an elevated sodium of 158, potassium of 3.1. IMPRESSION: Massive intracerebral bleed, recurrent cerebrovascular accidents bilaterally. Ventilator dependent. Poor prognosis was discussed with the family. We will have a repeat electroencephalogram to assess and compare with the previous electroencephalogram to assess brain function to better inform the family of the prognosis. Pal Elizabeth MD
[2018-09-12 13:58] VITALS: TEMP 99
[2018-09-12] MEDS ORDERED: NOREPINEPHRINE BIT/0.9 % NACL 4 MG/250 ML BAG IV ONE (18:39)
[2018-09-12] MEDS ORDERED: NOREPINEPHRINE BIT/0.9 % NACL 4 MG/250 ML BAG IV PRN (18:43)
[2018-09-12 20:01] VITALS: BP 103/71; PULSE 88; O2SAT 98
--- NOTE | 2018-09-12 20:52 | PCM.SURG1 ---
Surgeon's Initial Post Op Note - Surgeon's Notes Surgeon: Dr. Angulo Lump Maker: Hiram PGY2 Type of Anesthesia: None Pre-Operative Diagnosis: Ventilator Dependent Respiratory Failure Operative Findings: Tracheostomy #8 Cuffed with disposable inner cannula used Post-Operative Diagnosis: same Operation Performed: Bedside exchange of #8 Tracheostomy Specimen/Specimens Removed: none Estimated Blood Loss: EBL {In ML}: 0 Blood Products Given: N/A Drains Used: No Drains Post-Op Condition: Fair Date of Surgery/Procedure: 09/12/18 Time of Surgery/Procedure: 18:00
--- NOTE | 2018-09-13 14:19 | DS ---
HOSPITAL COURSE: The patient is a 63-year-old white female with a history of hypercholesterolemia, otherwise unremarkable. The patient has been in the hospital attending to her with multiple myeloma, who was having a procedure done when she developed muscle sensation and tingling in her left hand followed by drooping of her face. She was taken to emergency room and was found to have a large right intracerebral bleed. The patient was admitted to the intensive care unit. She was seen in consultation by Dr. Gutierrez and Dr. Paula for Neurosurgery. Her bleed continued to expand over the next 24 to 48 hours, eventually subsided; however, she was left with a dense left hemiparesis. Eventually, the patient's condition deteriorated, and she started having some right-sided symptoms, and then she protected airway and was intubated. Eventually, the patient was taken to surgery by Dr. Paula and had evacuation of the right intracerebral bleed. The patient eventually also had a tracheostomy. She became vent dependent. The patient failed to regain consciousness and failed to regain use of the left or right extremities. The patient's prognosis was severely poor. She had repeat CAT scans, which did not reveal any further bleeding; however, did reveal that the patient continued to have other sides of cerebrovascular accidents. There was an acute versus subacute large ischemic infarct in the right posterior artery distribution. A small ischemic infarct in the left thalamus along with the residual pneumocephaly at the right frontoparietal temporal scalp fluid collection. Intraparenchymal hemorrhage was stable at the right frontoparietal distribution, and there was also marked edema. The patient's course was complicated by waxing and waning fevers of unknown origin, possibly neurological. The patient did not wish to cover with antibiotics; however, her MRSA was not detected, and there was no growth in her blood or her urine in multiple days. Eventually, there were some small amounts of Staph aureus in her sputum culture, but not in the urine or in the blood. The patient was covered with antibiotics and was seen in consultation with Dr. Anglin for Infectious Disease. Eventually, the patient was accepted to the LTAC unit for continued observation and treatment of her massive right intracerebral bleed. FINAL DISCHARGE DIAGNOSES: 1. Right intracerebral bleed. 2. Ventilator dependent. 3. Respiratory failure. 4. Multiple cerebrovascular accidents. 5. Fever of unknown origin. Pal Elizabeth MD
== END 2018-09-12 20:05 | DRG 3 ==
LOC: ED 14:42 → ERH 16:49 → ICU 18:39
PROVIDERS: ADMIT Internal Medicine; ATTEND Internal Medicine
PROC: 06HN33Z Insertion of Infusion Device into Left Femoral Vein, Percutaneous Approach (ICD-10-PCS; 2018-08-31)
PROC: B54CZZA Ultrasonography of Left Lower Extremity Veins, Guidance (ICD-10-PCS; 2018-08-31)
PROC: 5A1955Z Respiratory Ventilation, Greater than 96 Consecutive Hours (ICD-10-PCS; 2018-09-01)
PROC: 0BH18EZ Insertion of Endotracheal Airway into Trachea, Via Natural or Artificial Opening Endoscopic (ICD-10-PCS; 2018-09-01)
PROC: 00C70ZZ Extirpation of Matter from Cerebral Hemisphere, Open Approach (ICD-10-PCS; 2018-09-03)
PROC: 02HV33Z Insertion of Infusion Device into Superior Vena Cava, Percutaneous Approach (ICD-10-PCS; 2018-09-03)
PROC: 0B110F4 Bypass Trachea to Cutaneous with Tracheostomy Device, Open Approach (ICD-10-PCS; principal; 2018-09-10 07:30)
DX: I61.0 Nontraumatic intracerebral hemorrhage in hemisphere, subcortical (principal); G93.6 Cerebral edema; G93.5 Compression of brain; G92 Toxic encephalopathy; J96.90 Respiratory failure, unspecified, unspecified whether with hypoxia or hypercapnia; I63.539 Cerebral infarction due to unspecified occlusion or stenosis of unspecified posterior cerebral artery; G81.94 Hemiplegia, unspecified affecting left nondominant side; I16.1 Hypertensive emergency; R41.4 Neurologic neglect syndrome; R65.10 Systemic inflammatory response syndrome (SIRS) of non-infectious origin without acute organ dysfunction; Z99.11 Dependence on respirator [ventilator] status; J95.851 Ventilator associated pneumonia; R29.719 NIHSS score 19; R29.810 Facial weakness; R47.1 Dysarthria and anarthria; E78.00 Pure hypercholesterolemia, unspecified; G43.909 Migraine, unspecified, not intractable, without status migrainosus; I95.9 Hypotension, unspecified; D50.9 Iron deficiency anemia, unspecified; E78.5 Hyperlipidemia, unspecified; E87.6 Hypokalemia; Z82.49 Family history of ischemic heart disease and other diseases of the circulatory system; Y84.8 Other medical procedures as the cause of abnormal reaction of the patient, or of later complication, without mention of misadventure at the time of the procedure; Z79.899 Other long term (current) drug therapy; Z86.73 Personal history of transient ischemic attack (TIA), and cerebral infarction without residual deficits; Z87.440 Personal history of urinary (tract) infections; A49.01 Methicillin susceptible Staphylococcus aureus infection, unspecified site